=== PATIENT | male | born 1945 | race Caucasian/White ===

== ENCOUNTER 2017-11-18 22:31 | Emergency (ER) | payer OTHER ==
--- NOTE | 2017-11-18 23:40 | RAD REPORT ---
EXAM DESCRIPTION: RAD - Forearm Left - 11/18/2017 11:27 pm CLINICAL HISTORY: PAIN History of fall, trauma COMPARISON: None FINDINGS: No acute fracture or dislocation is seen.
--- NOTE | 2017-11-18 23:42 | RAD REPORT ---
EXAM DESCRIPTION: RAD - Humerus Left - 11/18/2017 11:27 pm CLINICAL HISTORY: PAIN Trauma, fall COMPARISON: None FINDINGS: No acute fracture or dislocation is identified.
[2017-11-19 00:06] LABS: Absolute Lymphocytes (CBC) 1.4 K/uL (0.7-4.9); Absolute Monocytes 0.5 K/uL (0.1-1.3); Absolute Neutrophil 3.3 K/uL (1.8-8.0); Basophils % 0.4 % (0-1.3); Eosinophils % 6.7 % (0-4.4); Hematocrit 41.7 % (39.6-49.0); Lymphocytes % 24.8 % (15.3-44.8); MCV 93.9 fL (80-100); MPV 8.9 fL (7.6-11.3); Monocytes % 8.8 % (3.3-12.3); RBC Red Blood Cell Count 4.44 M/uL (4.33-5.43)
[2017-11-19 00:08] LABS: Potassium 4.2 mmol/L (3.5-5.1)
[2017-11-19] MEDS ORDERED: KETOROLAC 30 MG/ML INJ ONE (01:14)
--- NOTE | 2017-11-19 02:07 | ER ---
Nurse's Notes [facility] Name: Kp Arriola Age: 72 yrs Sex: Male : 1945 Arrival Date: 11/18/2017 Time: 22:35 Bed 13 Private MD: João Zheng V Diagnosis: Fall;left arm pain;abnormal chest CT;atypical pneumonia Presentation: 11/18 22:45 Presenting complaint: Patient states: fell out of bed while having nightmare. pt c/o ak1 left shoulder, left arm, left rib pain with abrasion to right side of head. pt taking eloquis. Care prior to arrival: None. Mechanism of Injury: Fall out of bed an unknown distance. Trauma event details: Injury occurred in the [facility], Injury occurred: at home. Injury occurred: November 18, 2017. 22:45 Method Of Arrival: Ambulatory ak1 22:45 Acuity: GAMAL 2 ak1 22:52 Transition of care: patient was not received from another setting of care. Onset of bp symptoms was November 18, 2017 at 22:30. Risk Assessment: Do you want to hurt yourself or someone else? Patient reports no desire to harm self or others. Initial Sepsis Screen: Does the patient meet any 2 criteria? No. Patient's initial sepsis screen is negative. Does the patient have a suspected source of infection? No. Patient's initial sepsis screen is negative. 22:53 Transition of care: patient was not received from another setting of care. Onset of ak1 symptoms was November 18, 2017. Risk Assessment: Do you want to hurt yourself or someone else? Patient reports no desire to harm self or others. Initial Sepsis Screen: Does the patient meet any 2 criteria? No. Patient's initial sepsis screen is negative. Does the patient have a suspected source of infection? No. Patient's initial sepsis screen is negative. Trauma Activation: Alert Physician: ED Physician; Name: dr. azevedo; Notified At: 22:40; Arrived At: 22:40 Physician: General Surgeon; Name: ; Notified At: 22:40; Arrived At: Physician: Radiology; Name: stephanei; Notified At: 22:40; Arrived At: 22:42 Physician: Respiratory; Name: tom; Notified At: 22:40; Arrived At: 22:42 Physician: Lab; Name: ; Notified At: 22:40; Arrived At: Historical: - Allergies: 22:50 No Known Allergies; ak1 - Home Meds: 22:53 Lipitor 20 mg Oral tab 1 tab once daily [Active]; Cialis 5 mg oral tab 1 tab once daily ak1 [Active]; Ventolin Rotahaler/Rotacaps Inhl [Active]; Spiriva with HandiHaler inhalation inhalation [Active]; carvedilol 6.25 mg oral tab 1 tab [Active]; armor thyroid 30 mcg daily [Active]; Lasix 20 mg Oral tab [Active]; amiodarone 200 mg Oral tab 1 tab once daily [Active]; 22:54 Eliquis oral oral [Active]; ak1 - PMHx: 22:50 CHF; Atrial Fib; kidney cancer; ak1 - PSHx: 22:50 right kidney partial removal; Appendectomy; twisted intestine; ak1 - Immunization history: Last tetanus immunization: unknown. - Social history:: Smoking status: Patient/guardian denies using tobacco. - Ebola Screening: : No symptoms or risks identified at this time. Screenin:45 Abuse screen: Denies threats or abuse. Denies injuries from another. Tuberculosis ak1 screening: No symptoms or risk factors identified. 22:53 Nutritional screening: No deficits noted. Fall Risk None identified. ak1 Primary Survey: 22:45 Breathing/Chest: Respiratory pattern: regular, Respiratory effort: spontaneous, ak1 unlabored. Circulation: Skin color: pink, Skin temperature: warm, dry. Disability Alert. 11/19 02:34 Reassessment Breathing/Chest Respiratory pattern Regular Respiratory effort Unlabored. ak1 Secondary Survey: 11/18 22:48 HEENT: Head Other R FRONTAL ABRASION. Gastrointestinal: No deficits noted. Abdomen is bp soft, non-distended. : No signs and/or symptoms were reported regarding the genitourinary system. Musculoskeletal: Circulation, motion, and sensation intact. Range of motion: limited in left shoulder. Assessment: 22:44 General: Appears in no apparent distress. uncomfortable, slender, Behavior is calm, bp cooperative, appropriate for age. Pain: Complains of pain in forehead, left lateral anterior chest and anterior aspect of left shoulder. Neuro: Level of Consciousness is awake, alert, obeys commands, Oriented to person, place, time, situation, Appropriate for age. EENT: No signs and/or symptoms were reported regarding the EENT system. Cardiovascular: No deficits noted. Respiratory: Airway is patent Respiratory effort is even, unlabored, Respiratory pattern is regular, symmetrical. GI: No signs and/or symptoms were reported involving the gastrointestinal system. : No signs and/or symptoms were reported regarding the genitourinary system. Derm: Wound noted forehead Wound is ABRASION. Musculoskeletal: Circulation, motion, and sensation intact. Range of motion: limited in left shoulder. 22:50 Reassessment: PT TO CT. bp 11/19 00:10 Reassessment: ALL CURRENT ORDERS COMPLETED, RESULTS PENDING. PT EXPRESSING SOME RELIEF bp OF S/S. 00:45 Reassessment: RESULTS PENDING, PT RESTING QUIETLY. bp Vital Signs: 11/18 22:45 BP 153 / 104; Pulse 61; Resp 18; Temp 97.9(O); Pulse Ox 98% on R/A; Weight 79.38 kg ak1 (R); Height 6 ft. 1 in. (185.42 cm) (R); Pain 02/18; 11/19 00:00 BP 139 / 79; Pulse 50; Resp 14; Pulse Ox 96% ; bp 00:45 BP 133 / 74; Pulse 50; Resp 14; Pulse Ox 96% ; bp 02:33 BP 127 / 69; Pulse 50; Resp 14; Temp 98; Pulse Ox 96% on R/A; ak1 11/18 22:45 Body Mass Index 23.09 (79.38 kg, 185.42 cm) ak1 Adam Coma Score: 11/18 22:45 Eye Response: spontaneous(4). Verbal Response: oriented(5). Motor Response: obeys ak1 commands(6). Total: 15. Trauma Score (Adult): 22:45 Eye Response: spontaneous(1); Verbal Response: oriented(1); Motor Response: obeys ak1 commands(2); Systolic BP: > 89 mm Hg(4); Respiratory Rate: 10 to 29 per min(4); Adam Score: 15; Trauma Score: 12 ED Course: 22:35 Patient arrived in ED. es 22:35 Jãoo Zheng MD is Private Physician. es 22:38 Obed Flores is Primary Nurse. wh 22:39 Primary Nurse role handed off by Obed Flores bp 22:39 Anibal Booth, RN is Primary Nurse. bp 22:45 Patient has correct armband on for positive identification. Bed in low position. Call ak1 light in reach. Side rails up X 1. Adult w/ patient. 22:45 Patient maintains SpO2 saturation greater than 95% on room air. ak1 22:47 Triage completed. ak1 22:48 Thermoregulation: warm blanket given to patient. bp 22:50 Arm band placed on Patient placed in an exam room, on a stretcher, on pulse oximetry, ak1 Patient notified of wait time. 22:57 Caden Azevedo MD is Attending Physician. ps1 23:08 CT Traumagram (Head C Spine CAP wo con) In Process Unspecified. EDMS 23:08 CT completed. Patient tolerated procedure well. Patient moved to CT via stretcher. Patient moved back from CT. 23:08 Patient moved to radiology via stretcher. eh 23:26 Humerus Left XRAY In Process Unspecified. EDMS 23:26 Forearm Left XRAY In Process Unspecified. EDMS 23:47 Inserted saline lock: 22 gauge in right forearm, using aseptic technique. Blood bp collected. 11/19 02:06 João Zheng MD is Referral Physician. ps1 02:34 No provider procedures requiring assistance completed. IV discontinued, intact, ak1 bleeding controlled, No redness/swelling at site. Pressure dressing applied. Administered Medications: No medications were administered Intake: 11/18 22:48 PO: 0ml; Total: 0ml. bp Output: 22:48 Urine: 0ml; Total: 0ml. bp Outcome: 11/19 02:06 Discharge ordered by . ps1 02:34 Discharged to home ambulatory, with family. ak1 02:34 Condition: good 02:34 Discharge instructions given to patient, family, Instructed on discharge instructions, follow up and referral plans. no drinking with medication, no driving heavy equipment, medication usage, Demonstrated understanding of instructions, follow-up care, medications, Prescriptions given X 2. 02:34 Patient's length of stay was not longer than 2 hours. ak1 02:35 Patient left the ED. ak1 Signatures: Dispatcher [employer] Lissa Marcial Ervin eh Krenek, Amber RN RN ak1 Obed Flores Brian, RN RN bp Caden Azevedo MD MD ps1 Corrections: (The following items were deleted from the chart) 11/18 22:51 22:44 Immunization history Last tetanus immunization: unknown bp bp
--- NOTE | 2017-11-19 02:07 | EDPHYS ---
Physician Documentation [facility] Name: Kp Arriola Age: 72 yrs Sex: Male : 1945 Arrival Date: 11/18/2017 Time: 22:35 Bed 13 Private MD: João Zheng V ED Physician Caden Camacho HPI: 11/18 22:57 This 72 yrs old Male presents to ER via Ambulatory with complaints of Fall ps1 Injury. 22:59 fall on eliquis. Hit head. No LOC. Has left rib pain and shoulder pain. Pain rated as ps1 moderate. Worse with movement. No remitting factors. hx of kidney CA, afib, CHF. . Historical: - Allergies: 22:50 No Known Allergies; ak1 - Home Meds: 22:53 Lipitor 20 mg Oral tab 1 tab once daily [Active]; Cialis 5 mg oral tab 1 tab once daily ak1 [Active]; Ventolin Rotahaler/Rotacaps Inhl [Active]; Spiriva with HandiHaler inhalation inhalation [Active]; carvedilol 6.25 mg oral tab 1 tab [Active]; armor thyroid 30 mcg daily [Active]; Lasix 20 mg Oral tab [Active]; amiodarone 200 mg Oral tab 1 tab once daily [Active]; 22:54 Eliquis oral oral [Active]; ak1 - PMHx: 22:50 CHF; Atrial Fib; kidney cancer; ak1 - PSHx: 22:50 right kidney partial removal; Appendectomy; twisted intestine; ak1 - Immunization history: Last tetanus immunization: unknown. - Social history:: Smoking status: Patient/guardian denies using tobacco. - Ebola Screening: : No symptoms or risks identified at this time. ROS: 22:59 Constitutional: Negative for fever, chills, and weight loss, Eyes: Negative for injury, ps1 pain, redness, and discharge, Cardiovascular: Negative for chest pain, palpitations, and edema, Respiratory: Negative for shortness of breath, cough, wheezing, and pleuritic chest pain, Abdomen/GI: Negative for abdominal pain, nausea, vomiting, diarrhea, and constipation, Neuro: Negative for headache, weakness, numbness, tingling, and seizure, Psych: Negative for depression, anxiety, suicide ideation, homicidal ideation, and hallucinations. 22:59 MS/extremity: Positive for pain, tenderness, of the left shoulder and left lateral anterior chest. 22:59 Skin: Positive for abrasion(s), of the forehead. Exam: 22:59 Constitutional: This is a well developed, well nourished patient who is awake, alert, ps1 and in no acute distress. Head/Face: Normocephalic, atraumatic. Eyes: Pupils equal round and reactive to light, extra-ocular motions intact. Lids and lashes normal. Conjunctiva and sclera are non-icteric and not injected. Chest/axilla: Normal chest wall appearance and motion. Nontender with no deformity. No lesions are appreciated. Cardiovascular: Regular rate and rhythm. No gallops, murmurs, or rubs. Normal PMI, no JVD. No pulse deficits. Respiratory: Lungs have equal breath sounds bilaterally, clear to auscultation and percussion. No rales, rhonchi or wheezes noted. No increased work of breathing, no retractions or nasal flaring. Abdomen/GI: Soft, non-tender, with normal bowel sounds. No distension or tympany. No guarding or rebound. No evidence of tenderness throughout. 22:59 Musculoskeletal/extremity: Extremities: grossly normal except: noted in the anterior aspect of left shoulder and left lateral anterior chest: pain. Vital Signs: 22:45 BP 153 / 104; Pulse 61; Resp 18; Temp 97.9(O); Pulse Ox 98% on R/A; Weight 79.38 kg ak1 (R); Height 6 ft. 1 in. (185.42 cm) (R); Pain 02/18; 11/19 00:00 BP 139 / 79; Pulse 50; Resp 14; Pulse Ox 96% ; bp 00:45 BP 133 / 74; Pulse 50; Resp 14; Pulse Ox 96% ; bp 02:33 BP 127 / 69; Pulse 50; Resp 14; Temp 98; Pulse Ox 96% on R/A; ak1 11/18 22:45 Body Mass Index 23.09 (79.38 kg, 185.42 cm) ak1 [place] Coma Score: 11/18 22:45 Eye Response: spontaneous(4). Verbal Response: oriented(5). Motor Response: obeys ak1 commands(6). Total: 15. Trauma Score (Adult): 22:45 Eye Response: spontaneous(1); Verbal Response: oriented(1); Motor Response: obeys ak1 commands(2); Systolic BP: > 89 mm Hg(4); Respiratory Rate: 10 to 29 per min(4); Adam Score: 15; Trauma Score: 12 MDM: 23:15 Patient medically screened. ps1 11/19 02:02 Data reviewed: vital signs, nurses notes, lab test result(s), radiologic studies, CT ps1 scan, incidental finding of possible atypical pneumonia, and as a result, I will discharge patient. Counseling: I had a detailed discussion with the patient and/or guardian regarding: the historical points, exam findings, and any diagnostic results supporting the discharge/admit diagnosis, radiology results. 11/18 22:58 Order name: Basic Metabolic Panel; Complete Time: 00:20 ps1 11/18 22:58 Order name: CBC with Diff; Complete Time: 00:20 ps1 11/18 22:58 Order name: CT Traumagram (Head C Spine CAP wo con) ps1 11/18 22:58 Order name: Creatinine for Radiology; Complete Time: 00:20 ps1 11/18 22:58 Order name: Type And Screen; Complete Time: 00:42 ps1 11/18 22:58 Order name: Humerus Left XRAY; Complete Time: 23:56 ps1 11/18 22:58 Order name: Labs collected and sent; Complete Time: 23:47 ps1 11/18 22:58 Order name: Forearm Left XRAY; Complete Time: 23:56 ps1 Administered Medications: No medications were administered Disposition: 11/19/17 02:06 Discharged to Home. Impression: Fall, left arm pain, abnormal chest CT, atypical pneumonia. - Condition is Stable. - Discharge Instructions: Fall Prevention and Home Safety, Pneumonia, Adult, [id number]. - Prescriptions for Tramadol 50 mg Oral Tablet - take 1 tablet by ORAL route every 8 hours as needed; 12 tablet. Zithromax Z- Bo 250 mg Oral Tablet - take 1 tablet by ORAL route as directed for 5 days Day 1 - take two (2) tablets one time. Day 2, 3, 4 , 5 take one (1) tablet once daily.; 6 tablet. - Medication Reconciliation Form, Thank You Letter, Antibiotic Education, Prescription Opioid Use form. - Follow up: João Zheng MD; When: As needed; Reason: Recheck today's complaints, Continuance of care, Re-evaluation by your physician. Follow up: Emergency Department; When: As needed; Reason: Worsening of condition. - Problem is new. - Symptoms have improved. Signatures: Dispatcher [employer] EDMS Maria D Vyas, RN RN ak1 Anibal Booth RN RN bp Caden Camacho MD MD ps1 Corrections: (The following items were deleted from the chart) 11/18 22:51 22:44 Immunization history Last tetanus immunization: unknown [facility] 11/19 02:35 02:06 11/19/2017 02:06 Discharged to Home. Impression: Fall; left arm pain; abnormal ak1 chest CT; atypical pneumonia. Condition is Stable. Forms are Medication Reconciliation Form, Thank You Letter, Antibiotic Education, Prescription Opioid Use. Follow up: João Zheng; When: As needed; Reason: Recheck today's complaints, Continuance of care, Re-evaluation by your physician. Follow up: Emergency Department; When: As needed; Reason: Worsening of condition. Problem is new. Symptoms have improved. ps1
[2017-11-19 02:39] VITALS: O2SAT 96
[2017-11-19 02:42] VITALS: BP 127/69; TEMP 98
--- NOTE | 2017-11-19 08:25 | RAD REPORT ---
EXAM DESCRIPTION: CT - Head C Spine Cap Wo Con - 11/19/2017 4:39 am CLINICAL HISTORY: Trauma, head and neck injury. Chest, abdomen and pelvis pain. fall on eliquis. Hit head. left rib pain and shoulder pain. COMPARISON: Abdomen Pelvis W Contrast dated 09/20/2015; CT ABD PELVIS W CONTRAST dated 08/03/2011 TECHNIQUE: CT head without contrast. CT cervical spine without contrast with coronal and sagittal reformatted images. CT chest, abdomen and pelvis without contrast with coronal and sagittal reformatted images of the [facility] [place]. All CT scans are performed using dose optimization technique as appropriate and may include automated exposure control or mA/KV adjustment according to patient size. FINDINGS: CT HEAD WITHOUT CONTRAST: No intracranial hemorrhage, hydrocephalus or extra-axial fluid collection. Mild generalized brain atr ophy is present with mild periventricular and deep white matter chronic microvascular ischemic change s. No areas of brain edema or midline shift. Moderate mucoperiosteal thickening of the ethmoid air cells noted. The calvarium is intact. CT CERVICAL SPINE WITHOUT CONTRAST: No fracture or subluxation. 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 The prevertebral s oft tissues are normal in thickness. CT CHEST, ABDOMEN, PELVIS WITHOUT CONTRAST: NOTE: Lack of contrast is a significant limitation in the assessment of trauma related findings. Spec ifically, solid organ, vascular and bowel evaluation is significantly limited. Tree-in-bud opacities are present in both lung bases. No focal consolidation typical of bacterial pne umonia.No pneumothorax or pericardial/pleural fluid. No evidence of intra-abdominal visceral injury, free fluid or free air is seen within the above detai led limitations. Cholelithiasis. Bilateral renal cysts are present. Postsurgical clips are present in volving the right kidney. Small fat containing ventral hernia. Moderate prostatomegaly. Small fat containing inguinal hernia. Moderate lower lumbar degenerative changes. IMPRESSION: Negative for acute traumatic findings within the above detailed limitations.
== END 2017-11-19 02:35 | disposition home or self-care (01) ==
LOC: ER 22:31
DX: J18.9 Pneumonia, unspecified organism (principal); R93.8 Abnormal findings on diagnostic imaging of other specified body structures; W19.XXXA Unspecified fall, initial encounter; Y93.9 Activity, unspecified; Y92.9 Unspecified place or not applicable; Z79.01 Long term (current) use of anticoagulants; Z85.528 Personal history of other malignant neoplasm of kidney; I48.91 Unspecified atrial fibrillation; I50.9 Heart failure, unspecified
CPT/HCPCS: 36415; 70450; 71250; 72125; 80048; 85025; 86850; 86900; 86901; 99285

== ENCOUNTER 2020-01-31 12:14 | Inpatient (IN) | payer OTHER ==
--- OUTSIDE RECORDS SUMMARY | 2020-01-31 12:17 | XMS REPORT | Clinical Summary ---
:1945 Author Organization [facility] Address [address] [place] [address] Care Team Providers Name Role Phone Stella Zheng Primary Care Provider Allergies No Known Allergies Medications Not on file Active Problems Not on file Social History Tobacco Use Types Packs/Day Years Used Date Never Assessed Sex Assigned at Date Recorded Not on file Job Start Date Occupation Industry Not on file Not on file Not on file Travel History Travel Start Travel End No recent travel history available. Last Filed Vital Signs Not on file Plan of Treatment Not on file Results Not on fileafter 01/30/2019 Insurance Payer Benefit Plan / Group Subscriber ID Type Phone A ddress [employer] - MEDICARE UNITED MEDICARE HMO xxxxxxxxx [facility] CARE
--- OUTSIDE RECORDS SUMMARY | 2020-01-31 12:17 | XMS REPORT | Clinical Summary ---
:1945 Author Organization [facility] Address [address] [place] [address] Care Team Providers Name Role Phone MD Marce Primary Care Provider Allergies No Known Active Allergies Medications Medication Sig Dispensed Refills Start Date End Date Status VENTOLIN HFA 90 Inhale 2 puffs 6 03/27/2016 Active mcg/actuation every 4 (four) inhaler hours as needed for wheezing. apixaban Take 5 mg by 0 Active (ELIQUIS) 5 mg mouth 2 (two) tablet times a day. thyroid, pork, Take 60 mg by 0 A ctive (ARMOUR THYROID) mouth daily. 60 mg tablet CALCIUM Take 1 tablet 0 Active CARBONATE/VITAMIN by mouth D3 (CALCIUM 500 + daily. D, D3, ORAL) multivitamin Take 1 tablet 0 Act jenny (THERAGRAN) by mouth tablet daily. atorvastatin Take 20 mg by 0 Act jenny (LIPITOR) 20 MG mouth daily. tablet Default OP ins tadalafil Take 5 mg by 0 Active (CIALIS) 5 MG mouth nightly. tablet For enlarged prostrate furosemide Take 1 tablet 90 tablet 3 10/12/2019 Acti ve (LASIX) 40 mg (40 mg total) 1 tablet by mouth daily. PARoxetine Take 10 mg by 0 10/29/2019 Acti ve (PaxiL) 10 MG mouth every tablet morning. aspirin (Aspirin Take 81 mg by 0 09/09/2019 Active Low Dose) 81 MG mouth 2 (two) enteric coated times a week. tablet colesevelam Take by mouth 0 07/09/2018 Act jenny (WELCHOL) 625 mg daily. tablet fluticasone/umecl 0 Ac tive idin/vilanter (TRELEGY ELLIPTA INHL) amIODarone Take 200 mg by 0 Acti ve (PACERONE) 200 MG mouth 2 (two) tablet times a day. carvediloL 0 01/09/2020 Active (COREG) 3.125 MG tablet carvediloL TAKE 1 TABLET 180 tablet 0 01/25/2020 Act jenny (COREG) 6.25 MG BY MOUTH TWICE tablet A DAY Entresto 24-26 mg TAKE 1 TABLET 180 tablet 0 01/25/2020 Active tablet per tablet BY MOUTH TWICE A DAY furosemide Take 20 mg by 1 03/26/2016 Disc ontinued (LASIX) 20 mg mouth every 9 (Err or) tablet morning. atorvastatin Take 20 mg by 0 03/04/2016 Di scontinued (LIPITOR) 20 MG mouth nightly. 9 (Error) tablet CIALIS 5 mg Take 5 mg by 0 02/04/2016 Disc ontinued tablet mouth daily. 9 (Error) amIODarone Take 200 mg by 0 Disc ontinued (PACERONE) 200 MG mouth daily. 0 (Reorder) tablet lisinopril Take 5 mg by 0 Discon tinued (PRINIVIL,ZESTRIL mouth. 0 (T herapy ) 5 mg tablet comple mee) carvedilol Take 1 tablet 180 tablet 3 04/21/2018 Dis continued (COREG) 3.125 MG (3.125 mg 9 (Re order) tabletIndications total) by : Atrial mouth 2 (two) fibrillation, times a day. unspecified type (HCC), SOB (shortness of breath) TRELEGY ELLIPTA Inhale 1 puff 3 02/12/2019 Discontinued 100-62.5-25 mcg every morning. 0 blister with device psyllium husk Take by mouth. 0 D iscontinued (METAMUCIL ORAL) 5 to 10 pills 0 (Discontinued by daily another clinician) furosemide Take 20 mg by 0 Disco ntinued (LASIX) 20 mg mouth daily. 0 (Fo rmulary tablet change) carvedilol TAKE 1 TABLET 180 tablet 3 03/29/2019 Dis continued (COREG) 3.125 MG (3.125 MG 0 (Fo rmulary tabletIndications TOTAL) BY veto rg) : Atrial MOUTH 2 (TWO) fibrillation, TIMES A DAY. unspecified type (HCC), SOB (shortness of breath) amIODarone Take 2 tablets 60 tablet 0 05/19/2019 Exp ired (PACERONE) 200 MG (400 mg total) 0 tablet by mouth daily for 30 days. Additional Information Patient taking differently: 200 mg oral daily, Informant: Self, Reported on 05/31/2019 umeclidinium-vilanterol Inhale every 0 Discontinued (ANORO ELLIPTA) 62.5-25 morning. (Therapy mcg/actuation blister with completed) device alum-mag hydroxide-simeth Take 30 mL by 3840 mL 1 05/1307/02/2019 (MAALOX PLUS) 200-200-20 mouth 4 2/20 mg/5 mL suspension (four) times 20 a day before meals and nightly for 30 days. colchicine 0.6 mg tablet Take 0.5 10 tablet 0 05/13 Discontinued tablets (0.3 20 (Discon tinued by mg total) by 20 another mouth 2 (two) clinic suzi) times a day as needed (chest pain post ablation) for up to 30 days. pantoprazole (PROTONIX) 40 Take 1 tablet 60 tablet 0 05/1307/02/2019 MG EC tablet (40 mg total) 07/01 by mouth 2 20 (two) times a day for 30 days. ranolazine (RANEXA) 500 MG Take 500 mg 0 0 10/12/2019 Discontinued 12 hr ER tablet by mouth 2 (Fo rmulary (two) times a change ) day. carvediloL (COREG) 3.125 MG Take 1 tablet 180 tablet 3 /11/02/2019 Discontinued tablet (3.125 mg /20 (Reorder) total) by 20 mouth 2 (two) times a day. carvediloL (COREG) 6.25 MG Take 1 tablet 180 tablet 0 2 01/18/2020 Discontinued tablet (6.25 mg /20 total) by 20 mouth 2 (two) times a day. sacubitriL-valsartan Take 1 tablet 180 tablet 0 10/11 Discontinued (Entresto) 24-26 mg tablet by mouth 2 /20 per tablet (two) times a 20 day. 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 2019 Overview: Added automatically from request for nichelle biggs [id number] Coronary artery disease involving [place] coronary vanna ry of [place] heart 03/09/2019 without angina pectoris Paroxysmal atrial fibrillation 02/25/2019 Pneumonia due to infectious organism 02/25/2019 SOB (shortness of breath) 04/21/2018 Congestive heart failure 04/15/2017 Atrial fibrillation 03/07/2016 Benign hypertension 03/07/2016 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 Cardiomyopathy 03/07/2016 External hemorrhoids 03/07/2016 Hyperlipidemia 03/07/2016 Encounters Date Type Specialty Care Team Description 01/25/2020 Refill Cardiology Hari Ramirez Med Refill 01/20/2020 Telephone Cardiology [place], Follow-up NICOLASA Bal 01/18/2020 Office Visit Cardiology Hari Ramirez, Other cardi omyopathy (HCC) (Primary Dx); SOB (shortness of breath); Paroxysmal atri al fibrillation (HCC) 01/18/2020 Travel 01/05/2020 Telephone Cardiology [place], Slow Heart R ate Mally RN (after cardiove rsion 12/31/19) 12/31/2019 Anesthesia Event Procedural Saw Bell Cardiology MD Zach Garcia Stephanie Jo, CRNA 12/31/2019 Surgery Procedural Everton Dacosta MD EP CARDIOVERS ION Cardiology [[id number] (CPT)] 12/31/2019 Hospital Encounter Procedural Everton Dacosta MD Atrial fibrillation, Cardiology unspecified typ e (HCC) 12/31/2019 Travel 12/29/2019 Lab Lab Everton Dacosta MD Encounter for preprocedural cardiovascular examination (Pr imary Dx) 12/29/2019 Travel 12/22/2019 Documentation Cardiology Clementina Elliott MD 12/15/2019 Travel 12/14/2019 Telephone Cardiology [place], Result - Lab deana Bal RN 12/03/2019 Orders Only Cardiology Jennifer Francis, NICOLASA 12/01/2019 Telemedicine Cardiology Tulio, CardiomyopathySilvestre MD unspecified type Lexi, (HCC) (Primary Dx) MD Clementina 11/16/2019 Travel 11/03/2019 Telemedicine Cardiology Lexi, Paroxysmal atri al fibrillation (HCC) (Primary Dx); MD Clementina Cardiomyopathy, unspecified type (HCC); Acute on chroni c systolic congestive heart failure (HCC) 11/03/2019 Travel 11/02/2019 Orders Only Cardiology Rob Craven MA 11/02/2019 Orders Only Cardiology Rob Craven MA Atrial fibrill ation, unspecified type (HCC) (Primary Dx); Cardiomyopathy, unspecified type (HCC); SOB (shortness of breath) 10/12/2019 Office Visit Cardiology Hari Ramirez, Atrial fibr illation, unspecified type (HCC) (Primary Dx); Cardiomyopathy, unspecified type (HCC) 10/12/2019 Travel 10/01/2019 Travel 09/01/2019 Orders Only Cardiology Maureen, Coronary artery disease involving [place] coronary artery of [place] heart without angina pectoris (Primary Dx); CARLOTA Morocho CAD in [place] a rtery; Atrial fibrilla tion, unspecified type (HCC); Acute on chroni c systolic congestive heart failure (HCC) 06/11/2019 Anesthesia Event Procedural Dario Villarreal, Cardiology Steph Cotter CRNA 06/11/2019 Surgery Procedural Steven, Nadim EP CARDIOVERSIO N Maegan Dempsey MD [[id number] (CPT)] 06/11/2019 Hospital Encounter Procedural Steven Nadim Persisten t atrial Cardiology MD Ke fibrillation 06/01/2019 Surgery Procedural Everton Dacosta MD EP COMPLETE E P STUDY Cardiology W ABLATION PULM ONARY VEIN [[id number] (CP T)] 06/01/2019 Anesthesia Event Procedural Vernon Pérez Jr., MD 06/01/2019 - Hospital Encounter Cardiology Everton Dacosta MD Persist ent atrial 06/02/2019 fibrillation 05/19/2019 Surgery Procedural Steven Nadim EP CARDIOVERSIO N Maegan Dempsey MD [[id number] (CPT)] 05/19/2019 Anesthesia Event Procedural Srikanth Carrasco Cardiology MD Ngozi Tomlinson Shane Matthew, CRNA 05/19/2019 Hospital Encounter Procedural Kitty Harris atrial Cardiology MD Ke fibrillation 04/13/2019 Office Visit Cardiology Hari Ramirez, Coronary ar suki disease involving [place] coronary artery of [place] heart without angina pectoris (Primary Dx); Atrial fibrilla tion, unspecified type (HCC); Cardiomyopathy, unspecified type (HCC) 03/27/2019 Refill Cardiology Hari Ramirez, Med Refill 03/25/2019 Surgery Procedural Hari Ramirez, Selective c oronary Cardiology angiography [[id number] (CPT)] 03/25/2019 Hospital Encounter Procedural Hari Ramirez, Coron tiffany artery disease involving [place] heart with angina pectoris, unspecified vessel or lesion type (HCC); Cardiology SOB (shortness of breath) 2019 Orders Only Cardiology Maureen, Coronary artery disease involving [place] heart with angina pectoris, unspecified vessel or lesion type (HCC) (Primary Dx); CARLOTA Morocho SOB (shortness of breath) 03/09/2019 Office Visit Cardiology Hari Ramirez, Paroxysmal atrial fibrillation (HCC) (Primary Dx); CAD in [place] a rtery; SOB (shortness of breath) 03/05/2019 Hospital Encounter Procedural Rosa Smith Acute o n chronic congestive heart failure, unspecified heart failure type (HCC); Cardiology MD Seth CAD in [place] a rtery; Atrial fibrilla tion, unspecified type (HCC); SOB (shortness of breath) 03/04/2019 Telephone Procedural Guicho Singh, kohinoor operator 03/01/2019 Orders Only Cardiology Pietro Singh on chroni c congestive heart failure, unspecified heart failure type (HCC) (Primary Dx); CARLOTA Burt CAD in [place] a rtery 02/25/2019 Surgery Procedural Kitty Harris Ep cardioversio n Cardiology MD Ke [[id number] (CPT)] 02/25/2019 Anesthesia Event Procedural Prashant Villeda, Cardiology John Potrer 02/24/2019 - Hospital Encounter Cardiology Lew Snow Paroxysma l atrial fibrillation (HCC) (Primary Dx); 02/27/2019 MD Shivam Acute on chronic congestive heart failur e, unspecified heart failure type (HCC); Erica Wright, Chest pain, unspecified type; Acute on chronic systolic congestive hea rt failure (HCC) Yobani Griffith MD Neela, Rekha Srinivas, MD after 01/30/2019 Family History Medical History Relation Name Comments Heart disease Father Alzheimer's disease Mother Relation Name Status Comments Father Mother Social History Tobacco Use Types Packs/Day Years Used Date Former Smoker Cigarettes 2 40 Quit: 03/09/20 03 Smokeless Tobacco: Former User Chew Alcohol Use Drinks/Week oz/Week Comments Yes occasional Sex Assigned at Date Recorded Not on file COVID-19 Exposure Response Date Recorded In the last month, have you been in contact with No / Unsure 01/18/2020 2:07 PM CDT someone who was confirmed or suspected to have Coronavirus / COVID-19? Last Filed Vital Signs Vital Sign Reading Time Taken Comments Blood Pressure 119/76 01/18/2020 2:16 PM CDT Pulse 74 01/18/2020 2:16 PM CDT Temperature 36.5 C (97.7 F) 12/31/2019 12:23 PM CDT Respiratory Rate 21 12/31/2019 12:50 PM CDT Oxygen Saturation 96% 12/31/2019 12:50 PM CDT Inhaled Oxygen Concentration - - Weight 83.5 kg (184 lb) 01/18/2020 2:16 PM CDT Height 185.4 cm (6' 1") 01/18/2020 2:16 PM CDT Body Mass Index 24.28 01/18/2020 2:16 PM CDT Plan of Treatment Date Type Specialty Care Team Description 02/02/2020 Telemedicine Cardiology Clementina Elliott MD [address] [place], [place] [address] [phone] 04/19/2020 Appointment Procedural Cardiology Juli Ramirez MD [address] [place], [place] [address] [phone] 04/25/2020 Office Visit Cardiology Hari Ramirez MD [address] [place], [place] [address] Health Maintenance Due Date Last Done Comments COLONOSCOPY SCREENING 1993 SHINGLES VACCINES (#1) 1993 65+ PNEUMOCOCCAL VACCINE (1 of 1 - PPSV23) 2008 INFLUENZA VACCINE 01/11/2020 01/19/2019 Procedures Procedure Name Priority Date/Time Associated Diagnosis Comme nts ECG 12-LEAD Routine 01/18/2020 2:26 SOB (shortness of Result s for this AM CDT breath) procedure are i n the results section. ECG 12-LEAD STAT 12/31/2019 12:13 Results for this PM CDT procedure are i n the results section. EP CARDIOVERSION Routine 12/31/2019 12:08 Atrial fibrillation, Results for this PM CDT unspecified type procedure a re in ([facility]) the results section. ECG 12-LEAD STAT 12/31/2019 8:35 Results for this AM CDT procedure are i n the results section. ESTIMATED GFR Routine 12/29/2019 4:10 Results fo r this PM CDT procedure are i n the results section. PARTIAL THROMBOPLASTIN Routine 12/29/2019 4:10 Encounter for Results for this TIME (PTT) PM CDT preprocedural procedure are in cardiovascular the results examination section. PROTHROMBIN TIME WITH Routine 12/29/2019 4:10 Encounter for R esults for this INR PM CDT preprocedural procedure are in cardiovascular the results examination section. HC COMPLETE BLD COUNT Routine 12/29/2019 4:10 Encounter for R esults for this W/AUTO DIFF PM CDT preprocedural procedure are in cardiovascular the results examination section. BASIC METABOLIC PANEL Routine 12/29/2019 4:10 Encounter for R esults for this PM CDT preprocedural procedure are in cardiovascular the results examination section. MAGNESIUM LEVEL Routine 12/29/2019 4:10 Encounter for Results for this PM CDT preprocedural procedure are in cardiovascular the results examination section. COVID-19 QUALITATIVE Routine 12/29/2019 3:52 Encounter for Re sults for this PCR PM CDT preprocedural procedure are in cardiovascular the results examination section. ECG 12-LEAD Routine 10/12/2019 12:36 Atrial fibrillation, Res ults for this PM CDT unspecified type procedure a re in ([facility]) the results section. TTE COMPLETE, W Routine 10/01/2019 12:49 Coronary artery Resul ts for this CONTRAST, W DOPPLER PM CDT disease involving pro cedure are in ([id number]) [place] coronary the results artery of [place] section. heart without angina pectoris Atrial fibrillation, unspecified type (HCC) Acute on chronic systolic congestive heart failure (HCC) EP CARDIOVERSION Routine 06/11/2019 10:18 Persistent atrial Re sults for this AM LIME TRIMMER fibrillation procedure are i n the results section. ECG PRE/POST OP Routine 06/11/2019 10:07 Results for this AM LIME TRIMMER procedure are i n the results section. POC PANEL Routine 06/11/2019 7:08 Results for this AM [employer] TRIMMER procedure are i n the results section. ESTIMATED GFR Routine 06/11/2019 7:08 Results fo r this AM [employer] TRIMMER procedure are i n the results section. PROTHROMBIN TIME WITH STAT 06/11/2019 6:50 Re sults for this INR AM [employer] TRIMMER procedure are i n the results section. PARTIAL THROMBOPLASTIN STAT 06/11/2019 6:50 R esults for this TIME (PTT) AM [employer] TRIMMER procedure are i n the results section. HC COMPLETE BLD COUNT STAT 06/11/2019 6:50 Re sults for this W/AUTO DIFF AM [employer]IME TRIMMER procedure are i n the results section. MAGNESIUM LEVEL STAT 06/11/2019 6:34 Results for this AM L[employer] TRIMMER procedure are i n the results section. ECG 12-LEAD STAT 06/11/2019 6:22 Results for this AM [employer] TRIMMER procedure are i n the results section. ESTIMATED GFR Routine 06/02/2019 3:00 Results fo r this AM [employer] TRIMMER procedure are i n the results section. BASIC METABOLIC PANEL Routine 06/02/2019 3:00 Re sults for this AM [employer] TRIMMER procedure are i n the results section. HC COMPLETE BLD COUNT Routine 06/02/2019 3:00 Re sults for this W/AUTO DIFF AM LIME TRIMMER procedure are i n the results section. ECG 12-LEAD Routine 06/02/2019 2:57 Results for this AM L[employer] TRIMMER procedure are i n the results section. ECG 12-LEAD STAT 06/01/2019 6:21 Results for this PM LIME TRIMMER procedure are i n the results section. EP COMPLETE EP STUDY W Routine 06/01/2019 12:47 Persistent atr ial Results for this ABLATION PULMONARY PM LIME TRIMMER fibrillation procedure are in VEIN the results section. ACTIVATED CLOTTING Routine 06/01/2019 12:47 Resul ts for this TIME PM LIME TRIMMER procedure are i n the results section. ACTIVATED CLOTTING Routine 06/01/2019 12:20 Resul ts for this TIME PM LIME TRIMMER procedure are i n the results section. ACTIVATED CLOTTING Routine 06/01/2019 11:52 Resul ts for this TIME AM LIME TRIMMER procedure are i n the results section. ACTIVATED CLOTTING Routine 06/01/2019 11:22 Resul ts for this TIME AM LIME TRIMMER procedure are i n the results section. ACTIVATED CLOTTING Routine 06/01/2019 10:53 Resul ts for this TIME AM [employer] TRIMMER procedure are i n the results section. ACTIVATED CLOTTING Routine 06/01/2019 10:27 Resul ts for this TIME AM [employer]IME TRIMMER procedure are i n the results section. ACTIVATED CLOTTING Routine 06/01/2019 9:38 Resul ts for this TIME AM LIME TRIMMER procedure are i n the results section. ACTIVATED CLOTTING Routine 06/01/2019 9:08 Resul ts for this TIME AM LIME TRIMMER procedure are i n the results section. ACTIVATED CLOTTING Routine 06/01/2019 8:58 Resul ts for this TIME AM [employer]IMMER procedure are i n the results section. ARTERIAL LINE Routine 06/01/2019 8:27 Results fo r this AM [employer] TRIMMER procedure are i n the results section. ARTERIAL LINE Routine 06/01/2019 8:27 Results fo r this AM [employer] TRIMMER procedure are i n the results section. ANESTHESIA INTUBATION Routine 06/01/2019 8:26 Re sults for this AM [employer] TRIMMER procedure are i n the results section. ACTIVATED CLOTTING Routine 06/01/2019 8:21 Resul ts for this TIME AM [employer] TRIMMER procedure are i n the results section. POC PANEL Routine 06/01/2019 6:21 Results for this AM [employer] TRIMMER procedure are i n the results section. ESTIMATED GFR Routine 06/01/2019 6:21 Results fo r this AM [employer] TRIMMER procedure are i n the results section. TYPE AND SCREEN STAT 06/01/2019 6:07 Results for this AM [employer]IMMER procedure are i n the results section. EP CARDIOVERSION Routine 05/19/2019 7:30 Persistent atrial Re sults for this AM [employer] TRIMMER fibrillation procedure are i n the results section. POC PANEL Routine 05/19/2019 6:23 Results for this AM [employer] TRIMMER procedure are i n the results section. ESTIMATED GFR Routine 05/19/2019 6:23 Results fo r this AM [employer] TRIMMER procedure are i n the results section. PARTIAL THROMBOPLASTIN STAT 05/19/2019 6:10 R esults for this TIME (PTT) AM [employer] procedure are i n the results section. PROTHROMBIN TIME WITH STAT 05/19/2019 6:10 Re sults for this INR AM [employer]MER procedure are i n the results section. HC COMPLETE BLD COUNT STAT 05/19/2019 6:10 Re sults for this W/AUTO DIFF AM [employer]IMMER procedure are i n the results section. ECG 12-LEAD STAT 05/19/2019 5:49 Results for this AM [employer]MER procedure are i n the results section. MAGNESIUM LEVEL STAT 05/19/2019 5:43 Results for this AM [employer]MER procedure are i n the results section. CV SELECTIVE CORONARY Routine 03/25/2019 11:55 Coronary artery Results for this ANGIOGRAPHY AM [employer]MER disease involving procedure are in [place] heart with the result s angina pectoris, section. unspecified vessel or lesion type (HCC ) SOB (shortness of breath) MISCELLANEOUS REFERRAL STAT 03/25/2019 11:35 R esults for this TEST AM [employer] TRIMMER procedure are i n the results section. TROPONIN STAT 03/25/2019 11:35 Results for this AM [employer]MER procedure are i n the results section. TROPONIN STAT 03/25/2019 9:48 Results for this AM [employer] TRIMMER procedure are i n the results section. POC PANEL Routine 03/25/2019 7:22 Results for this AM [employer]MER procedure are i n the results section. ESTIMATED GFR Routine 03/25/2019 7:22 Results fo r this AM [employer]MER procedure are i n the results section. COPY RECEIVED FROM: Routine 03/20/2019 8:33 Resu lts for this AM [employer] TRIMMER procedure are i n the results section. PROTHROMBIN TIME WITH Routine 03/20/2019 8:33 Re sults for this INR AM [employer]MER procedure are i n the results section. PARTIAL THROMBOPLASTIN Routine 03/20/2019 8:33 R esults for this TIME (PTT) AM [employer]IMMER procedure are i n the results section. COPY(IES) SENT TO: Routine 03/20/2019 8:33 Resul ts for this AM [employer]MER procedure are i n the results section. PT AND PTT Routine 03/20/2019 8:33 Paroxysmal atrial Result s for this AM L[employer] TRIMMER fibrillation (HC C) procedure are in CAD in [place] ar skui the results SOB (shortness of section. breath) CBC WITH PLATELET AND Routine 03/20/2019 8:33 Paroxysmal atri al Results for this DIFFERENTIAL AM [employer]IMMER fibrillation (HC C) procedure are in CAD in [place] ar suki the results SOB (shortness of section. breath) COMPREHENSIVE Routine 03/20/2019 8:33 Paroxysmal atrial Resul ts for this METABOLIC PANEL AM LIME TRIMMER fibrillation (HC C) procedure are in CAD in [place] ar suki the results SOB (shortness of section. breath) ECG 12-LEAD Routine 03/09/2019 10:12 Paroxysmal atrial Result s for this AM CDT fibrillation (HCC) procedure are in the results section. CARDIAC PET MYOCARDIAL STAT 03/05/2019 1:50 Acute on chron ic PERFUSION IMAGING PM CDT congestive heart failure, unspecified heart failure type (HCC) CAD in [place] artery CV CARDIAC PET STRESS Routine 03/05/2019 1:50 Atrial fibrilla tion, Results for this TEST PM CDT unspecified type procedure a re in (HCC) the results SOB (shortness of section. breath) ECG 12-LEAD Routine 03/05/2019 1:22 Results for this PM CDT procedure are i n the results section. ESTIMATED GFR Routine 02/27/2019 4:00 Results fo r this AM CDT procedure are i n the results section. B NATRIURETIC PEPTIDE Routine 02/27/2019 4:00 Re sults for this AM CDT procedure are i n the results section. CBC WITH PLATELET AND Routine 02/27/2019 4:00 Re sults for this DIFFERENTIAL AM CDT procedure are i n the results section. BASIC METABOLIC PANEL Routine 02/27/2019 4:00 Re sults for this AM CDT procedure are i n the results section. CT CARDIAC CALCIUM Routine 02/26/2019 5:13 Resul ts for this SCORE PM CDT procedure are i n the results section. ECG 12-LEAD Routine 02/26/2019 7:58 Results for this AM CDT procedure are i n the results section. ESTIMATED GFR Routine 02/26/2019 4:00 Results fo r this AM CDT procedure are i n the results section. B NATRIURETIC PEPTIDE Routine 02/26/2019 4:00 Re sults for this AM CDT procedure are i n the results section. CBC WITH PLATELET AND Routine 02/26/2019 4:00 Re sults for this DIFFERENTIAL AM CDT procedure are i n the results section. BASIC METABOLIC PANEL Routine 02/26/2019 4:00 Re sults for this AM CDT procedure are i n the results section. ECG PRE/POST OP Routine 02/25/2019 1:53 Results for this PM CDT procedure are i n the results section. EP CARDIOVERSION Routine 02/25/2019 1:48 Results for this PM CDT procedure are i n the results section. TTE COMPLETE, WO Routine 02/25/2019 7:58 Results for this CONTRAST, W DOPPLER AM CDT procedur e are in ([id number]) the results section. TROPONIN Routine 02/25/2019 5:42 Results for this AM CDT procedure are i n the results section. B NATRIURETIC PEPTIDE Routine 02/25/2019 4:55 Re sults for this AM CDT procedure are i n the results section. ECG 12-LEAD STAT 02/25/2019 4:30 Results for this AM CDT procedure are i n the results section. LIPID PANEL Routine 02/25/2019 12:28 Results for this AM CDT procedure are i n the results section. HEMOGLOBIN A1C Routine 02/25/2019 12:01 Results f or this AM CDT procedure are i n the results section. TROPONIN Timed 02/24/2019 11:05 Results for this PM CDT procedure are i n the results section. TROPONIN Timed 02/24/2019 8:45 Results for this PM CDT procedure are i n the results section. ESTIMATED GFR STAT 02/24/2019 6:06 Results fo r this PM CDT procedure are i n the results section. T4, FREE STAT 02/24/2019 6:06 Results for this PM CDT procedure are i n the results section. THYROID STIMULATING STAT 02/24/2019 6:06 Resu lts for this HORMONE PM CDT procedure are i n the results section. MAGNESIUM LEVEL STAT 02/24/2019 6:06 Results for this PM CDT procedure are i n the results section. B NATRIURETIC PEPTIDE STAT 02/24/2019 6:06 Re sults for this PM CDT procedure are i n the results section. TROPONIN STAT 02/24/2019 6:06 Results for this PM CDT procedure are i n the results section. COMPREHENSIVE STAT 02/24/2019 6:06 Results fo r this METABOLIC PANEL PM CDT procedure ar e in the results section. HC COMPLETE BLD COUNT STAT 02/24/2019 6:06 Re sults for this W/AUTO DIFF PM CDT procedure are i n the results section. XR CHEST 1 VW PORTABLE STAT 02/24/2019 6:04 R esults for this PM CDT procedure are i n the results section. ECG 12-LEAD STAT 02/24/2019 4:53 Results for this PM CDT procedure are i n the results section. after 01/30/2019 Results ECG 12 lead (01/18/2020 2:26 AM CDT)Only the most recent of13 resultswithin the time period is included. Pathologist Sig nature Ventricular rate 67 [facility] Atrial rate 67 [facility] CA interval 274 [facility] QRSD interval 110 [facility] QT interval 450 [facility] QTC interval 475 [facility] P axis 1 72 [facility] QRS axis 1 101 [facility] T wave axis 67 [facility] EKG impression Sinus rhythm with 1st [facility] M[facility] degree AV block with occasional premature ventricular complexes and fusion complexes-Electronicall y Signed By Edilberto Harris MD ([id number]) on 01/18/2020 2:28:08 PM Specimen Narrative Performed At This result has an attachment that is no t available. Performing Organization Address [facility] Code Phon e Number [facility] MUSE [address] [place] [address] Electrophysiology procedure (12/31/2019 12:08 PM CDT) Specimen Narrative Performed At This result has an attachment that is no t available. Cardiac Catheterization Operative Note SYNGO Jackelin Vergara, [id number] 74 y.o. male 12/31/2019; [facility] WT CATH AOD PROC RM 1 Procedure(s): EP CARDIOVERSION Tolerated procedure well Condition: stable Complications: None; patient tolerated the procedure well. Findings: Procedure Details Successful CVN with 200J x1 Continue amiodarone 200mg PO BID Pre-op Diagnosis: Atrial fibrillation, unspecified type (HCC) [I48.91] Post-Op Diagnosis Codes: * Atrial fibrillation, unspecified type (HCC) [I48 .91] Surgeon(s) and Role: * Everton Dacosta MD - Primary Anesthesia: General Blood Products Administered: na Estimated Blood Loss: * No values recorded between 12/11 11:19 AM and 12/31/2019 12:08 PM * Sheath/IV: No LDAs Documented Specimens: * No specimens in log * Grafts/Implants: None Everton Dacosta MD Date: 12/31/2019 Time: 12:22 PM Performing Organization Address [facility] Phon e Number [facility] [address] [place] [address], Estimated GFR (12/29/2019 4:10 PM CDT)Only the most recent of9 resultswithin the time period is included. Pathologist [facility] Estimated GFR 51 (A) mL/min/1.73 [facility] Comment: HOSPITAL Catergory Units Interpretation G1 >=90 Normal or high G2 60-89 Mildly decreased G3a 45-59 Mildly to moderately decreas ed G3b 30-44 Moderately to severely decre ased G4 15-29 Severely decreased G5 <15 Kidney failure The eGFR was calculated using the Chronic Kidney Disea se Epidemiology Collaboration (CKD-EPI) equation. Interpretation is based on recommendations of the National Kidney Foundation-Kidney Disease Outcomes Obi lity Initiative (NKF-KDOQI) published in 2014. Specimen Performing Organization Address City/[facility] Phon e Number [facility] DEPARTMENT OF PATHOLOGY AND [address] [place], [place] [id number] Partial thromboplastin time, activated (12/29/2019 4:10 PM CDT)Only the most recent of4 resultswithin the time period is included. Pathologist [facility] PTT 37.4 (H) 23.0 - 36.0 [facility] Comment: [facility] PTT therapeutic range for unfractionated heparin is 61.0-112.0 seconds which corresponds to Anti-Xa 0.3-0.7 U/ml. Specimen Blood Performing Organization Address [facility] Phon e Number [facility] DEPARTMENT OF PATHOLOGY AND [address] [place] [address] [address] [address] Prothrombin time with INR (12/29/2019 4:10 PM CDT)Only the most recent of4 resultswithin the time period is included. Pathologist [facility] Prothrombin time 17.4 (H) 11.5 - 14.5 [facility] INR 1.4 [facility] Comment: [facility] The International Normalized Ratio (INR) is a therapeu [facility] HOSPITAL monitoring tool for patients who are stable on oral anticoagulant therapy. An INR of 2.0-3.0 is suggested for deep vein thrombosis/pulmonary embolism. Specimen Blood Performing Organization Address City/[facility] Phon e Number [facility] DEPARTMENT OF PATHOLOGY AND [address] [place] [address] [facility] [address] [place] [id number] CBC with platelet and differential (12/29/2019 4:10 PM CDT)Only the most recent of8 resultswithin the time period is included. WBC 6.90 4.50 - 11.00 [facility] k/uL HOSPITAL RBC 4.47 4.40 - 6.00 [facility] m/uL HOSPITAL HGB 13.9 (L) 14.0 - 18.0 [facility] g/dL HOSPITAL HCT 42.8 41.0 - 51.0 % [facility] MCV 95.7 82.0 - 100.0 [facility] MCH 31.1 27.0 - 34.0 pg [facility] MCHC 32.5 31.0 - 37.0 [facility] - SD 51.2 37.0 - 55.0 fL [facility] MPV 9.9 8.8 - 13.2 fL [facility] Platelet count 245 150 - 400 k/uL [facility] Nucleated RBC 0.00 /100 WBC [facility] Neutrophils 69.8 (H) 39.0 - 69.0 % [facility] Lymphocytes 19.3 (L) 25.0 - 45.0 % [facility] Monocytes 7.7 0.0 - 10.0 % [facility] Eosinophils 2.5 0.0 - 5.0 % [facility] Basophils 0.3 0.0 - 1.0 % [facility] Immature granulocytes 0.4Comment: 0.0 - 1.0 % [facility] "Immature HOSPITAL granulocytes" (promyelocytes , myelocytes, metamyelocytes ) Specimen Blood Performing Organization Address City/[facility] Phon e Number [facility] DEPARTMENT OF PATHOLOGY AND [address] [place] [address] [address] [address] Magnesium level (12/29/2019 4:10 PM CDT)Only the most recent of4 resultswithin the time period is included. Pathologist Sig nature Magnesium 2.1 1.6 - 2.4 mg/dL [facility] Specimen Blood Performing Organization Address City/[facility] Phon e Number [facility] DEPARTMENT OF PATHOLOGY AND [address] [place] [address] Basic metabolic panel (12/29/2019 4:10 PM CDT)Only the most recent of4 results within the time period is included. Pathologist Sig nature Sodium 136 135 - 148 mEq/L [facility] Potassium 5.0 3.5 - 5.0 mEq/L [facility] Chloride 99 98 - 112 mEq/L [facility] CO2 26 24 - 31 mEq/L [facility] Anion gap 11@ANIO 7 - 15 mEq/L [facility] BUN 35 (H) 8 - 23 mg/dL [facility] Creatinine 1.34 (H) 0.70 - 1.20 mg/dL [facility] Glucose 114 (H) 65 - 99 mg/dL [facility] Calcium 9.6 8.8 - 10.2 mg/dL [facility] Specimen Blood Performing Organization Address City/[facility] Phon e Number [facility] DEPARTMENT OF PATHOLOGY AND [address] [place] [address] COVID-19 qualitative PCR (12/29/2019 3:52 PM CDT) Interpretation Negative results do not prec lude 2019-nCoV infection and should not be used as the sole basis for treatment or other patient management decisions. Negative results must be combined with clinical observations, patient history, and epidemiological [facility] information. [facility] COVID-19 qualitative Not-Detected Not-Detecte [facility] PCR result d [facility] COVID-19 qualitative See link below for [facility] PCR PDF Lab [facility] ReportComment: Case HOSPITAL Number: [id number] Specimen Nasopharyngeal swab Performing Organization Address City/[facility] Phon e Number [facility] DEPARTMENT OF PATHOLOGY AND [address] [place] [address] Transthoracic Echocardiogram Complete, (w Contrast, Strain and 3D if needed) (10/01/2019 12:49 PM CDT) Specimen Narrative Performed At [facility] Echo cardiography Report Pat.Name: JACKELIN VERGARA Pat.ID: [id number] .Date: 10/01/2019 Refer.MD: HARI RAMIREZ MD Exam Time: 11:08:00 AM Study Type:Michelle blancas Echo Height: 73in Weight: 181lb BSA: 2.06 m2 Ag e: 1945,74Y Sex: MALE BP: 110/65 HR: 81 bpm Sonogrphr: YENIFER Moreno FASE Pat. Stat.:Outpatient Room: [facility] Study Status:Final Echo Event ID:[id number] Order ID: [id number] Reason for Study:Coronary artery disease involving [place] coronary artery of [place] heart without angina pe ctoris [I25.10 (ICD-10-CM)]; Atrial fibrillation, unspecified type (H CC) [I48.91 (ICD-10-CM)]; Acute on chronic systolic congestive hea rt failure (HCC) [I50.23 (ICD-10-CM)] History / Clinical:Atrial Fibrillation Procedures: 2D Echo, Colorflow Doppler Race: C SUMMARY: . LV EF is severely depressed. Regional wall motion abnormalities prese nt. RV systolic function is moderately depre ssed. LV filling pressure is restrictive patte rn, mean PCWP >25mmHg. Estimated PA systolic pressure is 45-50 mmHg, assuming a mean RAP of 5 mmHg. FINDINGS: LV: LV size is ohrv-lf-gwcqdaxk ly enlarged. There is severe eccentric LV hypertrophy. LV EF is severely depressed. Estimated EF is 25-29%. Regional wall m otion abnormalities present. RV: RV size is upper limits of normal. RV systolic function is moderately depressed. LA: LA volume is severely enlar ged. RA: RA volume is severely enlar ged. AO: Aortic root diameter is nor mal in size. Ascending aorta diameter is normal. CECI: Trace posterior pericardial effusion. IAS: Possible patent foramen ova le with left to right shunt is noted on color Doppler. AV: No structural AV abnormalit ies noted. MV: Mild thickening of mitral l eaflets. Mild posterior mitral valve prolapse. Mild ecce ntric mitral regurgitation. PV: No structural PV abnormalit ies noted. Mild pulmonic regurgitation. TV: No structural TV abnormalit ies noted. Mild tricuspid regurgitation Carlson: LV relaxation is impaired. L V filling pressure is restrictive pattern, mean PCWP >25mmHg. Other: Estimated PA systolic pressu re is 45-50 mmHg, assuming a mean RAP of 5 mmHg. MEASUREMENTS: 2D Parasternal Long Cromwell Ao An 2 cm LVPWd 1.4 cm Ao Rtd 3.2 cm Index 1.5 cm/m2 LA Ds 5.1 cm IVSd 1.6 cm RWT 0.47 LVIDd 5.8 cm Index 2.8 cm/m2 LV Mass 399 g (122-1 74)* LVIDs 4.6 cm LVM In dex 194 g/m LV%fs 20 % LVOT 1.8 cm LA Sng Plane LA Area 40 cm (8.8-23.4)* LA Vol 165 ml Index 80 ml/m2 LA LngAx 7.8 cm LVOT LVOT Area 2.5 cm WALL MOTION: RESTING WALL MOTION: Basal Anterior, Basal Anteroseptal ordonez are akinetic. Basal Inferoseptal, Basal Inferior, Mid Anteri or, Mid Anteroseptal, Mid Inferoseptal, Mid Inferior, Mid Anterola teral, Apical Anterior, Apical Septal, Apical Inferior, Apical Lateral, Apical ordonez are hypokinetic. Basal Inferolateral, Basal Anterolatera l, Mid Inferolateral ordonez are mildly hypokinetic. Wall Index = 2 Signed 10/05/2019 11:03 AM Bailey Dow M.D. Procedure Note Interface, Radiology Results In - 2019 11:03 AM CDT [facility] Echocardiography Report Pat.Name: JACKELIN VERGARA Pat.I D: [id number] St.Date: 10/01/2019 Refer .MD: HARI RAMIREZ MD Exam Time: 11:08:00 AM Study Type:Routine Echo Height: 73in Weigh t: 181lb BSA: 2.06 m2 Age: 8 1945,74Y Sex: MALE BP: 110/65 HR: 81 bpm Sonogrphr: YENIFER Moreno FASE Pat. Stat.:Outpatient Room: [facility] Study Status:Final Echo Event ID:[id number] Order ID: [id number] Reason for Study:Coronary artery disease involving [place] coronary artery of [place] heart without angina pe ctoris [I25.10 (ICD-10-CM)]; Atrial fibrillation, unspecified type (H CC) [I48.91 (ICD-10-CM)]; Acute on chronic systolic congestive hea rt failure (HCC) [I50.23 (ICD-10-CM)] History / Clinical:Atrial Fibrillation Procedures: 2D Echo, Colorflow Doppler Race: C SUMMARY: . LV EF is severely depressed. Regional wall motion abnormalities prese nt. RV systolic function is moderately depre ssed. LV filling pressure is restrictive patte rn, mean PCWP >25mmHg. Estimated PA systolic pressure is 45-50 mmHg, assuming a mean RAP of 5 mmHg. FINDINGS: LV: LV size is tugo-bc-bwibqcwzyy enlarged. There is severe eccentric LV hypertrophy. LV E F is severely depressed. Estimated EF is 25-29%. Region al wall motion abnormalities present. RV: RV size is upper limits of nor mal. RV systolic function is moderately depressed. LA: LA volume is severely enlarged . RA: RA volume is severely enlarged . AO: Aortic root diameter is normal in size. Ascending aorta diameter is normal. CECI: Trace posterior pericardial ef fusion. IAS: Possible patent foramen ovale with left to right shunt is noted on color Doppler. AV: No structural AV abnormalities noted. MV: Mild thickening of mitral leaf lets. Mild posterior mitral valve prolapse. Mild eccentric mitral regurgitation. PV: No structural PV abnormalities noted. Mild pulmonic regurgitation. TV: No structural TV abnormalities noted. Mild tricuspid regurgitation Carlson: LV relaxation is impaired. LV filling pressure is restrictive pattern, mean PCWP >25mmHg. Other: Estimated PA systolic pressure is 45-50 mmHg, assuming a mean RAP of 5 mmHg. MEASUREMENTS: 2D Parasternal Long Cromwell Ao An 2 cm LVPW d 1.4 cm Ao Rtd 3.2 cm Inde x 1.5 cm/m2 LA Ds 5.1 cm IVSd 1.6 cm RWT 0.47 LVIDd 5.8 cm Inde x 2.8 cm/m2 LV Mass 399 g (122-174)* LVIDs 4.6 cm LVM Index 194 g/m LV%fs 20 % LVOT 1.8 cm LA Sng Plane LA Area 40 cm (8.8-23.4)* LA Vol 165 ml Index 80 ml/m2 LA LngAx 7.8 cm LVOT LVOT Area 2.5 cm WALL MOTION: RESTING WALL MOTION: Basal Anterior, Basal Anteroseptal ordonez are akinetic. Basal Inferoseptal, Basal Inferior, Mid Anteri or, Mid Anteroseptal, Mid Inferoseptal, Mid Inferior, Mid Anterola teral, Apical Anterior, Apical Septal, Apical Inferior, Apical Lateral, Apical ordonez are hypokinetic. Basal Inferolateral, Basal Anterolatera l, Mid Inferolateral ordonez are mildly hypokinetic. Wall Index = 2 Signed 10/05/2019 11:03 AM Bailey Dow M.D. Performing Organization Address City/State/ZIP Code Phon e Number [facility] [address] [place] [address] Electrophysiology procedure (06/11/2019 10:18 AM LIME TRIMMER) Specimen Narrative Performed At This result has an attachment that is no t available. MARGARETO Kitty Harris Jr., MD Physician Cardiology Brief Op Note Signed Date of Service: 06/11/2019 10:10 AM Procedure: EP CARDIOVERSION Case Time: 06/11/2019 10:10 AM Surgeon: Kitty Harris Jr., MD Signed []Hide copied text []Hover for details Cardioversion operative Note Jackelin Vergara, [id number] 74 y.o. male 06/11/2019; [facility] WT CATH AOD PROC RM 1 Procedure(s): EP CARDIOVERSION Tolerated procedure well Condition: stable Complications: None; patient tolerated the procedure well. Findings: The patient was identified and c onsent reconfirmed prior to the procedure The baseline rhyth m was atrial fibrillation Anesthesia was giv en When the patient w as adequately sedated, synchronized DC CVN was performed converting the patient to sinus The patient awoke without sequelae Procedure Details Pre-op Diagnosis: Persistent atrial fibrillation [I48.19] Post-Op Diagnosis Codes: * Persistent atrial fibrillation [I48.19] Surgeon(s) and Role: * Kitty Harris Jr., MD - Primary Anesthesia: Anesthesia type not filed in the log. Blood Products Administered: Estimated Blood Loss: * No values recorded between 05/14 10:10 AM and 06/11/2019 10:18 AM * Sheath/IV: No LDAs Documented Specimens: * No specimens in log * Grafts/Implants: None Conclusions: Successful cardioversion to NSR Recommendations: Continue medical management and pos t op Afib ablation routine and opt follow up. Kitty Harris Jr., MD Date: 06/11/2019 Time: 10:20 AM Performing Organization Address [facility] Code Phon e Number [facility] [address] [place] [address], ECG Pre/Post Op (06/11/2019 10:07 AM LIME TRIMMER)Only the most recent of2 resultswithin the time period is included. Pathologist Sig nature Ventricular rate 57 [facility] MUSE Atrial rate 57 [facility] CA interval 278 [facility] QRSD interval 112 [facility] QT interval 450 [facility] QTC interval 438 [facility] P axis 1 69 [facility] QRS axis 1 2 [facility] T wave axis 77 [facility] EKG impression Sinus bradycardia with 1st d egree AV block-Anterior infarct (cited on or before 24-FEB-2019)-Abnormal ECG-In automated comparison with ECG of 11-JUN-2019 06:22,-Sinus rhythm has replaced Atrial flutter- [facility] MUSE Specimen Narrative Performed At This result has an attachment that is no t available. Performing Organization Address [facility] Phon e Number H MUSE [address] [place] [address] POC panel (06/11/2019 7:08 AM LIME TRIMMER)Only the most recent of4 resultswithin the time period is included. POC sodium 140 135 - 148 [facility] mmol/L [facility] potassium 4.3 3.5 - 5.0 [facility] mmol/L [facility] chloride 104 99 - 109 [facility] mmol/L [facility] CO2 27 24 - 31 mmol/L [facility] POC glucose 98 65 - 99 mg/dL [facility] POC BUN 26 (H) 8 - 24 mg/dL [facility] POC creatinine 1.1 0.7 - 1.2 [facility] mg/dl [facility] hematocrit 43 41 - 51 % [facility] POC anion gap 15 8 - 20 mmol/L [facility] Comment: HOSPITAL Sugar Laboratory Assistant Name: Prateek Angeles Device ID: [id number] Specimen Performing Organization Address City/State/ZIP Code Phon e Number [facility] DEPARTMENT OF PATHOLOGY AND [address] [place], [place] [address] GENOMIC MEDICINE [facility] [address] [place] [address] Electrophysiology procedure (06/01/2019 12:47 PM LIME TRIMMER) Specimen Impressions Performed At -Successful pulmonary veins isolation x4 with entrance and exit block HM SYN[facility] -Successful PWI isolation -Successful ablation of anteroseptal jay ral line for mitral flutter induced in the lab -Successful CTI line ablation -Multiple flutters induced in the lab with changing ac tivation that could not be mapped accurately RECOMMENDATIONS: 1. Monitor on telemetry overnight 2. Bedrest for 2 hours after sheaths rem oval 3. Restart Eliquis in 4 hours 4. Lasix 20 mg IV when patie nt in recovery 5. Restart amiodarone 200 mg daily. Narrative Performed At This result has an attachment that is no t available. DATE OF OPERATION: June 01, 2019 [facility] COTTON GINNER HELPER: Everton Dacosta MD PREOPERATIVE DIAGNOSES: -Persistent atrial fibrillation -History of atrial flutter -Dilated nonischemic cardiomyopathy -Systolic heart failure stage III -Remote history of prostate cancer POSTOPERATIVE DIAGNOSES: -Persistent atrial fibrillation -History of atrial flutter -Dilated nonischemic cardiomyopathy -Systolic heart failure stage III -Remote history of prostate cancer PROCEDURES PERFORMED: -Ultrasound guided vascular access -Afib ablation with PVI and extrapulmonary ablation fo r PWI -Atrial flutter x2 -3D mapping -Stimulation after drug infusion -Intra cardiac echocardiography (ICE) COMPLICATIONS: None ESTIMATED BLOOD LOSS: <30cc HISTORY OF PRESENT ILLNESS: In brief, this is a 74-yea r-old gentleman with history of symptomatic persistent atrial fibrillation and atrial flutter treated with amiodarone for more than 7 years with rec urrence lately who presents today for atrial fibrillation and flutter abl ation. PROCEDURE IN DETAIL: Consent was obtained from the pat ient after a full explanation of the risks and benefits of the procedure . The patient was brought to the electrophysiology lab in the [facility]. The patient was prepared and draped in a sterile fashion. General anes thesia with intratracheal ventilation administered by the anesthes ia service was used for the procedure. Esophageal temperature monitoring w as performed throughout the case using CIRCA catheter. Patient pres ented to the EP lab in atrial fibrillation. Sheaths were placed using lacey fied Seldinger technique. Three venous sheaths (8Fr, long 7Fr and abel g 9Fr sheath) were placed in the right femoral vein using ultrasound guid ance without complication. A intracardiac echocardiography catheter (ICE) was inserted via the 9Fr sheath and advanced into the right atrium and the right ventricle. At baseline, there was no pericardial eff usion and significantly depressed EF. Using SOUND, the CTI, CS os, fossa, LPVs, RPVs were marked. The left atrium was noted to be sign ificantly enlarged and measured at 6.1 cm. The ICE catheter was later use d to guide transseptal puncture and monitor for procedure complic ations. Next, the RFV 8Fr sheath was upgraded to a large curl Agilis sheath, through which a [employer] SF catheter, DF curve was a dvanced to the RA, and a Fast Anatomic Map (FAM) was done for the IVC, RA septum, fossa and SVC. A live wire duodecapolar diagnostic catheter was then advanced into the coronary sinus and lateral lateral kenrick. Next, w e turned out attention to left sided access. After titrating heparin drip to achieve an ACT > 350 s ec, transseptal puncture was performed with Errol long needle (requir ing RF) using ICE guidance. Left (18 mmHg) atrial pressure was measured to assess intracardiac filling pressures. There were no compli cations. Following transseptal puncture, Agilis sheath was advanced into the LA, and the ablator was then exchanged to a DF Pentarray catheter. Patient was cardioverted first to NSR with 200J x1. A detailed 3D electroanatomical and voltage map was cr eated while in normal sinus rhythm in the left atrium using CARTO map ping system. There were small areas of low voltage seen anteriorly by the septum and the base of the appendage. In addition there was significant doubling of the potential seen on the posterior wall. After exchangi ng the Pentarray to the ablation catheter, we proceeded to pulmonary veins isolation. The left pulmonary veins were circumferentially isolated as a c ommon os using RF ablation. During isolation of the left veins jina ent went into atrial flutter that change into another atrial flutter that t hen degenerated into atrial fibrillation. The right pulmonary veins were ci rcumferentially isolated as a common os using RF ablation. Prior to ab lation of right sided veins, pacing was performed and right phrenic ne rve course was avoided (PN not captured at high output pacing prior t o ablation). We then proceeded with posterior wall isolation with the floor and the roofline. 40 W for 15-20 sec lesions and impedance drop of 10-15 ohms was targeted in the anterior sites, targeting Ablation Index ~400-5 00units. Posterior sites we used high power, short duration lesions (40 -50W for 5-7 secs) were used. At this time patient remained into atrial fibrillation so was externally cardioverted to normal rhythm. The left p ulmonary veins were checked and were confirmed to be isolated. The right pulmonary veins were noted to be connected at the level of anterior mustapha and multiple lesions across the both mustapha with a trans-carinal line perfo rmed to achieve isolation. Additional lesions were needed in the mid dle of the posterior wall to achieve complete isolation with no exit with h igh output pacing at 25 mV. Following this we proceeded with Isuprel infusion. W ith incremental infusion up to 20 mcg/min there was no PV reconnection or non-PV triggers. CS burst pacing at 240 ms induced flutter 1. This w as distal to proximal on the CS with tachycardia cycle length of ~45 ms. I t was somehow difficult to map this flutter at the activation was ch anging slightly, in addition there was an area of the base of the appendag e that looked more like atrial fibrillation that was disconnected from th e rest of the atrium. Ablation there immediately changed the flutt er to another activation. In the flutter was changing between prox imal to distal and distal to proximal using same cycle length it was thou ght to be mitral flutter and we decided to proceed with anterior septal line. An ablation line was performed from the right superior pulmonary v eins to 12:00 on the mitral valve. During this time the flutter degenerat ed into atrial fibrillation. We continued our ablation and then car dioverted the patient to normal rhythm. At them in the middle and closer t o the mitral valve. After ablation there and repeat mapping additional katie carney was seen in the similar area and additional lesions were performed the re with a jump of the EGM seen across the line. This sensing conductio n across the line was about 60 ms. At this time patient spontaneously went into atrial flutter 2 which much slower cycle length at 330 ms. This flu tter activation changed multiple times with different timing compared to lateral right atrium kenrick. We were unable to map this flutter as he was changing constantly, then degenerating into atrial fibrillation . Patient was then cardioverted again to normal right rhythm. At this t shailesh as 1 of those flutter circuit was suggestive of CTI flutter we decid ed to proceed with CTI line ablation. The veins were confirmed to remai n isolated with high output pacing no exit, heparin was stopped and ablatio n catheter was pulled into the right atrium and we proceeded with CTI line ablation. After marking the his cloud on the map the ablation ca theter was advanced to the tricuspid valve and of the CTI and ablation the re was performed all the way back to the IVC until block and EGM was seen. Bidirectional block was confirmed entrance block conduction was about 200 to 220 ms. At this time case was successfully concluded. HV heriberto sured 61 ms. Post-procedure ICE showed no change. At this time, G A was stopped and patient was extubated; No immediate complications. Pro tamine was given at the end of the procedure. Sheaths were pulled in the lab and figure of eight suture was placed. Patient was transferred to [facility] PACU in a stable condition. Performing Organization Address [facility] Phon e Number [facility] [address] [place] [address], Activated clotting time (06/01/2019 12:47 PM LIME TRIMMER)Only the most recent of10 resultswithin the time period is included. Activated clotting 141 96 - [address] [facility] Comment: HOSPITAL Sugar Laboratory Assistant Name: Ari Hooker Device ID: [id number] Specimen Performing Organization Address [facility] Phon e Number [facility] DEPARTMENT OF PATHOLOGY AND [address] [place] [phone] GENOMIC MED[address] [address] Arterial line (06/01/2019 8:27 AM LIME TRIMMER) Narrative Performed At Vernon Pérez Jr., MD 06/01/2019 8:28 AM Arterial line Performed by: Vernon Pérez Jr., MD Authorized by: Vernon Pérez Jr., MD Start Time: 06/01/2019 8:00 AM End Time: 06/01/2019 8:10 AM Staff: Performed by: Anesthesiologist Pre-procedure: patient identified, IV ch ecked, site and side verified, risks and benefits discussed, procedure verified, surgical consent complete, patient position confirmed, monitors and equ ipment checked and pre-op evaluation complete MSBT: antiseptic used, all elements of maximal sterile barrier technique followed, hand hygiene performed, cap/go wn used by other personnel and solutions labeled TIme Out Performed: 06/01/2019 8:00 AM Indications: Indications: hemodynamic monitoring Anesthesia: Anesthesia: General Procedure Details: Arterial Line placement: Placed pos t induction Line placement site: Radial Line placement side: Right Arterial line gauge: 20 G Number of attempts: 4 Ultrasound guidance used: Yes Post-procedure: Post-procedure: Sterile dressing ap plied Post procedure circulation, sensation , movement: Normal Patient tolerance: Patient tolerate d the procedure well with no immediate complications Arterial line (06/01/2019 8:27 AM LIME TRIMMER) Narrative Performed At Vernon Pérez Jr., MD 06/01/2019 8:27 AM Arterial line Performed by: Vernon Pérez Jr., MD Authorized by: Vernon Pérez Jr., MD Airway (06/01/2019 8:26 AM LIME TRIMMER) Narrative Performed At Vernon Pérez Jr., MD 06/01/2019 1:22 PM Airway Date/Time: 06/01/2019 8:00 AM Performed by: Vernon Pérez Jr., MD Authorized by: Vernon Pérez Jr., MD Location: label sewer Difficult Airway: No Anesthesiologist: Vernon Pérez Jr., MD Performed by: anesthesiologist Preoxygenated with 100% O2: Yes C-spine Precautions Maintained Throughou t: Yes Mask Ventilation: Easy mask Final Airway Type: Endotracheal airway Final Endotracheal Airway: ETT Cuffed: Yes Technique Used: Direct laryngoscopy Devices/Methods Used in Placement: Int ubating stylet Insertion Site: Oral Blade Type: Sinclair Laryngoscope Blade/Videolaryngoscope Sid de Size: 2 ETT Size (mm): 8.0 Cuff at minimum occlusion pressure: Yes Measured from: Lips ETT to Lips (cm): 21 Placement Verified by: CO2 detection, di rect visualization and equal breath sounds Laryngoscopic view: Grade IIb - view o f arytenoids or posterior of glottis only Rapid Sequence Induction (RSI): No Modified RSI: No Number of Attempts at Approach: 1 Type and screen (06/01/2019 6:07 AM LIME TRIMMER) Pathologist Sig nature ABO grouping A [facility] Rh type NEG [facility] Antibody screen (gel) NEG [facility] Specimen Blood Performing Organization Address City/State/ZIP Code Phon e Number [facility] DEPARTMENT OF PATHOLOGY AND [address] [place] [phone] GENOMIC MEDICINE [facility] [address] [place] [address] Electrophysiology procedure (05/19/2019 7:30 AM LIME TRIMMER) Specimen Narrative Performed At This result has an attachment that is no t available. [facility] Kitty Harris Jr., MD Physician Electrophysiology Brief Op Note Signed Date of Service: 05/19/2019 7:05 AM Procedure: EP CARDIOVERSION Case Time: 05/19/2019 7:05 AM Surgeon: Kitty Harris Jr., MD Signed []Hide copied text []Hover for details CVN Operative Note Jackelin Vergraa, [id number] 74 y.o. male 05/19/2019; [facility] WT CATH AOD PROC 2 Procedure(s): EP CARDIOVERSION Tolerated procedure well Condition: stable Complications: None; patient tolerated the procedure well. Findings: The patient was identified and c onsent reconfirmed prior to the procedure The baseline rhyth m was atrial fibrillation Anesthesia was giv en When the patient w as adequately sedated, synchronized DC CVN was performed converting the patient to sinus The patient awoke without sequelae Procedure Details Pre-op Diagnosis: Persistent atrial fibrillation [I48.19] Post-Op Diagnosis Codes: * Persistent atrial fibrillation [I48.19] Surgeon(s) and Role: * Kitty Harris Jr., MD - Primary Anesthesia: Anesthesia type not filed in the log. Blood Products Administered: none Estimated Blood Loss: 0 mL Sheath/IV: No LDAs Documented Specimens: * No specimens in log * Grafts/Implants: None Assessment: Successful CVN Recommendations Continue amiodaronee at 400 mg daily and follow up for Ablation consultation on the with Dr. Olesya Harris Jr. MD Date: 05/19/2019 Time: 7:32 AM Performing Organization Address [facility] Code Phon e Number [facility] [address] [place] [address], label sewer procedure (03/25/2019 11:55 AM LIME TRIMMER) Specimen Narrative Performed At This result has an attachment that is no t available. After obtaining informed consent, the patient was brought to the cardiac [facility] catheterization suite. The right wrist was prepped and draped in usual sterile fashion. Lidocaine was used as local anestheti c. A mini-puncture needle was used to access the right radial artery. A 6 Fr sheath was placed in the right radial artery and 200 mcg of nitro glycerin and 200 mcg of verapamil were administered via the radial sheath t o prevent radial artery vasospasm. Heparin was given to prevent radial artery occlusion. A JL3.5 catheter(s) was advanced over a guidewire to the aortic root. 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 The guidewire was removed. Coronary angiogra phy was performed of both the left and right coronary systems using the cat heter(s). The catheter was then removed over a wire. At the conclusion of the procedure the arterial sheath was removed in the catheterization lab and hemostasis was obtained with a Tracelet. The patient was returned to the laboratory manager holding area for recovery. The patient tolerated the procedure without difficulty . Findings: LM: Mild disease. LAD: 40% stenosis in the prox-mid LAD, mild-mod diffus e disease. LCx: Mild diffuse disease, 30% stenosis proximally. RCA: Anomalous takeoff of the RCA, non-obs CAD. Overall non-obstructive coronary artery disease. Medical management. Performing Organization Address City/State/ZIP Code Phon e Number [facility] [address] [place] [address], Miscellaneous referral test (03/25/2019 11:35 AM LIME TRIMMER) Pathologist Sig nature Mis test name ?CK-MB AURB outside SHOWN ABOVE lab Mis test result see note SHOWN ABOVE Comment: Creatine Kinase, MB [facility] test code [id number] Creatine Kinase, Isoenzyme MB 3.3 ug/L (Ref Interval: 0.0-5.0) 999 - - - - - - - - - - - - - - - - - - - - - - - - - - - - - - CK-MB Relative Percent Not Done (Ref Interval: 0.0-5.0) 999 ===== Test performed by: [facility] [address] [place], [place] [address] Specimen Performing Organization Address [facility] Phon e Number [facility] DEPARTMENT OF PATHOLOGY AND [address] [place], [place] [address] GENOMIC MEDICINE SHOWN ABOVE Troponin (03/25/2019 11:35 AM LIME TRIMMER)Only the most recent of6 resultswithin the time period is included. Troponin 0.068 (H) 0.000 - 0.040 [facility] Comment: ng/mL [facility] changed methodology eff ective: 09/15/2018 at 10:00 am The new method has a 99th percentile cutoff of 0.040 n g/mL Specimen Plasma specimen Performing Organization Address [facility] Phon e Number [facility] DEPARTMENT OF PATHOLOGY AND [address] [place], [place] [address] GENOMIC MEDICINE [facility] [address] [place] [address] COPY RECEIVED FROM: (03/20/2019 8:33 AM LIME TRIMMER) Pathologist Sig nature Copy received from: [facility] Comment: [address] [facility] [address] [place] [address] Specimen Narrative Performed At FASTING:YES [facility] FASTING: YES Performing Organization Address [facility] Phon e Number [facility] COPY(IES) SENT TO: (03/20/2019 8:33 AM LIME TRIMMER) Pathologist Sig nature Copies/mL [facility] Comment: SINDY CARDIO [address] [facility] [address] [place] [address] Specimen Narrative Performed At FASTING:YES [facility] FASTING: YES Performing Organization Address [facility] Phon e Number [facility] PT and PTT (03/20/2019 8:33 AM LIME TRIMMER) PTT 31 22 - 34 sec [facility] Comment: [place] This test has not been validated for monitoring unfractionated heparin therapy. For testing that is validated for this type of therapy, please refer to the Heparin Anti-Xa assay (test code 55426). For additional information, please refer to http://education.Sobrr/faq/JCO938 (This link is being provided for informational/educational purposes only.) INR 1.1 [facility] Comment: [place] Reference Range 0.9-1.1 Moderate-intensity Warfarin Therapy 2.0-3.0 Higher-intensity Warfarin Therapy 3.0-4.0 Prothrombin time 11.3 9.0 - 11.5 [facility] sec FUENTES Specimen Blood Narrative Performed At FASTING:YES [facility] FASTING: YES Resulting Agency Comment Performing Organization Information: Site ID: [id number] Name: [facility] Address: [address] [place] [phone] Director: Burt Coronado Performing Organization Address City/State/ZIP Code Phon e Number [facility] [address] [address] Comprehensive metabolic panel (03/20/2019 8:33 AM LIME TRIMMER)Only the most recent of2 resultswithin the time period is included. Glucose 99 65 - 99 [facility] Comment: mg/dL [place] Fasting reference interval BUN 27 (H) 7 - 25 mg/dL [facility] [place] Creatinine 1.12 0.70 - 1.18 [facility] Comment: mg/dL [place] For patients >49 years of age, the reference limit for Creatinine is approximately 13% higher for people identified as -[place]. EGFR Non-Afr. 63 > OR = 60 [facility] [place] mL/min/1.73m [place] 2 EGFR 74 > OR = 60 [facility] [place] mL/min/1.73m [place] 2 BUN/creatinine 24 (H) 6 - 22 [facility] ratio (calc) [place] Sodium 142 135 - 146 [facility] mmol/L [place] Potassium 4.9 3.5 - 5.3 [facility] mmol/L [place] Chloride 105 98 - 110 [facility] mmol/L [place] CO2 29 20 - 32 [facility] mmol/L [place] Calcium 9.6 8.6 - 10.3 [facility] mg/dL [place] Protein 6.8 6.1 - 8.1 [facility] g/dL [place] Albumin, S 4.0 3.6 - 5.1 [facility] g/dL [place] Globulin, total 2.8 1.9 - 3.7 [facility] g/dL (calc) [place] Albumin/globulin 1.4 1.0 - 2.5 [facility] ratio (calc) [place] Total bilirubin 0.7 0.2 - 1.2 [facility] mg/dL [place] Alkaline 56 40 - 115 U/L [facility] phosphatase [place] AST 18 10 - 35 U/L [facility] [place] ALT 16 9 - 46 U/L [facility] [place] Specimen Blood Narrative Performed At FASTING:YES [facility] FASTING: YES Resulting Agency Comment Performing Organization Information: Site ID: [id number] Name: [facility] Kaylah daniel[facility] Address: [address] [place] [phone] Director: Burt Coronado Performing Organization Address City/State/ZIP Code Phon e Number [facility] [place] [address] CV Cardiac PET Myocardial Perfusion Imaging (03/05/2019 1:50 PM CDT) Specimen Narrative Performed At This result has an attachment that is no t available. Performing Organization Address City/[facility] Code Phon e Number [facility] [address] [place] [address] Cv stress test (03/05/2019 1:50 PM CDT) Resting HR 63 [facility] Resting BP 114 [facility] Peak MET Achieved 1.0 [facility] Protocol Name Alexia [facility] Time in Exercise 00:01:00 [facility] Phase Max Systolic BP 136 [facility] Max Diastolic BP 66 [facility] Max Heart Rate 80 [facility] Max Predicted Heart 145 [facility] Rate Target HR Formula (220 - Age)*100% [facility] Test Indication CAD [facility] Arrhy During Ex [facility] ECG Interp Before EX [facility] ECG Interp During Ex [facility] Ex Summary Comment [facility] Overall HR Response [facility] to Exercise Overall BP Response [facility] To Exercise Reason for [facility] Termination Stress Test -Waveform interpreted [facility] Impression in report associated with image study. No interpretation is provided as part of this Stress ECG report.- Specimen Narrative Performed At This result has an attachment that is no t available. Performing Organization Address City/[facility] Phon e Number [facility] MUSE [address] [place] [address] B natriuretic peptide (02/27/2019 4:00 AM CDT)Only the most recent of4 results within the time period is included. Pathologist Sig nature BNP 1,250 (H) 0 - 100 pg/mL [facility] Specimen Blood Performing Organization Address [facility] Phon e Number [facility] DEPARTMENT OF PATHOLOGY AND [address] [place] [address] [address] GENOM[address] MED[address] [address] [address] cardiac calcium score (02/26/2019 5:13 PM CDT) Specimen Narrative Performed At [facility] Cardi ology and Cardiac CT [address] [place], [place] [address], [place] [address] CT Calc ium Scoring Report Pat.Name: JACKELIN VERGARA Pat.ID: [id number] .Date: 02/26/2019 Refer.MD: SHAI RENDON MD Exam Time: 4:21:00 PM Study Type:C T Calcium Scoring Height: 73in Weight: 176lb BSA: 2.04 m2 Ag e: 1945,73Y Sex: MALE BP: 139/75 HR: 56 bpm Nuclear Tech:Carter Vyas RT(VT)(CT), [facility] Pat. Stat.:Inpatient CPT - 4: [facility] Event ID:[id number] Order ID: [id number] Procedures: CT Flash mode SUMMARY: Technique: Sequential 3mm CT cuts were obtained thr ough the chest using the Siemens Somatom Force CT scanner with EC G gating. Interactive image viewing and volumetric display and dedrick sis were also performed. The CAC score was quantified using the Agats ton scoring method. Non-contrast Cardiac CT results are as f ollows: The total Coronary Artery Calcium Score (CACS) is 2732 . Calcium is distributed in the coronary arteries as follows: Left main: 42. Left Anterior Descendin g (LAD): 841 . Left Circumflex (LCx): 594 . Right Coronary Artery (RC A): 1253 . The non-contrast CT shows a normal cardi ac size, no pericardial abnormalities, a mildly enlarged aortic root of 4.0cm, a normal ascending thoracic aorta of 3.8cm, and a normal descending thoracic aorta of 2.9cm. The left main and right coronary arteries appear to originate normally off the left and righ t sinus of Valsalva. The right coronary artery is dominant. Moder ate calcification of aortic root, and descending aorta. Extensive ao rtic calcification. Dilated pulmonary artery (3.8 cm). Non-Cardiac Findings: Extensive bilate ral infiltrates consistent with multifocal pneumonia or congestive heart failure. Conclusion: Abnormal non-contrast cardiac CT. The co ronary artery calcium score indicates a severe extent of coronary at herosclerosis with a >2% / year risk of a major cardiac event. Th e CACS is at the 99 th percentile based on age and gender. Recommendation: (1) Intensive risk factor modification i s indicated to prevent further progression of coronary atherosclerosis. Unless contraindicated, low dose aspirin (81mg) is recommended in ad dition to treatment of hyperlipidemia with target LDL levels <7 0mg/dl. (2) The CTA was cancelled due to extensi ve calcifications. FINDINGS: Signed 02/26/2019 06:26 PM Deacon Pelayo MD Procedure Note Interface, Radiology Results In - 2018 6:26 PM CDT Nuclear Cardiology and Cardiac CT [address] [place] [address] CT Calcium Scoring Report Pat.Name: JACKELIN VERGARA Pat.I D: [id number] St.Date: 02/26/2019 Refer .MD: SHAI RENDON MD Exam Time: 4:21:00 PM Study Type:CT Calcium Scoring Height: 73in Weigh t: 176lb BSA: 2.04 m2 Age: 8 1945,73Y Sex: MALE BP: 139/75 HR: 56 bpm Nuclear Tech:Carter Vyas RT(NM)(CT), [facility] Pat. Stat.:Inpatient CPT - 4: [facility] Event ID:[id number] Order ID: [id number] Procedures: CT Flash mode SUMMARY: Technique: Sequential 3mm CT cuts were obtained thr ough the chest using the Siemens Somatom Force CT scanner with EC G gating. Interactive image viewing and volumetric display and dedrick sis were also performed. The CAC score was quantified using the Agats ton scoring method. Non-contrast Cardiac CT results are as f ollows: The total Coronary Artery Calcium Score (CACS) is 2732 . Calcium is distributed in the coronary arteries as follows: Left main: 42. Left Anterior Descending (LAD): 841 . Left Circumflex (LCx): 594 . Right Coronary Artery (RCA ): 1253 . The non-contrast CT shows a normal cardi ac size, no pericardial abnormalities, a mildly enlarged aortic root of 4.0cm, a normal ascending thoracic aorta of 3.8cm, and a normal descending thoracic aorta of 2.9cm. The left main and right coronary arteries appear to originate normally off the left and righ t sinus of Valsalva. The right coronary artery is dominant. Moder ate calcification of aortic root, and descending aorta. Extensive ao rtic calcification. Dilated pulmonary artery (3.8 cm). Non-Cardiac Findings: Extensive bilater al infiltrates consistent with multifocal pneumonia or congestive heart failure. Conclusion: Abnormal non-contrast cardiac CT. The co ronary artery calcium score indicates a severe extent of coronary at herosclerosis with a >2% / year risk of a major cardiac event. The CACS is at the 99 th percentile based on age and gender. Recommendation: (1) Intensive risk factor modification i s indicated to prevent further progression of coronary atherosclerosis. Unless contraindicated, low dose aspirin (81mg) is recommended in ad dition to treatment of hyperlipidemia with target LDL levels <7 0mg/dl. (2) The CTA was cancelled due to extensi ve calcifications. FINDINGS: Signed 02/26/2019 06:26 PM Deacon Pelayo MD Performing Organization Address City/State/ZIP Code Phon e Number [facility] [address] [place] [address] Electrophysiology procedure (02/25/2019 1:48 PM CDT) Specimen Narrative Performed At This result has an attachment that is no t available. [facility] Kitty Harris Jr., MD Physician Electrophysiology Brief Op Note Signed Date of Service: 02/25/2019 1:28 PM Procedure: Ep cardioversion Case Time: 02/25/2019 1: 28 PM Surgeon: Kitty Harris Jr., MD Signed []Hide copied text []Hover for details Cardioversion Operative Note Jackelin Vergara, [id number] 73 y.o. male 02/24/2019 - 02/25/2019; [facility] WT CATH AOD PROC 2 Procedure(s): Ep cardioversion Tolerated procedure well Condition: stable Complications: None; patient tolerated the procedure well. Findings: The patient was identified and c onsent reconfirmed prior to the procedure The baseline rhyth m was atrial fibrillation Anesthesia was giv en When the patient w as adequately sedated, synchronized DC CVN was performed converting the patient to sinus The patient awoke without sequelae Procedure Details Pre-op Diagnosis: * No pre-op diagnosis entered * * No Diagnosis Codes entered * Surgeon(s) and Role: * Kitty Harris Jr., MD - Primary Anesthesia: Anesthesia type not filed in the log. Blood Products Administered: none Estimated Blood Loss: * No values recorded between 1:28 PM and 02/25/2019 1:46 PM * Sheath/IV: No LDAs Documented Specimens: * No specimens in log * Grafts/Implants: None Conclusions:Successful CVN to NSR Recommendations: Reduce Amiodarone to maintenance do se and begin education process about Afib ablation. Kitty Harris Jr., MD Date: 02/25/2019 Time: 1:46 PM Performing Organization Address City/State/ZIP Code Phon e Number [facility] [address] [facility] [place] [address], [place] Echocardiogram complete w contrast and 3D if needed (02/25/2019 7:58 AM CDT) Specimen Narrative Performed At [facility] Echo cardiography Report [address] [facility], [address], [place] [address] Pat.Name: JACKELIN VERGARA Pat.ID: [id number]Date: 02/25/2019 Refer.MD: YOBANI GRIFFITH MD. Exam Time: 7:11:00 AM Study Type:R outine Echo Height: 73in Weight: 177lb BSA: 2.04 m2 Ag e: 1945,73Y Sex: MALE BP: 107/72 Sonogrphr: Charisma Olmstead RDCS, RVSPat. Stat.:[facility] Study S tatus:Final Echo Event ID:[id number] Order ID: [id number] Reason for Study:Atrial fibrillation History / Clinical:Atrial Fibrillation Procedures: 2D Echo, Colorflow Doppler, Strain Race: C SUMMARY: -LV size is severely enlarged. LV EF is severely depressed. Estimated EF is 25-29%. LV filling pressure is adi vated. -RV systolic function is moderately depr essed. -Estimated PA systolic pressure is 38-43 mmHg, assuming a mean RAP of 15-20 mmHg. -A patent foramen ovale (probably a stre tched PFO) with left to right shunt is noted on color Doppler. FINDINGS: LV: LV size is severely enlarge d. There is severe eccentric LV hypertrophy. LV EF is s everely depressed. Global hypokinesis. Estimated EF is 25-29%. RV: RV size is normal. RV systo lic function is moderately depressed. LA: LA volume is severely enlar ged. RA: RA volume is severely enlar ged. AO: Aortic root diameter is nor mal in size. Ascending aorta diameter is normal. CECI: Trace posterior pericardial effusion. IAS: A patent foramen ovale (pro bably a stretched PFO) with left to right shunt is noted on color Doppler. AV: No structural AV abnormalit ies noted. MV: Mild posterior mitral valve prolapse. Mild eccentric mitral regurgitation. PV: No structural PV abnormalit ies noted. Mild pulmonic regurgitation. TV: No structural TV abnormalit ies noted. Mild tricuspid regurgitation Carlson: LV relaxation is impaired. L V filling pressure is elevated. Other: Estimated PA systolic pressu re is 38-43 mmHg, assuming a mean RAP of 15-20 mmHg. MEASUREMENTS: 2D Parasternal Long [place] Ao An 2.6 cm LVPWd 0.9 cm Ao Rtd 3.3 cm Index 1.6 cm/m2 LA Ds 6.7 cm IVSd 1 cm RWT 0.3 LVIDd 7 cm Index 3.4 cm/m2 LV Mass 301.5 g (122-17 4) LVIDs 5.7 cm LVM In dex 147.8 g/m LV%fs 18.4 % LVOT 2.2 cm LA Sng Plane LA Area 42.1 cm (8.8-23.4) LA Vol 191.7 ml Index 94 ml/m2 LA LngAx 7.4 cm RA Sng Plane RA Vol 118.8 ml Index 58.2 ml/m2 RA LngAx 6.7 cm RA Area 31 cm (8.3-1 9.5) Aorta Ao Asc 3.7 cm (2.1-3. 4) LVOT LVOT Area 3.7 cm DOPPLER LVOT Stroke Vol LVOT TVI 10.4 cm HR 76 bpm LVOT LVOT SV 38.7 ml LVOT CO 2.9 l/min SVi 19 ml/m LVOT C I 1.4 l/m/m IVRT IVRT 71 msec TV Pressure Gradient TV PkVel 234.7 cm/s TV PG 22 mmHg Signed 02/25/2019 02:48 PM Octavio Avery M.D. Procedure Note Interface, Radiology Results In - 2018 2:48 PM CDT Echocardiography Report [id number] [place] [address] Pat.Name: JACKELIN VERGARA Pat.I D: [id number] .Date: 02/25/2019 Refer .MD: YOBANI GRIFFITH MD. Exam Time: 7:11:00 AM Study Type:Routine Echo Height: 73in Weigh t: 177lb BSA: 2.04 m2 Age: 8 1945,73Y Sex: MALE BP: 107/72 Sonogrphr: Charisma Olmstead RDCS, RVSPat. Stat.:[facility] Status:Final [facility] Event ID:[id number] Order ID: [id number] Reason for Study:Atrial fibrillation History / Clinical:Atrial Fibrillation Procedures: 2D Echo, Colorflow Doppler, Strain Race: C SUMMARY: -LV size is severely enlarged. LV EF is severely depressed. Estimated EF is 25-29%. LV filling pressure is adi vated. -RV systolic function is moderately depr essed. -Estimated PA systolic pressure is 38-43 mmHg, assuming a mean RAP of 15-20 mmHg. -A patent foramen ovale (probably a stre tched PFO) with left to right shunt is noted on color Doppler. FINDINGS: LV: LV size is severely enlarged. There is severe eccentric LV hypertrophy. LV EF is severel y depressed. Global hypokinesis. Estimated EF is 25-29%. RV: RV size is normal. RV systolic function is moderately depressed. LA: LA volume is severely enlarged . RA: RA volume is severely enlarged . AO: Aortic root diameter is normal in size. Ascending aorta diameter is normal. CECI: Trace posterior pericardial ef fusion. IAS: A patent foramen ovale (probab ly a stretched PFO) with left to right shunt is noted on co jair Doppler. AV: No structural AV abnormalities noted. MV: Mild posterior mitral valve pr olapse. Mild eccentric mitral regurgitation. PV: No structural PV abnormalities noted. Mild pulmonic regurgitation. TV: No structural TV abnormalities noted. Mild tricuspid regurgitation Carlson: LV relaxation is impaired. LV filling pressure is elevated. Other: Estimated PA systolic pressure is 38-43 mmHg, assuming a mean RAP of 15-20 mmHg. MEASUREMENTS: 2D Parasternal Long [place] Ao An 2.6 cm LVPW d 0.9 cm Ao Rtd 3.3 cm Inde x 1.6 cm/m2 LA Ds 6.7 cm IVSd 1 cm RWT 0.3 LVIDd 7 cm Inde x 3.4 cm/m2 LV Mass 301.5 g (122-174) LVIDs 5.7 cm LVM Index 147.8 g/m LV%fs 18.4 % LVOT 2.2 cm LA Sng Plane LA Area 42.1 cm (8.8-23.4) L A Vol 191.7 ml Index 94 ml/m2 LA LngAx 7.4 cm RA Sng Plane RA Vol 118.8 ml Inde x 58.2 ml/m2 RA LngAx 6.7 cm RA Area 31 cm (8.3-19.5) Aorta Ao Asc 3.7 cm (2.1-3.4) LVOT LVOT Area 3.7 cm DOPPLER LVOT Stroke Vol LVOT TVI 10.4 cm HR 76 bpm LVOT LVOT SV 38.7 ml LVOT CO 2.9 l/min SVi 19 ml/m LVO T CI 1.4 l/m/m IVRT IVRT 71 msec TV Pressure Gradient TV PkVel 234.7 cm/s TV P G 22 mmHg Signed 02/25/2019 02:48 PM Octavio Avery M.D. Performing Organization Address [facility] Phon e Number [facility] [id number] [place] [address] Lipid panel (02/25/2019 12:28 AM CDT) Cholesterol 102 <200 mg/dL [facility] Triglycerides 78 <150 mg/dL [facility] HDL cholesterol 32 (L) >40 mg/dL [facility] LDL cholesterol 62Comment: Result <100 mg/dL [place] obtained by direct [facility] LDL measurement [facility] Comment: [facility] Total Cholesterol (mg/dL) HOSPIT [facility] <200 Desirable 200-239 Borderline-high >=240 High Triglycerides (mg/dL) <150 Normal 150-199 Borderline-high 200-499 High >=500 Very high HDL Cholesterol (mg/dL) <40 Low (male) <40 Low (female) LDL Cholesterol (mg/dL) <100 Optimal 100-129 Near or above optimal 130-159 Borderline-high 160-189 High >=190 Very high Risk Catergories that modify LDL goals. Risk Catergories LDL goal (mg/d L) CHD and CHD risk equivalent <100 (10-year risk >20%) Multiple (2+) risk factors <130 (10-year risk =<20%) 0-1 risk factors <160 (<10-year risk) Defining levels of lipids in metabolic syndrome Triglycerides >=150 mg/dL HDL Cholesterol Men <40 mg /dL Women <40 mg/ dL Non-HDL cholesterol is a second target for therapy in persons with high triglycerides (>=200 mg/dL) Specimen Plasma specimen Performing Organization Address City/[facility]/ZIP Code Phon e Number [facility] DEPARTMENT OF PATHOLOGY AND [address] [place] [phone] Hemoglobin A1c (02/25/2019 12:01 AM CDT) Hemoglobin A1C 5.9 (H) 4.0 - 5.6 % [facility] Comment: HOSPITAL HbA1c cutoffs for diagnosing diabetes: 4.0% - 5.6% = normal 5.7% - 6.4% = increased risk for diabetes (prediabetes )9 >=6.5% = diabetes9 Goals for glycemic control (ADA 2016) < 7.0% Target for non adults with diabetes. More or less stringent targets may be appropriate for individual patients. <7.5% Target for Children and adolescents with type 1 diabetes. Specimen Blood Performing Organization Address City/[facility] Phon e Number [facility] DEPARTMENT OF PATHOLOGY AND [address] [place] [phone] Thyroid stimulating hormone (02/24/2019 6:06 PM CDT) Pathologist Sig nature TSH 8.58 (H) 0.27 - 4.20 uIU/mL [facility] Specimen Plasma specimen Performing Organization Address City/[facility] Phon e Number [facility] DEPARTMENT OF PATHOLOGY AND [address] [place] [phone] T4, free (02/24/2019 6:06 PM CDT) Pathologist Sig [facility] T4, free 1.0 0.9 - 1.7 ng/dL [facility] L Specimen Plasma specimen Performing Organization Address [facility] Phon e Number [facility] DEPARTMENT OF PATHOLOGY AND [address] [place] [phone] XR Chest 1 Vw Portable (02/24/2019 6:04 PM CDT) Specimen Narrative Performed At Study:XR CHEST 1 VW PORTABLE [facility] History: SOB COMPARISON: 06/22/2011 IMPRESSION: A single view of the chest. There is focal consolidati on in the right upper lobe and the right lower lobe from pneumonia. A trace right pleural effusion is present. No pneumothorax. A loop r ecorder overlies the left chest. Cardiac silhouette is no rmal. Visualized osseous structures are with out acute abnormality. [facility]-[id number] Procedure Note Hm Interface, Radiology Results Incoming - 02/24/2019 6:14 PM CDT Study:XR CHEST 1 VW PORTABLE History: SOB COMPARISON: 06/22/2011 IMPRESSION: A single view of the chest. There is foc al consolidation in the right upper lobe and the right lower lobe from pneumonia. A trace right pleural effusion is present. No pneumothorax. A loop recorder overlies the left chest. Cardiac silhouette is normal. Visualized osseous structures are witho ut acute abnormality. 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
--- OUTSIDE RECORDS SUMMARY | 2020-01-31 12:18 | XMS REPORT | Continuity of Care Document ---
:1945 Author Organization [facility] t Address [address] [place] [address] Care Team Providers Name Role Phone Marce Stella Primary Care Physician Miya Callahan MD Attending Clinician Franklyn BALDWIN Attending Clinician Unavailable Lab, Fam Pob I Attending Clinician Unavailable Doctor Unassigned, Name Attending Clinician Unavailable Hima ADAME Attending Clinician Jose Bell MD Attending Clinician Blanche Serrano CRNA Attending Clinician Lexi ADAME Attending Clinician Tito BALDWIN Attending Clinician Unavailable Tulio ADAME Attending Clinician Merissa VAN Attending Clinician Unavailable Maureen VAN Attending Clinician Unavailable Rowdy ADAME P Attending Clinician Steven ADAME Attending Clinician Phil ADAME Attending Clinician Micah Wolff CRNA Attending Clinician Haresh Pérez MD Attending Clinician Davi Carrasco MD Attending Clinician Lolitahiro MASONGiacomo Attending Clinician Orlando ADAME, Seth Attending Clinician Samantha BALDWIN Attending Clinician Unavailable Francisco VAN Attending Clinician Unavailable Shivam Snow MD Attending Clinician Kyle ADAME Attending Clinician Nacho ADAME Attending Clinician Magdiel Polk MD Attending Clinician Christiana ADAME Attending Clinician Park Langley Attending Clinician HIMA Admitting Clinician Unavailable STEVEN Admitting Clinician Unavailable ASHLEY Admitting Clinician Unavailable KYLE Admitting Clinician Unavailable Payers Payer Name Policy Type Policy Effective Date Expiration Date Sour ce Number UHC MEDICAREUHC [id number] 2019 [place] [employer] MEDICARE 00:00:00 Amish [id number] Problems Condition Condition Condition Status Onset Resolution Last Treating Co mments Source Name Details Category Date Date Treatment Clinician Date 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: [place] artery artery 0-30 Added [facility]i disease disease 00:00: automatic st involving involving 00 ally from [place] request heart with heart with for angina angina surgery pectoris pectoris [id number] 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 [place] artery artery 0-29 Methodi disease disease 00:00: st involving involving 00 [place] coronary coronary artery of artery of [place] heart heart without without angina angina pectoris pectoris Paroxysmal Paroxysmal Disease Active 2018-05 [place] atrial atrial 0-17 Methodi fibrillati fibrillati 00:00: st on on 00 Pneumonia Pneumonia Disease Active 2018-05 [facility] ston due to due to 0-17 Methodi infectious infectious 00:00: st organism organism 00 SOB SOB Disease Active 2017-05 [place] (shortness (shortness 2-11 Me [facility] of breath) of breath) 00:00: st 00 Congestive Congestive Disease Active 2016-05 [place] heart heart 2-05 [facility] failure failure 00:00: st 00 Atrial Atrial Disease Active 2015-05 [place] fibrillati fibrillati 0-27 [facility] on on 00:00: st 00 Benign Benign Disease Active 2015-05 [place] hypertensi hypertensi 0-27 Me [place] on on 00:00: st 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 Family History Family Member Diagnosis Comments Start Date Stop Date Source Natural father Heart disease Zhang Amish Natural mother Alzheimer's disease [place] Social History Social Habit Start Date Stop Date Quantity Comments Source History of tobacco Chews Tobacco Dominga ston use Amish Sex Assigned At [place] Amish Exposure to Not sure [place] SARS-CoV-2 (event) Method ist Cigarettes smoked 2020-01-18 2020-01-18 [place] current (pack per 00:00:00 00:00:00 Methodi ) - Reported Cigarette 2020-01-18 2020-01-18 [place] pack-years 00:00:00 00:00:00 Amish Tobacco use and 2020-01-18 2020-01-18 Former user [place] exposure 00:00:00 00:00:00 Amish Alcohol intake 2020-01-18 2020-01-18 Current drinker [place] 00:00:00 00:00:00 of alcohol Amish (finding) Alcohol Comment 2016-03-07 2016-03-07 occasional [place] 00:00:00 00:00:00 Amish Smoking Status Start Date Stop Date Source Former smoker 2020-01-18 00:00:00 2020-01-18 00:00:00 [place] Amish Medications Ordered Filled Start Stop Current Ordering Indication Dosage Frequency Signature Comments Components Source Medication Medication Date Date Medication? Clinician (SIG) Name Name carvediloL Yes TAKE 1 [place] (COREG) 9-15 TABLET BY Shanta 6.25 MG 00:00: MOUTH st tablet 00 TWICE A DAY Entresto 2020-0 Yes TAKE 1 Zhang 24-26 mg 9-15 TABLET BY Method i tablet per 00:00: MOUTH st tablet 00 TWICE A DAY apixaban 2020-0 Yes 5mg Q.5D Take 5 mg [place] (ELIQUIS) 5 9-08 by mouth 2 [place] mg tablet 14:21: (two) st 54 times a day. thyroid, 2020-0 Yes 60mg QD Take 60 mg [place] st[place] pork, 9-08 by mouth Methodi (ARMOUR 14:21: daily. st THYROID) 60 54 mg tablet CALCIUM 2020-0 Yes 1{tbl} QD Take 1 [place] CARBONATE/V 9-08 tablet by Met hodi ITAMIN D3 14:21: mouth st (CALCIUM 54 daily. 500 + D, D3, ORAL) multivitami 2020-0 Yes 1{tbl} QD Take 1 [place] n 9-08 tablet by Methodi (THERAGRAN) 14:21: mouth st tablet 54 daily. atorvastati 2020-0 Yes 20mg QD Take 20 mg Zhang n (LIPITOR) 9-08 by mouth Meth piyush 20 MG 14:21: daily. st tablet 54 Default OP ins tadalafil 2020-0 Yes 5mg QD Take 5 mg [place] (CIALIS) 5 9-08 by mouth Metho di MG tablet 14:21: nightly. st 54 For enlarged prostrate fluticasone 2020-0 Yes [place] /umeclidin/ 9-08 Methodi vilanter 14:21: st (TRELEGY 54 ELLIPTA INHL) amIODarone 2020-0 Yes 200mg Q.5D Take 200 [place] (PACERONE) 9-08 mg by Methodi 200 MG 14:21: mouth 2 st tablet 54 (two) times a day. carvediloL 2020-0 Yes Zhang (COREG) 8-30 Methodi 3.125 MG 00:00: st tablet 00 umeclidiniu 2020-0 2020- No QD Inhale [place] ston m-vilantero 11-3022 every Method i l (ANORO 10:54: 00:[address] ELLIPTA) 11 :00 62.5-25 mcg/actuati on blister with device lisinopril 2020-0 2020- No 5mg Take 5 mg [place] (PRINIVIL,Z 7-22 07-22 by mouth. Me thodi ESTRIL) 5 10:54: 00:00 st mg tablet 10 :00 sacubitriL- 2019- No 1{tbl} Q.5D Take 1 [place] valsartan 11-0115 tablet by Meth piyush (Entresto) 00:00: 00:[address] 24-26 mg 00 :00 (two) tablet per times a tablet day. carvediloL 2019- No 6.25mg Q.5D Take 1 [place] (COREG) 11-0108 tablet Methodi 6.25 MG 00:00: 00:00 (6.[address] tablet 00 :00 total) by mouth 2 (two) times a day. PARoxetine Yes 10mg QD Take 10 mg [place] (PaxiL) 10 10-28 by mouth Metho di MG tablet 00:00: every st 00 morning. furosemide 2019- No 20mg QD Take 20 mg Zhang (LASIX) 20 10-11 by mouth Meth piyush mg tablet 14:17: 00:[address] 43 :00 ranolazine 2019- No 500mg Q.5D Take 500 [place] (RANEXA) 10-11- mg by Methodi 500 MG 12 13:23: 00:[address] hr ER 11 :00 (two) tablet times a day. furosemide No 40mg QD Take 1 [place] (LASIX) 40 10-11- tablet (40 Me th[place] mg tablet 00:00: 23:59 mg total) st 00 :00 by mouth daily. carvediloL 2019- No 3.125mg Q.5D Take 1 [place] (COREG) 10-11 tablet Methodi 3.125 MG 00:00: 00:00 (3.[address] tablet 00 :00 total) by mouth 2 (two) times a day. aspirin 2019-0 Yes 81mg Q.5W Take 81 mg [place] (Aspirin 4-30 by mouth 2 Metho di Low Dose) 00:00: (two) st 81 MG 00 times a enteric week. coated tablet alum-mag 2019- No 30mL Q.25D Take 30 mL [place] hydroxide-s 06-02 by mouth 4 M ethodi imeth 00:00: 23:59 (four) st (MAALOX 00 :00 times a PLUS) day before 200-200-20 meals and mg/5 mL nightly suspension for 30 days. pantoprazol 2019- No 40mg Q.5D Take 1 [place] e 06-02 tablet (40 Methodi (PROTONIX) 00:00: 23:59 mg total) s t 40 MG EC 00 :00 by mouth 2 tablet (two) times a day for 30 days. colchicine 2019- No .3mg Q.5D Take 0.5 [place] 0.6 mg 06-02 tablets Methodi tablet 00:00: 00:00 (0.[address] 00 :00 total) by mouth 2 (two) times a day as needed (chest pain post ablation) for up to 30 days. amIODarone 2019- No 200mg QD Take 200 [place] (PACERONE) 05-19 mg by Methodi 200 MG 07:34: 00:[address] tablet 41 :00 daily. psyllium 2019- No Take by Micah on hannah 05-19 mouth. 5 Methodi (METAMUCIL 06:15: 00:[address] ORAL) 48 :00 pills daily amIODarone 2019- No 400mg QD Take 2 [place] (PACERONE) 05-19 tablets Metho di 200 MG 00:00: 23:59 ([address] tablet 00 :00 total) by mouth daily for 30 days. carvedilol 2018-05- No SOB 3.125mg Q.5D TAKE 1 [place] (COREG) 05-29 (shortness TABLET Met hodi 3.125 MG 00:00: 00:00 of breath) (3.[address] tablet 00 :00 TOTAL) BY MOUTH 2 (TWO) TIMES A DAY. naloxone 2018-05- No .2mg Zhang (NARCAN) 05-25 Methodi 0.4 mg/mL 11:56: 08:09 st injection 11 :48 0.2 mg TRELEGY 2018-05 2020- No 1{puff} QD Inhale 1 [place] ELLIPTA 0-04 01-20 puff every Metho di 100-62.5-25 00:00: 00:00 morning. s t mcg blister 00 :00 with device colesevelam Yes QD Take by Dominga fontanakavya (WELCHOL) 2-28 mouth Methodi 625 mg 00:00: daily. st tablet 00 carvedilol 2017-05 2019- No SOB 3.125mg Q.5D Take 1 [place] (COREG) 2-11 11-16 (shortness tablet Met hodi 3.125 MG 00:00: 00:00 of breath) (3.[address] tablet 00 :00 total) by mouth 2 (two) times a day. VENTOLIN 2015-05 Yes 2{puff} Q4H Inhale 2 Amrik goncalves HFA 90 1-16 puffs Methodi mcg/actuati 00:00: every 4 st on inhaler 00 (four) hours as needed for wheezing. furosemide 2015-05- No 20mg QD Take 20 mg Zhang (LASIX) 20 1-15 11-14 by mouth Meth piyush mg tablet 00:00: 00:[address] 00 :00 morning. atorvastati 2015-05- No 20mg QD Take 20 mg Zhang n (LIPITOR) 0-24 11-14 by mouth Met hodi 20 MG 00:00: 00:[address] tablet 00 :00 CIALIS 5 mg 2019- No 5mg QD Take 5 mg Zhang tablet 9-25 11-14 by mouth Methodi 00:00: 00:[address] 00 :00 Vital Signs Vital Name Observation Time Observation Value Comments Source Systolic blood 2020-01-18 14:16:00 119 mm[Hg] Pritesh n Amish pressure Diastolic blood 2020-01-18 14:16:00 76 mm[Hg] [place] on Amish pressure Heart rate 2020-01-18 14:16:00 74 /min Vicente [place] Body height 2020-01-18 14:16:00 185.4 cm Vicente [place] Body weight 2020-01-18 14:16:00 83.462 kg Vicente [place] BMI 2020-01-18 14:16:00 24.28 kg/m2 Vicente [place] Respiratory rate 2019-12-31 12:50:00 21 /min Giselle [place] Oxygen saturation in 2019-12-31 12:50:00 96 /min Vicente [place] Arterial blood by Pulse oximetry Body temperature 2019-12-31 12:23:00 36.5 Poornima Giselle [place] Procedures Procedure Date / Time Performing Clinician Source Performed ECG 12-LEAD 2020-01-18 02:26:01 Hari Callahan odist ECG 12-LEAD 2019-12-31 12:13:44 Maddie Rabago odist EP CARDIOVERSION 2019-12-31 12:08:00 Maddie Rabago Met hodist ECG 12-LEAD 2019-12-31 08:35:31 Maddie Rabago odist MAGNESIUM LEVEL 2019-12-29 16:10:00 Maddie Rabago odist BASIC METABOLIC PANEL 2019-12-29 16:10:00 Maddie Rabago HC COMPLETE BLD COUNT 2019-12-29 16:10:00 Maddie Rabago Amish W/AUTO DIFF PROTHROMBIN TIME WITH INR 2019-12-29 16:10:00 Maddie Rabago Amish PARTIAL THROMBOPLASTIN 2019-12-29 16:10:00 Maddie Rabago Amish TIME (PTT) ESTIMATED GFR 2019-12-29 16:10:00 Maddie Rabago COVID-19 QUALITATIVE PCR 2019-12-29 15:52:00 Maddie Rabago Amish ECG 12-LEAD 2019-10-12 12:36:58 Hari Callahan TTE COMPLETE, W CONTRAST, 2019-10-01 12:49:26 Hari Callahan W DOPPLER ([id number]) EP CARDIOVERSION 2019-06-11 10:18:00 Kitty Harris Met hodist ECG PRE/POST OP 2019-06-11 10:07:55 Kitty Harris odist ESTIMATED GFR 2019-06-11 07:08:00 Kitty Harris odist POC PANEL 2019-06-11 07:08:00 Kitty Harris Meth odist HC COMPLETE BLD COUNT 2019-06-11 06:50:00 Kitty Harris Amish W/AUTO DIFF PARTIAL THROMBOPLASTIN 2019-06-11 06:50:00 Kitty Harris on Amish TIME (PTT) PROTHROMBIN TIME WITH INR 2019-06-11 06:50:00 Kitty Harriston Amish MAGNESIUM LEVEL 2019-06-11 06:34:00 Kitty Harris Meth odist ECG 12-LEAD 2019-06-11 06:22:40 Kitty Harris Meth odist HC COMPLETE BLD COUNT 2019-06-02 03:00:00 Maddie Rabago Amish W/AUTO DIFF BASIC METABOLIC PANEL 2019-06-02 03:00:00 Maddie Rabago Amish ESTIMATED GFR 2019-06-02 03:00:00 Maddie Rabago Meth odist ECG 12-LEAD 2019-06-02 02:57:06 Maddie Rabago Meth odist ECG 12-LEAD 2019-06-01 18:21:26 Maddie Rabago Meth odist EP COMPLETE EP STUDY W 2019-06-01 12:47:19 Maddie Rabago on Amish ABLATION PULMONARY VEIN ACTIVATED CLOTTING TIME 2019-06-01 12:47:00 Maddie Rabago Amish ACTIVATED CLOTTING TIME 2019-06-01 12:20:00 Maddie Rabago ton Amish ACTIVATED CLOTTING TIME 2019-06-01 11:52:00 Maddie Rabago ton Amish ACTIVATED CLOTTING TIME 2019-06-01 11:22:00 Maddie Rabago ton Amish ACTIVATED CLOTTING TIME 2019-06-01 10:53:00 Maddie Rabago ton Amish ACTIVATED CLOTTING TIME 2019-06-01 10:27:00 Maddie Rabago ton Amish ACTIVATED CLOTTING TIME 2019-06-01 09:38:00 Maddie Rabago ton Amish ACTIVATED CLOTTING TIME 2019-06-01 09:08:00 Maddie Rabago ton Amish ACTIVATED CLOTTING TIME 2019-06-01 08:58:00 Maddie Rabago Amish ARTERIAL LINE 2019-06-01 08:27:34 Vernon Pérez Met hodist ARTERIAL LINE 2019-06-01 08:27:15 Vernon Pérez Met hodist ANESTHESIA INTUBATION 2019-06-01 08:26:35 Vernon Pérez on Amish ACTIVATED CLOTTING TIME 2019-06-01 08:21:00 Maddie Rabago Amish ESTIMATED GFR 2019-06-01 06:21:00 Maddie Rabago Vicente Meth odist POC PANEL 2019-06-01 06:21:00 Maddie Rabago Vicente Meth odist TYPE AND SCREEN 2019-06-01 06:07:00 Maddie Rabago Vicente Meth odist EP CARDIOVERSION 2019-05-19 07:30:00 Steven Kitty Zhang Met hodist ESTIMATED GFR 2019-05-19 06:23:00 StevenKitty Meth odist POC PANEL 2019-05-19 06:23:00 StevenKitty Vicente Nemuann odist HC COMPLETE BLD COUNT 2019-05-19 06:10:00 Kitty Harris Amish W/AUTO DIFF PROTHROMBIN TIME WITH INR 2019-05-19 06:10:00 StevenKittyton Amish PARTIAL THROMBOPLASTIN 2019-05-19 06:10:00 Kitty Harris on Amish TIME (PTT) ECG 12-LEAD 2019-05-19 05:49:52 Steven Kitty Vicente Neumann odist MAGNESIUM LEVEL 2019-05-19 05:43:00 Steven Kitty Zhang Meth odist CV SELECTIVE CORONARY 2019-03-25 11:55:56 Hari Callahan Amish ANGIOGRAPHY TROPONIN 2019-03-25 11:35:00 Hari Callahan odkevin MISCELLANEOUS REFERRAL 2019-03-25 11:35:00 Hari Callahan Amish TEST TROPONIN 2019-03-25 09:48:00 Hari Callahan odist ESTIMATED GFR 2019-03-25 07:22:00 Hari Callahan odist POC PANEL 2019-03-25 07:22:00 Hari Callahan odkevin COMPREHENSIVE METABOLIC 2019-03-20 08:33:00 Hari Callahan Amish PANEL CBC WITH PLATELET AND 2019-03-20 08:33:00 Hari Callahan Amish DIFFERENTIAL COPY(IES) SENT TO: 2019-03-20 08:33:00 Hari Callahan ethodist PARTIAL THROMBOPLASTIN 2019-03-20 08:33:00 Hari Callaahn on Amish TIME (PTT) PROTHROMBIN TIME WITH INR 2019-03-20 08:33:00 Hari Callahan Amish COPY RECEIVED FROM: 2019-03-20 08:33:00 Hari Callahan Amish ECG 12-LEAD 2019-03-09 10:12:42 Hari Callahan Meth odkevin CV CARDIAC PET STRESS 2019-03-05 13:50:24 Hari Callahan Amish TEST CARDIAC PET MYOCARDIAL 2019-03-05 13:50:24 Rosa Smith PERFUSION IMAGING ECG 12-LEAD 2019-03-05 13:22:31 Rosa Smith on Amish BASIC METABOLIC PANEL 2019-02-27 04:00:00 Yobani Griffith Amish CBC WITH PLATELET AND 2019-02-27 04:00:00 Yobani Griffith Amish DIFFERENTIAL B NATRIURETIC PEPTIDE 2019-02-27 04:00:00 Shai Smith Amish ESTIMATED GFR 2019-02-27 04:00:00 Yobani Griffith Meth odist CT CARDIAC CALCIUM SCORE 2019-02-26 17:13:03 Maddie Paulson Amish ECG 12-LEAD 2019-02-26 07:58:44 Maddie Paulson odist BASIC METABOLIC PANEL 2019-02-26 04:00:00 Yobani Griffith Amish CBC WITH PLATELET AND 2019-02-26 04:00:00 Yobani Griffith Amish DIFFERENTIAL B NATRIURETIC PEPTIDE 2019-02-26 04:00:00 Silverio Ni Amish ESTIMATED GFR 2019-02-26 04:00:00 Yobani Griffith Meth odist ECG PRE/POST OP 2019-02-25 13:53:44 Kitty Harris odist EP CARDIOVERSION 2019-02-25 13:48:00 Kitty Harris hodkevin TTE COMPLETE, WO 2019-02-25 07:58:43 Jay Jay Ayoub Amish CONTRAST, W DOPPLER Umer ([id number]) TROPONIN 2019-02-25 05:42:00 Vicente Elliott Thien Moody Chrystal B NATRIURETIC PEPTIDE 2019-02-25 04:55:00 Jay Jay Ayoubkavya Amish Imarendenewe ECG 12-LEAD 2019-02-25 04:30:33 Vicente Elliott Thien fernandez Heidy Chrystal LIPID PANEL 2019-02-25 00:28:00 Vicente Elliott Thien Moody Chrystal HEMOGLOBIN A1C 2019-02-25 00:01:00 Vicente Elliott Thien Glynnibel TROPONIN 2019-02-24 23:05:00 Lew Snow Me thodist TROPONIN 2019-02-24 20:45:00 Lew Snow Me thodist HC COMPLETE BLD COUNT 2019-02-24 18:06:00 Lew Snow W/AUTO DIFF COMPREHENSIVE METABOLIC 2019-02-24 18:06:00 Lew Snow Amish PANEL TROPONIN 2019-02-24 18:06:00 Lew Snow Me thodist B NATRIURETIC PEPTIDE 2019-02-24 18:06:00 Lew Snow MAGNESIUM LEVEL 2019-02-24 18:06:00 Ofelia Calvo on Amish THYROID STIMULATING 2019-02-24 18:06:00 Ofelia Calvo [facility] Amish HORMONE T4, FREE 2019-02-24 18:06:00 Ofeila Calvo on Amish ESTIMATED GFR 2019-02-24 18:06:00 Lew Snow Me thodist XR CHEST 1 VW PORTABLE 2019-02-24 18:04:23 Ofelia Calvo ECG 12-LEAD 2019-02-24 16:53:39 Lew Snow Me thodist Plan of Care Planned Activity Planned Date Details Comments Source Future Scheduled 2020-01-11 INFLUENZA VACCINE Pritesh hoff Amish Test 00:00:00 [code = INFLUENZA VACCINE] Future Scheduled 2008 65+ PNEUMOCOCCAL [place] Amish Test 00:00:00 VACCINE (1 of 1 - PPSV23) [code = 65+ PNEUMOCOCCAL VACCINE (1 of 1 - PPSV23)] Future Scheduled 1993 COLONOSCOPY SCREENING Amrik goncalves Amish Test 00:00:00 [code = COLONOSCOPY SCREENING] Future Scheduled 1993 SHINGLES VACCINES (#1) Tod maier Amish Test 00:00:00 [code = SHINGLES VACCINES (#1)] Encounters Start End Encounter Admission Attending Care Care Encounter Source Date/Time Date/Time Type Type Clinicians Facility Department ID 2020-01-19 2020-01-19 Laboratory Lab, Adc [facility] [id number] 17:37:14 17:57:14 Only Fam Pob I [facility] [id number] [place] [id number] Profgilberto [id number] nal 0[address] 2020-01-19 2020-01-19 Letter Doctor SHAI [id number] 00:00:00 00:00:00 (Out) Unassigned, STEFAN [id number] [facility] [id number] 2020-01-18 2020-01-18 [id number] [place] 00:00:00 00:00:[address] HARI [address] 2019-12-31 2019-12-31 Outpatient MADDIE RABAGO [facility] [id number] [place] 00:00:00 00:00:[address] 2019-12-29 2019-12-29 Outpatient MADDIE RABAGO [facility] [id number] [place] 00:00:00 00:00:[address] 2019-12-01 2019-12-01 Outpatient TULIO [facility] [id number] [place] 00:00:00 00:00:00 PANCHO [address] 2019-11-03 2019-11-03 Outpatient LEXI [facility] [id number] [place] 00:00:00 00:00:00 RAYAN [address] 2019-10-12 2019-10-12 [facility] [id number] [place] 00:00:00 00:00:00 HARI [address] 2019-10-01 2019-10-01 Outpatient ASHLEY [facility] [id number] [place] 00:00:00 00:00:00 HARI [address] 2019-06-15 2019-06-15 Office EYAD [place] [id number] 12:46:45 13:01:45 Visit [facility] AMBULATOR [id number] Y [id number] 2019-06-11 2019-06-11 Outpatient STEVEN, [facility] [id number] [place] 00:00:00 00:00:00 NADIM [address] 2019-06-01 2019-06-02 Outpatient MADDIE RABAGO [facility] [id number] [place] 00:00:00 00:00:[address] 2019-05-19 2019-05-19 [id number] [place] 00:00:00 00:00:00 NADIM [address] 2019-03-25 2019-03-25 [id number] [place] 00:00:00 00:00:00 HARI [address] 2019-03-05 2019-03-05 Outpatient ORLANDO, [facility] [id number] [place] 00:00:00 00:00:00 AHMED [address] 2019-02-24 2019-02-27 Inpatient GWEN, [facility] [id number] [place] 00:00:00 00:00:00 ALISE [address] Results Test Description Test Time Test Comments Results Result Comments Source ECG 12 lead 2020-01-18 14:28:12 Test Item Value Reference Range Interpretation Comme nts Ventricular rate (test code = 253) 67 Atrial rate (test code = 255) 67 MI interval (test code = 266) 274 QRSD interval (test code = 260) 110 QT interval (test code = 264) 450 QTC interval (test code = 265) 475 P axis 1 (test code = 267) 72 QRS axis 1 (test code = 268) 101 T wave axis (test code = 270) 67 EKG impression (test code = 273) Sinus rhythm with 1st degree AV bl ock with occasional premature ventricular complexes and fusion complexes- [place] [facility] [id number] 13:06:04Cardiac Catheterization Operative Note Jackelin Vergara, [id number] y.o. male 12/31/2019; H WT CATH AOD PROC RM 1 Procedure(s):EP CARDIOVERSION Tolerated procedure well Condition:stableComplications: None; patient tolerated the procedure well.Findings: Procedure Details Successful CVN with 200J q9Aqubvjne amiodarone 200mg PO BID Pre-op Diagnosis: Atrial fibrillation, unspecified type (HCC) [I48.91] Post-Op Diagnosis Codes: * Atrial fibrillation, unspecified type (HCC) [I48.91] Surgeon(s) and Role: * Maddie Rabago MD - Primary Anesthesia: General Blood Products Administered: na Estimated Blood Loss: * No values recorded between 12/31/2019 11:19 AM and 12/31/2019 12:08 PM * Sheath/IV: No LDAs Documented Specimens: * No specimens in log * Grafts/Implants: None Maddie Rabago MD Date: 12/31/2019 Time: 12:22 [place] MethodistCOVID-19 qualitative [id number] 02:42:13 Test Item Value Reference Range Interpretation Comments Interpretation (test Negative results do code = 2701723) not preclude 2019-nCoV infection and should not be used as the sole basis for treatment or other patient management decisions. Negative results must be combined with clinical observations, patient history, and epidemiological information. COVID-19 qualitative Not-Detected Not-Detected PCR result (test code = 11090-7) COVID-19 qualitative See link below for C ase Number: PCR (test code = PDF Lab Report [id number]) [place] MethodistBasic metabolic [id number] 17:41:38 Test Item Value Reference Range Interpretation Comments Sodium (test code = 2951-2) 136 135- 148 mEq/L Potassium (test code = 2823-3) 5.0 3.5- 5.0 mEq/L Chloride (test code = 2075-0) 99 98- 112 mEq/L CO2 (test code = 2028-9) 26 24- 31 mEq/L Anion gap (test code = 66075-2) 11@ANIO 7- 15 mEq/L BUN (test code = 3094-0) 35 mg/dL 8-23 H Creatinine (test code = 2160-0) 1.34 mg/dL 0.7-1.2 H Glucose (test code = 2345-7) 114 mg/dL 65-99 H Calcium (test code = 55709-9) 9.6 mg/dL 8.8-10.2 Lab Interpretation (test code = Abnormal 38199-5) Zhang [facility] [id number] 17:41:38 Test Item Value Reference Range Interpretation Comments Magnesium (test code = 79867-4) 2.1 mg/dL 1.6-2.4 [place] MethodistEstimated [id number] 17:41:38 Test Item Value Reference Range Interpretation Comments Estimated GFR (test 51 mL/min/1.73 m2 Joni helm Units code = 5488) InterpretationG 1 >=90 Tanesha l or highG2 60-89 Mildly decrease dG3a 45-59 Mil dly to moderately decr hafduL3u 30-44 Moderately to s everely decreasedG4 15-29 Severe ly decreasedG5 <15 Kidney rica lureThe eGFR was calcul ated using the Chron ic Kidney Disease Epidemiology Collaboration ( CKD-EPI) equation. Interpretation is based on recommendati ons of the National Ki dney Foundation-Kidn ey Disease Outcome s Quality Initiat jenny (NKF-KDOQI) pub lished in 2013. Lab Interpretation Abnormal (test code = 85238-0) Zhang MethodistPartial thromboplastin time, [id number] 17:13:18 Test Item Value Reference Range Interpretation Comments PTT (test code = 37.4 23.0- 36.0 sec H PTT thera peutic range 19293-2) for unfractiona mee heparin is61.0- 112.0 seconds which corresponds to Anti-Xa0.3-0.7 U/ml. Lab Interpretation Abnormal (test code = 28784-0) [place] MethodistProthrombin time with [id number] 17:12:33 Test Item Value Reference Range Interpretation Comments Prothrombin time (test 17.4 11.5- 14.5 sec H code = 5902-2) INR (test code = 1.4 The Interna tional 99510-8) Normalized Rati o (INR) is a therapeuti c monitoring tool for patients who ar e stable on oral anticoagulant t herapy. An INR of 2.0-3 .0 is suggested for d eep vein thrombosis/pulm onary embolism. Lab Interpretation Abnormal (test code = 13565-1) Zhang MethodistCBC with platelet and [id number] 16:53:50 Test Item Value Reference Range Interpretation Comments WBC (test code = 25262-9) 6.90 4.50- 11.00 k/uL RBC (test code = 27734-3) 4.47 m/uL 4.4-6 HGB (test code = 718-7) 13.9 g/dL 14-18 L HCT (test code = 4544-3) 42.8 % 41-51 MCV (test code = 787-2) 95.7 fL 82-100 MCH (test code = 785-6) 31.1 pg 27-34 MCHC (test code = 786-4) 32.5 g/dL 31-37 RDW - SD (test code = 51.2 fL 37-55 12398-6) MPV (test code = 02461-2) 9.9 fL 8.8-13.2 Platelet count (test code 245 150- 400 k/uL = 98553-5) Nucleated RBC (test code 0.00 /100 WBC = 04859-7) Neutrophils (test code = 69.8 % 39-69 H 32810-0) Lymphocytes (test code = 19.3 % 25-45 L 38516-7) Monocytes (test code = 7.7 % 0-10 81931-8) Eosinophils (test code = 2.5 % 0-5 56336-7) Basophils (test code = 0.3 % 0-1 48230-5) Immature granulocytes 0.4 % 0-1 "Immat ure (test code = 72599-9) granul ocytes" (promyelocytes, myelocytes, metamyelocytes) Lab Interpretation (test Abnormal code = 77141-6) [facility] [id number] 15:04:37 Kitty Harris Jr., MD Physician Cardiology Brief Op Note Signed Date of Service: 06/11/2019 10:10 AM Procedure: EP CARDIOVERSION Case Time: 06/11/2019 10:10 AM Surgeon: Kitty Harris Jr., MD Signed []Hide copied text []Amrikver for details Cardioversion operative Note Jackelin Vergara, [id number] y.o. male 06/11/2019; [facility] WT CATH AOD PROC RM 1 Procedure(s):EP CARDIOVERSION Tolerated procedure well Condition: stableCompl ications: None; patient tolerated the procedure well.Findings: The patient was identified and consent reconfirmed prior to the procedure The baseline rhythm was atrial fibrillation Anesthesia was given When the patient was adequately sedated, synchronized DC CVN was performed converting the patient to sinus The patient awoke without sequelae Procedure Details Pre-opDiagnosis: Persistent atrial fibrillation [I48.19] Post-Op Diagnosis Codes: * Persistent atrial fibrillation [I48.19] Surgeon(s) and Role: * Kitty Harris Jr., MD - Primary Anesthesia: Anesthesia type not filed in the log. Blood Products Administered: Estimated Blood Loss: * No values recorded between 06/11/2019 10:10 AM and 06/11/2019 10:18 AM * Sheath/IV: No LDAs Documented Specimens: * No specimens in log * Grafts/Implants: NoneConclusions: Successful cardioversion to NSRRecommendations: Continue medical management and post op Afib ablation routine and opt follow up. Kwame Dempsey MD Date: 06/11/2019 Time: 10:20 [facility] Pre/Post [id number] 23:32:20 Test Item Value Reference Range Interpretation Comments Ventricular rate 57 (test code = 253) Atrial rate (test 57 code = 255) MI interval (test 278 code = 266) QRSD interval (test 112 code = 260) QT interval (test 450 code = 264) QTC interval (test 438 code = 265) P axis 1 (test code = 69 267) QRS axis 1 (test code 2 = 268) T wave axis (test 77 code = 270) EKG impression (test Sinus bradycardia with code = 273) 1st degree AV block-Anterior infarct (cited on or before 24-FEB-2019)-Abnormal ECG-In automated comparison with ECG of 11-JUN-2019 06:22,-Sinus rhythm has replaced Atrial flutter- [place] [facility] [id number] 07:09:57 Test Item Value Reference Range Interpretation Comments POC sodium (test code = 140 mmol/L 672-962 2177-0) POC potassium (test 4.3 mmol/L 3.5-5 code = 6298-4) POC chloride (test code 104 mmol/L 99-109 = 2069-3) POC CO2 (test code = 27 mmol/L 24-31 39772-7) POC glucose (test code 98 mg/dL 65-99 = 2339-0) POC BUN (test code = 26 mg/dL 8-24 H 6299-2) POC creatinine (test 1.1 mg/dl 0.7-1.2 code = 70296-9) POC hematocrit (test 43 % 41-51 code = 4544-3) POC anion gap (test 15 mmol/L 8-20 Advertising Dispatch Clerk Name: code = [id number]) Prateek Montez ID: [id number] Lab Interpretation Abnormal (test code = 25662-2) [place] MethodistActivated clotting [id number] 07:13:25 Test Item Value Reference Range Interpretation Comments Activated clotting time 141 96- 152 sec Oper ator Name: Ari (test code = 5298) Gennaro Jefferyevice ID: [id number] [place] [facility]Electrophysiology [id number] 13:51:05-Successful pulmonary veins isolation x4 with entrance and exit block-Successful PWI isolation-Successful ablation of anteroseptal mitral line for mitral flutter induced in the lab-Successful CTI line ablation-Multiple flutters induced in the lab with changing activation that could not be mapped accurately RECOMMENDATIONS:1. Monitor on telemetry overnight2. Bedrest for 2 hours after sheaths removal3. Restart Eliquis in 4 hours 4. Lasix 20 mg IV when patient in recovery 5. Restart amiodarone 200 mg daily. DATE OF OPERATION: June 01, 2019 COOK HOUSE SUPERVISOR: Maddie Rabago MD PREOPERATIVE DIAGNOSES:-Persistent atrial fibrillation-History of atrial flutter-Dilated nonischemic cardiomyopathy-Systolic heart failure stage III-Remote history of prostate cancer POSTOPERATIVE DIAGNOSES:-Persistent atrial fibrillation-History of atrial flutter-Dilated nonischemic cardiomyopathy-Systolic heart failure stage III-Remote history of prostate cancer PROCEDURES PERFORMED:-Ultrasound guided vascular access-Afib ablation with PVI and extrapulmonary ablation for PWI-Atrial flutter x2-3D mapping-Stimulation after drug infusion-Intra cardiac echocardiography (ICE) COMPLICATIONS: None ESTIMATED BLOOD LOSS: <30cc HISTORY OF PRESENT ILLNESS: In brief, this is a 74-year-old gentleman with history of symptomatic persistent atrial fibrillation and atrial flutter treated with amiodarone for more than7 years with recurrence lately who presents today for atrial fibrillation and flutter ablation. PROCEDURE IN DETAIL: Consent was obtained from the patient after a full explanation of the risks and benefits of the procedure. The patient was brought to the electrophysiology lab in the fasting state. Thepatient was prepared and draped in a sterile fashion. General anesthesia with intratracheal ventilation administered by the anesthesia service was used for the procedure. Esophageal temperature monitoring was performed throughout the case using CIRCA catheter. Patient presented to the EP lab in atrialfibrillation. Sheaths were placed using modified Seldinger technique. Three venous sheaths (8Fr, long 7Fr and long 9Fr sheath) were placed in the right femoral vein using ultrasound guidance without complication. A intracardiac echocardiography catheter (ICE) was inserted via the 9Fr sheath and advanced into the right atrium and the right ventricle. At baseline, there was no pericardial effusion andsignificantly depressed EF. Using SOUND, the CTI, CS os, fossa, LPVs, RPVs were marked. The left atrium was noted to be significantly enlarged and measured at 6.1 cm. The ICE catheter was later used to guide transseptal puncture and monitor for procedure complications. Next, the RFV 8Fr sheath was upgraded to a large curl Agilis sheath, through which a SmartTouch SF catheter, DF curve was advancedto the RA, and a Fast Anatomic Map (FAM) was done for the IVC, RA septum, fossa and SVC. A live wireduodecapolar diagnostic catheter was then advanced into the coronary sinus and lateral lateral kenrick. Next, we turned out attention to left sided access.After titrating heparin drip to achieve an ACT > 350 sec, transseptal puncture was performed with [place] long needle (requiring RF) using ICE guidance. Left (18 mmHg) atrial pressure was measured to assess intracardiac filling pressures. There were no complications. Following transseptal puncture, Agilis sheath was advanced into the LA, and the ablator was then exchanged to a DF Pentarray catheter. Patient was cardioverted first to NSR with 200J x1. A detailed 3D electroanatomical and voltage map was created while in normal sinus rhythm inthe left atrium using CARTO mapping system. There were small areas of low voltage seen anteriorly by the septum and the base of the appendage. In addition there was significant doubling of the potential seen on the posterior wall. After exchanging the Pentarray to the ablation catheter, we proceeded to pulmonary veins isolation. The left pulmonary veins were circumferentially isolated as a common os using RF ablation. During isolation of the left veins patient went into atrial flutter that change into another atrial flutter that then degenerated into atrial fibrillation. The right pulmonary veins were circumferentially isolated as a common os using RF ablation. Prior to ablation of right sided veins, pacing was performed and right phrenic nerve course was avoided (PN not captured at high output pacing prior to ablation). We then proceeded with posterior wall isolation with the floor and the roofline. 40 W for 15-20 sec lesions and impedance drop of 10-15 ohms was targeted in the anterior sites, targeting Ablation Index ~400-500units. Posterior sites we used high power, short duration lesions (40-50W for 5-7 secs) were used. At this time patient remained into atrial fibrillation so wasexternally cardioverted to normal rhythm. The left pulmonary veins were checked and were confirmed to be isolated. The right pulmonary veins were noted to be connected at the level of anterior carinaand multiple lesions across the both mustapha with a trans-carinal line performed to achieve isolation. Additional lesions were needed in the middle of the posterior wall to achieve complete isolation with no exit with high output pacing at 25 mV.Following this we proceeded with Isuprel infusion. Withincremental infusion up to 20 mcg/min there was no PV reconnection or non-PV triggers. CS burst pacing at 240 ms induced flutter 1. This was distal to proximal on the CS with tachycardia cycle lengthof ~45 ms. It was somehow difficult to map this flutter at the activation was changing slightly, in addition there was an area of the base of the appendage that looked more like atrial fibrillation that was disconnected from the rest of the atrium. Ablation there immediately changed the flutter to another activation. In the flutter was changing between proximal to distal and distal to proximal using same cycle length it was thought to be mitral flutter and we decided to proceed with anterior septal line. An ablation line was performed from the right superior pulmonary veins to 12:00 on the mitral valve. During this time the flutter degenerated into atrial fibrillation. We continued our ablation and then cardioverted the patient to normal rhythm. At them in the middle and closer to the mitral valve. After ablation there and repeat mapping additional leaking was seen in the similar area and additional lesions were performed there with a jump of the EGM seen across the line. This sensing conduction across the line was about 60 ms. At this time patient spontaneously went into atrial flutter 2 which much slower cycle length at 330 ms. This flutter activation changed multiple times with different timing compared to lateral right atrium kenrick. We were unable to map this flutter as he was changing constantly, then degenerating into atrial fibrillation. Patient was then cardioverted again to normal right rhythm. At this time as 1 of those flutter circuit was suggestive of CTI flutterwe decided to proceed with CTI line ablation. The veins were confirmed to remain isolated with highoutput pacing no exit, heparin was stopped and ablation catheter was pulled into the right atrium and we proceeded with CTI line ablation. After marking the his cloud on the map the ablation catheter was advanced to the tricuspid valve and of the CTI and ablation there was performed all the way back to the IVC until block and EGM was seen. Bidirectional block was confirmed entrance block conductionwas about 200 to 220 ms.At this time case was successfully concluded. HV measured 61 ms. Post-proced ure ICE showed no change. At this time, GA was stopped and patient was extubated; No immediate complications. Protamine was given at the end of the procedure. Sheaths were pulled in the lab and figure of eight suture was placed. Patient was transferred to the PACU in a stable condition.Vicente MethodistArterial [id number] 08:27:34Vernon Pérez Jr., MD 06/01/2019 8:28 AMArterial linePerformed by: Vernon Pérez Jr., MDAuthorized by: Vernon Pérez Jr., MD Start Time: 06/01/2019 8:00 AMEnd Time: 06/01/2019 8:10 AMStaff: Performed by: AnesthesiologistPre-procedure: patient identified, IV checked, site and side verified, risks and benefits discussed, procedure verified, surgical consent complete, patient position confirmed, monitors and equipment checked and pre-op evaluation complete MSBT: antiseptic used, all elements of maximal sterile barrier technique followed, hand hygiene performed, cap/gown used by otherpersonnel and solutions labeled TIme Out Performed: 06/01/2019 8:00 AMIndications: Indications: hemodynamic monitoring Anesthesia: Anesthesia: GeneralProcedure Details: Arterial Line placement: Placed post induction Line placement site: RadialLine placement side: Right Arterial line gauge: 20 GNumber of attempts: 4 Ultrasound guidance used: Yes Post-procedure: Post-procedure: Sterile dressing applied Post procedure circulation, sensation, movement: Normal Patient tolerance: Patient tolerated the procedure well with no immediate complicationsStaunton Amish Arterial [id number] 08:27:15Vernon Pérez Jr., MD 06/01/2019 8:27 AMArterial linePerformed by: Vernon Pérez Jr. MDAuthorized by: Vernon Pérez Jr., MDStaunton HdfrxaplrEiubwa0179-22-25 08:26:35Vernon Pérez Jr., MD 06/01/2019 1:22 PMAirwayDate/Time: 06/01/2019 8:00 AMPerformed by: Vernon Pérez Jr. MDAuthorized by: Vernon Pérez Jr., MD Location: [facility] Airway: No Anesthesiologist: Vernon Pérez Jr., MDPerformed by: anesthesiologistPreoxygenated with 100% O2: Yes C-spine Precautions Maintained Throughout: Yes Mask Ventilation: Easy maskFinal Airway Type: Endotracheal airwayFinal Endotracheal Airway: ETTCuffed: Yes Technique Used: Direct laryngoscopyDevices/Methods Used in Placement: Intubating styletInsertion Site: OralBlade Type: MillerLaryngoscope Blade/Videolaryngoscope Blade Size: 2ETT Size (mm): 8.0Cuff at minimum occlusion pressure: Yes Measured from: LipsETT to Lips (cm): 21Placement Verified by: CO2 detection, direct visualization and equal breath sounds Laryngoscopic view: Grade IIb - view of arytenoids or posterior of glottis onlyRapid Sequence Induction (RSI): No Modified RSI: No Number of Attempts at Approach: 1[place] MethodistType and [id number] 07:33:00 Test Item Value Reference Range Interpretation Comments ABO grouping (test code = 883-9) A Rh type (test code = 75784-9) NEG Antibody screen (gel) (test code = NEG 890-4) [place] MethodistElectrophysiology [id number] 18:15:12 Kitty Harris Jr., MD Physician Electrophysiology Brief Op Note Signed Date of Service: 05/19/2019 7:05 AM Procedure: EP CARDIOVERSION Case Time: 05/19/2019 7:05 AM Surgeon: Kitty Harris Jr., MDSigned []Hide copied text []Hover for details CVN Operative Note Jackelin Vergara, [id number] y.o. male 05/19/2019; [facility] WT CATH AOD PROC 2 Procedure(s):EP CARDIOVERSION Tolerated procedure well Condition: stableComplications: None; patient tolerated the procedure well.Findings: The patient was identified and consent reconfirmed prior to the procedure The baseline rhythm was atrial fibrillation Anesthesia was given When the patient was adequately sedated, synchronized DC CVN was performed converting the patient to sinus The patient awoke without sequelae Procedure Details Pre-op Diagnosis: Persistent atrial fibrillation [I48.19] Post-Op Diagnosis Codes: * Persistent atrial fibrillation[I48.19] Surgeon(s) and Role: * Kitty Harris Jr., MD - Primary Anesthesia: Anesthesia type not filed in the log. Blood Products Administered: none Estimated Blood Loss: 0 mL Sheath/IV: No LDAs Documented Specimens: * No specimens in log * Grafts/Implants: None Assessment: Successful CVNRecommendationsContinue amiodaronee at 400 mg daily and follow up for Ablation consultation on the with Dr. Hiam Harris Jr., MD Date: 05/19/2019 Time: 7:32 [facility] MethodistMiscellaneous referral [id number] 17:14:39 Test Item Value Reference Range Interpretation Comments Misc test name ?CK-MB AURB (test code = outside lab 2566) [facility] test result see note Creatine Ki nase, MB (test code = enGene test code 8629) [id number] Creatin e Kinase, Isoenzy me MB 3.3 ug/L (Ref Interval: 0.0-5.0) 999- - - - - - - - - - - - - - - - - - - - - - - - - - - - - -CK-M B Relative Percen t Not Done (Ref Interval: 0.0-5.0) 999 ==== ==== ==== =====Test perfo rmed by:[employer] [place] [id number] [facility] [id number] 13:24:09After obtaining informed consent, the patient was brought to the cardiac catheterization suite. The right wrist was prepped and draped in usual sterile fashion. Lidocaine was used as local anesthetic. A mini-puncture needle was used to access the right radial artery. A 6 Fr sheath was placed in the right radial artery and 200 mcg of nitroglycerin and 200 mcg of verapamil were administered via the radial sheath to prevent radial artery vasospasm. Heparin was given to prevent radial artery occlusion. A JL3.5 catheter(s) was advanced over a guidewire to the aortic root. RCA was anomalous and attemptedJR4, WR, and finally the AL1 was successful in engaging. The guidewire was removed. Coronary angiography was performed of both the left and right coronary systems using the catheter(s). The catheter was then removed over a wire. At the conclusion of the procedure the arterial sheath was removed in thecatheterization lab and hemostasis was obtained with a Tracelet. The patient was returned to the record label internship holding area for recovery. The patient tolerated the procedure without difficulty. Findings:LM:Mild disease.LAD: 40% stenosis in the prox-mid LAD, mild-mod diffuse disease.LCx: Mild diffuse diseas e, 30% stenosis proximally.RCA: Anomalous takeoff of the RCA, non-obs CAD. Overall non-obstructive coronary artery disease.Medical management.Vicente HatfieldIvgxqyhzgJuqjgdcl0968-45-84 12:27:26 Test Item Value Reference Range Interpretation Comments Troponin (test code = 0.068 ng/mL 0-0.04 H H[place]ell hoff Amish 84876-3) Laboratories ch angvaleriano methodology effective: 2018 at 10:00 amThe new method has a 99 th percentile cuto ff of 0.040 ng/mL Lab Interpretation Abnormal (test code = 73851-3) Vicente HatfieldComprehensive metabolic [id number] 06:58:00 Test Item Value Reference Interpretation Comments Range Glucose (test code 99 mg/dL 65-99 Fasting = 2345-7) reference inter shahid BUN (test code = 27 mg/dL 7-25 H 3094-0) Creatinine (test 1.12 mg/dL 0.7-1.18 For patient s >49 code = 2160-0) years of age, the reference limit for Creatinine is approximately 1 3% higher for peopleidentifie d as -Dona n. EGFR Non-Afr. 63 > OR = 60 [place] (test code mL/min/1.73m2 = 2775) EGFR 74 > OR = 60 [place] (test code mL/min/1.73m2 = 35064-9) BUN/creatinine 24 6- 22 (calc) H ratio (test code = 3097-3) Sodium (test code = 142 mmol/L 951-037 1189-2) Potassium (test 4.9 mmol/L 3.5-5.3 code = 2823-3) Chloride (test code 105 mmol/L 98-110 = 2075-0) CO2 (test code = 29 mmol/L 20-32 2027-9) Calcium (test code 9.6 mg/dL 8.6-10.3 = 68222-1) Protein (test code 6.8 g/dL 6.1-8.1 = 2885-2) Albumin, S (test 4.0 g/dL 3.6-5.1 code = 1751-7) Globulin, total 2.8 1.9- 3.7 g/dL (test code = (calc) 16442-8) Albumin/globulin 1.4 1.0- 2.5 ratio (test code = (calc) 1759-0) Total bilirubin 0.7 mg/dL 0.2-1.2 (test code = 1975-2) Alkaline 56 U/L 40-115 phosphatase (test code = 6768-6) AST (test code = 18 U/L 10-35 1920-8) ALT (test code = 16 U/L 9-46 1742-6) CHRISTIANO (test code = FASTING:YESFASTIN CHRISTIANO) G: YES RAC (test code = Performing RAC) Organization Information: Site ID: [facility] Name: [facility] Address: [address] [place] [id number] Director: Burt Coronado Lab Interpretation Abnormal (test code = 20118-3) [place] MethodistPT and [id number] 06:58:00 Test Item Value Reference Interpretation Comments Range PTT (test code 31 22- 34 sec This test carey s not been = 56777-5) validated for monitoringunfra ctionated heparin therapy . For testing thatis validated for this type o f therapy, please referto the Heparin Anti-Xa assay ( test code 48239). For add itional information, pl ease refer tohttp://educat ion.[employer]/fa q/RAT105(Thi s link is being provided for informational/e ducational purposes only.) INR (test code 1.1 Reference Ran ge = 6301-6) 0.9-1.1Moderate -intensity Warfarin Therap y 2.0-3.0Higher-i ntensity Warfarin Therap y 3.0-4.0 Prothrombin 11.3 9.0- 11.5 time (test code sec = 5902-2) CHRISTIANO (test code FASTING:YESFASTI = CHRISTIANO) NG: YES RAC (test code Performing = RAC) Organization Information: Site ID: [facility]: [facility] Address: [address] [place] [id number] Director: Burt Coronado [place] MethodistCOPY(IES) SENT TO:2019-03-21 06:58:00Copies/mLComment: TAN CEE CARDIO [address] [facility] [address] [place] [address] QUESTFASTING:YESFASTING: YESDomingaston MethodistCOPY RECEIVED FROM: 2019-03-21 06:58:00Copy received from:Comment: J[address] [facility] [address] [place] [address] QUESTFASTING:YESFASTING: Lindy MethodistElectrophysiology [id number] 09:52:23 Kitty Harris Jr., MD Physician Electrophysiology Brief Op Note Signed Date of Service: 02/25/20191:28 PM Procedure: Ep cardioversion Case Time: 02/25/2019 1:28 PM Surgeon: Kitty Harris Jr., MD Signed []Hide copied text []Hover for details Cardioversion Operative Note Jackelin Vergara, [id number] y.o. male 02/24/2019 - 02/25/2019; [facility] WT CATH AOD PROC 2 Procedure(s):Ep cardioversion Tolerated procedure well Condition: stableComplications: None; patient tolerated the procedure well.Findings: The patient was identified and consent reconfirmed prior to the procedure The baseline rhythm was atrial fibrillation Anesthesia was given When the patient was adequately sedated, synchronized DC CVN was performed converting the patient to sinus The patient awoke without sequelae Procedure Details Pre-op Diagnosis: * No pre-op diagnosis entered * * No Diagnosis Codes entered * Surgeon(s) and Role: * Kitty Harris Jr., MD - Primary Anesthesia: Anesthesia type not filed in the log. Blood Products Administered: none Estimated Blood Loss: * No values recorded between 02/25/2019 1:28PM and 02/25/2019 1:46 PM * Sheath/IV: No LDAs Documented Specimens: * No specimens in log * Grafts/Implants: None Conclusions:Successful CVN to NSRRecommendations: Reduce Amiodarone to maintenance dose and begin education process about Afib ablation. Kitty Harris Jr., MD Date: 02/25/2019 Time: 1:46 PMVicente MethodistCv stress [id number] 14:54:11 Test Item Value Reference Range Interpretation Comments Resting HR (test code 63 = 2716024694) Resting BP (test code 114 = 6027286124) Peak MET Achieved 1 (test code = 6603101234) Protocol Name (test Lexiscan code = 8574079862) Time in Exercise 00:01:00 Phase (test code = 7846099987) Max Systolic BP (test 136 code = 6564213239) Max Diastolic BP 66 (test code = 5166346908) Max Heart Rate (test 80 code = 9219588349) Max Predicted Heart 145 Rate (test code = 7475766573) Target HR Formula (220 - Age)*100% (test code = 0190364815) Test Indication (test CAD code = 0208915118) Arrhy During Ex (test code = 9832234215) ECG Interp Before EX (test code = 7305746782) ECG Interp During Ex (test code = 8395923023) Ex Summary Comment (test code = 0831232120) Overall HR Response to Exercise (test code = 1839818452) Overall BP Response To Exercise (test code = [id number]) Reason for Termination (test code = 6185954291) Stress Test -Waveform interpreted in Impression (test code report associated with = [id number]) image study. No interpretation is provided as part of this Stress ECG report.-Electronically Signed By Deacon Pelayo MD ([id number]), editor managing director Garrick Cates ([id number]) on 03/05/2019 2:54:07 PM [place] [facility] nat[facility]tic [id number] 05:22:33 Test Item Value Reference Range Interpretation Comments BNP (test code = 02617-7) 1250 pg/mL 0-100 H Lab Interpretation (test code = Abnormal 91228-6) [place] [facility] cardiac calcium [id number] 18:26:00Interface, Radiology Results In - 02/26/2019 6:26 PM CDT Nuclear Cardiology and Cardiac CT [address] [place] [address] CT Calcium Scoring ReportPat.Name: JACKELIN VERGARA.ID: [id number] .Date: 02/26/2019 Refer.MD: SHAI SMITH MD Exam Time: 4:21:00 PM Study Type:CT Calcium Scoring Height: 73in Weight: 176lbBSA: 2.04 m2 Age: 10 1945,73Y Sex: MALE BP: 139/75 HR: 56 bpm Nuclear Tech:RT Everardo(NM)(CT), CNMTPat. Stat.:Inpatient CPT - 4: [facility] Event ID:[id number] Order ID: [id number] Procedures: CT Flash mode --------- SUMMARY: Technique : Sequential 3mm CT cuts were obtained through the chest using [facility] [employer] CT scanner with ECG gating. Interactive imageviewing and volumetric display and analysis were also performed. TheCAC score was quanti fied using the Agatston scoring method.Non-contrast Cardiac CT results are as follows:The total Coronary Artery Calcium Score (CACS) is 2732 . Calcium isdistributed in the coronary arteries as follows:Left main: 42. Left Anterior Descending (LAD): 841 . Left Circumflex(LCx): 594 . Right Coronary Artery (RCA): 1253 . The non-contrast CT shows a normal cardiac size, no pericardialabnormalities, amildly enlarged aortic root of 4.0cm, a normalascending thoracic aorta of 3.8cm, and a normal descending thoracicaorta of 2.9cm. The left main and right coronary arteries appear tooriginate normally off the left and right sinus of Valsalva. Theright coronary artery is dominant. Moderate calcificationof aorticroot, and descending aorta. Extensive aortic calcification. Dilatedpulmonary artery (3.8 cm).Non-Cardiac Findings: Extensive bilateral infiltrates consistent withmultifocal pneumonia or congestive heart failure. Conclusion:Abnormal non-contrast cardiac CT. The coronary artery calcium scoreindicates a severe extent of coronary atherosclerosis with a >2% /year risk of a major cardiac event. The CACS is at the 99 thpercentile based on age and gender. Recommendation:(1) Intensive risk factor modification is indicated to prevent furtherprogression of coronary atherosclerosis. Unless contraindicated, lowdose aspirin (81mg) is recommended in addition to treatment ofhyperlipidemia with target LDL levels <70mg/dl. (2) The CTA was cancelled due to extensive calcifications. FINDINGS: Signed 02/26/2019 06:26 PMLonnie Hamlin MethodistEchocardiogram complete w contrast and 3D if [id number] 14:48:00Interface, Radiology Results In - 02/25/2019 2:48 PM CDT Echocardiography Report [address] [place] [address] Pat.Name: JACKELIN VERGARA.ID: [id number].Date: 02/25/2019 Refer.MD: YOBANI GRIFFITH MD. Exam Time: 7:11:00 AM Study Type:Routine Echo Height: 73in Weight: 177lb BSA: 2.04 m2 Age: 10 1945,73Y Sex: MALE BP: 107/72 Sonogrphr: Charisma Olmstead RDCS, RVSPat. Stat.:Inpatient Room: [facility] Study Status:Final Echo Event ID:[id number] Order ID: [id number] Reason for Study:Atrial fibrillationHistory / Clinical:Atrial FibrillationProcedures: 2D Echo, Colorflow Doppler, StrainRace: C SUMMARY: -LV size is severely enlarged. LV EF is severely depressed. EstimatedEF is 25- 29%. LV filling pressure is elevated.-RV systolic function is moderately depressed.-Estimated PA systolic pressure is 38-43 mmHg, assuming a mean RAP of15-20 mmHg.-A patent foramen ovale (probably a stretched PFO) with left to rightshuntis noted on color Doppler. FINDINGS: ---------LV: LV size is severely enlarged. There is severe eccentric LV hypertrophy. LVEF is severely depressed. Global hypokinesis. Estimated EF is 25-29%.RV: RV size is normal. RV systolic function is moderately depressed. LA: LA volume is severely enlarged.RA: RA volume is severely enlarged.AO: Aortic root diameter is normal in size. Ascending aorta diameter is normal.CECI: Trace posterior pericardial effusion.IAS: A patent foramen ovale (probably a stretched PFO) with left to right shunt is noted on color Doppler.AV: No structural AV abnormalities noted.MV: Mild posterior mitral valve prolapse. Mild eccentric mitral regurgitation. PV: No structural PV abnormalities noted. Mild pulmonic regurgitation. TV: No structural TV abnormalities noted. Mild tricuspid regurgitation Carlson: LV relaxation is impaired. LV filling pressure is elevated.Other: Estimated PA systolic pressure is 38-43 mmHg, assuming a mean RAP of 15-20 mmHg. MEASUREMENTS: 2DParasternal Long [place] Ao An 2.6 cm LVPWd 0.9 cm Ao Rtd 3.3 cm Index 1.6 cm/m2 LA Ds 6.7 cm IVSd 1 cm RWT 0.3 LVIDd 7 cm Index 3.4 cm/m2 LV Mass 301.5 g (122-174) LVIDs 5.7 cm LVM Index 147.8 g/m2 LV%fs 18.4 % LVOT 2.2 cm LA Sng Plane LA Area 42.1 cm2 (8.8-23.4) LA Vol 191.7 ml Index 94 ml/m2 LA LngAx 7.4 cm RA SngPlane RA Vol 118.8 ml Index 58.2 ml/m2 RA LngAx 6.7 cm RA Area 31 cm2 (8.3-19.5)Aorta Ao Asc 3.7 cm (2.1-3.4)LVOT LVOT Area 3.7 cm2 DOPPLERLVOT Stroke Vol LVOT TVI 10.4 cm HR 76 bpm LVOT LVOT SV 38.7 ml LVOT CO 2.9 l/min SVi 19 ml/m2 LVOT CI 1.4 l/m/m2IVRT IVRT 71 msec TV Pressure Gradient TV PkVel 234.7 cm/s TV PG 22 mmHg Signed 02/25/2019 02:48 PMSherif Alfonso Avery M.D.[place] [facility] Hem[facility] [id number] 09:57:10 Test Item Value Reference Range Interpretation Comments Hemoglobin A1C (test 5.9 % 4-5.6 H HbA1c c utoffs for code = 59057-5) diagnosing diabetes:4.0% - 5.6% = normal5.7% - 6.4% = increased risk for diabetes (prediabetes)9> =6.5% = [id number] s for glycemic contro l (ADA 2016)< 7.0% Ta rget for non adults with kyler betes. More or less stringent targe ts may be appropriate for individual jina ents. <7.5% Target for Children and adolescents wit h type 1 diabetes. Lab Interpretation (test Abnormal code = 95820-7) [place] MethodistLip[facility] [id number] 00:55:47 Test Item Value Reference Interpretation Comments Range Cholesterol (test 102 mg/dL <200 code = 2093-3) Triglycerides (test 78 mg/dL <150 code = 2571-8) HDL cholesterol 32 mg/dL >40 L (test code = 2085-9) LDL cholesterol 62 mg/dL <100 Result obtai jackie by direct (test code = 2089-1) LDL heriberto surement Lipid panel SeeBelow Total Cholester ol (mg/dL) interpretation (test < 200 code = 78602-5) Desirable 200-239 Borderline -high >=240 Hi gh Triglyceri silvano (mg/dL) <150 No rmal 150-199 Borderline-high 200-499 High >=500 Very high HDL Choles terol (mg/dL) <40 Low (male) < 40 Low (female) L DL Cholesterol (mg /dL) <100 Optimal 1 00-129 Near or above o ptimal 130-159 Borderline-high 160-189 High >=190 Very high Risk Cat ergories that modify LDL goals.Risk Catergories LDL goal (mg/dL )CHD and CHD risk equiva lent <100 (10-year risk >20%)Multiple ( 2+) risk factors < 130 (10-year risk = <20%)0-1 risk factors <160 (<10-ye ar risk) Defining levels of lipids in metabolic syndromeTriglyc erides > =150 mg/dLHDL Choles terol Men <40 mg/dL Women <40 mg/dL Non-HDL cholest cameron is a second target f or therapy in personswith high triglycerides ( >=200 mg/dL) Lab Interpretation Abnormal (test code = 36020-7) [facility] MethodistT4, [id number] 19:03:58 Test Item Value Reference Range Interpretation Comments T4, free (test code = 3024-7) 1.0 ng/dL 0.9-1.7 [place] FarakevinThyroid stimulating [id number] 19:03:58 Test Item Value Reference Range Interpretation Comments TSH (test code = 3016-3) 8.58 0.27- 4.20 uIU/mL H Lab Interpretation (test code = Abnormal 58994-4) [place] MethodistXR Chest 1 [id number] 18:11:53Hm Interface, Radiology Results 02/24/2019 6:14 PM CDTStudy:XR CHEST 1 PORTABLEHistory: SOBCOMPARISON: 06/22/2011IMPRESSION:A single view of the chest. There is focal consolidation in theright upper lobe and the right lower lobe from pneumonia. A trace right pleural effusion is present.No pneumothorax. A loop recorder overlies the left chest. Cardiac silhouette is normal. Visualized osseous structures are without acute abnormality.[facility]-[id number] MethodistMR, PELVIS, WITHOUT IV [id number] 12:59:00FINAL REPORT PROCEDURE: MRI PROSTATE WITHOUT CONTRAST COMPARISON: Prostate MRI 06/10/2017 CLINICAL HISTORY: R97.20,C61 TECHNIQUE: Using a phased array coil small ootas-jt-rmkf imaging of the prostate was performed using the following sequences; [axial T2-weighted, sagittal T2-weighted,oblique coronal T2-weighted, diffusion-weighted]. Using a large wmrrz-kl-pbim, the entire pelvis to the level of the aortic bifurcation was imaged with nonfat suppressed T1 sequence FINDINGS: Image quality is mildly motion degraded PROSTATE: Size of total gland: 4.6 x 5.9 x 5.9 cm. Total volume 83.7 cc. Transitional zone: 4.5 x 5.1 x 4.7 cm. Transitional zone volume 56.4 cc. BPH: Diffuseglandular stromal hyperplasiaMedian lobe: Present, smallEvidence of TURP: NoneCalcifications are difficult to visualize by MRI.Hemorrhage: Focus of T1 hyperintensity in the mid gland in the expected location of the anterior stroma measures 5 mm and suggestive of hemorrhage (series 5, image 33). TRANSITIONAL ZONE: Diffuse BPH nodules. *Hypointense T2 focus in the right lobe at the base (TZa) measures1.2 x 1.6 cm in the coronal plane (series 4, image 10) with well-defined borders and mild to moderate hypointensity on ADC. This is grossly stable. PERIPHERAL ZONE: No suspicious observations on highB value DWI or ADC. There are linear hypointense T2 signal bands, left lobe greater than right, corresponding to atrophy or post prostatitis scarring. SEMINAL VESICLES: Right: Normal in appearance andsignal characteristics. Left: Normal in appearance and signal characteristics. EXTRACAPSULAR EXTENSION: No extracapsular extension identified on MRI. NEUROVASCULAR BUNDLES: Intact. BLADDER: Circumferential mural thickening. No intraluminal foci or focal mural mass. VESSELS: Mildly prominent periprostatic vasculature LYMPH NODES: No pelvic lymphadenopathy. BOWEL: Diverticulosis coli. No bowel dilatation BONES/BONE MARROW: Heterogeneous marrow signal. No focal osseous lesions. Soft tissues: Small fat-containing left inguinal hernia. IMPRESSION: 1. Observation in the transition zone of the ri ght lobe (TZa) appears grossly stable given the presence of motion degradation and is suggestive of a BPH nodule (PI RADS 2). No suspicious observations in the peripheral zone. 2. Moderate BPH. Mild bladder wall thickening suggestive of outlet obstruction. PI-RADS: 1- benign; 2 - most probably benign;3 - intermediate; 4 - probably malignant;5 - highly suspicious of malignancy Standardized MRI prostate reporting scheme, PI-RADS includes T2, diffusion weighted imaging, and/or DCE. Signed: Dirk Olsen MDReport Verified Date/Time: 07/15/2018 12:59:22
--- OUTSIDE RECORDS SUMMARY | 2020-01-31 12:19 | XMS REPORT | Summary of Care ---
:1945 Author Organization [facility] Address [address] [place] [id number] Care Team Providers Name Role Phone João Zheng Primary Care Provider Reason for Visit Reason Comments LAB covid Encounter Details Date Type Department Care Team Description 01/19/2020 Laboratory Only [facility] Sol Mireles, SEO SPECIALIST [address] [facility] [address] [place] [address] Suspected Covid-19 Medicine - [facility], Adc Fam Pob I Virus Infection [address] [facility] [address] [place] [address] Allergies No Known Allergiesdocumented as of this encounter (statuses as of 01/19/2020) Medications Medication Sig Dispensed Refills Start Date End Date Status amiodarone 200 mg Take 200 mg by 0 Active tablet mouth. amiodarone 400 mg Take 200 mg by 0 Active tablet mouth. furosemide 40 mg Take 40 mg by 0 10/12/2019 10/12/19 21 Active tablet mouth. ENTRESTO 24-26 mg Take 1 tablet by 0 11/02/2019 Active tablet mouth 2 (two) times daily. thyroid 60 mg tablet Take 60 mg by 0 Active mouth. tadalafiL 5 mg tablet Take 5 mg by 0 Active mouth. PARoxetine 10 mg Take 10 mg by 0 10/29/2019 Active tablet mouth. TRELEGY ELLIPTA 0 01/18/2020 Act jenny 100-62.5-25 mcg DsDv carvediloL 3.125 mg 0 01/09/2020 Active tablet atorvastatin 20 mg Take 20 mg by 0 Active tablet mouth. aspirin 81 mg EC Take 81 mg by 0 09/09/2019 Active tablet mouth. ELIQUIS 5 mg tablet Take 5 mg by 0 01/03/2020 Active mouth 2 (two) times daily. amoxicillin-clavulanat 0 01/18/2020 Active e 875-125 mg per tablet albuterol 90 0 01/18/2020 Active mcg/actuation inhaler documented as of this encounter (statuses as of 01/19/2020) Active Problems Not on filedocumented as of this encounter (statuses as of 01/19/2020) Social History Tobacco Use Types Packs/Day Years Used Date Former Smoker Smokeless Tobacco: Never Used Sex Assigned at Date Recorded Not on file COVID-19 Exposure Response Date Recorded In the last month, have you been in contact with No / Unsure 01/19/2020 5:19 PM CDT someone who was confirmed or suspected to have Coronavirus / COVID-19? documented as of this encounter Last Filed Vital Signs Not on filedocumented in this encounter Nursing Notes Jazmin Mills RN - 01/19/2020 5:40 PM CDTAlsaad Vergara is a 74 year old male here for COVID Screening with a Nasopharyngeal Swab All droplet and contact precautions taken with appropriate PPE worn while interacting with patient. ? Goggles ? N95 Mask ? Gloves ? Gown RR 16 Pulse Ox 96% Patient educated on plan of care for visit, swabbing technique, risks and benefits of test and length of time to receive results. Verbal consent obtained to perform test. CDC Fact Sheet for Patients nCoV Diagnostic Panel dated 07/25/2019 and Factsheet What to Do if Sick with COVID 19 07/05/19 provided. Patient swabbed per appropriate nasopharyngeal technique, and patient tolerated well. Patient was discharged from the testing clinic in stable condition. Jazmin Mills RN 01/19/2020 5:38 PM documented in this encounter Plan of Treatment Name Type Priority Associated Diagnoses Order S chedule COVID-19 (PCR MOLECULAR LAB Routine Suspected Covid-1 9 Virus Expected: 01/19/2020, TESTING) Infection Expires: 2020 Health Maintenance Due Date Last Done Comments Depression Screening 1955 DTaP,Tdap,and Td Vaccines (1 - Tdap) 1962 Zoster Recombinant Vaccine (SHINGRIX) (1 of 2) 1993 PNEUMOCOCCAL VACCINES 65+ (1 of 1 - PPSV23) 2008 INFLUENZA VACCINE (#1) 2020 documented as of this encounter Results Not on filedocumented in this encounter Visit Diagnoses Diagnosis Suspected Covid-19 Virus Infection - [facility] documented in this encounter Additional Health Concerns Infection Onset Date Last Indicated Resolved Time COVID-19 Rule Out 01/19/2020 01/19/2020 documented as of this encounter Insurance Payer Benefit Plan / Subscriber ID Effective Phone Address T e Group Dates [facility] [id number] 2020-Prese Medic are Adv HEALTHCARE - HEALTHCARE HMO MANAGED MEDICARE ADV MEDICARE HMO documented as of this encounter
--- OUTSIDE RECORDS SUMMARY | 2020-01-31 12:19 | XMS REPORT | Summary of Care ---
:1945 Author Organization [facility] Address [address] [place] [address] Care Team Providers Name Role Phone João Zheng Primary Care Provider Encounter Details Date Type Department Care Team Description 01/19/2020 Letter (Out) [facility] Message s Doctor Unassigned, No [address] [facility] [place] [address] [address] [facility] [phone] [place] [address] Allergies Not on Filedocumented as of this encounter (statuses as of 01/19/2020) Medications Not on filedocumented as of this encounter (statuses as of 01/19/2020) Active Problems Not on filedocumented as of this encounter (statuses as of 01/19/2020) Social History Tobacco Use Types Packs/Day Years Used Date Never Assessed Sex Assigned at Date Recorded Not on file documented as of this encounter Last Filed Vital Signs Not on filedocumented in this encounter Plan of Treatment Health Maintenance Due Date Last Done Comments Depression Screening 1955 DTaP,Tdap,and Td Vaccines (1 - Tdap) 1962 Zoster Recombinant Vaccine (SHINGRIX) (1 of 2) 1993 PNEUMOCOCCAL VACCINES 65+ (1 of 1 - PPSV23) 2008 INFLUENZA VACCINE (#1) 2020 documented as of this encounter Results Not on filedocumented in this encounter Insurance Payer Benefit Plan / Subscriber ID Effective Phone Address T ype Group Dates [employer] [id number] 2020-Prese Medic are Adv HEALTHCARE - HEALTHCARE nt HMO MANAGED MEDICARE ADV MEDICARE HMO documented as of this encounter
[2020-01-31] MEDS ORDERED: ALBUTEROL 2.5 MG/3 ML NEB SOL NEB PRN (12:39)
[2020-01-31] MEDS ORDERED: ACETAMINOPHEN 325 MG TABLET PO PRN (13:00)
[2020-01-31] MEDS ORDERED: ONDANSETRON 4 MG (ODT) TAB PO PRN (13:00)
[2020-01-31] MEDS ORDERED: DIPHENHYDRAMINE 25 MG TAB/CAP PO PRN (13:00)
[2020-01-31] MEDS ORDERED: LOPERAMIDE HCL 2 MG CAPSULE PO PRN (13:00)
[2020-01-31] MEDS ORDERED: ONDANSETRON 4 MG/2 ML VIAL IV PRN (13:00)
[2020-01-31] MEDS ORDERED: POLYETHYL GLY 3350 17 GM/DOSE PO PRN (13:00)
[2020-01-31] MEDS ORDERED: ALBUTEROL INHALER 60 PUFF/8 GM IH PRN (13:03)
--- NOTE | 2020-01-31 13:39 | RAD REPORT ---
EXAM DESCRIPTION: CT - Chest Angio - 01/31/2020 1:23 pm CLINICAL HISTORY: dyspnea, cough COMPARISON: Thorax Wo Con dated 09/10/2018; Chest Pa And Lat (2 Views) dated 01/19/2020 TECHNIQUE: Dynamically enhanced 3 mm thick images of the chest were obtained during administration o f approximately 150mL Isovue 370 IV contrast. Coronal and oblique MIP reconstruction images were gene rated and reviewed. Exam utilizes a protocol to evaluate the pulmonary arterial tree. All CT scans are performed using dose optimization technique as appropriate and may include automated exposure control or mA/KV adjustment according to patient size. FINDINGS: Pulmonary embolic disease is present in the distal aspect of the right lower lobar branch extending into multiple segmental branches. No right upper lobe pulmonary embolic disease. There is q uestionable mild embolic disease in the right middle lobe. No left-sided pulmonary embolic disease. The aorta as imaged shows no acute or suspicious finding. Cardiomegaly is present without pericardial effusion. Consolidated parenchyma seen in the apex with air bronchograms present. Minimal scattered airspace op acities seen elsewhere in the right upper lobe. There is opacification in the posterior lingula. Bila teral lung base interstitial opacification present with a few areas of nodular airspace opacification . Small right pleural effusion is present. No pneumothorax. No mediastinal or hilar suspicious masses. No chest wall masses or abnormal axillary lymphadenopathy. IMPRESSION: Pulmonary emboli in the distal right lower lobe pulmonary artery extending into multiple segmental branches. No measurable pulmonary hemorrhage in the right lower lobe. Right apex pneumonia with scattered infiltrate changes in the lingula and the each lower lobe. Right base infiltrative changes are better than on the 01/19/2020 chest film. Small right pleural effusion.
--- NOTE | 2020-01-31 13:41 | RAD REPORT ---
EXAM DESCRIPTION: RAD - Chest Pa And Lat (2 Views) - 01/31/2020 1:35 pm CLINICAL HISTORY: dyspnea, cough COMPARISON: PE study same date, two-view chest January 18 TECHNIQUE: Frontal and lateral views of the chest were obtained. FINDINGS: The lungs are fibrotic as a baseline. New infiltrate is seen in the apex of the right uppe r lobe. Interstitial opacification in the right base is improved but significant opacification remain s. Left base opacification not significantly different. Significant cardiomegaly is present. Vasculature is prominent but similar to comparison. Loop giuliano rder overlies the the left-side chest. No pneumothorax. Right pleural effusion is present. No acute b lizett finding noted. No aortic abnormality. IMPRESSION: Since the January 18 imaging pneumonia has developed in the superior aspect right upper lobe. Right base opacification has improved slightly from January 18. Significant opacification remains. Persistent cardiomegaly.
[2020-01-31] MEDS: LEVALBUTEROL 1.25 MG/3 ML NEB IH SCH ×2 (14:08→20:35)
[2020-01-31] MEDS: IPRATROPIUM BROM 0.5MG/2.5ML IH SCH ×2 (14:08→20:35)
[2020-01-31 14:28] VITALS: BMI 23.7
[2020-01-31 14:28] LABS: Absolute Lymphocytes (CBC) 0.6 K/uL (0.7-4.9); Basophils % 0.5 % (0-1.3); Hematocrit 44.4 % (39.6-49.0); Lymphocytes % 9.8 % (15.3-44.8); MPV 9.1 fL (7.6-11.3); RBC Red Blood Cell Count 4.62 M/uL (4.33-5.43)
[2020-01-31] MEDS: PIPER/TAZO/NS 3.375gm 3.375 GM/100 ML BAG IV SCH ×2 (14:38→19:00)
[2020-01-31 14:45] LABS: Protime INR 1.72
[2020-01-31] MEDS ORDERED: ASPIRIN EC 81 MG TAB PO SCH (17:00)
[2020-01-31 17:11] LABS: Albumin 3.8 g/dL (3.4-5.0); Bilirubin Direct 0.5 mg/dL (0-0.2); Bilirubin Total 1.4 mg/dL (0.2-1.0); C-Reactive Protein 22.7 mg/L (<3.00); Magnesium 2.2 mg/dL (1.8-2.4); Potassium 4.1 mmol/L (3.5-5.1); Protein, Total 7.5 g/dL (6.4-8.2); Thyroid Stimulating Hormone 5.98 uIU/mL (0.360-3.740)
--- NOTE | 2020-01-31 17:52 | RAD REPORT ---
EXAM DESCRIPTION: US - Extrem Venous W Compress Jackson - 01/31/2020 5:45 pm CLINICAL HISTORY: Increased DDimer, leg pain COMPARISON: None. TECHNIQUE: Real-time sonographic evaluation of the bilateral lower extremity common femoral, superfi cial femoral, popliteal and posterior tibial veins was performed. FINDINGS: Normal compressibility, flow augmentation, phasic flow and spontaneous flow are identified in the left and right lower extremity common femoral, superficial femoral, popliteal and posterior t ibial veins. No intraluminal filling defects seen. IMPRESSION: No DVT in either lower extremity.
[2020-01-31] MEDS ORDERED: LORAZEPAM 0.5 MG TABLET PO PRN (18:04)
[2020-01-31] MEDS: ENOXAPARIN 80 MG/0.8 ML SQ SCH (18:24)
[2020-01-31] MEDS ORDERED: APIXABAN 5 MG TABLET PO SCH (21:00)
[2020-01-31] MEDS: HOME MED 1 EA UNK (Tadalafil [Cialis] 5 MG) PO SCH (21:00)
[2020-01-31] MEDS: COLESEVELAM HCL 625 MG PO SCH (21:00)
[2020-01-31] MEDS: carvediloL 3.125 MG TAB PO SCH (21:57)
[2020-01-31] MEDS: ATORVASTATIN 20 MG TAB PO SCH (21:58)
[2020-01-31] MEDS: PARoxetine HCL 10 MG TAB PO SCH (21:58)
[2020-01-31] MEDS: AMIODARONE HCL 200 MG TAB PO SCH (21:59)
[2020-01-31] MEDS: FUROSEMIDE 20 MG/ 2ML VIAL IV SCH (21:59)
[2020-01-31] MEDS: SACUBITRIL/VALSARTAN 24/26 MG TAB PO SCH (21:59)
[2020-02-01] MEDS: PIPER/TAZO/NS 3.375gm 3.375 GM/100 ML BAG IV SCH ×3 (01:02→16:00)
[2020-02-01] MEDS: LEVALBUTEROL 1.25 MG/3 ML NEB IH SCH ×4 (01:50→20:00)
[2020-02-01] MEDS: IPRATROPIUM BROM 0.5MG/2.5ML IH SCH ×4 (01:50→20:00)
[2020-02-01] MEDS: THYROID 30 MG TAB PO SCH (05:34)
[2020-02-01 06:21] LABS: Absolute Lymphocytes (CBC) 0.9 K/uL (0.7-4.9); Basophils % 0.5 % (0-1.3); Hematocrit 39.7 % (39.6-49.0); Lymphocytes % 14.8 % (15.3-44.8); MPV 9.1 fL (7.6-11.3); RBC Red Blood Cell Count 4.15 M/uL (4.33-5.43)
[2020-02-01 06:33] LABS: Potassium 3.7 mmol/L (3.5-5.1)
[2020-02-01] MEDS: COLESEVELAM HCL 625 MG PO SCH ×2 (07:17→21:00)
[2020-02-01] MEDS: HOME MED 1 EA UNK (Fluticasone/Umeclidin/Vilanter [Trelegy Ellipta 100-62.5-25] 1 INH) IH SCH (07:17)
[2020-02-01] MEDS: AMIODARONE HCL 200 MG TAB PO SCH ×2 (08:46→22:11)
[2020-02-01] MEDS: carvediloL 3.125 MG TAB PO SCH ×2 (08:46→22:14)
[2020-02-01] MEDS: POTASSIUM CL SA 10 MEQ TAB PO SCH (08:46)
[2020-02-01] MEDS: ENOXAPARIN 80 MG/0.8 ML SQ SCH ×2 (08:47→22:15)
[2020-02-01] MEDS: FUROSEMIDE 20 MG/ 2ML VIAL IV SCH ×2 (08:48→22:10)
[2020-02-01] MEDS: SACUBITRIL/VALSARTAN 24/26 MG TAB PO SCH ×2 (08:48→22:11)
[2020-02-01] MEDS ORDERED: POTASSIUM CL SA 10 MEQ TAB PO ONE (09:00)
--- NOTE | 2020-02-01 11:28 | P.CNS ---
Date of Consult: 02/01/20 Reason for Consult: Pulmonary emboli shortness of breath on exertion Chief Complaint: Dyspnea History of Present Illness: Patient is 74 years of age well known to me he has been having progressive dyspnea for the past 5 weeks patient has significant history of AFib and did undergo some cardioversion was started back on the amiodarone becoming dyspneic than very mild exertion denies any fever chills productive cough did have a right upper lobe infiltrate that was treated by Dr. Zheng with Augmentin CT angiogram this time shows some pulmonary emboli in the lower lobe subsegmental patient is already on Eliquis the was never stopped denies any fever or wheezing Allergies No Known Allergies Allergy (Unverified 08/02/11 21:17) Home Medications: Albuterol Inhaler [Ventolin Inhaler*] 2 puff IH Q4HP PRN 01/31/20 Amiodarone HCl [Cordarone*] 200 mg PO BID 01/31/20 Amoxicillin/Potassium Clav [Amox-Clav 875-125 mg Tablet] 1 tab PO BID 01/31/20 Apixaban [Eliquis] 5 mg PO BID 01/31/20 Aspirin [Aspirin EC 81 MG] 81 mg PO DIRECTED 01/31/20 Atorvastatin Calcium [Lipitor*] 20 mg PO BEDTIME 01/31/20 Calcium Carbonate/Vitamin D3 [Calcium 500-Vit D3 600 Tablet] 1 tab PO BEDTIME 01/31/20 Carvedilol [Coreg] 3.125 mg PO BID 01/31/20 Colesevelam HCl 625 mg PO BID 01/31/20 Fluticasone/Umeclidin/Vilanter [Trelegy Ellipta 100-62.5-25] 1 inh IH DAILY 01/31/20 Furosemide [Lasix*] 40 mg PO DAILY 01/31/20 Multivitamin [Multiple Vitamins] 1 tab PO DAILY 01/31/20 PARoxetine HCL [Paxil*] 10 mg PO BEDTIME 01/31/20 Sacubitril/Valsartan [Entresto 24 mg-26 mg Tablet] 1 tab PO BID 01/31/20 Tadalafil [Cialis] 5 mg PO BEDTIME 01/31/20 Thyroid,Pork [Marketing Project Specialist Thyroid] 60 mg PO DAILY 01/31/20 - Past Medical/Surgical History Diabetic: No -: Afib -: CHF -: BPH -: Prostate Cancer -: COPD -: Hyperlipidemia -: Anxiety -: Hypothyroidism -: Cardioversion 12/31/2019 -: Ablation 06/01/2019 -: Kidney cancer surgery (removed part of right kidney) 2011 -: Abdominal surgery (Twisted Omentum) 2002 -: Implanted detector for Afib Linq (not working) - Family History Mother Medical History: Heart disease Notes: - blood clot Father Notes: Sister Notes: Genetic mutation that cause blood clots - Social History Smoking Status: Never smoker Alcohol use: No CD- Drugs: No Caffeine use: Yes Place of Residence: Home Review of Systems General: Weakness Respiratory: Shortness of Breath Musculoskeletal: Other (Right leg slightly swollen more than the left leg) Physical Examination Temp Pulse Resp BP Pulse Ox 97.8 F 70 19 119/79 98 02/01/20 08:00 02/01/20 08:48 02/01/20 08:00 02/01/20 08:48 02/01/20 08:00 General: Alert, Oriented x3 HEENT: Atraumatic Respiratory: Clear to auscultation bilaterally, Other (Jugular venous pressure is elevated) Cardiovascular: Regular rate/rhythm, Edema, Irregular heart rate/rhythm Gastrointestinal: Normal bowel sounds, Soft and benign Laboratory Data (last 24 hrs) 02/01/20 05:40: Sodium 143, Potassium 3.7, BUN 33 H, Creatinine 1.51 H, Glucose 110 H 02/01/20 05:40: WBC 5.9, Hgb 13.3 L, Hct 39.7, Plt Count 147 L D 01/31/20 14:13: Sodium 141, Potassium 4.1, BUN 38 H, Creatinine 1.57 H, Glucose 110 H, Phosphorus 3.0, Magnesium 2.2 D, Total Bilirubin 1.4 H, AST 172 H D, ALT 202 H D, Alkaline Phosphatase 70 01/31/20 14:13: PT 20.1 H, INR 1.72, APTT 34.1 01/31/20 14:13: WBC 6.6, Hgb 14.5, Hct 44.4, Plt Count 188 - Problems (1) Shortness of breath Current Visit: Yes Status: Acute Plan: Patient is 74 years of age admitted with dyspnea on mild exertion there has been progressive he is back on amiodarone right upper lobe infiltrate treated with antibiotics symptoms are probably from heart failure continue with present treatment BNP elevated chronic renal failure trial of steroids patient is been on Zosyn no evidence of clinical sepsis is white count is normal room-air saturation satisfactory CT scan reviewed minimal effusion infiltrates (2) Pulmonary emboli Current Visit: Yes Status: Acute Plan: Pulmonary emboli discovered on a CT scan appears to be lower lobe as no main stem pulmonary emboli continue with the Xarelto or Eliquis and do not think the pulmonary emboli is causing his shortness of breath echocardiogram is pending patient is currently on Lovenox Qualifiers: Pulmonary embolism type: multiple subsegmental (without acute cor pulmonale) Qualified Code(s): I26.94 - Multiple subsegmental pulmonary emboli without acute cor pulmonale
[2020-02-01] MEDS: METHYLPREDNISOLONE 40 MG INJ IV SCH ×2 (11:44→22:10)
--- NOTE | 2020-02-01 12:16 | EKG ---
Test Date: 2020-02-01 Test Time: 10:30:44 Embroiderer Hand: CHELSY MEASUREMENT RESULTS: Intervals: Rate: 76 ND: 278 QRSD: 112 QT: 424 QTc: 477 [place]: P: 69 ND: 278 QRS: 49 T: 60 INTERPRETIVE STATEMENTS: Sinus rhythm with 1st degree AV block with fusion complexes and premature atrial complexes with aberrant conduction Low voltage QRS Cannot rule out Anterior infarct, age undetermined Abnormal ECG Compared to ECG 09/29/2013 08:15:35 Atrial premature complex(es) now present Fusion complex(es) now present Aberrant conduction of supraventricular beat(s) now present Myocardial infarct finding still present Electronically Signed On 02-01-20 12:14:56 CDT by Gibran Culp
--- NOTE | 2020-02-01 13:02 | P.PN ---
Subjective Date of Service: 02/01/20 Chief Complaint: Dyspnea Subjective: No new changes HE IS STILL DYSPNEIC AT REST. DENIES ANY CHEST PAIN. HE USUALLY GOES TO DR. RAMIREZ, AND [facility] FOR CHF. HE HAS HAD PNEUMONIA TREATED WITH ORAL ABX, AUGMENTIN, IMPROVED ON CXR BUT HIS DYSPNEA GOT WORSE. I PUT HIM IN HOSPITAL, FOUND THAT HE HAS PE IN LOWER LOBE, INFILTERATES LIKE PNEUONIA BUT HAS NORMAL PROCALCITONIN. JVD IS POSITVE BUT THERE IS NO FLUID IN LUNGS. HE HAS BEEN GIVE LOW DOSE OF LASIX SINCE LAST NIGHT. Review of Systems 10-point ROS is otherwise unremarkable General: Weakness, Malaise Respiratory: Shortness of Breath, SOB with Excertion, As per HPI Cardiovascular: As per HPI Physical Examination - Vital Signs Temperature: 97.8 F Blood Pressure: 119/79 Pulse: 70 Respirations: 19 Pulse Ox (%): 98 - Physical Exam General: Mild distress, Moderate distress HEENT: Atraumatic, PERRLA, EOMI Neck: JVD distended Respiratory: Diminished Cardiovascular: Irregular heart rate/rhythm Gastrointestinal: Normal bowel sounds, No tenderness Musculoskeletal: No tenderness Integumentary: No rashes Neurological: Normal speech, Normal tone, Normal affect Lymphatics: No axilla or inguinal lymphadenopathy - Studies Laboratory Data (last 24 hrs) 02/01/20 05:40: Sodium 143, Potassium 3.7, BUN 33 H, Creatinine 1.51 H, Glucose 110 H 02/01/20 05:40: WBC 5.9, Hgb 13.3 L, Hct 39.7, Plt Count 147 L D 01/31/20 14:13: Sodium 141, Potassium 4.1, BUN 38 H, Creatinine 1.57 H, Glucose 110 H, Phosphorus 3.0, Magnesium 2.2 D, Total Bilirubin 1.4 H, AST 172 H D, ALT 202 H D, Alkaline Phosphatase 70 01/31/20 14:13: PT 20.1 H, INR 1.72, APTT 34.1 01/31/20 14:13: WBC 6.6, Hgb 14.5, Hct 44.4, Plt Count 188 Microbiology Data (last 24 hrs): 01/31/20 13:30 Sputum Sputum Gram Stain - Final Medications List Reviewed: Yes Assessment And Plan - Current Problems (Diagnosis) (1) Congestive cardiomyopathy Current Visit: Yes Status: Chronic Plan: ACUTE EXACERBATION. GENTLE DIURESIS BP TOLERATES. LAB DAILY. ECHO AGAIN HIS LAST EF RECENTLY WAS 30-35%. CONSULT CARDIOLOGY. (2) Systolic CHF, acute on chronic Current Visit: Yes Status: Acute Plan: ABOVE. (3) Pneumonia Current Visit: Yes Status: Acute Plan: THIS CAN BE ATYPICAL PNEUMONIA AND MAY BE FROM AMIODARONE ALSO. DISCUSSED WITH DR. DEE. STEOIDS STARTED. (4) Pulmonary emboli Current Visit: Yes Status: Acute Plan: WHILE ON ELIQUIS . IT MAY MEAN ELIQUIS FAILURE. DR. DEE DOES NOT THINK SO. CHANGED TO LOVENOX FROM YESTERDAY. VENOUS DOPPLER NEG. CAN HE HAVE PE FROM ENDOCARDITIS? HE HAD HISTORY OF IT. SO FAR THERE IS NO EVIDENCE OF ENDOCARDITIS. Qualifiers: Pulmonary embolism type: multiple subsegmental (without acute cor pulmonale) Qualified Code(s): I26.94 - Multiple subsegmental pulmonary emboli without acute cor pulmonale (5) Shortness of breath Current Visit: Yes Status: Acute Plan: ABOVE.
--- NOTE | 2020-02-01 13:06 | ECHO ---
HEIGHT: 6 ft 1 in WEIGHT: 180 lb 0 oz DATE OF STUDY: 02/01/[address]: João Zheng MD 2-DIMENSIONAL: YES M.MODE: YES DOPPLER: YES COLOR FLOW: YES TDS: PORTABLE: DEFINITY: BUBBLE STUDY: DIAGNOSIS: EDEMA, DYSPNEA CARDIAC HISTORY: CATHERIZATION: YES SURGERY: NO PROSTHETIC VALVE: NO PACEMAKER: YES MEASUREMENTS (cm) DIASTOLIC (NORMALS) SYSTOLIC (NORMALS) IVSd 1.0 (0.6-1.2) LA Diam 4.6 (1.9-4.0) LVEF 20-25% LVIDd 6.0 (3.5-5.7) LVIDs 5.1 (2.0-3.5) %FS % LVPWd 1.1 (0.6-1.2) Ao Diam 2.8 (2.0-3.7) 2 DIMENSIONAL ASSESSMENT: RIGHT ATRIUM: NORMAL LEFT ATRIUM: DILATED RIGHT VENTRICLE: NORMAL LEFT VENTRICLE: DILATED TRICUSPID VALVE: NORMAL MITRAL VALVE: NORMAL PULMONIC VALVE: NORMAL AORTIC VALVE: NORMAL PERICARDIAL EFFUSION: NONE AORTIC ROOT: NORMAL LEFT VENTRICULAR WALL MOTION: SEVERE GLOBAL HYPOKINESIS. DOPPLER/COLOR FLOW: MILD TRICUSPID REGURGITATION. COMMENTS: LEFT ATRIAL ENLARGEMENT, LEFT VENTRICULAR DILATION WITH SEVERE GLOBAL HYPOKINESIS - EJECTION FRACTION 20-25%. MILD TRICUSPID REGURGITATION. NORMAL RIGHT VENTRICULAR SYSTOLIC PRESSURE. TECHNOLOGIST: SAIMA NORIEGA
[2020-02-01] MEDS: HOME MED 1 EA UNK (Tadalafil [Cialis] 5 MG) PO SCH (21:00)
[2020-02-01] MEDS: PARoxetine HCL 10 MG TAB PO SCH (22:11)
[2020-02-01] MEDS: ATORVASTATIN 20 MG TAB PO SCH (22:11)
[2020-02-02] MEDS: PIPER/TAZO/NS 3.375gm 3.375 GM/100 ML BAG IV SCH ×3 (00:55→16:24)
[2020-02-02] MEDS: IPRATROPIUM BROM 0.5MG/2.5ML IH SCH ×4 (02:00→21:00)
[2020-02-02] MEDS: LEVALBUTEROL 1.25 MG/3 ML NEB IH SCH ×4 (02:00→21:00)
[2020-02-02 04:46] LABS: Potassium 3.9 mmol/L (3.5-5.1)
[2020-02-02] MEDS: THYROID 30 MG TAB PO SCH (05:33)
[2020-02-02] MEDS: AMIODARONE HCL 200 MG TAB PO SCH ×2 (08:51→21:08)
[2020-02-02] MEDS: POTASSIUM CL SA 10 MEQ TAB PO SCH (08:51)
[2020-02-02] MEDS: carvediloL 3.125 MG TAB PO SCH ×2 (08:51→21:08)
[2020-02-02] MEDS: SACUBITRIL/VALSARTAN 24/26 MG TAB PO SCH ×2 (08:51→21:07)
[2020-02-02] MEDS: COLESEVELAM HCL 625 MG PO SCH ×2 (08:52→21:00)
[2020-02-02] MEDS: HOME MED 1 EA UNK (Fluticasone/Umeclidin/Vilanter [Trelegy Ellipta 100-62.5-25] 1 INH) IH SCH (08:52)
[2020-02-02] MEDS: ENOXAPARIN 80 MG/0.8 ML SQ SCH ×2 (08:53→21:07)
[2020-02-02] MEDS: METHYLPREDNISOLONE 40 MG INJ IV SCH (08:53)
[2020-02-02] MEDS: FUROSEMIDE 20 MG/ 2ML VIAL IV SCH ×2 (08:54→21:00)
--- NOTE | 2020-02-02 14:31 | P.PN ---
Subjective Date of Service: 02/03/20 Chief Complaint: Dyspnea Subjective: Improving (Patient has improved shortness of breath has also improved no new complaint) Review of Systems General: Weakness Respiratory: Shortness of Breath Physical Examination - Vital Signs Temperature: 98.1 F Blood Pressure: 105/80 Pulse: 65 Respirations: 18 Pulse Ox (%): 97 - Physical Exam General: Alert, In no apparent distress, Oriented x3 Respiratory: Clear to auscultation bilaterally Cardiovascular: Edema Gastrointestinal: Normal bowel sounds, Soft and benign - Studies Laboratory Data (last 24 hrs) 02/02/20 03:58: Sodium 144, Potassium 3.9, BUN 28 H, Creatinine 1.47 H, Glucose 158 H Microbiology Data (last 24 hrs): 01/31/20 13:30 Sputum Sputum Gram Stain - Final Medications List Reviewed: Yes Assessment & Plan - Problems (Diagnosis) (1) Pulmonary emboli Current Visit: Yes Status: Acute Plan: Is currently doing better there is no evidence of right ventricular strain continue with Eliquis Qualifiers: Pulmonary embolism type: multiple subsegmental (without acute cor pulmonale) Qualified Code(s): I26.94 - Multiple subsegmental pulmonary emboli without acute cor pulmonale (2) Systolic CHF, acute on chronic Current Visit: Yes Status: Acute Plan: Patient has severe congestive heart failure no evidence of pulmonary hypertension a right ventricular dilatation suspect his shortness of breath is from congestive heart failure continue with diuretics kidney function is stable patient has improved on prednisone in go home on low-dose prednisone 10 twice a day for 10 days he does have a right upper lobe opacity possibly pneumonia patient has severe AC and Klebsiella oxytocin isolated from the sputum discharge on levofloxacin patient's room-air oxygenation is normal echocardiogram reviewed he has congestive heart failure blood cultures negative
[2020-02-02] MEDS: HOME MED 1 EA UNK (Tadalafil [Cialis] 5 MG) PO SCH (21:00)
[2020-02-02] MEDS: predniSONE 20 MG TAB PO SCH (21:07)
[2020-02-02] MEDS: PARoxetine HCL 10 MG TAB PO SCH (21:07)
[2020-02-02] MEDS: ATORVASTATIN 20 MG TAB PO SCH (21:08)
--- NOTE | 2020-02-02 21:44 | P.PN ---
Subjective Date of Service: 02/02/20 Chief Complaint: Dyspnea Subjective: Improving HE IS STILL DYSPNEIC AT REST. DENIES ANY CHEST PAIN. HE USUALLY GOES TO DR. RAMIREZ, AND [facility] FOR CHF. HE HAS HAD PNEUMONIA TREATED WITH ORAL ABX, AUGMENTIN, IMPROVED ON CXR BUT HIS DYSPNEA GOT WORSE. I PUT HIM IN HOSPITAL, FOUND THAT HE HAS PE IN LOWER LOBE, INFILTERATES LIKE PNEUONIA BUT HAS NORMAL PROCALCITONIN. JVD IS POSITVE BUT THERE IS NO FLUID IN LUNGS. HE HAS BEEN GIVE LOW DOSE OF LASIX SINCE LAST NIGHT. HE IS FEELNGA LOT BETTER HE HAS NO CHEST PAIN. Review of Systems 10-point ROS is otherwise unremarkable General: Weakness Physical Examination - Vital Signs Temperature: 97.7 F Blood Pressure: 110/75 Pulse: 74 Respirations: 18 Pulse Ox (%): 96 - Physical Exam General: Cachectic, Mild distress HEENT: Atraumatic, PERRLA, EOMI Neck: Supple, JVD not distended Respiratory: Clear to auscultation bilaterally, Normal air movement Cardiovascular: Regular rate/rhythm, Normal S1 S2 Gastrointestinal: Normal bowel sounds, No tenderness Musculoskeletal: No tenderness Integumentary: No rashes Neurological: Normal speech, Normal tone, Normal affect Lymphatics: No axilla or inguinal lymphadenopathy - Studies Laboratory Data (last 24 hrs) 02/02/20 03:58: Sodium 144, Potassium 3.9, BUN 28 H, Creatinine 1.47 H, Glucose 158 H Microbiology Data (last 24 hrs): 01/31/20 13:30 Sputum Sputum Gram Stain - Final Medications List Reviewed: Yes Assessment And Plan - Current Problems (Diagnosis) (1) Congestive cardiomyopathy Current Visit: Yes Status: Chronic Plan: ACUTE EXACERBATION. GENTLE DIURESIS BP TOLERATES. LAB DAILY. ECHO AGAIN HIS LAST EF RECENTLY WAS 30-35%. CONSULT CARDIOLOGY. EF IS 20% HE GOES TO [facility]. (2) Systolic CHF, acute on chronic Current Visit: Yes Status: Acute Plan: ABOVE. IV LASIX AND ORAL KCL. DAILY LAB. (3) Pneumonia Current Visit: Yes Status: Acute Plan: THIS CAN BE ATYPICAL PNEUMONIA AND MAY BE FROM AMIODARONE ALSO. DISCUSSED WITH DR. DEE. STEOIDS STARTED. (4) Pulmonary emboli Current Visit: Yes Status: Acute Plan: WHILE ON ELIQUIS . IT MAY MEAN ELIQUIS FAILURE. DR. DEE DOES NOT THINK SO. CHANGED TO LOVENOX FROM YESTERDAY. VENOUS DOPPLER NEG. CAN HE HAVE PE FROM ENDOCARDITIS? HE HAD HISTORY OF IT. SO FAR THERE IS NO EVIDENCE OF ENDOCARDITIS. FAMILY IS OKAY WITH ELIUQIS PER DR. DEE THIS IS NOT A FAILED THERAPY. Qualifiers: Pulmonary embolism type: multiple subsegmental (without acute cor pulmonale) Qualified Code(s): I26.94 - Multiple subsegmental pulmonary emboli without acute cor pulmonale (5) Shortness of breath Current Visit: Yes Status: Acute Plan: ABOVE.
[2020-02-03] MEDS: PIPER/TAZO/NS 3.375gm 3.375 GM/100 ML BAG IV SCH ×2 (00:27→08:37)
[2020-02-03] MEDS: IPRATROPIUM BROM 0.5MG/2.5ML IH SCH ×2 (00:45→08:15)
[2020-02-03] MEDS: LEVALBUTEROL 1.25 MG/3 ML NEB IH SCH ×2 (00:45→08:15)
[2020-02-03] MEDS: THYROID 30 MG TAB PO SCH (05:30)
--- NOTE | 2020-02-03 05:38 | CON ---
Date of Consultation: 02/02/2020 Reason For Consultation: Pulmonary embolus, congestive heart failure. History Of Present Illness: Mr. Vergara is a 74-year-old male, who has had a history of chronic systolic congestive heart failure with an ejection fraction of 20% to 25%. has recently had an ablation for atrial fibrillation by Dr. Harris. 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 Apparently, there was another ablation planned. The patient came in with shortness of breath and cough. Elevated D- dimer also was found to have a pulmonary embolus. The patient has been on Eliquis before that, this is now held. The patient is on Lovenox now. Chest x- ray shows also pneumonia as well as congestive heart failure exacerbation. The patient denied any chest pain. Denied any nausea, vomiting, diaphoresis, PND, orthopnea, pedal edema, palpitations, or syncope. Denied any fever or chills. Past Medical History: Also include dyslipidemia and atrial fibrillation. Medications: At home include amiodarone, Eliquis, Entresto, inhalers, Lasix, Lipitor, aspirin, Synthroid, Coreg. Physical Examination: Vital Signs: Stable. He was afebrile. HEENT: Negative. Neck: Supple. No bruit. Chest: Revealed some rales at the bases. Cardiac: Revealed a regular rhythm and rate. No murmurs, gallops, or rubs. Abdomen: Benign. Extremities: Revealed no clubbing, cyanosis, or edema. Diagnostic Data: EKG showed sinus rhythm with PACs. Last echocardiogram yesterday showed an ejection fraction of 20% to 25%. His creatinine is 1.47. D-dimer was 1259. [place] BNP was [address]77. TSH was 5.9. Venous Doppler was negative. Impression And Plan: 1. Pulmonary embolus on Eliquis and now he is on Lovenox. I would definitely consider switching him to Xarelto. 2. Chronic systolic congestive heart failure, ejection fraction 20% to 25%, followed by congestive heart failure specialist in [place] as well as Dr. Harris for atrial fibrillation. 3. History of atrial fibrillation, status post ablation. 4. Dyslipidemia, on Lipitor. 5. Hypothyroidism, on Synthroid. I agree with his regimen right now with his home medications plus Lovenox as well as antibiotics and inhalers and steroids. Could definitely continue the Entresto and amiodarone. I will discuss his case further with Dr. Zheng and Dr. Bahena. I will continue to follow him. BENITEZ/POPEYE Voice ID: [id number] Report ID: [id number] MTDD
[2020-02-03 08:30] VITALS: BP 105/80; TEMP 98.1
[2020-02-03] MEDS: ENOXAPARIN 80 MG/0.8 ML SQ SCH (08:35)
[2020-02-03] MEDS: SACUBITRIL/VALSARTAN 24/26 MG TAB PO SCH (08:36)
[2020-02-03] MEDS: COLESEVELAM HCL 625 MG PO SCH (08:36)
[2020-02-03] MEDS: AMIODARONE HCL 200 MG TAB PO SCH (08:36)
[2020-02-03] MEDS: predniSONE 20 MG TAB PO SCH (08:36)
[2020-02-03] MEDS: carvediloL 3.125 MG TAB PO SCH (08:36)
[2020-02-03] MEDS: POTASSIUM CL SA 10 MEQ TAB PO SCH (08:36)
[2020-02-03] MEDS: HOME MED 1 EA UNK (Fluticasone/Umeclidin/Vilanter [Trelegy Ellipta 100-62.5-25] 1 INH) IH SCH (08:37)
[2020-02-03] MEDS: FUROSEMIDE 20 MG/ 2ML VIAL IV SCH (08:37)
--- NOTE | 2020-02-03 08:44 | PN ---
Date of Progress Note: 02/03/2020 Subjective: Mr. Vergara is a patient who came in with pulmonary embolus and pneumonia. He has an e jection fraction of 20% to 25%. There is a plan to changes Eliquis to Xarelto because of the pulmona ry embolus, although the pulmonary embolus was small. 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 Janell ramey heart failure, follows up with Dr. Bahena at [facility] who get an ablation on him. This mornin g he is feeling well. He has no complaints. Physical Examination: Vital Signs: Stable. He is afebrile. He is in sinus rhythm. Chest: Clear. Extremities: He has no edema. Laboratory Data: His last creatinine is 1.47. Impression: 1.He had a pulmonary embolus. They would be reasonable to change the Eliquis to the Xarelto. I thi nk he probably should have a CT angiogram or V/Q scan and chest x-ray in the next few months to make sure the pulmonary embolus has resolved. 2.Regarding the congestive heart failure, 25% ejection fraction. I think the patient does not phylicia ate higher doses of Coreg 3.125 b.i.d., he usually gets short of breath . He is already on Lasix and Entresto. I think he just had an ablation recently and there is plan for him to see Dr. Yoly mayers and his congestive heart failure in the near future. I think a biventricular pacema ker and AICD should be considered. 3.His other problems including the paroxysmal atrial fibrillation, there is status post ablation and amiodarone. I would amiodarone. Antibiotics for pneumonia. I will continue to follow him, but I am comfortable with him today. BENITEZ/MODL Voice ID: [id number] Report ID: [id number]
[2020-02-03 10:02] VITALS: O2SAT 99
--- NOTE | 2020-02-03 13:18 | P.DS ---
Admission Date: 02/01/20 Discharge Date: 02/03/20 Disposition: ROUTINE DISCHARGE Discharge Condition: FAIR Reason for Admission: Dyspnea - Problems (1) Congestive cardiomyopathy Status: Chronic (2) Systolic CHF, acute on chronic Status: Acute (3) Pneumonia Status: Acute (4) Pulmonary emboli Status: Acute Qualifiers: Pulmonary embolism type: multiple subsegmental (without acute cor pulmonale) Qualified Code(s): I26.94 - Multiple subsegmental pulmonary emboli without acute cor pulmonale (5) Shortness of breath Status: Acute Hospital Course: MR. FORD CAME WITH DYSPNEA. CHF, LOW EF. ACUTE AND CHRONIC SYSTOLIC HEART FAILURE. RECURRENCE OF PE IN ONE LOBE OF LUNG AND PNEUMONIA. HE ALSO HAS PROSTATITIS. HE IS GIVE LASIX PO, HE EATS WRONG FOOD. HE WILL AVOID SALTY FOOD. I WILL SEND HIM LIST. BACTRIM DS WILL ALSO HELP THE PROSTATITIS. HE NEEDS DEFIBRILLATOR. HE WILL CONTACT HIS CHF DOCTORS. HIS PROGNOSIS IS GUARDED. WILL CONTINUE ELIQUIS PER DR DEE. HE WILL START BUSPAR FOR ANXIETY AND I WILL RAISE PAXIL LATER IF NEED. I ANSWERED ABOUT 5 QUESTIONS DAILY. Vital Signs/Physical Exam: Temp Pulse Resp BP Pulse Ox 98.1 F 65 18 105/80 97 02/03/20 08:29 02/03/20 08:36 02/03/20 08:29 02/03/20 08:36 02/03/20 08:29 Laboratory Data at Discharge: WBC 5.9 K/uL (4.3-10.9) 02/01/20 05:40 Hgb 13.3 g/dL (13.6-17.9) L 02/01/20 05:40 Hct 39.7 % (39.6-49.0) 02/01/20 05:40 Plt Count 147 K/uL (152-406) L D 02/01/20 05:40 PT 20.1 SECONDS (9.5-12.5) H 01/31/20 14:13 INR 1.72 01/31/20 14:13 APTT 34.1 SECONDS (24.3-36.9) 01/31/20 14:13 Sodium 144 mmol/L (136-145) 02/02/20 03:58 Potassium 3.9 mmol/L (3.5-5.1) 02/02/20 03:58 BUN 28 mg/dL (7-18) H 02/02/20 03:58 Creatinine 1.47 mg/dL (0.55-1.3) H 02/02/20 03:58 Glucose 158 mg/dL (74-106) H 02/02/20 03:58 Phosphorus 3.0 mg/dL (2.5-4.9) 01/31/20 14:13 Magnesium 2.2 mg/dL (1.8-2.4) D 01/31/20 14:13 Total Bilirubin 1.4 mg/dL (0.2-1.0) H 01/31/20 14:13 AST 172 U/L (15-37) H D 01/31/20 14:13 ALT 202 U/L (12-78) H D 01/31/20 14:13 Alkaline Phosphatase 70 U/L (45-117) 01/31/20 14:13 Home Medications: Albuterol Inhaler [Ventolin Inhaler*] 2 puff IH Q4HP PRN 01/31/20 Amiodarone HCl [Cordarone*] 200 mg PO BID 01/31/20 Amoxicillin/Potassium Clav [Amox-Clav 875-125 mg Tablet] 1 tab PO BID 01/31/20 Apixaban [Eliquis] 5 mg PO BID 01/31/20 Aspirin [Aspirin EC 81 MG] 81 mg PO DIRECTED 01/31/20 Atorvastatin Calcium [Lipitor*] 20 mg PO BEDTIME 01/31/20 Calcium Carbonate/Vitamin D3 [Calcium 500-Vit D3 600 Tablet] 1 tab PO BEDTIME 01/31/20 Carvedilol [Coreg] 3.125 mg PO BID 01/31/20 Colesevelam HCl 625 mg PO BID 01/31/20 Fluticasone/Umeclidin/Vilanter [Trelegy Ellipta 100-62.5-25] 1 inh IH DAILY 01/11 05/31 Furosemide [Lasix*] 40 mg PO DAILY 01/31/20 Multivitamin [Multiple Vitamins] 1 tab PO DAILY 01/31/20 PARoxetine HCL [Paxil*] 10 mg PO BEDTIME 01/31/20 Sacubitril/Valsartan [Entresto 24 mg-26 mg Tablet] 1 tab PO BID 09/21/20 Tadalafil [Cialis] 5 mg PO BEDTIME 01/31/20 Thyroid,Pork [Machine Biller Thyroid] 60 mg PO DAILY 01/31/20 Potassium Chloride [Klor-Con M20] 20 meq PO DAILY #90 tab.er.prt 02/03/20 Smz./Tmp. [Bactrim Ds 800 MG/160 MG] 1 tab PO BID #28 tab 02/03/20 New Medications: Smz./Tmp. [Bactrim Ds 800 MG/160 MG] 1 tab PO BID #28 tab Potassium Chloride [Klor-Con M20] 20 meq PO DAILY #90 tab.er.prt Followup: Melvin De La Torre MD [ACTIVE - CAN ADMIT] -
[2020-02-04 11:20] LABS: Vitamin D 1,25-Dihydroxy Total 25 pg/mL (18-72); Vitamin D,1,25-OH2, D2 <8 pg/mL
== END 2020-02-03 09:11 | disposition home or self-care (01) | DRG 175 ==
LOC: INTOOBSV 12:14 → 2ND 12:14 → OBSVTOIN 02-01 14:24
PROVIDERS: ADMIT Internal Medicine; ATTEND Internal Medicine
DX: I26.94 Multiple subsegmental thrombotic pulmonary emboli without acute cor pulmonale (principal); I50.23 Acute on chronic systolic (congestive) heart failure; J18.9 Pneumonia, unspecified organism; I42.0 Dilated cardiomyopathy; J44.0 Chronic obstructive pulmonary disease with (acute) lower respiratory infection; R64 Cachexia; E03.9 Hypothyroidism, unspecified; I48.0 Paroxysmal atrial fibrillation; F41.9 Anxiety disorder, unspecified; N41.9 Inflammatory disease of prostate, unspecified; E78.5 Hyperlipidemia, unspecified; R05 Cough; Z79.82 Long term (current) use of aspirin; Z68.24 Body mass index [BMI] 24.0-24.9, adult; Z79.899 Other long term (current) drug therapy; Z85.46 Personal history of malignant neoplasm of prostate; Z79.01 Long term (current) use of anticoagulants; Z20.828 Contact with and (suspected) exposure to other viral communicable diseases
CPT/HCPCS: 36415; 71046; 71275; 80048; 80076; 82565; 82607; 82652; 83605; 83735; 83880; 84100; 84145; 84439; 84443; 85025; 85379; 85610; 85652; 85730; 86140; 87015; 87040; 87070; 87077; 87116; 87186; 87205; 87206; 93005; 93306; 93970; 94640; G0378; G0379; J1940; J2543; J2920; J7512; Q9967; U0003

== ENCOUNTER 2020-07-25 11:38 | Inpatient (IN) | payer OTHER ==
--- OUTSIDE RECORDS SUMMARY | 2020-07-25 11:42 | XMS REPORT | Continuity of Care Document ---
:[address] [facility] t Address [address] [place] [address] Care Team Providers Name Role Phone Stella Zheng Primary Care Physician KESHAWN Attending Clinician Unavailable GAYATRI Attending Clinician Unavailable Rowdy ADAME, P Attending Clinician ASHLEY Attending Clinician Unavailable YOUSELOVE Attending Clinician Unavailable Lab, Fam Pob I Attending Clinician Unavailable Doctor Unassigned, Name Attending Clinician Unavailable FASAL Attending Clinician Unavailable ABELINO Attending Clinician Unavailable ORLANDO Attending Clinician Unavailable GWEN Attending Clinician Unavailable KESHAWN Admitting Clinician Unavailable GAYATRI Admitting Clinician Unavailable FAHED Admitting Clinician Unavailable ASHLEY Admitting Clinician Unavailable ANAEKAPURVA Admitting Clinician Unavailable Problems This patient has no known problems. Allergies, Adverse Reactions, Alerts This patient has no known allergies or adverse reactions. Social History Social Habit Start Date Stop Date Quantity Comments Source Sex Assigned At [facility] Medications This patient has no known medications. Procedures This patient has no known procedures. Plan of Care Planned Activity Planned Date Details Comments Source Future Scheduled 2020-05-[address] [facility] - Test 00:00:00 (12+) [code = [facility] DEPRESSION SCREENING (12+)] Future Scheduled 2020-01-11 INFLUENZA VACCINE (#1) [facility] 00:[facility]:00 [code = INFLUENZA Medical nter VACCINE (#1)] Future Scheduled 2018-08-[address] [facility] Test 00:00:00 WELLNESS (YEAR 2 or Medical Center FIRST YEAR if no IPPE) [code = MEDICARE ANNUAL WELLNESS (YEAR 2 or FIRST YEAR if no IPPE)] Future Scheduled 2008 PNEUMOCOCCAL 65+ YRS [facility] - Test 00:00:00 (1 of 1 - Medical Center [id number] PCV13) [code = PNEUMOCOCCAL 65+ YRS (1 of 1 - [id number] PCV13)] Future Scheduled 1993 SHINGLES VACCINES ([address] [facility] - Test 00:00:00 of 2) [code = SHINGLES Medic al Center VACCINES (1 of 2)] Future Scheduled 1962 DTAP/TDAP/TD VACCINES [facility] Test 00:00:00 (1 - Tdap) [code = Medical C enter DTAP/TDAP/TD VACCINES (1 - Tdap)] Future Scheduled 1961 HEPATITIS C SCREENING [facility] 00:00:00 [code = HEPATITIS C Medical Center SCREENING] Encounters Start End Encounter Admission Attending Care Care Encounter Source Date/Time Date/Time Type Type Clinicians Facility Department ID 2020-07-19 2020-07-22 [facility] [id number] [place] 00:00:00 00:00:00 PROSPER [address] 2020-07-17 2020-07-17 [facility] [id number] [place] 00:00:00 00:00:00 KENNEDY [address] 2020-07-04 2020-07-04 Office EYAD [place] [id number] 15:08:05 16:59:11 Visit [place] [facility] AMBULATOR 350.1.13.21 Y [id number] [id number] 2020-06-13 2020-06-13 Outpatient [facility] [id number] [place] 00:00:00 00:00:[address] 2020-05-23 2020-05-23 Outpatient [facility] [id number] [place] 00:00:00 00:00:[address] 2020-04-25 2020-04-25 Outpatient ASHLEY [facility] [id number] [place] 00:00:00 00:00:00 BELKIS [address] 2020-04-19 2020-04-19 Outpatient RAMIREZ, [facility] [id number] [place] 00:00:00 00:00:00 BELKIS [address] 2020-04-12 2020-04-12 Outpatient ROBERTTACO, [facility] [id number] [place] 00:00:00 00:00:00 RAYAN [address] 2020-03-16 2020-03-17 Outpatient GAYATRI, [facility] [id number] [place] 00:00:00 00:00:00 NADIM [address] 2020-03-14 2020-03-14 Outpatient GAYATRI, [facility] [id number] [place] 00:00:00 00:00:00 NADIM [address] 2020-02-09 2020-02-09 Outpatient VERONICAShirleyTACO, [facility] [id number] [place] 00:00:00 00:00:00 RAYAN [address] 2020-01-19 2020-01-19 Laboratory Lab, [facility] [id number] 17:37:14 17:57:14 Only Fam Pob I Health 350.1.13.10 [place] 4.2.7.2.686 [place] [id number] nal [address] 2020-01-19 2020-01-19 Letter Doctor SHAI [id number] 00:00:00 00:00:00 (Out) Unassigned, STEFAN 350.1.13.10 [place] [facility] [id number] [id number] 2020-01-18 2020-01-18 Outpatient RAMIREZ, [facility] [id number] [place] 00:00:00 00:00:00 BELKIS [address] 2019-12-31 2019-12-31 Outpatient MADDIE RABAGO [facility] [id number] [place] 00:00:00 00:00:[address] 2019-12-29 2019-12-29 Outpatient MADDIE RABAGO [facility] [id number] [place] 00:00:00 00:00:[address] 2019-12-01 2019-12-01 Outpatient BHCHEYENNE, [facility] [id number] [place] 00:00:00 00:00:00 PANCHO [address] 2019-11-03 2019-11-03 Outpatient OUMAR, [facility] [id number] [place] 00:00:00 00:00:00 RAYAN [address] 2019-10-12 2019-10-12 Outpatient ASHLEY, [facility] [id number] [place] 00:00:00 00:00:00 BELKIS 983 [address] 2019-10-01 2019-10-01 Outpatient ASHLEY, [facility] [id number] [place] 00:00:00 00:00:00 BELKIS [address] 2019-06-15 2019-06-15 Office EYAD [place] [id number] 12:46:45 13:01:45 Visit [place] P AMBULATOR 350.1.13.21 Y [id number] [id number] 2019-06-11 2019-06-11 Outpatient GAYATRI, [facility] [id number] [place] 00:00:00 00:00:00 NADIM 358 [address] [facility] 2019-06-01 2019-06-02 Outpatient MADDIE RABAGO [facility] [id number] [place] 00:00:00 00:00:00 337 [address] 2019-05-19 2019-05-19 Outpatient GAYATRI, [facility] [id number] [place] 00:00:00 00:00:00 NADIM 721 [address] i 2019-03-25 2019-03-25 Outpatient ASHLEY, [facility] [id number] [place] 00:00:00 00:00:00 BELKIS [address] 2019-03-05 2019-03-05 Outpatient ORLANDO, [facility] [id number] [place] 00:00:00 00:00:00 AHMED [address] 2019-02-24 2019-02-27 Inpatient GWEN, [facility] [id number] [place] 00:00:00 00:00:00 ALISE [address] Results Test Description Test Time Test Comments Results Result Sour e Comments MR, PELVIS, 2018-07-15 FINAL REPORT PATIENT ID: WITHOUT IV 12:59:00 [id number] PROCEDURE: CONTRAST MRI PROSTATE WITHOUT CONTRAST COMPARISON: Prostate MRI 06/10/2017 CLINICAL HISTORY: R97.20,C61 TECHNIQUE: Using a phased array coil small [id number]-[id number] imaging of the prostate was performed using the following sequences; [axial T2-weighted, sagittal T2-weighted,oblique coronal T2-weighted, diffusion-weighted]. Using a large kbzad-wh-yrus, the entire pelvis to the level of the aortic bifurcation was imaged with nonfat suppressed T1 sequence FINDINGS: Image quality is mildly motion degraded PROSTATE: Size of total gland: 4.6 x 5.9 x 5.9 cm. Total volume 83.7 cc. Transitional zone: 4.5 x 5.1 x 4.7 cm. Transitional zone volume 56.4 cc. BPH: Diffuse glandular stromal hyperplasiaMedian lobe: Present, smallEvidence of TURP: NoneCalcifications are difficult to visualize by MRI.Hemorrhage: Focus of T1 hyperintensity in the mid gland in the expected location of the anterior stroma measures 5 mm and suggestive of hemorrhage (series 5, image 33). TRANSITIONAL ZONE: Diffuse BPH nodules. *Hypointense T2 focus in the right lobe at the base (TZa) measures 1.2 x 1.6 cm in the coronal plane (series 4, image 10) with well-defined borders and mild to moderate hypointensity on ADC. This is grossly stable. PERIPHERAL ZONE: No suspicious observations on high B value DWI or ADC. There are linear hypointense T2 signal bands, left lobe greater than right, corresponding to atrophy or post prostatitis scarring. SEMINAL VESICLES: Right: Normal in appearance and signal characteristics. Left: Normal in appearance and signal [...] Observation in the transition zone of the right lobe (TZa) appears grossly stable given the [...] T2, diffusion weighted imaging, and/or DCE. Signed: Blanca Peralta Verified Date/Time: 07/15/2018 12:59:22
[2020-07-25] MEDS ORDERED: ACETAMINOPHEN 325 MG TABLET PO PRN (12:37)
[2020-07-25] MEDS ORDERED: LOPERAMIDE HCL 2 MG CAPSULE PO PRN (12:40)
[2020-07-25] MEDS ORDERED: DIPHENHYDRAMINE 25 MG TAB/CAP PO PRN (12:40)
[2020-07-25] MEDS ORDERED: ONDANSETRON 4 MG (ODT) TAB PO PRN (12:44)
[2020-07-25] MEDS ORDERED: POLYETHYL GLY 3350 17 GM/DOSE PO PRN (12:45)
[2020-07-25] MEDS ORDERED: ONDANSETRON 4 MG/2 ML VIAL IV PRN (12:55)
[2020-07-25] MEDS ORDERED: INFLUENZA VACCINE (for 3y+) 0.5 ML DOSE IMVAC ONE (13:00)
--- NOTE | 2020-07-25 14:04 | RAD REPORT ---
EXAM DESCRIPTION: RAD - Chest Pa And Lat (2 Views) - 07/25/2020 1:57 pm CLINICAL HISTORY: Pneumonia Chest pain. COMPARISON: Chest Pa And Lat (2 Views) dated 07/18/2020; Chest Pa And Lat (2 Views) dated 07/13/2020; Ch est Pa And Lat (2 Views) dated 06/05/2020; Chest Pa And Lat (2 Views) dated 04/21/2020 FINDINGS: Extensive bilateral pulmonary opacities are again seen without any real improvement since comparative study. The heart is upper limit normal in size with multilead pacer/defibrillator device. No displaced fractures. IMPRESSION: No significant change or improvement seen since 07/18/2020.
[2020-07-25 14:09] LABS: Absolute Lymphocytes (CBC) 0.9 K/uL (0.7-4.9); Basophils % 0.3 % (0-1.3); Hematocrit 34.1 % (39.6-49.0); Lymphocytes % 10.2 % (15.3-44.8); MPV 7.6 fL (7.6-11.3)
[2020-07-25 14:22] LABS: Protime INR 1.71
[2020-07-25 15:11] LABS: Albumin 2.8 g/dL (3.4-5.0); Bilirubin Direct 0.2 mg/dL (0-0.2); Bilirubin Total 0.5 mg/dL (0.2-1.0); Magnesium 2.4 mg/dL (1.8-2.4); Phosphorus 4.4 mg/dL (2.5-4.9); Potassium 4.6 mmol/L (3.5-5.1); Protein, Total 7.1 g/dL (6.4-8.2)
[2020-07-25 15:19] LABS: Thyroid Stimulating Hormone 9.22 uIU/mL (0.360-3.740)
[2020-07-25 18:11] VITALS: BMI 22.4
[2020-07-25] MEDS: PIPER/TAZO/NS 3.375gm 3.375 GM/100 ML BAG IVPB SCH (18:34)
[2020-07-25] MEDS: COLESEVELAM HCL 625 MG PO SCH (21:00)
[2020-07-25] MEDS ORDERED: TADALAFIL 5 MG PO SCH (21:00)
[2020-07-25] MEDS: SACUBITRIL/VALSARTAN 24/26 MG TAB PO SCH (21:00)
[2020-07-25] MEDS: APIXABAN 5 MG TABLET PO SCH (21:00)
[2020-07-25] MEDS ORDERED: PARoxetine HCL 10 MG TAB PO SCH (21:00)
[2020-07-25] MEDS ORDERED: ATORVASTATIN 20 MG TAB PO SCH (21:00)
[2020-07-26] MEDS: PIPER/TAZO/NS 3.375gm 3.375 GM/100 ML BAG IVPB SCH ×2 (01:56→09:03)
[2020-07-26 06:34] LABS: Basophils % 0.6 % (0-1.3); Hematocrit 34.1 % (39.6-49.0); Lymphocytes % 11.2 % (15.3-44.8); MPV 7.6 fL (7.6-11.3); RBC Red Blood Cell Count 3.62 M/uL (4.33-5.43)
[2020-07-26 07:07] LABS: Magnesium 2.4 mg/dL (1.8-2.4); Potassium 4.7 mmol/L (3.5-5.1)
[2020-07-26] MEDS ORDERED: carvediloL 3.125 MG TAB PO SCH (08:00)
[2020-07-26] MEDS: APIXABAN 5 MG TABLET PO SCH (09:00)
[2020-07-26] MEDS ORDERED: THYROID PORK 15 MG PO SCH (09:00)
[2020-07-26] MEDS: SACUBITRIL/VALSARTAN 24/26 MG TAB PO SCH (09:00)
[2020-07-26] MEDS ORDERED: AMIODARONE HCL 200 MG TAB PO SCH (09:00)
[2020-07-26] MEDS ORDERED: THYROID 30 MG TAB PO SCH (09:00)
[2020-07-26] MEDS: COLESEVELAM HCL 625 MG PO SCH (09:00)
[2020-07-26] MEDS ORDERED: (Fluticasone/Umeclidin/Vilanter [Trelegy Ellipta 100-62.5-25] Blst.W.Dev IH SCH (09:00)
[2020-07-26] MEDS ORDERED: predniSONE 20 MG TAB PO SCH (10:22)
[2020-07-26 10:23] VITALS: O2SAT 94
--- NOTE | 2020-07-26 12:02 | P.CNS ---
Date of Consult: 07/26/20 Reason for Consult: Bilateral pneumonia Chief Complaint: Chest congestion History of Present Illness: Patient is 75 years of age with a history of recurrent pneumonia congestive heart failure admitted with 2-3 weeks of chest congestion fever productive cough he had gone to [facility] patient was cardioverted patient has a pacemaker AV ablation still in continues to have problem coughing up some productive phlegm noticed that he was also febrile chest x-ray has worsened as May shows significant bilateral infiltrate Allergies No Known Allergies Allergy (Unverified 08/02/11 21:17) Home Medications: Amiodarone HCl [Cordarone*] 200 mg PO DAILY 01/31/20 Apixaban [Eliquis] 5 mg PO BID 01/31/20 Aspirin [Aspirin EC 81 MG] 81 mg PO DIRECTED 01/31/20 Atorvastatin Calcium [Lipitor*] 10 mg PO BEDTIME 01/31/20 Calcium Carbonate/Vitamin D3 [Calcium 500-Vit D3 600 Tablet] 1 tab PO BEDTIME 01/31/20 Carvedilol [Coreg] 3.125 mg PO BID 01/31/20 Colesevelam HCl 625 mg PO BID 01/31/20 Fluticasone/Umeclidin/Vilanter [Trelegy Ellipta 100-62.5-25] 1 inh IH DAILY 01/31/20 Multivitamin [Multiple Vitamins] 1 tab PO DAILY 01/31/20 PARoxetine HCL [Paxil*] 10 mg PO BEDTIME 01/31/20 Sacubitril/Valsartan [Entresto 24 mg-26 mg Tablet] 1 tab PO BID 01/31/20 Tadalafil [Cialis] 5 mg PO BEDTIME 01/31/20 Thyroid,Pork [Slitter Operator Thyroid] 60 mg PO DAILY 01/31/20 Potassium Chloride [Klor-Con M20] 20 meq PO DAILY #90 tab.er.prt 02/03/20 Smz./Tmp. [Bactrim Ds 800 MG/160 MG] 1 tab PO BID #28 tab 02/03/20 Empagliflozin [Jardiance] 10 mg PO DAILY 07/26/20 Furosemide [Lasix] 20 mg PO DAILY 07/26/20 Spironolactone [Aldactone*] 25 mg PO DAILY 07/26/20 - Past Medical/Surgical History Diabetic: No -: Afib -: CHF -: BPH -: Prostate Cancer -: COPD -: Hyperlipidemia -: Anxiety -: Hypothyroidism -: Cardioversion 12/31/2019, 03/16/2020, 07/21/2020 -: Ablation 06/01/2019 -: Kidney cancer surgery (removed part of right kidney) 2011 -: Abdominal surgery (Twisted Omentum) 2002 -: Implanted detector for Afib Linq (not working) - Family History Mother Medical History: Heart disease Notes: - blood clot Father Notes: Sister Notes: Genetic mutation that cause blood clots - Social History Smoking Status: Never smoker Alcohol use: No CD- Drugs: No Caffeine use: Yes Place of Residence: Home Review of Systems General: Weakness Respiratory: Cough, Shortness of Breath Physical Examination Temp Pulse Resp BP Pulse Ox 97.9 F 78 17 91/51 L 94 07/26/20 08:00 07/26/20 08:00 07/26/20 08:00 07/26/20 08:00 07/26/20 08:00 General: Alert, In no apparent distress HEENT: Atraumatic Respiratory: Crackles/rales (Crackles at the bases) Cardiovascular: No edema, Normal S1 S2, Abnormal pulses, Irregular heart rate/rhythm Laboratory Data (last 24 hrs) 07/26/20 05:52: Sodium 141, Potassium 4.7, BUN 23 H, Creatinine 1.22, Glucose 86, Magnesium 2.4 07/26/20 05:52: WBC 8.90, Hgb 11.6 L, Hct 34.1 L, Plt Count 333 07/25/20 13:00: Sodium 137, Potassium 4.6, BUN 27 H, Creatinine 1.34 H, Glucose 99, Phosphorus 4.4, Magnesium 2.4, Total Bilirubin 0.5, AST 18, ALT 25, Alkaline Phosphatase 60 07/25/20 13:00: PT 19.8 H, INR 1.71, APTT 30.9 07/25/20 13:00: WBC 8.60, Hgb 11.3 L, Hct 34.1 L, Plt Count 389 - Problems (1) Bilateral pneumonia Current Visit: Yes Status: Acute Plan: Patient is 75 years of age as been sick for the past 2-3 weeks chest x-rays progress is got bilateral pulmonary infiltrates plan at this time is to resume steroid wait for cultures continue with Zosyn patient is on amiodarone it could be a reaction to the amiodarone this is a recurrent problem patient has severe congestive heart failure although at this time we has no lower extremity edema his white count is normal vital signs stable oxygenation satisfactory I doubted this is a bacterial pneumonia his clinical symptoms are out of proportion to the chest x-ray infiltrate Qualifiers: Pneumonia type: due to unspecified organism
--- NOTE | 2020-07-26 12:58 | RAD REPORT ---
EXAM DESCRIPTION: CT - Thorax Wo Con - 07/26/2020 11:48 am CLINICAL HISTORY: sob COMPARISON: July 25, 2020 chest x-ray TECHNIQUE: Computed axial tomography of the chest was obtained. Contrast was not requested. All CT scans are performed using dose optimization technique as appropriate and may include automated exposure control or mA/KV adjustment according to patient size. FINDINGS: The evaluation of mediastinum, cassie and vessels is limited secondary to lack of IV contras t administration. Marked left lower lobe alveolar opacities and consolidation. Moderate right lower lobe alveolar opaci ties and consolidation. Mild alveolar opacities within the upper lobes left greater than right. Mild mediastinal and hilar lymphadenopathy probably reactive in nature. Coronary arterial calcifications are noted. A pleural effusion is not present. IMPRESSION: Marked left lower lobe and moderate right lower lobe alveolar opacities and consolidatio n likely pneumonia. Additional mild pneumonia involves the upper lobes
[2020-07-26 13:02] VITALS: BP 104/58; TEMP 97.6
--- NOTE | 2020-07-26 21:26 | P.DS ---
Admission Date: 07/26/20 Discharge Date: 07/26/20 Disposition: ROUTINE DISCHARGE Reason for Admission: Chest congestion Hospital Course: MR ZAMBRANO WAS ADMITTED WITH PLAN TO GIVE IV ABX 3 OTHER ABX FAILED. PER DR. TAI HE SEEMS TO HAVE INTERSTITIAL INFLAMMATION THAT IS PNEUMONIA SECONDARY TO AMIODARONE. HE HAS GIVE ORAL STEROIDS AND I GAVE ORAL ABX. DR NICHOLSON LATER CALLED THAT HE TALKED TO DR RABAGO AND HE HAS ADVISED TO STOP AMIODARONE. HE WILL FU WITH HIS DIANA DOCTORS FOR A FIB REVERSAL ONE MORE TIME. PROGNOSIS IS OVERALL GUARDED. Vital Signs/Physical Exam: Temp Pulse Resp BP Pulse Ox 97.6 F 84 18 104/58 L 96 07/26/20 12:00 07/26/20 12:00 07/26/20 12:00 07/26/20 12:00 07/26/20 12:00 Laboratory Data at Discharge: WBC 8.90 K/uL (4.3-10.9) 07/26/20 05:52 Hgb 11.6 g/dL (13.6-17.9) L 07/26/20 05:52 Hct 34.1 % (39.6-49.0) L 07/26/20 05:52 Plt Count 333 K/uL (152-406) 07/26/20 05:52 PT 19.8 SECONDS (9.5-12.5) H 07/25/20 13:00 INR 1.71 07/25/20 13:00 APTT 30.9 SECONDS (24.3-36.9) 07/25/20 13:00 Sodium 141 mmol/L (136-145) 07/26/20 05:52 Potassium 4.7 mmol/L (3.5-5.1) 07/26/20 05:52 BUN 23 mg/dL (7-18) H 07/26/20 05:52 Creatinine 1.22 mg/dL (0.55-1.3) 07/26/20 05:52 Glucose 86 mg/dL (74-106) 07/26/20 05:52 Phosphorus 4.4 mg/dL (2.5-4.9) 07/25/20 13:00 Magnesium 2.4 mg/dL (1.8-2.4) 07/26/20 05:52 Total Bilirubin 0.5 mg/dL (0.2-1.0) 07/25/20 13:00 AST 18 U/L (15-37) 07/25/20 13:00 ALT 25 U/L (12-78) 07/25/20 13:00 Alkaline Phosphatase 60 U/L (45-117) 07/25/20 13:00 Home Medications: Amiodarone HCl [Cordarone*] 200 mg PO DAILY 01/31/20 Apixaban [Eliquis] 5 mg PO BID 01/31/20 Aspirin [Aspirin EC 81 MG] 81 mg PO DIRECTED 01/31/20 Atorvastatin Calcium [Lipitor*] 10 mg PO BEDTIME 01/31/20 Calcium Carbonate/Vitamin D3 [Calcium 500-Vit D3 600 Tablet] 1 tab PO BEDTIME 01/31/20 Carvedilol [Coreg] 3.125 mg PO BID 01/31/20 Colesevelam HCl 625 mg PO BID 01/31/20 Fluticasone/Umeclidin/Vilanter [Trelegy Ellipta 100-62.5-25] 1 inh IH DAILY 01/31/20 Multivitamin [Multiple Vitamins] 1 tab PO DAILY 01/31/20 PARoxetine HCL [Paxil*] 10 mg PO BEDTIME 01/31/20 Sacubitril/Valsartan [Entresto 24 mg-26 mg Tablet] 1 tab PO BID 01/31/20 Tadalafil [Cialis] 5 mg PO BEDTIME 01/31/20 Thyroid,Pork [Proposal Writer Thyroid] 60 mg PO DAILY 01/31/20 Potassium Chloride [Klor-Con M20] 20 meq PO DAILY #90 tab.er.prt 02/03/20 Smz./Tmp. [Bactrim Ds 800 MG/160 MG] 1 tab PO BID #28 tab 02/03/20 Amox/Clavulanate [Augmentin 875-125 Tab] 1 each PO BID 10 Days #20 tab 07/26/20 Empagliflozin [Jardiance] 10 mg PO DAILY 07/26/20 Furosemide [Lasix] 20 mg PO DAILY 07/26/20 Spironolactone [Aldactone*] 25 mg PO DAILY 07/26/20 predniSONE [Deltasone] 20 mg PO BID 30 Days #60 tab 07/26/20 New Medications: Amox/Clavulanate [Augmentin 875-125 Tab] 1 each PO BID 10 Days #20 tab predniSONE [Deltasone] 20 mg PO BID 30 Days #60 tab Followup: Melvin De La Torre MD [ACTIVE - CAN ADMIT] - João Zheng MD [Primary Care Provider] -
[2020-07-27 23:34] LABS: Vitamin D 1,25-Dihydroxy Total 27 pg/mL (18-72); Vitamin D,1,25-OH2, D2 <8 pg/mL
--- NOTE | 2020-07-30 10:27 | CON ---
Date of Consultation: 07/26/2020 Reason For Consultation: Paroxsymal atrial fibrillation. History Of Present Illness: Mr. Vergara is a 75-year-old white male. He is a patient of Dr. Zheng. We have seen him in the past as well. He also sees Dr. Dr. Kitty Harris and Dr. Everton Dacosta in [facility] for multiple problems including recurrent atrial fibrillation, cardiomyopathy. He has had an ablat ion for atrial fibrillation before. Has had a pacemaker and defibrillator. Was admitted for resista nt pneumonia by Dr. Zheng for a prolonged antibiotics course. There was a plan by Dr. Dacosta to switc h him from amiodarone to Tikosyn for his recurrent atrial fibrillation, which is symptomatic accordin g to the patient. The patient developed shortness of breath and fatigue with his atrial fibrillation . Another ablation is not in planned for now. Past Medical History: Includes paroxysmal atrial fibrillation; dyslipidemia; renal cancer; endocardi tis; COPD; pulmonary embolus; congestive heart failure, chronic, systolic, stage IV, status post bive ntricular pacemaker and AICD. He also has a history of pulmonary fibrosis. Allergies: NONE. Review of Systems: Negative. Social History: Negative. Family History: Noncontributory. Medications: At home include amiodarone, Eliquis, Coreg, aspirin, Lipitor, Synthroid, and Entresto. Physical Examination: Vital Signs: The patient was in atrial fibrillation, rate controlled with a paced rhythm. Afebrile. HEENT: Negative. Neck: Supple with no bruit, lymphadenopathy, JVD, or thyromegaly. Chest: Revealed diffuse crackles. Cardiac: Revealed atrial fibrillation. Abdomen: Benign. Extremities: Revealed no clubbing, cyanosis, or edema. Diagnostic Data: That is known. He had an echocardiogram in January 2020 showing an ejection frac tion of 20% to 25%. Creatinine was 1.34. TSH was 9.2. Impression And Plan: Recurrent atrial fibrillation. I did call Dr. Dacosta and discussed the case wit h him. Dr. Dacosta had suggested discontinuing the amiodarone for now and then when he sees him again in about 2 weeks, he will put him back on Tikosyn. Tikosyn has to be started as an inpatient. The c ase was discussed with Dr. Zheng. Otherwise, we will continue his present regimen as far as his anti biotics for his pneumonia. He is already on Lipitor for his dyslipidemia. He is on Eliquis for his atrial fibrillation. He is on Coreg and Entresto for his congestive heart failure. He is on thyroid medication for his hypothyroidism. His chronic pulmonary fibrosis is obviously an issue that Dr. Barnett is dealing with. I do not recommend repeating any cardiac workup at this point. His last ejecti on fraction was 20% to 25%. Case was discussed with the patient and Dr. Zheng and with Dr. Dacosta. T he patient can go home whenever it is okay with Dr. Zheng, off his amiodarone and continue the Eliqui s. BENITEZ/POPEYE Voice ID: [id number] Report ID: [id number]
== END 2020-07-26 15:54 | disposition home or self-care (01) | DRG 194 ==
LOC: 2ND 11:38 → OBSVTOIN 07-26 11:38
PROVIDERS: ADMIT Internal Medicine; ATTEND Internal Medicine
DX: J18.9 Pneumonia, unspecified organism (principal); I50.22 Chronic systolic (congestive) heart failure; J44.0 Chronic obstructive pulmonary disease with (acute) lower respiratory infection; E03.9 Hypothyroidism, unspecified; I48.0 Paroxysmal atrial fibrillation; J84.10 Pulmonary fibrosis, unspecified; E78.5 Hyperlipidemia, unspecified; T46.2X5A Adverse effect of other antidysrhythmic drugs, initial encounter; Z85.46 Personal history of malignant neoplasm of prostate; Z85.53 Personal history of malignant neoplasm of renal pelvis; Z95.810 Presence of automatic (implantable) cardiac defibrillator; Z79.01 Long term (current) use of anticoagulants; Z79.52 Long term (current) use of systemic steroids; Z79.82 Long term (current) use of aspirin; Z79.899 Other long term (current) drug therapy
CPT/HCPCS: 36415; 71046; 71250; 80048; 80076; 82043; 82607; 82652; 83036; 83735; 84100; 84145; 84439; 84443; 85025; 85610; 85730; 87040; 87070; 87077; 87186; 87205; G0378; G0379; J2543; U0003

== ENCOUNTER 2022-04-30 15:57 | Inpatient (IN) | payer OTHER ==
--- OUTSIDE RECORDS SUMMARY | 2022-04-30 16:04 | XMS REPORT | Continuity of Care Document ---
:1945 Author Organization [facility] t Address [address] [place] [address] Care Team Providers Name Role Phone LIDA CRAWFORD Primary Care Physician UnavailMADDIE Ricks Attending Clinician Unavailable Hari Ramirez MD Attending Clinician DRE NEVILLE Attending Clinician Unavailable Mecca White MA Attending Clinician Unavailable BRANDYN SIGALA Attending Clinician Unavailable AKOSUA TINAJERO Attending Clinician Unavailable DAVONTE MITCHELL Attending Clinician Unavailable Davonte Mitchell MD Attending Clinician [phone] Shima Chao MD Attending Clinician [phone] Akosua Tinajero MD Attending Clinician IRMA MALDONADO Attending Clinician Unavailable Irma Maldonado MD Attending Clinician JAYSHREE ROMERO Attending Clinician Unavailable Danya Doran MA Attending Clinician Unavailable DRE NEVILLE Attending Clinician Unavailable Dre Neville MD Attending Clinician Unavailmissy Siegel MD, Fabiano Sosa Attending Clinician Timbo Rhoades MD Attending Clinician KEAGAN OLSON Attending Clinician Unavailable NED PANCHAL Attending Clinician Unavailable Vaccine, [facility] Attending Clinician Unavailable Ned Panchal DO Attending Clinician Lexi ADAME, Clementina Attending Clinician MARILIN MIRANDA Attending Clinician Unavailable HERMILO DIOP Attending Clinician Unavailable Franklyn BALDWIN, Mally Attending Clinician Unavailable Primitivo Mcclure MD Attending Clinician Miles Perez MD Attending Clinician MD MADDIE RABAGO Attending Clinician Unavailable Nurse, [facility] Pob Immunization Attending Clinician Unavailable PROSPER LIAO Attending Clinician Unavailable MD PROSPER LIAO Attending Clinician Unavailable MD KENNEDY HARRSI Attending Clinician Unavailable KENNEDY HARRIS Attending Clinician Unavailable Hermilo Diop MD Attending Clinician Lab, [facility]ob I Attending Clinician Unavailable BHARATHI DOWNS Attending Clinician Unavailable JEFFY STRICKLAND Attending Clinician Unavailable Doctor Unassigned, Warner Attending Clinician Unavailable PANCHO ROCA Attending Clinician Unavailable FRANKIE PERRY Attending Clinician Unavailable ALISE HIDALGO Attending Clinician Unavailable HERMILO DIOP Attending Clinician Unavailable SHIMA CHAO Admitting Clinician Unavailable DRE NEVILLE Admitting Clinician Unavailable MADDIE RABAGO Admitting Clinician Unavailable MD MADDIE RABAGO Admitting Clinician Unavailable PROSPER LIAO Admitting Clinician Unavailable MD PROSPER LIAO Admitting Clinician Unavailable MD KENNEDY HARRIS Admitting Clinician Unavailable KENNEDY HARRIS Admitting Clinician Unavailable HARI RAMIREZ Admitting Clinician Unavailable GRETEL MEEHAN Admitting Clinician Unavailable Payers Payer Name Policy Type Policy Number Effective Date Expiration Date [facility] [place] [id number] MED[facility] PART A [id number] 2014 2017 \T\ B - MEDICARE 00:00:00 00:00:00 UNITED MEDICARE [id number] 2017 [facility] 00:00:00 [facility] [id number] 2017 2017 00:00:00 00:00:[address] [facility] [id number] 2021 2021 [facility] 00:00:00 00:00:00 PPO Problems Condition Condition Condition Status Onset Resolution Last Treating Co mments Source Name Details Category Date Date Treatment Clinician Date Urinary Urinary Disease Active [facility] 5-29 [facility] 00 Center BPH with BPH with Disease [facility] Kayla kes n/lower n/lower 00:00: Medical urinary urinary 00 Center tract tract symptoms symptoms Gross Gross Disease Active [facility] hematuria hematuria 2-22 [facility] 00:00: of 00 Medicin e Persistent Persistent Disease Active [facility]i atrial atrial 4-13 st fibrillati fibrillati 00:00: Ho spita on on 00 l Congestive Congestive Disease Active 2019-05 M [facility]i cardiomyop cardiomyop 1-05 st athy athy 00:00: Hospita 00 l 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 Added automatic ally from request for surgery [id number] 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 [facility] artery artery 0-29 st disease disease 00:00: Hospita involving involving 00 l [place] coronary coronary artery of artery of pe[place] heart heart without without angina angina pectoris pectoris Paroxysmal Paroxysmal Disease Active 2018-05 M ethodi atrial atrial 0-17 st fibrillati fibrillati 00:00: Ho spita on on 00 l CAP CAP Disease Active 2018-05 [facility] (community (community 0-17 st acquired acquired 00:00: Hospit a pneumonia) pneumonia) 00 l SOB SOB Disease Active 2017-05 [facility] (shortness (shortness 2-11 st of breath) of breath) 00:00: Ho spita 00 l Chronic Chronic Disease Active [facility] prostatiti prostatiti 2-06 Co llege s s 00:00: of 00 Medicin e Congestive Congestive Disease Active 2016-05 [facility] heart heart 2-05 College failure failure 00:00: of (HCCode) (HCCode) 00 Medici n e Acute on Acute on Disease Active 2016-05 [facility] chronic chronic 2-05 st systolic systolic 00:00: Hospit a heart heart 00 l failure failure Atrial Atrial Disease Active 2015-05 [facility] fibrillati fibrillati 0-27 st on on 00:00: Hospita 00 l Benign Benign Disease Active 2015-05 [facility] hypertensi hypertensi 0-27 st on on 00:00: Hospita 00 l 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 00:00: Hosp huseyin and anal and anal 00 l canal canal Cardiomyop Cardiomyop Disease Active 2015-05 M [facility]i athy athy 0-27 st 00:00: Hospita 00 l External External Disease Active 2015-05 [facility] di hemorrhoid hemorrhoid 0-27 st s s 00:00: Hospita 00 l Hyperlipid Hyperlipid Disease Active 2015-05 M ethodi emia emia 0-27 st 00:00: Hospita 00 l Ventral Ventral Disease Active 2013-05 [facility] hernia hernia 1-12 College 00:00: of 00 Medicin e Right Right Disease Active 2013-05 [facility] flank pain flank pain -12 Co llege 00:00: of 00 Medicin e History of History of Disease Active 2011-05 [facility] kidney kidney - [place] cancer cancer 00:00: of 00 Medicin e Prostate Prostate Disease Active [facility] cancer cancer 05-14 [place] ([facility]) (HCCode) 00:00: of 00 Medicin e Elevated Elevated Disease Active 2010-05 [facility] prostate prostate 0-04 Colleg e specific specific 00:00: of antigen antigen 00 Medicin (PSA) (PSA) e Benign Benign Disease Active 2010-05 [facility] prostatic prostatic 0-04 [facility] hyperplasi hyperplasi 00:00: of a with a with 00 Medicin urinary urinary e retention retention Pneumonia Pneumonia Disease Active [facility] of Medicin e Hyperchole Hyperchole Disease Active [facility] steremia steremia Colleg e of Medicin e Allergies, Adverse Reactions, Alerts Allergy Allergy Status Severity Reaction(s) Onset Inactive Treating Comm ents Source Name Type Date Date Clinician Hydrocod Propensi Active 2015-05 [facility] one ty to 0-27 [place] adverse 00:00: of reaction 00 Medicin s to e drug NO KNOWN Drug Active [facility] ALLERGIE Class ity of [facility] NO KNOWN Allergy Active [facility] Family History Family Member Diagnosis Comments Start Date Stop Date Source Natural father Heart disease [facility] Natural mother Alzheimer's disease [facility] Social History Social Habit Start Date Stop Date Quantity Comments Source History SDOH [facility] Alcohol Frequency Medical Center History SDOH [facility] Alcohol Std Drinks Medica l Center History SDOH [facility] Alcohol Binge Medical Kike ter Exposure to 2021-10-14 2021-10-24 Not sure [facility] Colle e SARS-CoV-2 (event) 00:00:00 09:39:00 of Med icine Tobacco use and 2021-09-21 2021-09-21 Former user [facility] exposure 00:00:00 00:00:00 [facility] Tobacco Comment 2021-09-21 2021-09-21 [facility] appx [facility] [facility] Alcohol intake 2021-06-20 2021-06-20 Current drinker [facility] 00:00:00 00:00:00 of alcohol Hospital (finding) Cigarettes smoked 2019-03-09 2019-03-[address] current (pack per 00:00:00 00:00:00 Hospita l day) - Reported Cigarette 2019-03-09 2019-03-09 [facility] pack-years 00:00:00 00:00:00 Hospital Alcohol Comment 2016-03-07 2016-03-07 occasional [facility] 00:00:00 00:00:00 Hospital History of tobacco 2002-05-[address] [facility] use 00:00:00 of Medicine Sex [birth year] [facility] 00:00:00 00:00:00 Hospital Smoking Status Start Date Stop Date Source Former smoker 2021-09-21 00:00:00 2021-09-21 00:00:00 [facility] Medications Ordered Filled Start Stop Current Ordering Indication Dosage Frequency Signature Comments Components Source Medication Medication Date Date Medication? Clinician (SIG) Name Name thyroid,por 2021- 60mg QD Take 60 mg Farai k (TAPPET ADJUSTER 11-[address] THYROID 14:04: 00:00 daily. Hospita ORAL) 24 :00 l thyroid,por 2021-0 2021- No 60mg QD Take 60 mg [facility] (TAPPET ADJUSTER 11-13-[address] THYROID 14:04: 00:00 daily. Hospita ORAL) 24 :00 l predniSONE 2021-0 2021- No 10mg QD Take 10 mg [facility] (DELTASONE) 11-13 07-[address] 10 mg 14:04: 00:00 daily. Hospita tablet 20 :00 l predniSONE 2021-0 2021- No 10mg QD Take 10 mg [facility] (DELTASONE) 11-13-[address] 10 mg 14:04: 00:00 daily. Hospita tablet 20 :00 l apixaban 2021-0 Yes 5mg Q.5D Take 5 mg Meth piyush (ELIQUIS) 5 7-[address] mg tablet 13:12: (two) Hospita 55 times a l day. Indication : Afib multivitami 0 Yes 1{tbl} QD Take 1 Me thodi n 7-[address] (THERAGRAN) 13:12: mouth Hospi ta tablet 55 daily. l atorvastati 0 Yes 10mg QD Take 10 mg [facility] n (LIPITOR) 7-[address] 10 mg 13:12: daily. Hospita tablet 55 l tadalafiL 2021-0 Yes 5mg QD Take 5 mg Met hodi (CIALIS) 5 7-[address] MG tablet 13:12: nightly. Hosp huseyin 55 For l enlarged prostrate calcium 0 Yes 1{tbl} QD Take 1 Method i carbonate/v 7-[address] itamin D3 13:12: mouth Hospita (CALCIUM 55 daily. l 600 + D,3, ORAL) fluticasone 0 Yes 1{puff} QD Inhale 1 [facility] /umeclidin/ 7-[address] vilanter 13:12: daily. Hospita (TRELEGY 55 l ELLIPTA INHL) albuterol 0 Yes 2{puff} Q4H Inhale 2 M ethodi (PROAIR 7-[address] HFA) 90 13:12: every 4 Hospita mcg/actuati 55 (four) l on inhaler hours as needed for wheezing. furosemide 0 Yes 20mg QD Take 20 mg M [facility]i (LASIX) 20 7-[address] mg tablet 13:12: daily. Hospit a 55 l finasteride 0 Yes 5mg QD Take 5 mg M [facility]i (PROSCAR) 5 7-[address] mg tablet 13:12: daily. Hospit a 55 l tamsulosin 0 Yes .4mg QD Take 0.4 Met hodi (FLOMAX) 7-[address] 0.4 mg 13:12: mouth Hospita capsule 55 daily with l dinner. dofetilide 0 Yes 250ug Q.5D Take 250 Me thodi (TIKOSYN) 7-[address] 250 MCG 13:12: mouth 2 Hospita capsule 55 (two) l times a day. apixaban 0 Yes 5mg Q.5D Take 5 mg Meth piyush (ELIQUIS) 5 7-[address] mg tablet 13:12: (two) Hospita 55 times a l day. Indication : Afib multivitami Yes 1{tbl} QD Take 1 Me thodi n 7-[address] (THERAGRAN) 13:12: mouth Hospi ta tablet 55 daily. l atorvastati 0 Yes 10mg QD Take 10 mg [facility] n (LIPITOR) 7-[address] 10 mg 13:12: daily. Hospita tablet 55 l tadalafiL 0 Yes 5mg QD Take 5 mg Met hodi (CIALIS) 5 7-[address] MG tablet 13:12: nightly. Hosp huseyin 55 For l enlarged prostrate calcium 0 Yes 1{tbl} QD Take 1 Method i carbonate/v 7-[address] itamin D3 13:12: mouth Hospita (CALCIUM 55 daily. l 600 + D,3, ORAL) fluticasone 0 Yes 1{puff} QD Inhale 1 [facility] /umeclidin/ 7-[address] vilanter 13:12: daily. Hospita (TRELEGY 55 l ELLIPTA INHL) albuterol 0 Yes 2{puff} Q4H Inhale 2 M ethodi (PROAIR 7-[address] HFA) 90 13:12: every 4 Hospita mcg/actuati 55 (four) l on inhaler hours as needed for wheezing. furosemide 0 Yes 20mg QD Take 20 mg M ethodi (LASIX) 20 7-[address] mg tablet 13:12: daily. Hospit a 55 l finasteride 0 Yes 5mg QD Take 5 mg M ethodi (PROSCAR) 5 7-[address] mg tablet 13:12: daily. Hospit a 55 l tamsulosin 0 Yes .4mg QD Take 0.4 Met hodi (FLOMAX) 7-[address] 0.4 mg 13:12: mouth Hospita capsule 55 daily with l dinner. dofetilide Yes 250ug Q.5D Take 250 Me thodi (TIKOSYN) 7-[address] 250 MCG 13:12: mouth 2 Hospita capsule 55 (two) l times a day. atorvastati Yes 10mg Take 10 mg [facility] n (LIPITOR) 10-10 by mouth [facility] 10 MG 11:28: daily. of tablet 58 Medicin e Calcium Yes 125mg Take 125 [facility] Carbonate-V 6-01 mg by [place] itamin D 11:28: mouth of (CALCIUM 58 daily. Medicin 500 + D) e 500-125 MG-UNIT TABS Sacubitril- Yes Take by [facility] jair Valsartan 6- mouth. [place] (ENTRESTO) 11:28: of 24-26 MG 58 Medicin TABS e Apixaban Yes Take by [facility] (ELIQUIS) 5 6- mouth. Colleg e MG TABS 11:28: of 58 Medicin e Probiotic 0 Yes Take by [facility] Product 6- mouth. [place] (PROBIOTIC- 11:28: of 10 OR) 58 Medicin e metoprolol 0 Yes 25mg Take 25 mg [facility] (LOPRESSOR) 10-10 by mouth. Col lege 25 MG 11:28: of tablet 58 Medicin e furosemide Yes 20mg Take 20 mg [facility] (LASIX) 20 6 by mouth. [facility] MG tablet 11:28: of 58 Medicin e albuterol Yes 1{puff} Inhale [address] HFA 5-29 puff [facility] (Ventolin 08:47: mouth via Med ical HFA) 90 35 inhaler Center mcg/actuati every 6 on inhaler (six) hours as needed for Wheezing. tadalafiL Yes 5mg QD Take [address] (CIALIS) 5 5-29 by mouth [facility]ukes MG tablet 08:47: every Medical 35 morning. Center atorvastati Yes 10mg QD Take [address] n (LIPITOR) 5-29 by mouth Luke s 10 MG 08:47: every Medical tablet 35 evening. [place] fluticasone Yes QD Inhale by [facility] -umeclidin- 5-29 mouth via Dang es vilanter 08:47: inhaler Medica l (Trelegy 35 every Center Ellipta) evening. 100-62.5-25 mcg DsDv thyroid, Yes 60mg QD Take [address] pork, 60 mg 5-29 by mouth Luke s Tab 08:47: every Medical 35 morning. [place] metoprolol Yes 25mg Take [address] tartrate 5-29 by mouth. [facility]ukes (LOPRESSOR) 08:47: Medica l 25 MG 35 Center tablet sacubitriL- Yes 1{tbl} Q.5D Take [address] valsartan 5-29 tablet by [facility] (ENTRESTO) 08:47: mouth 2 Medi chery 24-26 mg 35 (two) Center Tab times daily. apixaban Yes 5mg Q.5D Take [address] (ELIQUIS) 5 5-29 by mouth 2 Kayla kes mg Tab 08:47: (two) Medical tablet 35 times Center daily. dofetilide Yes 250ug Q.5D Take [address] (TIKOSYN) 5-29 mcg by [facility] 250 MCG 08:47: mouth 2 Medical capsule 35 (two) Center times daily. finasteride Yes benign 5mg QD Take [address] (PROSCAR) 5 5-29 prostatic by mouth [facility]ukes mg tablet 08:47: hyperplasia daily. Medical 35 with lower Center urinary tract sx tamsulosin Yes benign .4mg QD Take 0.[address] (FLOMAX) 5-29 prostatic mg by [facility] 0.4 mg Cap 08:47: hyperplasia mouth Medical 24 hr 35 with lower nightly. Cent er capsule urinary tract sx predniSONE Yes 5mg QD Take [address] (DELTASONE) 5-29 by mouth Luke s 5 MG tablet 08:47: daily. Medi chery 35 Center doxycycline Yes 100mg Q.5D Take [address] (VIBRAMYCIN 5-29 mg by [facility] ) 100 MG 08:47: mouth 2 Medica l capsule 35 (two) Center times daily. furosemide Yes 20mg QD Take [address] (LASIX) 20 5-29 by mouth [facility] MG tablet 08:47: every Medical 35 morning. Center traMADoL Yes 50mg Take [address] (ULTRAM) 50 5-29 by mouth Luke s mg tablet 08:47: every 6 Medic al 35 (six) Center hours as needed for Pain. ciprofloxac 2021- No 250mg Q.5D Take [address] in HCl 5-29 06-01 tablet [facility] (CIPRO) 250 00:00: 23:59 (250 mg Me dical MG tablet 00 :00 total) by Cente r mouth 2 (two) times daily for 3 days. sacubitriL- 2022- No 1{tbl} Q.5D Take 1 M ethodi valsartan 5-18 05-[address] (Entresto) 00:00: 04:59 mouth 2 Hos j carlos 24-26 mg 00 :00 (two) l tablet per times a tablet day. sacubitriL- 2021-0 2022- No 1{tbl} Q.5D Take 1 M ethodi valsartan 5-18 05-[address] (Entresto) 00:00: 04:59 mouth 2 Hos j carlos 24-26 mg 00 :00 (two) l tablet per times a tablet day. docusate Yes [id number] 100mg Take 1 [facility] sodium 5-16 capsule by [place] (COLACE) 00:00: mouth two of 100 MG 00 times Medicin capsule daily. e phenazopyri Yes [id number] Take by [facility] dine 5-16 mouth [place] (PYRIDIUM) 00:00: every 8 of 200 MG 00 hours PRN. Medicin tablet e sulfamethox Yes [id number] 1{tbl} Take 1 [facility] azole-trime 5-16 Tablet by Col lege thoprim 00:00: mouth two of (BACTRIM 00 times Medicin DS) 800-160 daily. e MG per tablet latanoprost Yes PUT 1 DROP [facility] (XALATAN) 5-13 IN RIGHT Colleg e 0.005 % 00:00: EYE AT of ophthalmic 00 BEDTIME Medici n solution e finasteride Yes [id number] TAKE 1 [facility] (PROSCAR) 5 5-06 TABLET BY Col lege MG tablet 00:00: MOUTH of 00 EVERY DAY Medicin e Tamsulosin Yes [id number] TAKE 1 [facility] HCl 0.4 MG 5-06 CAPSULE BY Col lege CAPS 00:00: MOUTH AT of 00 BEDTIME Medicin e colesevelam Yes TAKE 1 [facility] (WELCHOL) 4-25 TABLET BY [facility] ge 625 MG 00:00: MOUTH of tablet 00 TWICE A Medicin DAY e predniSONE Yes TAKE 1 [facility] (DELTASONE) 4-24 TABLET BY Col lege 5 MG tablet 00:00: MOUTH of 00 EVERY DAY Medicin FOR 90 e DAYS atorvastati Yes 10mg Take 10 mg [facility] n (LIPITOR) 3-29 by mouth [facility] 10 MG 10:34: daily. of tablet 40 Medicin e Calcium Yes 125mg Take 125 [facility] Carbonate-V 3-29 mg by [place] itamin D 10:34: mouth of (CALCIUM 40 daily. Medicin 500 + D) e 500-125 MG-UNIT TABS predniSONE Yes 10mg Take 10 mg [facility] (DELTASONE) 3-29 by mouth. Col lege 10 MG 10:34: of tablet 40 Medicin e Sacubitril- Yes Take by [facility] Valsartan 3-29 mouth. [place] (ENTRESTO) 10:34: of 24-26 MG 40 Medicin TABS e Apixaban 2021-0 Yes Take by [facility] (ELIQUIS) 5 3-29 mouth. Colleg e MG TABS 10:34: of 40 Medicin e Probiotic 2021-0 Yes Take by [facility] Product 3-29 mouth. [place] (PROBIOTIC- 10:34: of 10 OR) 40 Medicin e finasteride 2021-0 Yes [id number] 5mg Take 1 [facility] (PROSCAR) 5 3-29 Tablet by Col lege MG tablet 00:00: mouth of 00 daily. Medicin e Tamsulosin 2021-0 Yes [id number] .4mg Take 0.4 [facility] HCl 0.4 MG 3-29 mg by [place] CAPS 00:00: mouth at of 00 bedtime. Medicin e amoxicillin 2021-0 Yes [id number] 1{tbl} Take 1 [facility] -clavulanat 3-23 Tablet by Col lege e 00:00: mouth two of (AUGMENTIN) 00 times Medicin 875-125 MG daily. e per tablet atorvastati 0 Yes 10mg Take 10 mg [facility] n (LIPITOR) 2-22 by mouth Jeet ege 10 MG 16:00: daily. of tablet 13 Medicin e Calcium 0 Yes 125mg Take 125 [facility] Carbonate-V 2-22 mg by [place] itamin D 16:00: mouth of (CALCIUM 13 daily. Medicin 500 + D) e 500-125 MG-UNIT TABS predniSONE 0 Yes 10mg Take 10 mg [facility] (DELTASONE) 2-22 by mouth. Col lege 10 MG 16:00: of tablet 13 Medicin e Sacubitril- 2021-0 Yes Take by [facility] j[facility] Valsartan 2-22 mouth. [place] (ENTRESTO) 16:00: of 24-26 MG 13 Medicin TABS e Apixaban 2021-0 Yes Take by [facility] (ELIQUIS) 5 2-22 mouth. Colleg e MG TABS 16:00: of 13 Medicin e Probiotic 2021-0 Yes Take by [facility] Product 2-22 mouth. [place] (PROBIOTIC- 16:00: of 10 OR) 13 Medicin e Ranolazine 2021-0 2022- No 500mg Take 500 [facility] 500 MG TB12 2-22 02-22 mg by Colleg e 15:56: 00:00 mouth. of 49 :00 Medicin e metoprolol Yes 25mg Q.5D Take 1 [facility] di succinate 2-04 tablet (25 st XL (Toprol 00:00: mg total) Ho spita XL) 25 mg 00 by mouth 2 l 24 hr (two) tablet times a day. metoprolol Yes 25mg Q.5D Take 1 [facility] di succinate 2-04 tablet (25 st XL (Toprol 00:00: mg total) Ho spita XL) 25 mg 00 by mouth 2 l 24 hr (two) tablet times a day. esomeprazol 2021- No 40mg Q.5D Take 1 Met hodi e (NexIUM) 2-08 12-[address] 40 MG 00:00: 05:59 (40 mg Hospita capsule 00 :00 total) by l mouth 2 (two) times a day for 30 days. dofetilide 2021- No 250ug Q.5D Take 1 [facility] (TIKOSYN) 2-08 12- capsule st 250 MCG 00:00: 05:59 (250 mcg Hospi ta capsule 00 :00 total) by l mouth 2 (two) times a day for 30 days. esomeprazol 2021- No 40mg Q.5D Take 1 Met hodi e (NexIUM) 2- capsule st 40 MG 00:00: 05:59 (40 mg Hospita capsule 00 :00 total) by l mouth 2 (two) times a day for 30 days. dofetilide 2021- No 250ug Q.5D Take 1 [facility] (TIKOSYN) 2-08 12- capsule st 250 MCG 00:00: 05:59 (250 mcg Hospi ta capsule 00 :00 total) by l mouth 2 (two) times a day for 30 days. fluoride, 2021- No QD Apply to Met hodi sodium, 06-14-[address] (Sodium 11:16: 00:00 daily. Hospita Fluoride 33 :00 l 5000 Plus) 1.1 % cream fluoride, 2021- No QD Apply to Met hodi sodium, 06-14-[address] (Sodium 11:16: 00:00 daily. Hospita Fluoride 33 :00 l 5000 Plus) 1.1 % cream metoprolol Yes TAKE 1 [facility] (TOPROL-XL) 2-02 TABLET BY Col lege 25 MG XL 00:00: MOUTH of tablet 00 TWICE A Medicin DAY e metoprolol Yes TAKE 1 [facility] (TOPROL-XL) 2-02 TABLET BY Col lege 25 MG XL 00:00: MOUTH of tablet 00 TWICE A Medicin DAY e metoprolol Yes TAKE 1 [facility] (TOPROL-XL) 2-02 TABLET BY Col lege 25 MG XL 00:00: MOUTH of tablet 00 TWICE A Medicin DAY e furosemide 2020-05 No 40mg QD Take 1 Meth [facility] (LASIX) 40 0-13 04-13 tablet (40 st mg tablet 00:00: 00:00 mg total) Ho spita 00 :00 by mouth l daily. furosemide 2020-05 No 40mg QD Take 1 Meth [facility] (LASIX) 40 0-13 04-13 tablet (40 st mg tablet 00:00: 00:00 mg total) Ho spita 00 :00 by mouth l daily. dofetilide 2021- No 250mg Q.5D Take 250 M ethodi (TIKOSYN) 12-21 02-[address] 250 MCG 00:00: 00:00 mouth 2 Hospit a capsule 00 :00 (two) l times a day. dofetilide 2021- No 250mg Q.5D Take 250 M [facility]i (TIKOSYN) 12-21 02-[address] 250 MCG 00:00: 00:00 mouth 2 Hospit a capsule 00 :00 (two) l times a day. dofetilide Yes 1{tbl} Take 1 [facility] (TIKOSYN) 5-05 Tablet by Colle ge 250 MCG 00:00: mouth two of capsule 00 times Medicin daily. e dofetilide Yes 1{tbl} Take 1 [facility] (TIKOSYN) 5-05 Tablet by Colle ge 250 MCG 00:00: mouth two of capsule 00 times Medicin daily. e sacubitriL- 2021- No 1{tbl} Q.5D Take 1 M ethodi valsartan 3-24 05-[address] (Entresto) 00:00: 00:00 mouth 2 Hos j carlos 24-26 mg 00 :00 (two) l tablet per times a tablet day. sacubitriL- 2021- No 1{tbl} Q.5D Take 1 M ethodi valsartan 3-24 05-[address] (Entresto) 00:00: 00:00 mouth 2 Hos j carlos 24-26 mg 00 :00 (two) l tablet per times a tablet day. carvediloL 2021- No 3.125mg Q.5D Take 1 M ethodi (COREG) 3-24 02-[address] 3.125 MG 00:00: 00:00 (3.125 mg Hos j carlos tablet 00 :00 total) by l mouth 2 (two) times a day with meals. carvediloL 2021- No 3.125mg Q.5D Take 1 M ethodi (COREG) 3-24 02-[address] 3.125 MG 00:00: 00:00 (3.125 mg Hos j carlos tablet 00 :00 total) by l mouth 2 (two) times a day with meals. furosemide 2020- No 20mg QD Take 1 Meth piyush (LASIX) 20 -24 10-13 tablet (20 st mg tablet 00:00: 00:00 mg total) Ho spita 00 :00 by mouth l daily. atorvastati Yes 10mg Take 10 mg [facility] (LIPITOR) 2-23 by mouth Jeet ege 10 MG 22:11: daily. of tablet 45 Medicin e Calcium Yes 125mg Take 125 [facility] Carbonate-V 2-23 mg by [place] itamin D 22:11: mouth of (CALCIUM 45 daily. Medicin 500 + D) e 500-125 MG-UNIT TABS Ranolazine Yes 500mg Take 500 [facility] 500 MG TB12 2-23 mg by College 22:08: mouth. of 05 Medicin e amiodarone 2020- No [id number] 200mg Take 200 [facility] (PACERONE) 2-23 02-23 mg by College 400 MG 22:06: 00:00 mouth of tablet 16 :00 every Medicin morning. e Apixaban 5 2020- No [id number] Take by [facility] MG TABS 07-04 mouth. College 22:06: 00:00 of 16 :00 Medicin e lisinopril 2020- No 5mg Take 5 mg [facility] (PRINIVIL, 07-04 by mouth. Col lege ZESTRIL) 5 22:06: 00:00 of MG tablet 16 :00 Medicin e escitalopra Yes 10mg Take 10 mg [facility] m (LEXAPRO) 06-23 by mouth Jeet ege 10 MG 00:00: daily. of tablet 00 Medicin e escitalopra 2021- No 10mg Take 10 mg [facility] (LEXAPRO) 06-23 by mouth Col lege 10 MG 00:00: 00:00 daily. of tablet 00 :00 Medicin e colesevelam Yes 1{tbl} Take 1 [facility] (WELCHOL) 1-09 Tablet by Colle ge 625 MG 00:00: mouth two of tablet 00 times Medicin daily. e colesevelam Yes 1{tbl} Take 1 [facility] (WELCHOL) 1-09 Tablet by Colle ge 625 MG 00:00: mouth 2 of tablet 00 times Medicin weekly. e colesevelam Yes 1{tbl} Take 1 [facility] (WELCHOL) 1-09 Tablet by Colle ge 625 MG 00:00: mouth two of tablet 00 times Medicin daily. e TAPPET ADJUSTER THYROID 2020- Yes 60mg Take 60 mg [facility] 60 MG 2-29 by mouth College tablet 00:00: daily. of 00 Medicin e TAPPET ADJUSTER THYROID 2020- Yes 60mg Take 60 mg [facility] 60 MG 2-29 by mouth College tablet 00:00: daily. of Medicin e TAPPET ADJUSTER THYROID 2020- Yes 60mg Take 60 mg [facility] 60 MG 2-29 by mouth College tablet 00:00: daily. of 00 Medicin e TAPPET ADJUSTER THYROID 2020- Yes 60mg Take 60 mg [facility] 60 MG 2-29 by mouth College tablet 00:00: daily. of 00 Medicin e tramadol 2019-05 Yes Take by [facility] (ULTRAM) 50 1-04 mouth as Jeet ege MG tablet 00:00: needed. of Medicin e metolazone 2020- No 2.5mg Take 2.5 [facility] (ZAROXOLYN) 9-30 10-01 mg by Shayla e 2.5 MG 00:00: 04:59 mouth as of tablet 00 :00 needed. Medicin e potassium Yes 20meq Take 20 [facility] chloride SA 9-24 mEq by Shayla e (K-DUR, 00:00: mouth of KLOR-CON 00 daily. Medicin M20) 20 MEQ e tablet potassium 2021- No 20meq Take 20 [place] [facility] chloride SA 9-24 02-22 mEq by [place] serrano (K-DUR, 00:00: 00:00 mouth of KLOR-CON 00 :00 daily. Medicin M20) 20 MEQ e tablet thyroid (TAPPET ADJUSTER Yes 15mg Take 15 mg [facility] THYROID) 15 9-21 by mouth Jeet ege MG tablet 00:00: daily. of Medicin e Multiple Yes 1{tbl} Take 1 [facility] Vitamin 9-21 Tablet by [place] (MULTI-CYN 00:00: mouth of MIN DAILY 00 daily. Medicin OR) e Multiple 2019-0 Yes 1{tbl} Take 1 [facility] Vitamin 9-21 Tablet by [place] (MULTI-CYN 00:00: mouth of MIN DAILY 00 daily. Medicin OR) e Multiple 2020-0 Yes 1{tbl} Take 1 [facility] Vitamin 9-21 Tablet by [place] (MULTI-CYN 00:00: mouth of MIN DAILY 00 daily. Medicin OR) e Multiple 2020-0 Yes 1{tbl} Take 1 [facility] Vitamin 9-21 Tablet by [place] (MULTI-CYN 00:00: mouth of MIN DAILY 00 daily. Medicin OR) e Calcium Yes 1{tbl} Take 1 [facility] Carb-Cholec 9-21 Tablet by Col lege alciferol 00:00: mouth of 500-600 00 daily. Medicin MG-UNIT e TABS Calcium 2021- No 1{tbl} Take 1 [facility] Carb-Cholec 9-21 02-22 Tablet by Co llege alciferol 00:00: 00:00 mouth of 500-600 00 :00 daily. Medicin MG-UNIT e TABS thyroid (TAPPET ADJUSTER 2019-2021- No 15mg Take 15 mg [facility] THYROID) 15 01-30 by mouth Col lege MG tablet 00:00: 00:00 daily. of 00 :00 Medicin e amiodarone 2020-0 Yes 200mg Take 200 Un woody 200 mg 9-09 mg by ity of tablet 17:24: mouth. [address] amiodarone 2020-0 Yes 200mg Take 200 Un woody 400 mg 9-09 mg by ity of tablet 17:24: mouth. [address] thyroid 60 2019-0 Yes 60mg Take 60 mg U nivers mg tablet 9-09 by mouth. ity o f 17:24: [address] tadalafiL 5 2020-0 Yes 5mg Take 5 mg U nivers mg tablet 9-09 by mouth. ity o f 17:24: [address] atorvastati 2020-0 Yes 20mg Take 20 mg Univers n 20 mg 9-09 by mouth. ity of tablet 17:24: [address] amiodarone 2020-0 Yes 200mg Take 200 Un woody 200 mg 9-09 mg by ity of tablet 17:24: mouth. [address] amiodarone 2020-0 Yes 200mg Take 200 Un woody 400 mg 9-09 mg by ity of tablet 17:24: mouth. [address] thyroid 60 2019-0 Yes 60mg Take 60 mg U nivers mg tablet 909 by mouth. ity o f 17:24: [address] tadalafiL 5 2020-0 Yes 5mg Take 5 mg U nivers mg tablet 9-09 by mouth. ity o f 17:24: [address] atorvastati 2020-0 Yes 20mg Take 20 mg Univers n 20 mg 9-09 by mouth. ity of tablet 17:24: [address] Fluticasone 2020-0 Yes 1{puff} Take 1 [facility] -Umeclidin- 08 Puff by [place] Oates 00:00: mouth as of (TRELEGY 00 needed. Medicin ELLIPTA) e 100-62.5-25 MCG/INH AEPB Fluticasone 2020-0 Yes 1{puff} Take 1 [facility] -Umeclidin- 9-08 Puff by Colle ge Vilant 00:00: mouth as of (TRELEGY 00 needed. Medicin ELLIPTA) e 100-62.5-25 MCG/INH AEPB Fluticasone 2020-0 Yes 1{puff} Take 1 [facility] -Umeclidin- 9-08 Puff by Colle ge Vilant 00:00: mouth as of (TRELEGY 00 needed. Medicin ELLIPTA) e 100-62.5-25 MCG/INH AEPB Fluticasone 2020-0 Yes 1{puff} Take 1 [facility] -Umeclidin- 9-08 Puff by Colle ge Vilant 00:00: mouth as of (TRELEGY 00 needed. Medicin ELLIPTA) e 100-62.5-25 MCG/INH AEPB TRELEGY 2020-0 Yes Univers ELLIPTA 9-08 ity of 100-62.5-25 00:00: [place] mcg DsDv 00 Medical Branch amoxicillin 2020-0 Yes Univer s -clavulanat 9-08 ity of e 875-125 00:00: [place] mg per 00 Medical tablet Branch albuterol 2020-0 Yes Univers 90 9-08 ity of mcg/actuati 00:00: [place] on inhaler 00 Medical Branch TRELEGY 2020-0 Yes Univers ELLIPTA 9-08 ity of 100-62.5-25 00:00: [place] mcg DsDv 00 Medical Branch amoxicillin 2020-0 Yes Univer s -clavulanat 9-08 ity of e 875-125 00:00: [place] mg per 00 Medical tablet Branch albuterol 2020-0 Yes Univers 90 9-08 ity of mcg/actuati 00:00: [place] on inhaler 00 Medical Branch carvediloL 2020-0 Yes Univers 3.125 mg 8-30 ity of tablet 00:00: [place] 00 Medical Branch carvediloL 2020-0 Yes Univers 3.125 mg 8-30 ity of tablet 00:00: [place] 00 Medical Branch Apixaban 5 2020-0 Yes 5mg Take 5 mg [facility] MG TABS 8-24 by mouth College 00:00: two times of 00 daily. Medicin e ELIQUIS 5 2019-0 Yes 5mg Take 5 mg Uni vers mg tablet 8-24 by mouth 2 ity of 00:00: (two) [place] 00 times Medical daily. Branch ELIQUIS 5 2019-0 Yes 5mg Take 5 mg Uni vers mg tablet 8-24 by mouth 2 ity of 00:00: (two) [place] times Medical daily. Branch Apixaban 5 2019-0 2- No 5mg Take 5 mg [facility] MG TABS 8-24 02-22 by mouth College 00:00: 00:00 two times of 00 :00 daily. Medicin e Sacubitril- 2020-0 Yes 1{tbl} Take 1 [facility] Valsartan 6-23 Tablet by Colle ge 24-26 MG 00:00: mouth two of TABS 00 times Medicin daily. e ENTRESTO 2020-0 Yes 1{tbl} Take 1 Unive rs 24-26 mg 6-23 tablet by ity of tablet 00:00: mouth 2 [place] [id number] (two) Medical times Branch daily. ENTRESTO 2020-0 Yes 1{tbl} Take 1 Unive rs 24-26 mg 6-23 tablet by ity of tablet 00:00: mouth 2 [place] [address] (two) Medical times Branch daily. Sacubitril- 2020-0 2021- No 1{tbl} Take 1 [facility] Valsartan 6-23 02-22 Tablet by Jeet ege 24-26 MG 00:00: 00:00 mouth two of TABS 00 :00 times Medicin daily. e PARoxetine 2020-0 Yes 10mg Take 10 mg U nivers 10 mg 6-19 by mouth. ity of tablet 00:00: [place] [facility] PARoxetine 2020-0 Yes 10mg Take 10 mg U nivers 10 mg 6-19 by mouth. ity of tablet 00:00: [place] [address] Medical Branch furosemide 2020-0 Yes 40mg Take 40 mg [facility] (LASIX) 40 6-02 by mouth Colle ge MG tablet 00:00: as needed. of Medicin e furosemide 2020-0 Yes 40mg Take 40 mg [facility] (LASIX) 40 6-02 by mouth Colle ge MG tablet 00:00: as needed. of Medicin e furosemide 2020-0 Yes 40mg Take 40 mg [facility] (LASIX) 40 6-02 by mouth Colle ge MG tablet 00:00: as needed. of 00 Medicin e Aspirin 81 2020-0 Yes 81mg Take 81 mg [facility] MG tablet 4-30 by mouth Colleg e 00:00: daily. of Medicin e aspirin 81 2020-0 Yes 81mg Take 81 mg U nivers mg EC 4-30 by mouth. ity of tablet 00:00: [address] aspirin 81 2020-0 Yes 81mg Take 81 mg U nivers mg EC 4-30 by mouth. ity of tablet 00:00: [address] Branch Aspirin 81 2020-0 2021- No 81mg Take 81 mg [facility] MG tablet 4-30 07-03 by mouth Colle ge 00:00: 00:00 daily. of 00 :00 Medicin e aspirin 2020- No 81mg Q.5W Take 81 mg [facility] (Aspirin 4-30 10-[address] Low Dose) 00:00: 00:00 (two) Hospit a 81 MG 00 :00 times a l enteric week. On coated Friday tablet and Friday at bedtime atorvastati 2020- No [id number] 20mg Take 20 mg [facility] n (LIPITOR) 06-15 by mouth Col lege 20 MG 19:46: 00:00 daily. of tablet 28 :00 Medicin e Albuterol 2020- No [id number] Inhale by [facility] (VENTOLIN 06-15 mouth. College IN) 19:46: 00:00 of 28 :00 Medicin e carvedilol 2020- No [id number] 12.5mg Take 12.5 [facility] (COREG) 06-15 mg by [place] 12.5 MG 19:46: 00:00 mouth 2 of tablet 28 :00 times Medicin daily e (with meals). thyroid 2020- No [id number] 15mg Take 15 mg [facility] (ARMOUR 06-15 by mouth [place] THYROID) 15 19:46: 00:00 daily. of MG tablet 28 :00 Medicin e Furosemide 2020- No [id number] Take by [facility] (LASIX OR) 06-15 mouth. Colleg e 19:46: 00:00 of 28 :00 Medicin e LISINOPRIL 2020- No [id number] Take by [facility] OR 2- 02- mouth. College 19:46: 00:00 of 28 :00 Medicin e Tadalafil 2020-0 2020- No [id number] Take by [facility] (CIALIS OR) 2-08 11- mouth. Colle ge 19:46: 00:00 of 28 :00 Medicin e Calcium 2020-0 2020- No [id number] Take by [facility] Citrate-Vit -08 11- mouth. Colle ge simmons D 19:46: 00:00 of (CALCIUM + 28 :00 Medicin D OR) e Ranolazine 2019-0 Yes 500mg Take 500 [facility] 500 MG TB12 2-04 mg by [place] 19:45: mouth. of 34 Medicin e amiodarone 2020-0 Yes [id number] 200mg Take 200 [facility] (PACERONE) 2-04 mg by College 400 MG 19:44: mouth of tablet 16 every Medicin morning. e Apixaban 5 2019-0 Yes [id number] Take by [facility] MG TABS 2-04 mouth. [place] 19:44: of 16 Medicin e lisinopril 2020-0 Yes 5mg Take 5 mg [facility] (PRINIVIL, 2-04 by mouth. Jeet ege ZESTRIL) 5 19:44: of MG tablet 16 Medicin e pantoprazol 2019-0 2020- No 40mg Take 40 mg [facility] e 06-02 by mouth. [place] (PROTONIX) 00:00: 05:59 of 40 MG 00 :00 Medicin tablet e Alum & Mag 2019-0 2020- No 30mL Take 30 mL [facility] Hydroxide-S 06-02 by mouth. Co llege imeth 00:00: 05:59 of (ALUMINUM-M 00 :00 Medicin AGNESIUM-SI e METHICONE) 200-200-20 MG/5ML SUSP colesevelam 2021- No 625mg QD Take 625 [facility] (WELCHOL) 2-28 04-[address] 625 mg 00:00: 00:00 [facility] tablet [facility] :00 daily. l colesevelam 2018-2021- No 625mg QD Take 625 [facility] (WELCHOL) 2-28 04-[address] 625 mg 00:00: 00:00 mouth [facility] tablet 00 :00 daily. l amoxicillin Yes TAKE 4 [facility] (AMOXIL) 1-17 CAPSULES 1 Colle ge 500 mg 00:00: HOUR PRIOR of capsule 00 TO Medicin APPOINTMEN e T amoxicillin 2020- No TAKE 4 [facility] jair (AMOXIL) 1-17 - CAPSULES 1 Jeet ege 500 mg 00:00: 00:00 HOUR PRIOR of capsule 00 :00 TO Medicin APPOINTMEN e T amiodarone Yes 200mg Take 200 [facility] (PACERONE) 1-14 mg by College 200 MG 00:00: mouth of tablet 00 daily. Medicin e amiodarone Yes 200mg Take 200 [facility] (PACERONE) 1-14 mg by College 200 MG 00:00: mouth of tablet 00 daily. Medicin e amiodarone 2021- No 200mg Take 200 [facility] (PACERONE) 1-14 02-22 mg by College 200 MG 00:00: 00:00 mouth of tablet 00 :00 daily. Medicin e carvedilol 2017-05 Yes TAKE 1 [facility] (COREG) 2-11 TABLET College 3.125 MG 00:00: (3.125 MG of tablet 00 TOTAL) BY Medicin MOUTH 2 e (TWO) TIMES A DAY. carvedilol 2017-05 Yes TAKE 1 [facility] (COREG) 2-11 TABLET College 3.125 MG 00:00: (3.125 MG of tablet 00 TOTAL) BY Medicin MOUTH 2 e (TWO) TIMES A DAY. carvedilol 2017-05- No TAKE 1 [facility] (COREG) 2-11 - TABLET College 3.125 MG 00:00: 00:00 (3.125 MG of tablet 00 :00 TOTAL) BY Medicin MOUTH 2 e (TWO) TIMES A DAY. tadalafil 2017-05 Yes TAKE 1 [facility] (CIALIS) 5 2-08 TABLET BY Jeet ege MG tablet 00:00: MOUTH of 00 EVERY DAY Medicin e tadalafil 2017-05 Yes TAKE 1 [facility] (CIALIS) 5 2-08 TABLET BY Jeet ege MG tablet 00:00: MOUTH of 00 EVERY DAY Medicin e tadalafil 2017-05 Yes TAKE 1 [facility] (CIALIS) 5 2-08 TABLET BY Jeet ege MG tablet 00:00: MOUTH of 00 EVERY DAY Medicin e tadalafil 2017-05 Yes TAKE 1 [facility] (CIALIS) 5 2-08 TABLET BY Jeet ege MG tablet 00:00: MOUTH of 00 EVERY DAY Medicin e tadalafil 2017-05 Yes TAKE 1 [facility] (CIALIS) 5 2-08 TABLET BY Jeet ege MG tablet 00:00: MOUTH of 00 EVERY DAY Medicin e furosemide 2017-05 Yes TAKE 1 [facility] (LASIX) 20 1-28 TABLET BY Jeet ege MG tablet 00:00: MOUTH of 00 EVERY DAY Medicin e TAPPET ADJUSTER THYROID 2017-05 Yes TAKE 1 [facility] 30 MG -28 TABLET BY College tablet 00:00: MOUTH of 00 EVERY Medicin MORNING e BEFORE FOOD furosemide 2017-05- No TAKE 1 [facility] (LASIX) 20 -28 -23 TABLET BY Col lege MG tablet 00:00: 00:00 MOUTH of 00 :00 EVERY DAY Medicin e TAPPET ADJUSTER THYROID 2017-05- No TAKE 1 [facility] 30 MG 28 - TABLET BY College tablet 00:00: 00:00 MOUTH of 00 :00 EVERY Medicin MORNING e BEFORE FOOD VENTOLIN 2017-05 Yes INHALE 2 [facility] HFA 108 (90 1-27 PUFFS 4-6 Col [facility]ge Base) 00:00: TIMES A of MCG/ACT 00 DAY Medicin inhaler e VENTOLIN 2017-05 Yes INHALE 2 [facility] HFA 108 (90 1-27 PUFFS 4-6 Col lege Base) 00:00: TIMES A of MCG/ACT 00 DAY Medicin inhaler e VENTOLIN 2017-05 Yes INHALE 2 [facility] HFA 108 (90 1-27 PUFFS 4-6 Col lege Base) 00:00: TIMES A of MCG/ACT 00 DAY Medicin inhaler e VENTOLIN 2017-05 Yes INHALE 2 [facility] HFA 108 (90 1-27 PUFFS 4-6 Col lege Base) 00:00: TIMES A of MCG/ACT 00 DAY Medicin inhaler e ANORO 2017-05 Yes USE ONE [facility] ELLIPTA 1-27 PUFF DAILY Colleg e 62.5-25 00:00: INHALED of MCG/INH 00 Medicin AEPB e VENTOLIN 2017-05 Yes INHALE 2 [facility] HFA 108 (90 1-27 PUFFS 4-6 Col lege Base) 00:00: TIMES A of MCG/ACT 00 DAY Medicin inhaler e ANORO 2017-05- No USE ONE [facility] ZAFARTA 1-27 02-23 PUFF DAILY Colle ge 62.5-25 00:00: 00:00 INHALED of MCG/INH 00 :00 Medicin AEPB e SYMBICORT Yes [id number] INHALE 2 [facility] 80-4.5 1-19 PUFFS BY [place] MCG/ACT 00:00: MOUTH of AERO 00 TWICE A Medicin DAY e SYMBICORT 2020- No [id number] INHALE 2 [facility] 80-4.5 1-19 02-23 PUFFS BY [place] MCG/ACT 00:00: 00:00 MOUTH of AERO 00 :00 TWICE A Medicin DAY e Immunizations Ordered Filled Immunization Date Status Comments [facility] e Immunization Name Name SARS-COV-2 COVID-19 2021-08-30 Completed Unive rsity of PFIZER REINALDO-SUCROSE 00:00:00 [place] [facility] VACCINE (BRAUN TOP) Branch SARS-COV-2 COVID-19 2021-02-09 Completed Unive rsity of PFIZER VACCINE 00:00:00 [facility] SARS-COV-2 COVID-19 2021-02-09 Completed Unive rsity of PFIZER VACCINE 00:00:00 [facility] PFIZER COVID-19 2020-06-13 Completed Scientologist MRNA VACCINATION 00:00:00 [facility] PFIZER COVID-19 2020-06-13 Completed Scientologist MRNA VACCINATION 00:00:00 [facility] PFIZER COVID-19 2020-05-23 Completed Scient[facility] MRNA VACCINATION 00:00:00 Hospital PFIZER COVID-19 2020-05-23 Completed Scientologist MRNA VACCINATION 00:00:00 Hospital Vital Signs Vital Name Observation Time Observation Value Comments Source HEIGHT 2021-09-24 10:33:00 185.4 cm WEIGHT 2021-09-24 10:33:00 80.876 kg HEIGHT 2021-09-21 10:47:00 185.4 cm WEIGHT 2021-09-21 10:47:00 79.379 kg HEIGHT 2021-10-06 13:10:00 185.4 cm WEIGHT 2021-10-06 13:10:00 79.379 kg HEIGHT 2021-10-06 13:10:00 185.4 cm WEIGHT 2021-10-06 13:10:00 79.379 kg HEIGHT 2021-10-06 13:10:00 185.4 cm WEIGHT 2021-10-06 13:10:00 79.379 kg HEIGHT 2021-09-24 10:33:00 185.4 cm WEIGHT 2021-09-24 10:33:00 80.876 kg HEIGHT 2021-09-21 10:47:00 185.4 cm WEIGHT 2021-09-21 10:47:00 79.379 kg HEIGHT 2021-09-24 10:33:00 185.4 cm WEIGHT 2021-09-24 10:33:00 80.876 kg HEIGHT 2021-09-21 10:47:00 185.4 cm WEIGHT 2021-09-21 10:47:00 79.379 kg Systolic blood 2021-07-03 21:50:00 114 mm[Hg] [facility] of pressure Medicine Diastolic blood 2021-07-03 21:50:00 76 mm[Hg] [facility] of pressure Medicine Heart rate 2021-07-03 21:50:00 98 /min [facility] Body height 2021-07-03 21:50:00 185.4 cm [facility] Body weight 2021-07-03 21:50:00 80.287 kg [facility] BMI 2021-07-03 21:50:00 23.35 kg/m2 [facility] Systolic blood 2020-07-04 22:10:00 117 mm[Hg] [facility] of pressure Medicine Diastolic blood 2020-07-04 22:10:00 71 mm[Hg] [facility] of pressure Medicine Heart rate 2020-07-04 22:10:00 63 /min [facility] Body height 2020-07-04 22:10:00 185.4 cm [facility] Body weight 2020-07-04 22:10:00 77.565 kg [facility] of Medicine BMI 2020-07-04 22:10:00 22.56 kg/m2 [facility] of Medicine Systolic blood 2020-07-04 22:10:00 117 mm[Hg] [facility] pressure Medicine Diastolic blood 2020-07-04 22:10:00 71 mm[Hg] [facility] pressure Medicine Heart rate 2020-07-04 22:10:00 63 /min [facility] ollege of Medicine Body height 2020-07-04 22:10:00 185.4 cm [facility] ollege of [facility] Body weight 2020-07-04 22:10:00 77.565 kg [facility] ollege of Medicine BMI 2020-07-04 22:10:00 22.56 kg/m2 [facility] ollege of Medicine Systolic blood 2019-06-15 19:43:00 122 mm[Hg] [facility] of pressure Medicine Diastolic blood 2019-06-15 19:43:00 80 mm[Hg] [facility] of pressure Medicine Heart rate 2019-06-15 19:43:00 66 /min [facility] ollege of Medicine Body temperature 2019-06-15 19:43:00 37.06 Poornima [facility] Body weight 2019-06-15 19:43:00 82.555 kg [facility] ollege of Medicine BMI 2019-06-15 19:43:00 23.37 kg/m2 [facility] ollege of Medicine Systolic blood 2019-06-15 19:43:00 122 mm[Hg] [facility] pressure Medicine Diastolic blood 2019-06-15 19:43:00 80 mm[Hg] [facility] Medicine Heart rate 2019-06-15 19:43:00 66 /min [facility] ollege of Medicine Body temperature 2019-06-15 19:43:00 37.06 Poornima [facility] Body weight 2019-06-15 19:43:00 82.555 kg [facility] ollege of Medicine BMI 2019-06-15 19:43:00 23.37 kg/m2 [facility] ollege of Medicine Heart rate 2021-11-13 18:13:00 84 /min [facility] Body height 2021-11-13 18:13:00 185.4 cm [facility] Body weight 2021-11-13 18:13:00 79.833 kg [facility] BMI 2021-11-13 18:13:00 23.22 kg/m2 [facility] Systolic blood 2021-11-13 18:13:00 117 mm[Hg] Method [facility] pressure Diastolic blood 2021-11-13 18:13:00 60 mm[Hg] [facility] pressure Systolic blood 2021-10-07 08:45:00 104 mm[Hg] [facility] Diastolic blood 2021-10-07 08:45:00 62 mm[Hg] [facility] Heart rate 2021-10-07 08:45:00 72 /min [facility] Respiratory rate 2021-10-07 08:45:00 20 /min [facility] Oxygen saturation in 2021-10-07 08:45:00 99 /min [facility] Arterial blood by Medical Ce nter Pulse oximetry Body temperature 2021-10-07 07:46:00 36.44 Poornima [facility] Body height 2021-10-06 13:10:00 185.4 cm [facility] Body weight 2021-10-06 13:10:00 79.379 kg [facility] BMI 2021-10-06 13:10:00 23.09 kg/m2 [facility] Oxygen saturation in 2021-08-22 20:28:00 95 /min [facility] Arterial blood by Pulse oximetry Body temperature 2021-06-16 22:38:[address] [facility] Respiratory rate 2021-06-16 09:48:31 19 /min [facility] Procedures Procedure Date / Time Performing Clinician Source Performed FRANKI,POST-VOID 2021-10-26 00:00:00 [facility] ge of RES,US,NON-IMG Medicine SARS-COV2/RT-PCR ([facility] & 2021-10-07 06:44:00 Sears-Debra Frankel pe [facility] REF LABS) R Center URINALYSIS W/ REFLEX 2021-10-06 15:27:00 Irma Maldonado [facility] URINE CULTURE Center CBC W/PLT COUNT & AUTO 2021-10-06 13:31:00 Irma Maldonado [facility] DIFFERENTIAL Center COMPREHENSIVE METABOLIC 2021-10-06 13:31:00 Irma Maldonado [facility] Center PT/APTT 2021-10-06 13:31:00 Irma Maldonado [facility] PROTHROMBIN TIME/INR 2021-10-06 13:31:00 Irma Maldonado [facility] CBC W/PLT COUNT & AUTO 2021-10-06 13:31:00 Irma Maldonado [facility] DIFFERENTIAL Center CYSTOSCOPY 2021-09-24 12:27:00 [facility] 2021-09-24 12:27:00 [facility] OF [facility] IMPLANT URINE CULTURE 2021-09-19 12:30:00 [facility] SARS-COV2/RT-PCR ([facility] & 2021-09-19 12:30:00 Count Includes [facility] BASIC METABOLIC PANEL 2021-09-19 12:30:00 Count Includes [facility] W/PLT COUNT & AUTO 2021-09-19 12:30:00 Count Includes [facility] DI[facility] URINALYSIS W/ 2021-09-19 12:30:00 Count Includes [facility]OS[facility]IC [facility] CBC W/PLT COUNT & AUTO 2021-09-19 12:30:00 Count Includes [facility] SARS-COV-2 COVID-19 2021-08-30 18:27:51 Doctor Unassigned, No [facility] [place] VACCINE 12 YRS+,0.3ML,IM Name Medical Branch (PFIZER - BRAUN TOP) CV STRESS TEST NUCLEAR 2021-08-10 19:39:41 [facility] CARDIO NM MYOCARDIAL PERFUSION 2021-08-10 19:39:41 [facility] REST STRESS 1 DAY BASIC METABOLIC PANEL 2021-07-04 15:42:00 [facility] HC COMPLETE BLD COUNT 2021-06-16 10:15:00 Maddie Rabago [facility] W/AUTO DIFF BASIC METABOLIC PANEL 2021-06-16 10:15:00 [facility] L[facility] 2021-06-16 10:15:00 Maddie Rabago spital ESTIMATED GFR 2021-06-16 10:15:00 Maddie Rabago spital ECG 12-LEAD 2021-06-16 00:24:39 Maddie Rabago spital ECG 12-LEAD 2021-06-15 22:16:41 Maddie Rabago spital EP COMPLETE EP STUDY W 2021-06-15 20:37:15 [facility] ABLATION PULMONARY VEIN ARTERIAL LINE 2021-06-15 16:37:18 Audie Walton spital [place] AN ELECTIVE 2021-06-15 16:36:59 Audie Waltontal ENDOTRACHEAL AIRWAY TYPE AND SCREEN 2021-06-15 15:49:00 Maddie Rabago spital ECG PRE/POST OP 2021-06-15 15:31:39 Maddie Rabago spital COMPREHENSIVE METABOLIC 2021-06-13 21:58:[address] [facility] PANEL PROTHROMBIN TIME WITH 2021-06-13 21:58:00 Maddie Rabago [facility] INR MAGNESIUM LEVEL 2021-06-13 21:58:00 Maddie Rabago spital HC COMPLETE BLD COUNT 2021-06-13 21:58:00 Maddie Rabago [facility] W/AUTO DIFF ESTIMATED GFR 2021-06-13 21:58:00 Maddie Rabago spital COVID-19 QUALITATIVE 2021-06-13 21:53:00 [facility] TTE COMPLETE, W 2021-05-18 20:13:09 Clementina Elliott ospital CONTRAST, W DOPPLER ([id number]) CBC WITH PLATELET AND 2021-03-07 18:34:00 Lexi [facility] DIFFERENTIAL BASIC METABOLIC PANEL 2021-03-07 18:34:00 Lexi [facility] ECG 12-LEAD 2021-02-21 18:30:02 Clementina Elliott H ospital SARS-COV-2 COVID-19 2021-02-09 19:32:35 Doctor Unassigned, No [facility] [place] VACCINE,0.3ML,IM Name Medical Branch (PFIZER) POCT URINALYSIS DIPSTICK 2020-07-04 00:00:00 Hermilo Diop [facility] POCT URINALYSIS DIPSTICK 2019-06-15 00:00:00 Hermilo Diop [facility] Plan of Care Planned Activity Planned Date Details Comments Source Future Scheduled 2022-10-[address] [facility] Test 00:00[facility]00 [facility] (12+) [code = Tobacco Cessation Counseling and Screening (12+)] Future Scheduled 2022-04-30 65+ [facility]NEUMOCOCC[address] [facility] Test 15:59:51 VACCINE (1 - PCV) Hospital [code = 65+ PNEUMOCOCCAL VACCINE (1 - PCV)] Future Scheduled 2022-04-30 Hepatitis C Scientologist Test 15:59:51 screening Hospital (procedure) [code = 328549139] Future Scheduled 2022-04-30 SHINGLES VACCINES Method ist Test 15:59:51 (1 of 2) [code = Hospital SHINGLES VACCINES (1 of 2)] Future Scheduled 2022-04-30 COVID-19 VACCINE (4 Meth odist Test 15:59:51 - Booster for Hospital Pfizer series) [code = COVID-19 VACCINE (4 - Booster for Pfizer series)] Future Scheduled 2022-04-30 INFLUENZA VACCINE Method ist Test 15:59:51 [code = INFLUENZA Hospital VACCINE] Future Scheduled 2022-01-24 HEPATITIS B [facility] Test 17:01:21 VACCINES (1 of 3 - Hospital 3-dose series) [code = HEPATITIS B VACCINES (1 of 3 - 3-dose series)] Future Scheduled 2022-01-24 65+ PNEUMOCOCCAL [facility] Test 17:01:21 VACCINE (1 - PCV) Hospital [code = 65+ PNEUMOCOCCAL VACCINE (1 - PCV)] Future Scheduled 2022-01-24 Hepatitis C [facility] 17:01:21 screening Hospital (procedure) [code = 918112781] Future Scheduled 2022-01-24 SHINGLES VACCINES Method ist Test 17:01:21 (1 of 2) [code = Hospital SHINGLES VACCINES (1 of 2)] Future Scheduled 2022-01-24 COVID-19 VACCINE (4 Meth odist Test 17:01:21 - Booster for Hospital Pfizer series) [code = COVID-19 VACCINE (4 - Booster for Pfizer series)] Future Scheduled 2022-01-24 INFLUENZA VACCINE Method [facility] Test 17:01:21 [code = INFLUENZA Hospital VACCINE] Future Scheduled 2022-01-[address] [facility] Test 00:00:00 (#1) [code = Medical Center INFLUENZA VACCINE (#1)] Future Scheduled 2021-10-26 Pneumococcal 65+ (1 [employer] Test 14:46:29 - PCV) [code = of Medicine Pneumococcal 65+ (1 - PCV)] Future Scheduled 2021-10-26 TETANUS SHOT [facility] [employer] Test 14:46:29 (ADULT) [code = of Medicine TETANUS SHOT (ADULT)] Future Scheduled 2021-10-26 Hepatitis C [facility] Test 14:46:29 screening of Medicine (procedure) [code = 887229915] Future Scheduled 2021-10-26 ZOSTER VACCINE (1 [facility] Test 14:46:29 of 2) [code = of Medicine ZOSTER VACCINE (1 of 2)] Future Scheduled 2021-10-26 MEDICARE AWV [facility] 14:46:29 (Initial) [code = of Medicin e MEDICARE AWV (Initial)] Future Scheduled 2021-10-26 COVID-19 Vaccine (4 [employer] Test 14:46:29 - Booster for of Medicine Pfizer series) [code = COVID-19 Vaccine (4 - Booster for Pfizer series)] Future Scheduled 2021-10-26 FLU VACCINE > 6 [facility] Test 14:46:29 MONTHS [code = FLU of Medici ne VACCINE > 6 MONTHS] Future Scheduled 2021-10-26 FALL SCREEN [code = [employer] Test 14:46:29 FALL SCREEN] of Medicine Future Scheduled 2021-08-14 TETANUS SHOT [facility] Test 17:56:04 (ADULT) [code = of Medicine TETANUS SHOT (ADULT)] Future Scheduled 2021-08-14 Hepatitis C [facility] Test 17:56:04 screening of Medicine (procedure) [code = 130403050] Future Scheduled 2021-08-14 ZOSTER VACCINE (1 [employer] Test 17:56:04 of 2) [code = of Medicine ZOSTER VACCINE (1 of 2)] Future Scheduled 2021-08-14 MEDICARE AWV [facility] [employer] 17:56:04 (Initial) [code = of Medicin e MEDICARE AWV (Initial)] Future Scheduled 2021-08-14 Pneumococcal 65+ (1 [employer] Test 17:56:04 of 1 - PPSV23) of Medicine [code = Pneumococcal 65+ (1 of 1 - PPSV23)] Future Scheduled 2021-08-14 FLU VACCINE > 6 [facility] 17:56:04 MONTHS [code = FLU of Medici ne VACCINE > 6 MONTHS] Future Scheduled 2021-08-14 FALL SCREEN [code = [employer] Test 17:56:04 FALL SCREEN] of Medicine Future Scheduled 2021-08-14 CYSTOSCOPY [code = 1 Occurrences [employer] Test 09:51:56 [id number]] starting of Medicine 08/14/2021 until 08/14/2022 Future Scheduled 2021-07-17 PHI PANEL (URO Expected: [facility] Test 00:00:00 DEPT) [code = 07/17/2021 of Medicine 19941] (Approximate), Expires: 08/02/2021 Future Scheduled 2021-07-03 CYSTOSCOPY [code = 1 Occurrences [employer] Test 16:25:34 [id number]] starting of Medicine 07/03/2021 until 07/03/2022 Future Scheduled 2021-07-03 TETANUS SHOT [facility] [employer] Test 15:53:33 (ADULT) [code = of Medicine TETANUS SHOT (ADULT)] Future Scheduled 2021-07-03 Hepatitis C [facility] [employer] Test 15:53:33 screening of Medicine (procedure) [code = 572803573] Future Scheduled 2021-07-03 ZOSTER VACCINE (1 [facility] Test 15:53:33 of 2) [code = of Medicine ZOSTER VACCINE (1 of 2)] Future Scheduled 2021-07-03 MEDICARE AWV [facility] [employer] 15:53:33 (Initial) [code = of Medicin e MEDICARE AWV (Initial)] Future Scheduled 2021-07-03 FALL SCREEN [code = [employer] Test 15:53:33 FALL SCREEN] of Medicine Future Scheduled 2021-07-03 Pneumococcal 65+ (1 [employer] Test 15:53:33 of 1 - PPSV23) of Medicine [code = Pneumococcal 65+ (1 of 1 - PPSV23)] Future Scheduled 2021-07-03 FLU VACCINE > 6 [facility] Test 15:53:33 MONTHS [code = FLU of Medici ne VACCINE > 6 MONTHS] Future Scheduled 2021-05-[address] [facility] Test 00:00:00 SCREENING (12+) Medical Cent er [code = DEPRESSION SCREENING (12+)] Future Scheduled 2021-05-[address] [facility] Test 00:00:00 SCREENING [code = Medical Ce nter FALLS RISK SCREENING] Diagnostic Test 2020-07-18 PHI PANEL (URO Expected: [facility] Pending 00:00:00 DEPT) [code = 07/18/2020 of Medicine 90454] (Approximate), Expires: 08/03/2020 Diagnostic Test 2020-07-17 PHI PANEL (URO Expected: [facility]ending 00:00:00 DEPT) [code = 07/17/2020 of Medicine 68856] (Approximate), Expires: 08/02/2020 Future Scheduled 2018-08-[address] [facility] Test 00:00:00 WELLNESS (YEAR 2 or Medical Center FIRST YEAR if no IPPE) [code = MEDICARE ANNUAL WELLNESS (YEAR 2 or FIRST YEAR if no IPPE)] Future Scheduled [address]AL [address]+ [facility] Test 00:00:00 YRS (1 - PCV) [code Medical Center = PNEUMOCOCCAL 65+ YRS (1 - PCV)] Future Scheduled [address] [facility] Test 00:00:00 (1 of 2) [code = Medical [address] SHINGLES VACCINES (1 of 2)] Future Scheduled 1962 DTAP/TDAP/TD [facility] Test 00:00:00 VACCINES (1 - Tdap) Medical Center [code = DTAP/TDAP/TD VACCINES (1 - Tdap)] Future Scheduled [address] [facility] Test 00:00:00 SCREENING [code = Medical Ce nter HEPATITIS C SCREENING] Future Scheduled TETANUS SHOT [facility] Test (ADULT) [code = of Medicine TETANUS SHOT (ADULT)] Future Scheduled HEPATITIS C [facility] Test SCREENING [code = of Medicin e HEPATITIS C SCREENING] Future Scheduled ZOSTER VACCINE (1 [facility] Test of 2) [code = of Medicine ZOSTER VACCINE (1 of 2)] Future Scheduled MEDICARE AWV [facility] Test (Initial) [code = of Medicin e MEDICARE AWV (Initial)] Future Scheduled FALL SCREEN [code = [employer] [facility] FALL SCREEN] of Medicine Future Scheduled PNEUMOVAX >=65 [facility] Test (PPSV23) [code = of Medicine PNEUMOVAX >=65 (PPSV23)] Future Scheduled FLU VACCINE > 6 [facility] Test MONTHS [code = FLU of Medici ne VACCINE > 6 MONTHS] Future Scheduled TETANUS SHOT [facility] Test (ADULT) [code = of Medicine TETANUS SHOT (ADULT)] Future Scheduled MEDICARE AWV [facility] [employer] (Initial) [code = of Medicin e MEDICARE AWV (Initial)] Future Scheduled FALL SCREEN [code = [employer] [facility] FALL SCREEN] of Medicine Future Scheduled PNEUMOVAX >=65 [facility] (PPSV23) [code = of Medicine PNEUMOVAX >=65 (PPSV23)] Future Scheduled PREVNAR >= 65 [facility] Test (PCV13) [code = of Medicine PREVNAR >= 65 (PCV13)] Future Scheduled FLU VACCINE > 6 [facility] Test MONTHS [code = FLU of Medici ne VACCINE > 6 MONTHS] Future Scheduled US RENAL BILATERAL 1 Occurrences [employer] Test [code = 03917] starting of Medicine 07/04/2020 until 07/04/2021 Future Scheduled MRI PROSTATE W/WO 1 Occurrences [employer] [facility] CONTRAST [code = starting of Medicine 35717] 07/04/2020 until 07/03/2021 Encounters Start End Encounter Admission Attending Care Care Encounter Source Date/Time Date/Time Type Type Clinicians Facility Department ID 2020-08-22 Inpatient MADDIE RABAGO [facility] [id number] Cross 00:00:00 712 Shanta riggs 2021-11-13 2021-11-13 Woo Ramirez 1.2.840.1 [id number] Methodi 13:00:00 16:15:14 Visit Hari Holliday 50941.1.[address] 3.430.2.7 Hospit a .3.977260 l .8 2021-11-13 2021-11-13 Office Ashley 1.2.840.1 [id number] Methodi 13:00:00 16:15:14 Visit Hari Holliday 74539.1.[address] 3.430.2.7 Hospit a .3.678134 l .8 2021-11-13 2021-11-13 Travel 1.2.840.1 1.2.725.717 5325 299632 Methodi 00:00:00 00:00:[address] 3.430.2.7 0.2.7.3.698 Ho spita .3.312362 084.8 l .8 2021-11-13 2021-11-13 Travel 1.2.840.1 1.2.434.879 2601 489657 Methodi 00:00:00 00:00:[address] 3.430.2.7 0.2.7.3.698 Ho spita .3.180506 084.8 l .8 2021-10-26 2021-10-26 Office RADHA EYAD 1.2.840.[id number] [place] [address] 14:46:45 15:32:52 Visit DRE AMBULATOR 350.1.13.21 College Y 0.2.7.2.686 of [id number] Medi grover 300 e 2021-10-18 2021-10-18 Telephone Christopher 1.2.840.1 [id number] [id number] Methodi 00:00:00 00:00:00 Spenceria D [address]338.1.[address] 3.430.2.7 Hospit a .3.496914 l .8 2021-10-18 2021-10-18 Telephone Mauricio White.2.840.1 [id number] 2099 003995 Methodi 00:00:00 00:00:00 Mecca Spencer 51901.1.[address] 3.430.2.7 Hospit a .3.146566 l .8 2021-10-10 2021-10-10 Outpatient JOVONEYAD [facility] [id number] [facility] 08:40:05 16:22:09 BRANDYN Mcguire e of Medicin e 2021-10-07 2021-10-07 Outpatient ER [facility] Emergency [id number] SLE 02:28:00 09:14:00 [place] 2021-10-07 2021-10-07 Emergency [place]ionNoaDavonte [place] [facility] [id number] [facility] 02:28:00 09:14:00 Shima Chao [facility] 2021-10-07 2021-10-07 Travel [facility] [id number] [facility] 00:00[facility]00 00:00:00 [facility] 2021-10-06 2021-10-06 Emergency ER [facility] Emergency [id number] SLE 13:05:00 17:12:00 IRMA 2021-10-06 2021-10-06 Emergency [facility] [id number] 13:05:00 17:12:00 [facility] 2021-10-06 2021-10-06 Travel [facility] [id number] [facility] 00:00[facility]00 00:00:00 [facility] 2021-09-28 2021-09-28 Outpatient [facility] [id number] [facility] 09:11:37 15:10:53 JAYSHREE Mcguire e of Medicin e 2021-09-26 2021-09-26 Refluis antonio Doran, 1.2.840.1 [id number] [facility]anta 00:00:00 00:00:[address] 3.430.2.7 Hospit a .3.577004 l .8 2021-09-26 2021-09-26 Alexsander Doran 1.2.840.1 [id number] 0565 Methodi 00:00:00 00:00:00 Danya 15041.1.1 545 3.430.2.7 [facility]3.247701 l .8 2021-09-24 2021-09-24 Outpatient CHARLOTTE NEV[facility]LE [facility] [id number] [facility] 09:31:00 16:26:00 [facility] 2021-09-24 2021-09-24 [facility] [id number] 09:31:00 16:26:[address] [facility] 2021-09-24 2021-09-24 Anesthesia Robbin Fabiano Ian [facility] [id number] 12:44:00 13:46:00 Event Timbo Rhoades [facility] 2021-09-24 2021-09-24 Surgery [facility] [id number] 12:00:00 13:30:00 [facility] 2021-09-24 2021-09-24 Travel [facility] [id number] [facility] 00:00:00 00:00:00 [facility] 2021-09-21 2021-09-21 Outpatient [facility] SLE [id number] [facility] 11:12:20 23:59:00 2021-09-21 2021-09-21 [facility] [id number] 09:25:00 23:59:00 Encounter [facility] 2021-09-21 2021-09-21 Travel [facility] [id number] [facility] 00:00:00 00:00:00 [facility] 2021-09-19 2021-09-19 Outpatient EDWIGE BRITO SLE [id number] [facility] 11:59:54 23:59:00 [place] 2021-09-19 2021-09-19 [facility] [id number] 11:59:54 23:59:[address] [facility] 2021-09-19 2021-09-19 Outpatient [facility] SLE [id number] [facility] 00:00:00 00:00:00 2021-09-19 2021-09-19 Outpatient [facility] SLE [id number] [facility] 00:00:00 00:00:00 2021-09-12 2021-09-12 Outpatient OLSONEYAD [facility] [id number] [facility] 10:12:10 10:12:10 KEAGAN espinosa of Medicin e 2021-08-27 2021-09-02 Outpatient [facility] [id number] [facility] 10:22:49 14:02:08 DRE abrahamege of Medicin e 2021-08-30 2021-08-30 Outpatient Park PANCHAL [facility] [id number] [facility] 13:30:00 13:47:05 NED martin [facility] 2021-08-30 2021-08-30 Imm/Inj Vaccine, [facility] 1.2.840.114 [id number] Univers 13:30:00 13:40:00 [facility].13 .[facility] 4.2.7.2.686 Kary leblanc PROFESSIO [phone] [place] [address] 2021-08-22 2021-08-22 Office Lexi, 1.2.840.1 [id number] Methodi 15:20:00 16:16:55 Visit Clementina 22503.1.[address] 3.430.2.7 Hospit a .3.861811 l .8 2021-08-22 2021-08-22 Office Yousefellei, 1.2.840.1 [id number] 992 [id number] Methodi 15:20:00 16:16:55 Visit Clementina 96491.1.[address] 3.430.2.7 Hospit a .3.872894 l .8 2021-08-22 2021-08-22 Travel 1.2.840.1 1.2.383.369 7092 468107 Methodi 00:00:00 00:00:[address] 3.430.2.7 0.2.7.3.698 Ho spita .3.717567 084.8 l .8 2021-08-22 2021-08-22 Travel 1.2.840.1 1.2.583.057 5407 [id number] Methodi 00:00:00 00:00:[address] 3.430.2.7 0.2.7.3.698 Ho spita .3.621989 084.8 l .8 2021-08-21 2021-08-21 Outpatient RUTH [facility] [id number] [facility] 14:08:55 14:08:55 BASIL [facility] of Medicin e 2021-08-14 2021-08-14 Office RADHA [facility] 1.2.840.114 [id number] [facility] 08:36:20 10:08:18 Visit DRE AMBULATOR 350.1.13.21 College Y 0.2.7.2.686 of 624.1401105 Medi grover 300 e 2021-08-14 2021-08-14 Outpatient [facility] [id number] [facility] 08:35:59 10:06:13 Colleg e of Medicin e 2021-08-07 2021-08-07 Outpatient [facility] [id number] [facility] 10:50:41 13:41:18 Colleg e of Medicin e 2021-08-07 2021-08-07 Outpatient RADHA [facility] [id number] [facility] 09:38:37 11:35:13 [facility]ORGINA[facility]HER [employer] of Medicin e 2021-07-31 2021-07-31 Outpatient CHIKIS [facility] [id number] [facility] 15:01:03 15:01:03 HERMILO [employer] [facility]in e 2021-07-27 2021-07-27 Telephone Chaparrita-Andrew 1.2.840.1 [id number] Methodi 00:00:00 00:00:00 michelleMally 55196.1.1 526 s t 3.430.2.7 Hospit a .3.680511 l .8 2021-07-27 2021-07-27 Telephone [facility]rita[facility] 1.2.840.1 [id number] Methodi 00:00:00 00:00:00 ris, Mally 10596.1.1 026 s t 3.430.2.7 Hospit a .3.489210 l .8 2021-07-27 2021-07-27 Telephone Chaparrita-Andrew 1.2.840.1 [id number] Methodi 00:00:00 00:00:00 ris, Mally 66860.1.1 526 s t 3.430.2.7 Hospit a .3.079018 l .8 2021-07-27 2021-07-27 Telephone Chaparrita-Andrew 1.2.840.1 [id number] Methodi 00:00:00 00:00:00 ris, Mally 86491.1.1 026 s t 3.430.2.7 Hospit a .3.100274 l .8 2021-07-17 2021-07-17 Outpatient [facility] [id number] Cross 00:00:00 00:00:00 RAYAN [address] 2021-07-17 2021-07-17 Travel 1.2.840.1 1.2.276.320 0831 [id number] Methodi 00:00:00 00:00:[address] 3.430.2.7 0.2.7.3.698 Ho spita .3.863106 084.8 l .8 2021-07-17 2021-07-17 Travel 1.2.840.1 1.2.370.426 5697 101370 Methodi 00:00:00 00:00:[address] 3.430.2.7 0.2.7.3.698 Ho spita .3.639014 084.8 l .8 2021-07-04 2021-07-04 Outpatient [facility] [id number] Cross 00:00:00 00:00:00 RAYAN [address] 2021-07-03 2021-07-03 Office CHIKIS, EYAD 1.2.840.[id number] [place] [address] 15:00:47 16:38:33 Visit HERMILO AMBULATOR 350.1.13.21 College Y 0.2.7.2.686 of [id number] Medi grover 300 e 2021-07-03 2021-07-03 Outpatient [facility] [id number] [facility] 15:00:24 15:00:24 Colleg e [facility] Medicin e 2021-06-20 2021-06-20 Office Lexi, 1.2.840.1 [id number] Methodi 13:20:00 14:44:59 Visit Clementina 81236.1.[address] 3.430.2.7 Hospit a .3.951088 l .8 2021-06-20 2021-06-20 Office Lexi, 1.2.840.1 [id number] Methodi 13:20:00 14:44:59 Visit Clementina 03930.1.[address] 3.430.2.7 Hospit a .3.234431 l .8 2021-06-20 2021-06-20 Travel 1.2.840.1 1.2.206.266 0000 877446 Methodi 00:00:00 00:00:[address] 3.430.2.7 0.2.7.3.698 Ho spita .3.624189 084.8 l .8 2021-06-20 2021-06-20 Travel 1.2.840.1 1.2.216.644 8481 417557 Methodi 00:00:00 00:00:[address] 3.430.2.7 0.2.7.3.698 Ho spita .3.848904 084.8 l .8 2021-06-19 2021-06-19 Telephone Espinoza, 1.2.840.1 [id number] 2099 [id number] Methodi 00:00:00 00:00:[address] 3.430.2.7 Hospit a .3.985971 l .8 2021-06-19 2021-06-19 [place] Espinoza 1.2.840.1 [id number] 2100 [id number] Methodi 00:00:00 00:00:[address] 3.430.2.7 Hospit a .3.448443 l .8 2021-06-15 2021-06-16 [facility] Maddie Rabago 1.2.840.1 [id number] 21 [id number] Methodi 09:10:00 19:27:[address] 3.430.2.7 Hospit a .3.367016 l .8 2021-06-15 2021-06-16 [facility] Maddie Rabago 1.2.840.1 [id number] 21 [id number] Methodi 09:10:00 19:27:[address] 3.430.2.7 Hospit a .3.976801 l .8 2021-06-15 2021-06-15 Anesthesia Primitivo Mcclure 1.2.840.1 [id number] Methodi 10:07:00 15:08:00 [place] Perez D 60055.1.[address] 3.430.2.7 Hospit a .3.493532 l .8 2021-06-15 2021-06-15 Anesthesia Primitivo Mcclure 1.2.840.1 [id number] Methodi 10:07:00 15:08:00 Event Miles Perez D [address]202.1.[address] 3.430.2.7 Hospit a .3.474481 l .8 2021-06-15 2021-06-15 Surgery Maddie Rabago 1.2.840.1 [id number] 270 [id number] Methodi 09:30:00 12:50:[address] 3.430.2.7 Hospit a .3.792923 l .8 2021-06-15 2021-06-15 Surgery Maddie Rabago 1.2.840.1 [id number] 033 [id number] Methodi 09:30:00 12:50:[address] 3.430.2.7 Hospit a .3.081199 l .8 2021-06-15 2021-06-15 Travel 1.2.840.1 1.2.707.638 2348 049336 Methodi 00:00:00 00:00:[address] 3.430.2.7 0.2.7.3.698 Ho spita .3.947975 084.8 l .8 2021-06-15 2021-06-15 Travel 1.2.840.1 1.2.788.053 5946 104791 Methodi 00:00:00 00:00:[address] 3.430.2.7 0.2.7.3.698 Ho spita .3.433205 084.8 l .8 2021-06-13 2021-06-13 Lab Blanche Rabagoe 1.2.840.1 [id number] Methodi 15:45:00 16:00:[address] 3.430.2.7 Hospit a .3.504916 l .8 2021-06-13 2021-06-13 Lab OlivasalBlanchee 1.2.840.1 [id number] 605 [id number] Methodi 15:45:00 16:00:[address] 3.430.2.7 Hospit a .3.110937 l .8 2021-06-13 2021-06-13 Travel 1.2.840.1 1.2.049.913 2717 740596 Methodi 00:00:00 00:00:[address] 3.430.2.7 0.2.7.3.698 Ho spita .3.794798 084.8 l .8 2021-06-13 2021-06-13 Travel 1.2.840.1 1.2.455.809 4029 745661 Methodi 00:00:00 00:00:[address] 3.430.2.7 0.2.7.3.698 Ho spita .3.179865 084.8 l .8 2021-05-22 2021-05-[address] [facility] 1.2.840.1 [id number] Methodi 00:00:00 00:00:00 ris, Mally 58936.1.1 850 s t 3.430.2.7 Hospit a .3.767461 l .8 2021-05-22 2021-05-22 [facility] 1.2.840.1 [id number] Methodi 00:00:00 00:00:00 ris, Mally 47353.1.1 850 s t 3.430.2.7 Hospit a .3.770064 l .8 2021-05-18 2021-05-18 Outpatient VERONICATACO, [facility] [id number] Cross 00:00:00 00:00:00 CLEMENTINA [address] 2021-05-18 2021-05-18 Orders Youfzasurekha, 1.2.840.1 [id number] 274 [id number] Methodi 00:00:00 00:00:00 Only Rayan 37803.1.[address] 3.430.2.7 Hospit a .3.301628 l .8 2021-05-18 2021-05-18 Travel 1.2.840.1 1.2.239.721 9936 447229 Methodi 00:00:00 00:00:[address] 3.430.2.7 0.2.7.3.698 Ho spita .3.440216 084.8 l .8 2021-05-18 2021-05-18 Orders Yousefzai, 1.2.840.1 [id number] 971 [id number] Methodi 00:00:00 00:00:00 Only Clementina 34223.1.[address] 3.430.2.7 Hospit a .3.529658 l .8 2021-05-18 2021-05-18 Travel 1.2.840.1 1.2.251.234 3611 284984 Methodi 00:00:00 00:00:[address] 3.430.2.7 0.2.7.3.698 Ho spita .3.639170 084.8 l .8 2021-05-01 2021-05-01 [facility] Maddie Rabago 1.2.840.1 [id number] 2 [id number] Methodi 00:00:00 00:00:[address] 3.430.2.7 Hospit a .3.485702 l .8 2021-05-01 2021-05-01 [facility] Blanche Rabagoe 1.2.840.1 [id number] 2 [id number] Methodi 00:00:00 00:00:[address] 3.430.2.7 Hospit a .3.165444 l .8 2021-02-21 2021-02-21 Office Lexi, 1.2.840.1 [id number] 855 [id number] Methodi 13:20:00 14:11:23 Visit Clementina 54227.1.[address] 3.430.2.7 Hospit a .3.338471 l .8 2021-02-21 2021-02-21 Travel 1.2.840.1 1.2.165.614 2579 754242 Methodi 00:00:00 00:00:[address] 3.430.2.7 0.2.7.3.698 Ho spita .3.212599 084.8 l .8 2021-02-09 2021-02-09 Dioni PANCHAL [facility] [id number] Univers 13:30:00 13:25:43 NED [facility] 2021-02-09 2021-02-09 Imm/Inj Nurse, Adc Pob Immunization [facility] 1.2.840.114 [id number] [facility] 13:21:59 13:25:43 Visit Ned Panchal 350.1.13 .10 Mikaela 4.2.7.2.686 Terrancebeatris leblanc Velasquez [id number] Oh dical nal 421 [facility] 2020-11-14 2020-11-14 Outpatient ASHLEY [facility] [id number] Cross 00:00:00 00:00:00 HARI 686 Method i 2020-10-23 2020-10-23 Outpatient RAMIREZ [facility] [id number] Cross 00:00:00 00:00:00 HARI 945 Method i 2020-10-04 2020-10-04 Outpatient LEXI [facility] [id number] Cross 00:00:00 00:00:00 RAYJEFFERY 902 Method i 2020-08-22 2020-08-24 Inpatient HIMA MADDIE [facility] [id number] Cross 00:00:00 00:00:00 754 Method i 2020-08-18 2020-08-18 Outpatient OLIVASALBLANCHEE [facility] [id number] Cross 00:00:00 00:00:00 578 Method i 2020-08-02 2020-08-02 Outpatient LEXI [facility] [id number] Cross 00:00:00 00:00:00 RAYAN 819 Method i 2020-07-19 2020-07-22 Inpatient KESHAWN [facility] [id number] Cross 00:00:00 00:00:00 PROSPER 964 Method i 2020-07-17 2020-07-17 Outpatient GAYATRI [facility] [id number] Cross 00:00:00 00:00:00 NADIM 557 Method i 2020-07-04 2020-07-04 Office EYAD Diop 1.2.840.[id number] [place] [address] 15:08:05 16:59:11 Visit Hermilo P AMBULATOR 350.1.13.21 College Y 0.2.7.2.686 of [id number] Medi grover 300 e 2020-07-04 2020-07-04 Office GILBERT Diop 1.2.840.114 [id number] 15:08:05 16:59:11 Visit Hermilo P AMBULATOR 350.1.13.21 Y 0.2.7.2.686 [id number] 300 2020-06-13 2020-06-13 Outpatient [facility] [id number] Cross 00:00:00 00:00:00 403 [facility] i 2020-05-23 2020-05-23 Outpatient [facility] [id number] Cross 00:00:00 00:00:00 110 [facility] i 2020-04-25 2020-04-25 Outpatient RAMIREZ, [facility] [id number] Cross 00:00:00 00:00:00 HARI 478 Method i 2020-04-19 2020-04-19 Outpatient RAMIREZ, [facility] [id number] Cross 00:00:00 00:00:00 HARI 370 Method i 2020-04-12 2020-04-12 Outpatient YOUYAMILETI, [facility] [id number] Cross 00:00:00 00:00:00 RAYAN 265 Method i 2020-03-16 2020-03-17 Outpatient GAYATRI, [facility] [id number] Cross 00:00:00 00:00:00 NADIM 842 Method i 2020-03-14 2020-03-14 Outpatient GAYATRI, [facility] [id number] Cross 00:00:00 00:00:00 NADIM 829 Method i 2020-02-09 2020-02-09 Outpatient YOUFELLEI, [facility] [id number] Cross 00:00:00 00:00:[address] RAYAN [address] 2020-01-19 2020-01-19 Laboratory Lab, [facility] 1.2.840.114 [id number] 17:37:14 17:57:14 Only Fam Pob I Health 350.1.13.10 [place] 4.2.7.2.686 Professio [id number] nal 044 Office [address] One 2020-01-19 2020-01-19 Outpatient Park DOWNS [facility] [id number] [address] [place] [address] 17:40:00 17:40:00 BHARATHI [facility] 2020-01-19 2020-01-19 Outpatient R EM, [facility] [id number] Univers 17:00:00 17:00:00 JEFFY [facility] 2020-01-19 2020-01-19 Letter Doctor SHAI 1.2.840.114 [id number] 00:00:00 00:00:00 (Out) Unassigned, STEFAN 350.1.13.10 [facility] 4.2.7.2.686 [id number] 044 2020-01-18 2020-01-18 [facility] [id number] Cross 00:00:00 00:00:00 HARI [address] 2019-12-31 2019-12-31 Outpatient MADDIE RABAGO [facility] 021 [id number] Cross 00:00:00 00:00:[address] 2019-12-29 2019-12-29 Outpatient MADDIE RABAGO [facility] [id number] Cross 00:00:00 00:00:[address] 2019-12-01 2019-12-01 Outpatient BHMERCEDESBrina, [facility] [id number] Cross 00:00:00 00:00:00 PANCHO [address] 2019-11-03 2019-11-03 Outpatient BIJUSurekha [facility] [id number] Cross 00:00:00 00:00:00 RAYJEFFERY [address] 2019-10-12 2019-10-12 [facility] [id number] Cross 00:00:00 00:00:00 HARI [address] 2019-10-01 2019-10-01 [facility] [id number] Cross 00:00:00 00:00:00 HARI [address] 2019-06-15 2019-06-15 Office EYAD Diop [id number] [facility] 12:46:45 13:01:45 Visit Hermilo P AMBULATOR 350.1.13.21 College Y 0.2.7.2.686 of [id number] Medi grover 300 e 2019-06-15 2019-06-15 Office EYAD Diop [id number] 12:46:45 13:01:45 Visit [place] P AMBULATOR 350.1.13.21 Y 0.2.7.2.686 [id number] 300 2019-06-11 2019-06-11 Outpatient GAYATRI, [facility] [id number] Cross 00:00:00 00:00:00 NADIM 358 Method i 2019-06-01 2019-06-02 Outpatient MADDIE RABAGO [facility] [id number] Cross 00:00:00 00:00:00 337 Method i 2019-05-19 2019-05-19 Outpatient GAYATRI, [facility] [id number] Cross 00:00:00 00:00:00 NADIM 721 Method i 2019-03-25 2019-03-25 Outpatient ASHLEY, [facility] 901 [id number] Cross 00:00:00 00:00:00 HARI 446 Method i 2019-03-05 2019-03-05 Outpatient ORLANDO, [facility] [id number] Cross 00:00:00 00:00:00 AHMED 809 Method i 2019-02-24 2019-02-27 Inpatient GWEN, [facility] [id number] Cross 00:00:00 00:00:00 ALISE 632 Method i 2018-07-03 2018-07-03 Outpatient CHARLOTTE DIOP [facility] [id number] [facility] 00:00:00 00:00:00 [place] Results Test Description Test Time Test Comments Results Result Comments Source SARS-CoV2/RT-PCR (Asymptomatic ONLY) 2021-10-07 09:53:39 Test Item Value Reference Range Interpretation Comme nts SARS-COV2/RT-PCR (test Negative Negative The S ARS-CoV-2 target code = 51861-0) nucleic acid s are not detected in thi s specimen. Negat jenny results do not preclude SARS-CoV-2 infe ction and should not be u sed as the sole basis for patient management deci sions. Negative result s must be combined with c linical observations, p atient history, and epidemiological information. A false negative result may occur if a specimen i s improperly jeet ected, transported or handled. This SARS CoV-2 test is a rapid, real-gautam e RT-PCR test intended f or the qualitative det ection of nucleic acid fr om SARS-CoV-2 in a nasopharyngeal swab specimen collec mee from individuals xiomara pected of COVID-19 by the [facility]. ALVARADO (test code = CHRISTIANO) This test has been authorized by FDA under an EUA for use by authorized laboratories. This test is only authorized for the duration of the declaration that circumstances exist justifying the authorization of emergency use of in vitro diagnostic tests for detection and/or diagnosis of COVID-19 under Section 564(b)(1) of the Federal Food, Drug and Cosmetic Act, 21 U.S.C. 360bbb-3(b)(1), unless the authorization is terminated or revoked sooner. Fact Sheet for Healthcare Providers: https://www.Dot Medical /Documents/Xpert%20Xpre ss%20SARS%20CoV-2/Fact% 20Sheets/302-3802%20SAR S-COV-2%20HEALTHCARE%20 PROVIDERS%20FACT%20SHEE T.pdf Fact Sheet for Healthcare Patients: https://www.Dot [employer] /Documents/Xpert%20Xpre ss%20SARS%20CoV-2/Fact% 20Sheets/302-3801%20SAR S-COV-2%20PATIENT%20FAC T%20SHEET.pdf Lab Interpretation (test Normal code = 46758-9) [facility]2021-10-07 09:53:39 Test Item Value Reference Range Interpretation Comments SARS-COV2/RT-PCR Negative Negative The SARS-Co V-2 target (test code = nucleic acids a re not 9041817) detected in thi s specimen. Negative result s do not preclude SARS-C oV-2 infection and s hould not be used as the vic e basis for patient managem ent decisions. Nega tive results must be combine d with clinical observ ations, patient history , and epidemiological information. A false negativ e result may occur if a spec imen is improperly jeet ected, transported or handled. This SARS CoV-2 test is a rapid, real-time RT-PC R test intended for th e qualitative detection of nu cleic acid from SARS-CoV-2 in a nasopharyngeal swab specimen collected from individuals suspected of CO VID-19 by their healthcar e provider. This test has been authorized by FDA under an EUA for use by authorized laboratories. This test is only authorized for the duration of the declaration that circumstances exist justifying the authorization of emergency use of in vitro diagnostic tests for detection and/or diagnosis of COVID-19 under Section 564(b)(1) of the Federal Food, Drug and Cosmetic Act, 21 U.S.C. 360bbb-3(b)(1), unless the authorization is terminated or revoked sooner. Fact Sheet for Healthcare Providers: https://www.Pixplit m/Documents/Xpert%20Xpress%20SARS%20CoV-2/Fact%20Sheets/302-3802%63WONT-ATI-5%20 HEALTHCARE%20PROVIDERS%20FACT%20SHEET.pdf Fact Sheet for Healthcare Patients: https://www.Dot [employer]/Documents/Xpert%20Xp ress%20SARS%20CoV-2/Fact%20Sheets/302-3801%37MWRO-NMV-3%20PATIENT%20FACT%20SHEET .pdfUrinalysis w/Microscopic + Reflex to [id number] 15:49:58 Test Item Value Reference Range Interpretation Comments Color, UA (test code Dark Red = 5778-6) Clarity, UA (test Cloudy code = 5767-9) Specific Magnolia, UA 1.014 1.001-1.035 (test code = 5811-5) pH, UA (test code = 6.5 5.0-8.0 5803-2) Protein, UA (test 200 mg/dL Negative A code = 31862-5) Glucose, UA (test Negative Negative code = 365) Ketones, UA (test Negative Negative code = 2514-8) Bilirubin, UA (test Negative Negative code = 81540-7) Blood, UA (test code Large Negative A = 34793-4) Nitrite, UA (test Negative Negative code = 5802-4) Leukocytes, UA (test Moderate Negative A code = 5799-2) Urobilinogen, UA 0.2 mg/dL 0.2-1.0 (test code = 34153-7) RBC, UA (test code = 2191 See_Comment [Autom ated 62643-1) message] The system which generated this result transmitted reference range : /HPF. The reference range was not used to interpret this result as normal/abnormal . WBC, UA (test code = 0 See_Comment [Autom ated 5821-4) message] The system which generated this result transmitted reference range : /HPF. The reference range was not used to interpret this result as normal/abnormal . Bacteria, UA (test None Seen code = 54120-9) Mucus (test code = Occasional 8247-9) Crystals, Urine (test None Seen code = 76632-3) Specimen Source (test code = 2795) CHRISTIANO (test code = CHRISTIANO) Catalyst Operator ID - tech Lab Interpretation Abnormal (test code = 49023-5) [facility] [id number] 15:49:58 Test Item Value Reference Range Interpretation Comments COLOR (BEAKER) (test code = 470) Dark Red CLARITY (BEAKER) (test code = 469) Cloudy SPECIFIC GRAVITY UA (BEAKER) (test 1.014 1.001-1.035 code = 468) PH UA (BEAKER) (test code = 467) 6.5 5.0-8.0 PROTEIN UA (BEAKER) (test code = 200 mg/dL Negative A 464) GLUCOSE UA (BEAKER) (test code = Negative Negative 365) KETONES UA (BEAKER) (test code = Negative Negative 371) BILIRUBIN UA (BEAKER) (test code = Negative Negative 462) BLOOD UA (BEAKER) (test code = Large Negative A 461) NITRITE UA (BEAKER) (test code = Negative Negative 465) LEUKOCYTE ESTERASE UA (BEAKER) Moderate Negative A (test code = 466) UROBILINOGEN UA (BEAKER) (test 0.2 mg/dL 0.2-1.0 code = 463) RBC UA (BEAKER) (test code = 519) 2191 /HPF WBC UA (BEAKER) (test code = 520) 0 /HPF BACTERIA (BEAKER) (test code = None Seen 517) MUCUS (BEAKER) (test code = 1574) Occasional CRYSTALS, URINE (BEAKER) (test None Seen code = 1521) SOURCE(BEAKER) (test code = 2795) Catalyst Operator ID - techCOMPREHENSIVE METABOLIC [id number] 14:01:44 Test Item Value Reference Range Interpretation Comments TOTAL PROTEIN 7.2 gm/dL 6.0-8.3 (BEAKER) (test code = 770) ALBUMIN (BEAKER) 3.9 g/dL 3.5-5.0 (test code = 1145) ALKALINE PHOSPHATASE 74 U/L 40-150 (BEAKER) (test code = 346) BILIRUBIN TOTAL 0.8 mg/dL 0.2-1.2 (BEAKER) (test code = 377) SODIUM (BEAKER) (test 134 meq/L 136-145 L code = 381) POTASSIUM (BEAKER) 4.9 meq/L 3.5-5.1 (test code = 379) CHLORIDE (BEAKER) 100 meq/L 98-107 (test code = 382) CO2 (BEAKER) (test 23 meq/L 22-29 code = 355) BLOOD UREA NITROGEN 29 mg/dL 7-21 H (BEAKER) (test code = 354) CREATININE (BEAKER) 1.21 mg/dL 0.57-1.25 (test code = 358) GLUCOSE RANDOM 110 mg/dL 70-105 H (BEAKER) (test code = 652) CALCIUM (BEAKER) 9.7 mg/dL 8.4-10.2 (test code = 697) AST (SGOT) (BEAKER) 21 U/L 5-34 (test code = 353) ALT (SGPT) (BEAKER) 17 U/L 6-55 (test code = 347) EGFR (BEAKER) (test 58 mL/min/1.73 ESTIMA MEE GFR IS code = 1092) sq m NOT ACCURATE CREATININE CLEARANCE IN PREDICTING GLOMERULAR FILTRATION RATE . ESTIMATED GFR I S NOT APPLICABLE FOR DIALYSIS PATIEN TS. Catalyst Operator ID Noa PETIT WPT/[id number] 13:53:45 Test Item Value Reference Range Interpretation Comments PROTIME (BEAKER) (test 17.1 seconds 11.9-14.2 H code = 759) INR (BEAKER) (test 1.42 See_Comment [Automat ed code = 370) message] The sy stem which generated this result transmitted reference range : <=5.90. The reference range was not used to interpret this result as normal/abnormal . PARTIAL THROMBOPLASTIN 37.9 seconds 22.5-36.0 H TIME (BEAKER) (test code = 760) RECOMMENDED COUMADIN/WARFARIN INR THERAPY RANGESSTANDARD DOSE: 2.0 - 3.0 Includes: PROPHYLAXIS for venous thrombosis, systemic embolization; TREATMENT for venous thrombosis and/or pulmonary embolus.HIGH RISK: Target INR is 2.5-3.5 for patients with mechanical heart valves.PROTHROMBIN TIME/[id number] 13:52:43 Test Item Value Reference Range Interpretation Comments PROTIME (BEAKER) 17.1 seconds 11.9-14.2 H (test code = 759) INR (BEAKER) (test 1.42 See_Comment [Automat ed message] code = 370) The system [employer] generated this result transmitted ref erence range: <=5.90. The reference range was not used to int erpret this result as normal/abnormal . RECOMMENDED COUMADIN/WARFARIN INR THERAPY RANGESSTANDARD DOSE: 2.0 - 3.0 Includes: PROPHYLAXIS for venous thrombosis, systemic embolization; TREATMENT for venous thrombosis and/or pulmonary embolus.HIGH RISK: Target INR is 2.5-3.5 for patients with mechanical heart valves.CBC W/PLT COUNT & AUTO [id number] 13:47:47 Test Item Value Reference Range Interpretation Comments WHITE BLOOD CELL COUNT (BEAKER) 7.3 K/ L 3.5-10.5 (test code = 775) RED BLOOD CELL COUNT (BEAKER) 3.57 M/ L 4.63-6.08 L (test code = 761) HEMOGLOBIN (BEAKER) (test code = 10.6 GM/DL 13.7-17.5 L 410) HEMATOCRIT (BEAKER) (test code = 32.9 % 40.1-51.0 L 411) MEAN CORPUSCULAR VOLUME (BEAKER) 92.2 fL 79.0-92.2 (test code = 753) MEAN CORPUSCULAR HEMOGLOBIN 29.7 pg 25.7-32.2 (BEAKER) (test code = 751) MEAN CORPUSCULAR HEMOGLOBIN CONC 32.2 GM/DL 32.3-36.5 L (BEAKER) (test code = 752) RED CELL DISTRIBUTION WIDTH 14.8 % 11.6-14.4 H (BEAKER) (test code = 412) PLATELET COUNT (BEAKER) (test 222 K/CU MM 150-450 code = 756) MEAN PLATELET VOLUME (BEAKER) 9.5 fL 9.4-12.4 (test code = 754) NUCLEATED RED BLOOD CELLS 0 /100 WBC 0-0 (BEAKER) (test code = 413) NEUTROPHILS RELATIVE PERCENT 87 % (BEAKER) (test code = 429) LYMPHOCYTES RELATIVE PERCENT 7 % (BEAKER) (test code = 430) MONOCYTES RELATIVE PERCENT 4 % (BEAKER) (test code = 431) EOSINOPHILS RELATIVE PERCENT 1 % (BEAKER) (test code = 432) BASOPHILS RELATIVE PERCENT 0 % (BEAKER) (test code = 437) NEUTROPHILS ABSOLUTE COUNT 6.35 K/ L 1.78-5.38 H (BEAKER) (test code = 670) LYMPHOCYTES ABSOLUTE COUNT 0.50 K/ L 1.32-3.57 L (BEAKER) (test code = 414) MONOCYTES ABSOLUTE COUNT (BEAKER) 0.28 K/ L 0.30-0.82 L (test code = 415) EOSINOPHILS ABSOLUTE COUNT 0.10 K/ L 0.04-0.54 (BEAKER) (test code = 416) BASOPHILS ABSOLUTE COUNT (BEAKER) 0.02 K/ L 0.01-0.08 (test code = 417) IMMATURE GRANULOCYTES-RELATIVE 0 % 0-1 PERCENT (BEAKER) (test code = 2801) Urine [id number] 09:01:58 Test Item Value Reference Range Interpretation Comments Result (test code = 6463-4) No growth [facility] [id number] 09:01:58 Test Item Value Reference Range Interpretation Comments CULTURE (BEAKER) (test code = 1095) No growth SARS-COV2/RT-PCR ([facility])2021-09-19 21:00:20 Test Item Value Reference Range Interpretation Comments SARS-COV2/RT-PCR (test code = Negative Negative 3593883) Negative result for this test determines that SARS-CoV-2 RNA was not present in the specimen above the Limit of Detection (LOD). However, Negative results do not preclude SARS-CoV-2 infection and should not be used as the sole basis for treatment or patient management decisions. Negative results must be combined with clinical observations, patient history, and epidemiological information. A false negative result may occur if a specimen is improperly collected, transported, or handled. A false negative result should be considered if patient's recent exposures or clinical presentation indicate that COVID-19 (SARS-CoV-2) is likely and diagnostic tests for other causes of illness are negative. Re-testing should be considered in cases of suspected false negatives.The limit of detection for this assay is 100 copies/mL.This SARS-CoV-2 test is a real-time RT_PCR test intended for the qualitative detection of nucleic acid from SARS-CoV-2 in a nasopharyngeal swab specimen collected from individuals suspected of COVID-19 by their healthcare provider.This test has not been Food and Drug Administration (FDA) cleared or approved. This is a modified version of an approved Emergency Use Authorization (EUA) and is in the process of review by the FDA. Once authorized by the FDA, the issued EUA will be effective until the declaration that circumstances exist justifying the authorization of the emergency use of in vitro diagnostic tests for detection and/or diagnosis of COVID-19 is terminated under Section 564(b)(2) of the Act or the EUA is revoked under Section 564(g) of the Act.Testing was performed using Abril SARS-CoV-2 assay.Fact Sheet for Healthcare Providers:https://www.Neomobile.Datalogix/mena/RT SARS-CoV-2 HCP Fact Sheet 51- 687129.pdfFact Sheet for Healthcare Patients:https://www.Neomobile.Datalogix/mena/RT SARS-CoV-2 Patient Fact Sheet EN 51-883841V2.pdfUrinalysis w/Microscopic 2021-09-19 13:39:39 Test Item Value Reference Range Interpretation Comments Color, UA (test Yellow code = 5778-6) Clarity, UA (test Clear code = 5767-9) Specific Magnolia, 1.010 1.001-1.035 UA (test code = 5811-5) pH, UA (test code 5.5 5.0-8.0 = 5803-2) Protein, UA (test Negative Negative code = 68866-2) Glucose, UA (test Negative Negative code = 365) Ketones, UA (test Negative Negative code = 2514-8) Bilirubin, UA Negative Negative (test code = 24685-1) Blood, UA (test Negative Negative code = 53189-9) Nitrite, UA (test Negative Negative code = 5802-4) Leukocytes, UA Negative Negative (test code = 5799-2) Urobilinogen, UA 0.2 mg/dL 0.2-1.0 (test code = 31445-9) RBC, UA (test code 0 See_Comment [Automat ed = 13250-7) message] The sy stem which generated this result transmitted reference range : /HPF. The refer ence range was not u sed to interpret th is result as normal/abnormal . WBC, UA (test code <1 See_Comment [Automat ed = 5821-4) message] The sy stem which generated this result transmitted reference range : /HPF. The refer ence range was not u sed to interpret th is result as normal/abnormal . Bacteria, UA (test None Seen code = 24895-9) Hyaline Casts, UA 51 See_Comment [Automate d (test code = message] The sy stem 30359-6) which generated this result transmitted reference range : /LPF. The refer ence range was not u sed to interpret th is result as normal/abnormal . Crystals, Urine None Seen (test code = 70613-4) Amorphous Crystals Rare (test code = 39898-6) Specimen Source Urine, Clean (test code = 2795) Catch CHRISTIANO (test code = Catalyst Operator ID - CHRISTIANO) [auto]Catalyst Operator ID - tech [facility] [id number] 13:39:39 Test Item Value Reference Range Interpretation Comments COLOR (BEAKER) (test code Yellow = 470) CLARITY (BEAKER) (test Clear code = 469) SPECIFIC GRAVITY UA 1.010 1.001-1.035 (BEAKER) (test code = 468) PH UA (BEAKER) (test code 5.5 5.0-8.0 = 467) PROTEIN UA (BEAKER) (test Negative Negative code = 464) GLUCOSE UA (BEAKER) (test Negative Negative code = 365) KETONES UA (BEAKER) (test Negative Negative code = 371) BILIRUBIN UA (BEAKER) Negative Negative (test code = 462) BLOOD UA (BEAKER) (test Negative Negative code = 461) NITRITE UA (BEAKER) (test Negative Negative code = 465) LEUKOCYTE ESTERASE UA Negative Negative (BEAKER) (test code = 466) UROBILINOGEN UA (BEAKER) 0.2 mg/dL 0.2-1.0 (test code = 463) RBC UA (BEAKER) (test code 0 /HPF = 519) WBC UA (BEAKER) (test code < /HPF = 520) BACTERIA (BEAKER) (test None Seen code = 517) HYALINE CASTS (BEAKER) 51 /LPF (test code = 514) CRYSTALS, URINE (BEAKER) None Seen (test code = 1521) AMORPHOUS CRYSTALS Rare (BEAKER) (test code = 1584) SOURCE(BEAKER) (test code Urine, Clean Catch = 2795) Catalyst Operator ID - [auto]Catalyst Operator ID - techCBC W/PLT COUNT & AUTO DIFFERENTIAL 2021-09-19 13:04:29 Test Item Value Reference Range Interpretation Comments WHITE BLOOD CELL COUNT (BEAKER) 9.7 K/ L 3.5-10.5 (test code = 775) RED BLOOD CELL COUNT (BEAKER) 3.59 M/ L 4.63-6.08 L (test code = 761) HEMOGLOBIN (BEAKER) (test code = 10.7 GM/DL 13.7-17.5 L 410) HEMATOCRIT (BEAKER) (test code = 33.7 % 40.1-51.0 L 411) MEAN CORPUSCULAR VOLUME (BEAKER) 93.9 fL 79.0-92.2 H (test code = 753) MEAN CORPUSCULAR HEMOGLOBIN 29.8 pg 25.7-32.2 (BEAKER) (test code = 751) MEAN CORPUSCULAR HEMOGLOBIN CONC 31.8 GM/DL 32.3-36.5 L (BEAKER) (test code = 752) RED CELL DISTRIBUTION WIDTH 14.6 % 11.6-14.4 H (BEAKER) (test code = 412) PLATELET COUNT (BEAKER) (test 206 K/CU MM 150-450 code = 756) MEAN PLATELET VOLUME (BEAKER) 8.6 fL 9.4-12.4 L (test code = 754) NUCLEATED RED BLOOD CELLS 0 /100 WBC 0-0 (BEAKER) (test code = 413) NEUTROPHILS RELATIVE PERCENT 84 % (BEAKER) (test code = 429) LYMPHOCYTES RELATIVE PERCENT 9 % (BEAKER) (test code = 430) MONOCYTES RELATIVE PERCENT 6 % (BEAKER) (test code = 431) EOSINOPHILS RELATIVE PERCENT 1 % (BEAKER) (test code = 432) BASOPHILS RELATIVE PERCENT 0 % (BEAKER) (test code = 437) NEUTROPHILS ABSOLUTE COUNT 8.12 K/ L 1.78-5.38 H (BEAKER) (test code = 670) LYMPHOCYTES ABSOLUTE COUNT 0.84 K/ L 1.32-3.57 L (BEAKER) (test code = 414) MONOCYTES ABSOLUTE COUNT (BEAKER) 0.59 K/ L 0.30-0.82 (test code = 415) EOSINOPHILS ABSOLUTE COUNT 0.05 K/ L 0.04-0.54 (BEAKER) (test code = 416) BASOPHILS ABSOLUTE COUNT (BEAKER) 0.01 K/ L 0.01-0.08 (test code = 417) IMMATURE GRANULOCYTES-RELATIVE 1 % 0-1 PERCENT (BEAKER) (test code = 2801) BASIC METABOLIC [id number] 12:57:58 Test Item Value Reference Range Interpretation Comments SODIUM (BEAKER) 135 meq/L 136-145 L (test code = 381) POTASSIUM (BEAKER) 5.6 meq/L 3.5-5.1 H (test code = 379) CHLORIDE (BEAKER) 100 meq/L 98-107 (test code = 382) CO2 (BEAKER) (test 27 meq/L 22-29 code = 355) BLOOD UREA NITROGEN 33 mg/dL 7-21 H (BEAKER) (test code = 354) CREATININE (BEAKER) 1.51 mg/dL 0.57-1.25 H (test code = 358) GLUCOSE RANDOM 144 mg/dL 70-105 H (BEAKER) (test code = 652) CALCIUM (BEAKER) 10.1 mg/dL 8.4-10.2 (test code = 697) EGFR (BEAKER) (test 45 mL/min/1.73 ESTIMA MEE GFR IS code = 1092) sq m NOT ACCURATE CREATININE CLEARANCE IN PREDICTING GLOMERULAR FILTRATION RATE . ESTIMATED GFR I S NOT APPLICABLE FOR DIALYSIS PATIEN TS. Catalyst Operator ID - [facility] 12 [id number] 00:51:39 Test Item Value Reference Range Interpretation Comments Ventricular rate (test code = 253) Atrial rate (test code = 255) [place] interval (test code = 266) QRSD interval (test code = 260) QT interval (test code = 264) QTC interval (test code = 265) P axis 1 (test code = 267) QRS axis 1 (test code = 268) T wave axis (test code = 270) EKG impression (test Sinus rhythm with 1st code = 273) degree AV block with occasional and consecutive premature ventricular complexes-Electronical ly Signed By Edilberto Harris MD ([id number]) on 06/16/2021 6:51:34 PM [facility] 12 [id number] 00:51:39 Test Item Value Reference Range Interpretation Comments Ventricular rate (test code = 253) Atrial rate (test code = 255) AZ interval (test code = 266) QRSD interval (test code = 260) QT interval (test code = 264) QTC interval (test code = 265) P axis 1 (test code = 267) QRS axis 1 (test code = 268) T wave axis (test code = 270) EKG impression (test Sinus rhythm with 1st code = 273) degree AV block with occasional and consecutive premature ventricular complexes-Electronical ly Signed By Edilberto Harris MD ([id number]) on 06/16/2021 6:51:34 PM [facility] Pre/Post [id number] 01:15:36 Test Item Value Reference Range Interpretation Comments Ventricular rate (test code = 253) Atrial rate (test code = 255) AZ interval (test code = 266) QRSD interval (test code = 260) QT interval (test code = 264) QTC interval (test code = 265) QRS axis 1 (test code = 268) T wave axis (test code = 270) EKG impression (test Sinus tachycardia-Low code = 273) voltage QRS-Cannot rule out Anterior infarct , age undetermined-ST & T wave abnormality, consider inferior ischemia-Abnormal ECG-In automated comparison with ECG of 21-FEB-2021 13:30,-Minimal criteria for Anterior infarct are now present-Nonspecific T wave abnormality has replaced inverted T waves in Lateral leads- [facility] Pre/Post [id number] 01:15:36 Test Item Value Reference Range Interpretation Comments Ventricular rate (test code = 253) Atrial rate (test code = 255) AZ interval (test code = 266) QRSD interval (test code = 260) QT interval (test code = 264) QTC interval (test code = 265) QRS axis 1 (test code = 268) T wave axis (test code = 270) EKG impression (test Sinus tachycardia-Low code = 273) voltage QRS-Cannot rule out Anterior infarct , age undetermined-ST & T wave abnormality, consider inferior ischemia-Abnormal ECG-In automated comparison with ECG of 21-FEB-2021 13:30,-Minimal criteria for Anterior infarct are now present-Nonspecific T wave abnormality has replaced inverted T waves in Lateral leads- [facility] [id number] 16:42:00 Test Item Value Reference Range Interpretation Comments ABO grouping (test code = 883-9) A Rh type (test code = 37287-8) NEG Antibody screen (gel) (test code = NEG 890-4) [facility] and [id number] 16:42:00 Test Item Value Reference Range Interpretation Comments ABO grouping (test code = 883-9) A Rh type (test code = 55997-8) NEG Antibody screen (gel) (test code = NEG 890-4) [facility] qualitative [id number] 04:01:22 Test Item Value Reference Range Interpretation Comments Interpretation (test Negative results do code = 9452416) not preclude 2019-nCoV infection and should not be used as the sole basis for treatment or other patient management decisions. Negative results must be combined with clinical observations, patient history, and epidemiological information. COVID-19 qualitative Not-Detected Not-Detected RT-PCR result (test code = 71280-4) COVID-19 qualitative See link below for C ase Number: RT-PCR (test code = PDF Lab Report [id number]) [facility] [id number] 04:01:22 Test Item Value Reference Range Interpretation Comments Interpretation (test Negative results do code = 1582042) not preclude 2019-nCoV infection and should not be used as the sole basis for treatment or other patient management decisions. Negative results must be combined with clinical observations, patient history, and epidemiological information. 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 employed in a healthcare setting (test code = 63563-3) Whether the patient has symptoms related to condition of interest (test code = 03613-9) Patient was hospitalized because of this condition (test code = 76211-4) Whether the patient was admitted to intensive care unit (ICU) for condition of interest (test code = 86148-4) Whether patient resides in a congregate care setting (test code = 57759-4) GINA KEN [id number]-DqP-7 (COVID-19) RNA [Presence] in Respiratory specimen by MACARIO with probe [id number] 17:19:30 Test Item Value Reference Range Interpretation Comments SARS-CoV-2 (COVID-19) RNA Not detected Not-Detected [Presence] in Respiratory specimen by MACARIO with probe detection (test code = 01320-5) GINA KEN JWGIXUUI-KqQ-0 (COVID-19) RNA [Presence] in Respiratory specimen by MACARIO with probe [id number] 23:29:51 Test Item Value Reference Range Interpretation Comments SARS-CoV-2 (COVID-19) RNA Not detected Not-Detected [Presence] in Respiratory specimen by MACARIO with probe detection (test code = 50917-7) GINA KEN MTXVEKYV-VvL-0 (COVID-19) RNA [Presence] in Respiratory specimen by MACARIO with probe [id number] 06:39:23 Test Item Value Reference Range Interpretation Comments SARS-CoV-2 (COVID-19) RNA Not detected Not-Detected [Presence] in Respiratory specimen by MACARIO with probe detection (test code = 09856-6) GINA KEN WESTPOCT URINALYSIS [id number] 00:00:00 Test Item Value Reference Range Interpretation Comments COLOR UA (test code = 5778-6) Yellow YELLOW/STRAW CLARITY UA (test code = 09390-9) Clear CLEAR GLUCOSE UA (test code = 5792-7) Negative NEGATIVE BILIRUBIN UA (test code = 5770-3) Negative NEGATIVE KETONES UA (test code = 42319-8) Negative NEGATIVE SPECIFIC GRAVITY UA (test code = 1.005-1.035 5811-5) BLOOD UA (test code = 5794-3) Negative NEGATIVE PH UA (test code = 5803-2) 5.0-9.0 PROTEIN UA (test code = 5804-0) Negative NEGATIVE UROBILINOGEN UA (test code = 0.02 E.U/DL NORMAL MG/DL 5818-0) LEUKOCYTE ESTERASE UA (test code Negative NEGATIVE = 5799-2) NITRITE UA (test code = 5802-4) Negative NEGATIVE REDUCING SUBSTANCES URINE (test code = 77672-7) [facility] RNA [Presence] in Respiratory specimen by MACARIO with probe [id number] 19:36:27 Test Item Value Reference Range Interpretation Comments SARS-CoV-2 (COVID-19) RNA Not detected Not-Detected [Presence] in Respiratory specimen by MACARIO with probe detection (test code = 45356-5) GINA MALDONADOSARS-CoV-2 (COVID-19) RNA [Presence] in Respiratory specimen by MACARIO with probe [id number] 02:41:46 Test Item Value Reference Range Interpretation Comments SARS-CoV-2 (COVID-19) RNA Not detected Not-Detected [Presence] in Respiratory specimen by MACARIO with probe detection (test code = 31276-2) GINA KEN WESTPOCT URINALYSIS [id number] 00:00:00 Test Item Value Reference Range Interpretation Comments COLOR UA (test code = 5778-6) Maria D YELLOW/STRAW CLARITY UA (test code = 94372-0) Clear CLEAR GLUCOSE UA (test code = 5792-7) Negative NEGATIVE BILIRUBIN UA (test code = 5770-3) Negative NEGATIVE KETONES UA (test code = 07555-4) Negative NEGATIVE SPECIFIC GRAVITY UA (test code = 1.005-1.035 5811-5) BLOOD UA (test code = 5794-3) Negative NEGATIVE PH UA (test code = 5803-2) 5-9 PROTEIN UA (test code = 5804-0) Negative NEGATIVE UROBILINOGEN UA (test code = 0.02 E.U/DL NORMAL MG/DL 5818-0) LEUKOCYTE ESTERASE UA (test code Negative NEGATIVE = 5799-2) NITRITE UA (test code = 5802-4) Negative NEGATIVE REDUCING SUBSTANCES URINE (test code = 04012-7) [facility] [id number] 12:59:00 FINAL REPORT PROCEDURE: MRI PROSTATE WITHOUT CONTRAST COMPARISON: Prostate MRI 06/10/2017 CLINICAL HISTORY: R97.20,C61 TECHNIQUE: Using a phased array coil small keijy-ax-fprx imaging of the prostate was performed using the following sequences; [axial T2-weighted, sagittal T2-weighted,oblique coronal T2-weighted, diffusion-weighted]. Using a large fxhps-xc-ally, the entire pelvis to the level of the aortic bifurcation was imaged with nonfat suppressed T1 sequence FINDINGS: Image quality is mildly motion degraded PROSTATE: Size of total gland: 4.6 x 5.9 x 5.9 cm. Total volume 83.7 cc. Transitional zone: 4.5 x 5.1 x 4.7 cm. Transitional zone volume 56.4 cc. BPH: Diffuse glandularstromal hyperplasiaMedian lobe: Present, smallEvidence of TURP: NoneCalcifications [...] coronal plane (series 4, image 10) with well- defined borders and mild to moderate hypointensity on [...] and/or DCE. Signed: Dirk Olsen MDReport Verified Da te/Time: 07/15/2018 12:59:22
[2022-04-30] MEDS ORDERED: ASPIRIN 81 MG CHEWABLE TABLET ONE (16:42)
[2022-04-30 16:51] LABS: Absolute Lymphocytes (CBC) 1.3 K/uL (0.7-4.9); Hematocrit 38.2 % (39.6-49.0); Lymphocytes % 18.2 % (15.3-44.8); MCV 92.5 fL (80-100); MPV 8.4 fL (7.6-11.3); RBC Red Blood Cell Count 4.13 M/uL (4.33-5.43)
--- NOTE | 2022-04-30 17:05 | ER ---
Nurse's Notes [facility] Name: Kp Arriola Age: 77 yrs Sex: Male : 1945 Arrival Date: 04/30/2022 Time: 16:03 Bed 14 Private MD: João Zheng V Diagnosis: Dyspnea, unspecified Presentation: 04/30 16:19 Chief complaint: Patient states: had some labs done today per Dr. Zheng, was called and iw told to come to ER for evaluation , pt c/o SOB X 2 weeks, extensive cardiac hx. Coronavirus screen: At this time, the client does not indicate any symptoms associated with coronavirus-19. Ebola Screen: Patient negative for fever greater than or equal to 101.5 degrees Fahrenheit, and additional compatible Ebola Virus Disease symptoms Patient denies exposure to infectious person. Patient denies travel to an Ebola-affected area in the 21 days before illness onset. No symptoms or risks identified at this time. 16:19 Method Of Arrival: Wheelchair iw 16:20 Initial Sepsis Screen: Does the patient meet any 2 criteria? No. Patient's initial iw sepsis screen is negative. Does the patient have a suspected source of infection? No. Patient's initial sepsis screen is negative. Risk Assessment: Do you want to hurt yourself or someone else? Patient reports no desire to harm self or others. Onset of symptoms was April 15, 2022. 16:20 Acuity: GAMAL 2 iw Triage Assessment: 16:20 General: Appears distressed, Behavior is calm, cooperative, appropriate for age. Pain: bp Denies pain. EENT: No deficits noted. Neuro: No deficits noted. Cardiovascular: No deficits noted. Respiratory: Reports shortness of breath. GI: No signs and/or symptoms were reported involving the gastrointestinal system. : No signs and/or symptoms were reported regarding the genitourinary system. Derm: No deficits noted. Musculoskeletal: No deficits noted. Historical: - Allergies: 16:34 No Known Allergies; iw - Home Meds: 16:21 pantoprazole 40 mg oral TbEC 1 tab once daily [Active]; bupropion HCl 150 mg Oral Tb24 iw 1 tab once daily [Active]; finasteride 5 mg oral tab 1 tab once daily [Active]; tadalafil 5 mg oral tab 1 tab once daily [Active]; Lasix 20 mg Oral tab 1 tab once daily [Active]; FUNERAL HOME ATTENDANT Thyroid 30 mg oral tab 1 tab once daily [Active]; multivitamin oral cap daily [Active]; Tikosyn 250 mcg oral cap 1 cap 2 times per day [Active]; Entresto 24-26 mg oral tab 1 tab 2 times per day [Active]; Eliquis 5 mg oral tab 1 tab 2 times per day [Active]; metoprolol succinate 25 mg oral CSpX 2 caps once daily [Active]; colesevelam oral 2 times per day [Active]; Lipitor 10 mg Oral tab 1 tab once daily [Active]; calcium plus D3 daily [Active]; dorzolamide ophthalmic (eye) twice a day [Active]; Ventolin Nebulizer as needed [Active]; Trelegy Ellipta 100-62.5-25 mcg inhalation dsdv 1 puff once daily [Active]; tramadol Oral as needed [Active]; Klonopin 0.5 mg Oral tab as needed [Active]; - PMHx: 16:20 Atrial Fib; CHF; kidney cancer; bp 16:34 Cardiac pacemaker in situ; bp - PSHx: 16:34 CARDIAC STENT; LAST 03/25/19; bp - Immunization history:: Adult Immunizations up to date. - Social history:: Smoking status: Patient denies any tobacco usage or history of. Screenin:20 [facility] ED Fall Risk Assessment (Adult) History of falling in the last 3 months, bp including since admission No falls in past 3 months (0 pts). Humpty Dumpty Scale Fall Assessment Tool (age< 18yrs) Age 13 years and above (1 pt). Abuse screen: Denies threats or abuse. Denies injuries from another. Nutritional screening: No deficits noted. Tuberculosis screening: No symptoms or risk factors identified. Fall Risk Fall in past 12 months (25 points). No secondary diagnosis (0 pts). IV access (20 points). Ambulatory Aid- None/Bed Rest/Nurse Assist (0 pts). Gait- Normal/Bed Rest/Wheelchair (0 pts) Mental Status- Oriented to own ability (0 pts). Total Pressley Fall Scale indicates High Risk Score (45 or more points). Fall prevention measures have been instituted. Side Rails Up X 2 Placed Close to Nursing Station Frequent Obs/Assessments Occuring Family Present and informed to notify staff if the need to leave the bedside As available patient and family educated on Fall Prevention Program and Strategies. Assessment: 16:20 General: SEE TRIAGE NOTE. bp Vital Signs: 16:19 BP 118 / 83; Pulse 61; Resp 16; Pulse Ox 100% on R/A; iw 17:38 BP 110 / 89; Pulse 70; Resp 20; Pulse Ox 100% on R/A; tm3 ED Course: 16:03 Patient arrived in ED. mr 16:03 João Zheng MD is Private Physician. mr 16:03 Marta Mckeon FNP-C is [facility]. snw 16:03 Asaf Ingram DO is Attending Physician. snw 16:15 Note: pt just had cxr 2 views taken at 1500 as an out patient to r/o pneumonia. mh1 16:19 EKG done, by ED staff. tm3 16:20 Patient has correct armband on for positive identification. Bed in low position. Call bp light in reach. Side rails up X2. Adult w/ patient. 16:21 Triage completed. iw 16:28 Anibal Booth, RN is Primary Nurse. bp 16:34 Arm band placed on. iw 16:35 Initial lab(s) drawn, by me, First set of blood cultures drawn COVID swab sent to lab. tm3 16:38 Inserted saline lock: 20 gauge in right antecubital area, using aseptic technique. bp Blood collected. 17:04 João Zheng MD is Hospitalizing Provider. snw 17:20 CT Chest For PE Angio In Process Unspecified. EDMS 17:30 Second set of blood cultures drawn by me. tm3 17:55 No provider procedures requiring assistance completed. Patient admitted, IV remains in bp place. Administered Medications: 16:30 Drug: Aspirin Chewable Tablet 324 mg Route: PO; bp 17:25 Follow up: Response: No adverse reaction bp 17:30 Drug: Lasix (furosemide) 20 mg Route: IVP; Site: right antecubital; bp Medication: 16:20 VIS not applicable for this client. bp Outcome: 17:04 Decision to Hospitalize by Provider. snw 17:55 Condition: stable bp 17:55 Instructed on the need for admit. 18:24 Admitted to Med/surg accompanied by tech, family with patient, via stretcher, room 211, bp with chart, Report called to MONICA BALDWIN 18:41 Patient left the ED. bp Signatures: Dispatcher [employer] EDMS Nabil Wen tm3 Marta Mckeon, WIRE COATING OPERATOR METAL-C WIRE COATING OPERATOR METAL-Csnw Deanna Archuleta Martha mh1 Noemi Lam, RN RN Anibal Hollins RN RN bp Corrections: (The following items were deleted from the chart) 16:21 16:19 Chief complaint: Patient states: had some labs done today per Dr. Zheng, was iw called and told to come to ER for evaluation iw
--- NOTE | 2022-04-30 17:05 | EDPHYS ---
Physician Documentation [facility] Name: Kp Arriola Age: 77 yrs Sex: Male : 1945 Arrival Date: 04/30/2022 Time: 16:03 Bed 14 Private MD: João Zheng V ED Physician Asaf Ingram HPI: 04/30 16:26 This 77 yrs old Male presents to ER via Wheelchair with complaints of Abnormal Lab snw Results. 16:26 The patient has shortness of breath at rest. Onset: The symptoms/episode began/occurred snw acutely, 2 week(s) ago, and became persistent. Duration: The symptoms are continuous. Associated signs and symptoms: Pertinent positives: This patient does not have any pertinent positive signs or symptoms associated with shortness of breath. Severity of symptoms: At their worst the symptoms were moderate. The patient has experienced similar episodes in the past. The patient has been recently seen by a physician: the patient's primary care provider, Dr. Zheng with similar presenting complaints, lab tests were done, and was sent to the [facility] Emergency Department for further evaluation. Historical: - Allergies: 16:34 No Known Allergies; iw - Home Meds: 16:21 pantoprazole 40 mg oral TbEC 1 tab once daily [Active]; bupropion HCl 150 mg Oral Tb24 iw 1 tab once daily [Active]; finasteride 5 mg oral tab 1 tab once daily [Active]; tadalafil 5 mg oral tab 1 tab once daily [Active]; Lasix 20 mg Oral tab 1 tab once daily [Active]; PHONE TRIAGE SPECIALIST Thyroid 30 mg oral tab 1 tab once daily [Active]; multivitamin oral cap daily [Active]; Tikosyn 250 mcg oral cap 1 cap 2 times per day [Active]; Entresto 24-26 mg oral tab 1 tab 2 times per day [Active]; Eliquis 5 mg oral tab 1 tab 2 times per day [Active]; metoprolol succinate 25 mg oral CSpX 2 caps once daily [Active]; colesevelam oral 2 times per day [Active]; Lipitor 10 mg Oral tab 1 tab once daily [Active]; calcium plus D3 daily [Active]; dorzolamide ophthalmic (eye) twice a day [Active]; Ventolin Nebulizer as needed [Active]; Trelegy Ellipta 100-62.5-25 mcg inhalation dsdv 1 puff once daily [Active]; tramadol Oral as needed [Active]; Klonopin 0.5 mg Oral tab as needed [Active]; - PMHx: 16:20 Atrial Fib; CHF; kidney cancer; bp 16:34 Cardiac pacemaker in situ; bp - PSHx: 16:34 CARDIAC STENT; LAST 03/25/19; bp - Immunization history:: Adult Immunizations up to date. - Social history:: Smoking status: Patient denies any tobacco usage or history of. ROS: 16:26 Eyes: Negative for injury, pain, redness, and discharge, ENT: Negative for injury, snw pain, and discharge, Neck: Negative for injury, pain, and swelling, Cardiovascular: Negative for chest pain, palpitations, and edema. 16:26 Abdomen/GI: Negative for abdominal pain, nausea, vomiting, diarrhea, and constipation, Back: Negative for injury and pain, : Negative for injury, bleeding, discharge, and swelling, MS/Extremity: Negative for injury and deformity, Skin: Negative for injury, rash, and discoloration, Neuro: Negative for headache, weakness, numbness, tingling, and seizure, Psych: Negative for depression, anxiety, suicide ideation, homicidal ideation, and hallucinations. 16:26 Constitutional: Positive for body aches, fatigue, malaise. 16:26 Respiratory: Positive for shortness of breath, at rest. Exam: 16:24 Constitutional: This is a well developed, well nourished patient who is awake, alert, snw and in no acute distress. Head/Face: Normocephalic, atraumatic. Eyes: Pupils equal round and reactive to light, extra-ocular motions intact. Lids and lashes normal. Conjunctiva and sclera are non-icteric and not injected. Cornea within normal limits. Periorbital areas with no swelling, redness, or edema. ENT: Nares patent. No nasal discharge, no septal abnormalities noted. Tympanic membranes are normal and external auditory canals are clear. Oropharynx with no redness, swelling, or masses, exudates, or evidence of obstruction, uvula midline. Mucous membranes moist. Neck: Trachea midline, no thyromegaly or masses palpated, and no cervical lymphadenopathy. Supple, full range of motion without nuchal rigidity, or vertebral point tenderness. No Meningismus. Chest/axilla: Normal chest wall appearance and motion. Nontender with no deformity. No lesions are appreciated. 16:24 Abdomen/GI: Soft, non-tender, with normal bowel sounds. No distension or tympany. No guarding or rebound. No evidence of tenderness throughout. Back: No spinal tenderness. No costovertebral tenderness. Full range of motion. 16:24 MS/ Extremity: Pulses equal, no cyanosis. Neurovascular intact. Full, normal range of motion. Neuro: Awake and alert, GCS 15, oriented to person, place, time, and situation. Cranial nerves II-XII grossly intact. Motor strength 5/5 in all extremities. Sensory grossly intact. Cerebellar exam normal. Normal gait. Psych: Awake, alert, with orientation to person, place and time. Behavior, mood, and affect are within normal limits. 16:24 Cardiovascular: Rate: normal, Rhythm: irregularly irregular, Pulses: no pulse deficits are appreciated, Heart sounds: murmur, systolic, grade 4 over 6, heard in the mitral area, Edema: is not appreciated, JVD: is not appreciated. 16:24 Respiratory: the patient does not display signs of respiratory distress, Respirations: normal, Breath sounds: rhonchi, that are moderate, are heard in the left posterior lower lobe. 16:24 Skin: Appearance: Color: dusky. Vital Signs: 16:19 BP 118 / 83; Pulse 61; Resp 16; Pulse Ox 100% on R/A; iw 17:38 BP 110 / 89; Pulse 70; Resp 20; Pulse Ox 100% on R/A; tm3 MDM: 16:07 Patient medically screened. ms3 17:03 Data reviewed: vital signs, nurses notes. Data interpreted: Pulse oximetry: on room air snw is 100 %. Interpretation: normal. Counseling: I had a detailed discussion with the patient and/or guardian regarding: the need for further work-up and treatment in the hospital. Physician consultation: Clifton Durbin MD was called at 17:03, was contacted at 17:03, regarding consult, and will see patient in ED, shortly. 04/30 16:08 Order name: Basic Metabolic Panel; Complete Time: 17:18 ms3 04/30 16:08 Order name: CBC with Diff; Complete Time: 17:18 ms3 04/30 16:08 Order name: Magnesium; Complete Time: 17:18 ms3 04/30 16:08 Order name: NT PRO-BNP; Complete Time: 17:18 ms3 04/30 16:08 Order name: Troponin HS; Complete Time: 17:18 ms3 04/30 16:22 Order name: Blood Culture Adult (2) snw 04/30 16:08 Order name: EKG; Complete Time: 16:09 ms3 04/30 16:08 Order name: Cardiac monitoring; Complete Time: 16:34 ms3 04/30 16:08 Order name: CT Chest For PE Angio; Complete Time: 17:41 ms3 04/30 16:22 Order name: TSH; Complete Time: 17:19 snw 04/30 16:51 Order name: SARS RAPID; Complete Time: 17:25 snw 04/30 16:08 Order name: EKG - Nurse/Tech; Complete Time: 16:34 ms3 04/30 16:08 Order name: IV Saline Lock; Complete Time: 16:34 ms3 04/30 16:08 Order name: Labs collected and sent; Complete Time: 16:34 ms3 04/30 16:08 Order name: O2 Per Protocol; Complete Time: 16:34 ms3 04/30 16:08 Order name: O2 Sat Monitoring; Complete Time: 16:34 ms3 EC:28 Rate is 60 beats/min. Rhythm is irregularly irregular. QT interval is prolonged. snw Clinical impression: Low voltage paced. Pt had a run of VT while I was in the room, no defib. Converted back to paced post 1.5 minutes. Administered Medications: 16:30 Drug: Aspirin Chewable Tablet 324 mg Route: PO; bp 17:25 Follow up: Response: No adverse reaction bp 17:30 Drug: Lasix (furosemide) 20 mg Route: IVP; Site: right antecubital; bp Disposition: 17:03 Co-signature as Attending Physician, Asaf DELANEY/PHONE TRIAGE SPECIALIST's history reviewed, patient ms3 interviewed, and examined. HPI: 77-year-old male with past medical history of endocarditis, prostate cancer, atrial fibrillation, congestive heart failure presents with his for shortness of breath and chest pain that began 2 weeks prior to arrival. Patient was sent to the emergency department by Dr. Zheng for elevated troponin of 110 and elevated D-dimer of 850 My personal exam of patient reveals: On exam patient is alert and oriented x4, in no apparent distress, nontoxic-appearing. Heart rate and rhythm are regular without murmurs rubs or gallops. Lungs are clear to auscultation bilaterally. Abdomen is nontender to palpation. Skin is nondiaphoretic and without rashes. I agree with assessment and care plan and confirm the diagnosis (es) above. Disposition Summary: 04/30/22 17:04 Hospitalization Ordered Hospitalization Status: Inpatient Admission snw Provider: João Zheng snw Location: Telemetry/MedSurg (Inpatient) snw Condition: Stable snw Problem: an acute exacerbation snw Symptoms: are unchanged snw Bed/Room Type: Standard snw Room Assignment: 211(04/30/22 17:51) dw Diagnosis - Dyspnea, unspecified snw Forms: - Medication Reconciliation Form snw - SBAR form snw Signatures: Dispatcher [employer] EDMS Latia Torres RN RN dw Waters, Shelly, ASPHALT SPREADER OPERATOR-C ASPHALT SPREADER OPERATOR-Csnw Noemi Lam, RN Anibal Peña RN RN Asaf Lowery DO DO ms3 Corrections: (The following items were deleted from the chart) 16:15 16:09 Chest Single View+RAD.RAD.BRZ ordered. EDCT EDMS 17:51 17:04 snw dw
[2022-04-30 17:14] LABS: Magnesium 1.9 mg/dL (1.6-2.4); Potassium 4.5 mmol/L (3.5-5.1); Troponin High Sensitivity 102.4 pg/mL (<58.9)
[2022-04-30 17:24] LABS: SARS-CoV-2 Antigen Rapid Res Negative (Negative)
[2022-04-30] MEDS ORDERED: ACETAMINOPHEN 500 MG TAB PO PRN (17:27)
[2022-04-30] MEDS ORDERED: FUROSEMIDE 20 MG/ 2ML VIAL ONE (17:36)
--- NOTE | 2022-04-30 17:40 | RAD REPORT ---
EXAM DESCRIPTION: CT - Chest For Pe Angio - 04/30/2022 5:19 pm CLINICAL HISTORY: Chest pain. chest pain, sob COMPARISON: Thorax W/ Con dated 03/08/2022 TECHNIQUE: CT angiogram of the pulmonary arteries was performed with MIP. All CT scans are performed using dose optimization technique as appropriate and may include automated exposure control or mA/KV adjustment according to patient size. FINDINGS: No evidence of pulmonary thromboembolism. Thoracic aorta is suboptimally contrast opacified for assessment. Fibrotic and emphysematous changes are present throughout the lungs greatest in the lung bases. Mild superimposed infiltrate is present in both lung bases posteriorly. Trace bilateral pleural effusion. Significant cardiomegaly. Enlarged lymph nodes are seen in the mediastinum and both hilar regions. No concerning bony finding. IMPRESSION: No evidence of pulmonary thromboembolism. Fibrotic and emphysematous changes throughout the lung adamson with mild opacities in both posterior l fidelia bases which may represent infection/developing infiltrate.
--- NOTE | 2022-04-30 18:31 | CON ---
Date of Consultation: 04/30/2022 Reason For Consultation: Shortness of breath. Requesting Physician: João Zheng MD History Of Present Illness: This is a 77-year-old male with a significant past medical history of co ngestive heart failure, atrial fibrillation, congestive heart failure is nonischemic, dyslipidemia, h ypertension, history of pulmonary embolism in the past, anticoagulation presented to his primary care doctor's office and he had some shortness of breath, so the patient was sent to the hospital for emily luation, D-dimer, and was reported that the troponin was elevated . He claimed that he is having some shortness of breath, but it is not worse than usual. Also, he has some orthopnea, but th ere is no chest pain. Also as per history, the patient had a totally normal coronary angiogram 2 yea rs ago done by Dr. Callahan at [facility]. Past Medical History: As outlined above in HPI. Medications: Refer to reconciliation sheet for detailed list. Allergies: NO KNOWN DRUG ALLERGIES. Family History: No premature coronary artery disease or cancer. Social History: Does not smoke or drink. Does not use drugs. Review of Systems: All systems reviewed and they were negative except what mentioned in HPI. Physical Examination: Vital Signs: Reviewed. Head and Neck: Pupils are equal, reactive to light. Intact eye movements. Mild JVD elevation. Lungs: Clear to auscultation bilaterally. No rhonchi, wheezing, or crackles. No accessory muscle u se. Heart: Irregular. No extra sounds. Abdomen: Soft, nontender. Bowel sounds positive. No organomegaly. No masses or hernia. No rigidi ty or rebound. Extremities: No edema, clubbing, or cyanosis. Intact pulses. Skin: No rash. Neurologic: Alert, awake, oriented. No acute focal deficits appreciated. Lymph Nodes: No cervical or axillary lymphadenopathy. Investigations: Chest x-ray, questionable pneumonia. Assessment And Recommendations: 1.Shortness of breath. He has elevated D-dimer. Await on his blood work to decide on the modality of testing. His chemistry profile is pending. If his creatinine is normal, then CTA will be recomme nded and also check troponin level now and trend it for 2 more sets. Further recommendations to foll ow based on the above workup and please obtain echocardiogram in the morning. 2.History of pulmonary embolism with shortness of breath and elevated D-dimer. The patient needs to be placed on full-dose of anticoagulation and pending the PE workup. Further recommendations to fol low after we get some results as outlined above. Thank you for the consult. JASIEL Voice ID: [id number] Report ID: [id number]
[2022-04-30] MEDS ORDERED: ALBUTEROL INHALER 60 PUFF/8 GM IH PRN (21:32)
[2022-04-30 21:40] VITALS: BMI 23.8
[2022-04-30] MEDS ORDERED: clonazePAM 0.5 MG TAB PO PRN (22:30)
[2022-05-01 05:09] VITALS: O2SAT 99
[2022-05-01 05:22] VITALS: BP 113/71
[2022-05-01 06:01] LABS: Absolute Lymphocytes (CBC) 1.4 K/uL (0.7-4.9); Hematocrit 34.2 % (39.6-49.0); Lymphocytes % 20.1 % (15.3-44.8); MCV 91.7 fL (80-100); MPV 8.8 fL (7.6-11.3); RBC Red Blood Cell Count 3.73 M/uL (4.33-5.43)
[2022-05-01 06:14] LABS: Potassium 3.9 mmol/L (3.5-5.1)
[2022-05-01] MEDS ORDERED: THYROID 30 MG TAB PO SCH (07:30)
[2022-05-01 08:53] VITALS: TEMP 98.7
[2022-05-01] MEDS ORDERED: APIXABAN 5 MG TABLET PO SCH (09:00)
[2022-05-01] MEDS ORDERED: VILANTER IH SCH (09:00)
[2022-05-01] MEDS ORDERED: SACUBITRIL/VALSARTAN 24/26 MG TAB PO SCH (09:00)
[2022-05-01] MEDS ORDERED: FINASTERIDE 5 MG TAB PO SCH (09:00)
[2022-05-01] MEDS ORDERED: BUPROPION HCL XL 150 MG TAB PO SCH (09:00)
[2022-05-01] MEDS ORDERED: FUROSEMIDE 20 MG/ 2ML VIAL IV SCH (09:00)
[2022-05-01] MEDS ORDERED: FLUTICASONE IH SCH (09:00)
[2022-05-01] MEDS ORDERED: ATORVASTATIN 10 MG TAB PO SCH (09:00)
[2022-05-01] MEDS ORDERED: TADALAFIL 5 MG PO SCH (09:00)
[2022-05-01] MEDS ORDERED: COLESEVELAM HCL 625 MG PO SCH (09:00)
[2022-05-01] MEDS ORDERED: UMECLIDIN IH SCH (09:00)
[2022-05-01] MEDS ORDERED: TRAMADOL HCL 50 MG TAB PO SCH (09:00)
[2022-05-01] MEDS ORDERED: METOPROLOL XL 25 MG TAB PO SCH (09:00)
[2022-05-01] MEDS ORDERED: DORZOLAMIDE HCL OPTH SCH (09:00)
[2022-05-01] MEDS ORDERED: DOFETILIDE 250 MCG PO SCH (09:00)
[2022-05-01] MEDS ORDERED: MULTIVITAMIN TAB PO SCH (09:00)
--- NOTE | 2022-05-01 12:12 | P.SSS ---
Patient History Date of Service: 05/01/22 Reason for admission: DYSPNEA 3 WEEKS History of Present Illness: MR. ZAMBRANO IS PATIENT WITH MANY SERIOUS MEDICAL ISSUES STARTING WITH ENDOCARDITIS, LATER A FIB, CONGESTIVE CARDIOMYOPATHY, RECURRENT CHF EPISDOES, PROSTATE CANCER, RENAL CANCER, PULMONARY SCARRING, HISTORY OF RECURRENT PNEUMONIA AND RECURRENT UTI. HE COMES WITH DYSPNEA FOR A FEW WEEKS. ASSURES HE IS ON LOW SALT DIET. HIS D DIMER WSA IN 800S AND BNP IN THOUSANDS. HE IS ON IV LASIX BID FOR ONE DAY. HE MAY BE SLIGHTLY BETTER. HIS BP DOES NOT TOLERATE HIGH DOSE OF DIURETICS. HE UNDERSTANDS THAT THERE IS LIMIT IN WHAT ANY DOCTOR CAN DO. HE IS ON BEST COMBINATION OF MEDS FOR CHF. HEIS A VERY ANXIOUS MAN AND GETS AGITATED IN HOSPITAL. Allergies No Known Allergies Allergy (Unverified 08/02/11 21:17) Home medications list reviewed: Yes Home Medications: Apixaban [Eliquis] 5 mg PO BID 01/31/20 Calcium Carbonate/Vitamin D3 [Calcium 500-Vit D3 600 Tablet] 1 tab PO BEDTIME 01/31/20 Colesevelam HCl 625 mg PO BID 01/31/20 Fluticasone/Umeclidin/Vilanter [Trelegy Ellipta 100-62.5-25] 1 inh IH DAILY 01/31/20 Multivitamin [Multiple Vitamins] 1 tab PO DAILY 01/31/20 Tadalafil [Cialis] 5 mg PO DAILY 01/31/20 Thyroid,Pork [Filing Machine Operator Thyroid] 30 mg PO DAILY 01/31/20 Furosemide [Lasix] 20 mg PO DAILY 07/26/20 Albuterol Inhaler [Ventolin Inhaler*] 2 puff IH PRN PRN 02/14/22 Dofetilide [Tikosyn] 250 mcg PO BID 02/14/22 Dorzolamide HCl [Trusopt] 5 ml OP BID 02/14/22 Metoprolol Succinate [Toprol Xl*] 25 mg PO BID 02/14/22 Tramadol HCl [Ultram] 50 mg PO PRN PRN 02/14/22 clonazePAM [Klonopin*] 0.5 mg PO PRN PRN 02/14/22 Atorvastatin Calcium [Lipitor*] 1 tab PO DAILY 04/30/22 Finasteride 5 mg PO DAILY 04/30/22 Sacubitril/Valsartan [Entresto 24 mg-26 mg Tablet] 1 tab PO BID 04/30/22 buPROPion HCL [Bupropion Xl] 1 tab PO DAILY 04/30/22 - Past Medical/Surgical History Has patient received pneumonia vaccine in the past: Yes Diabetic: No -: Afib -: CHF -: BPH -: Prostate Cancer -: COPD-mild -: Hyperlipidemia -: Anxiety -: Hypothyroidism -: Cardioversion 12/31/2019, 03/16/2020, 07/21/2020 -: Ablation 06/01/2019 -: Kidney cancer surgery (removed part of right kidney) 2011 -: Abdominal surgery (Twisted Omentum) 2002 -: Implanted detector for Afib Linq (not working) - Family History Mother -: Heart disease Notes: - blood clot Father Notes: Sister Notes: Genetic mutation that cause blood clots - Social History Smoking Status: Former smoker Alcohol use: No CD- Drugs: No Caffeine use: Yes Place of Residence: Home Physical Examination - Vital Signs Temperature: 98.7 F Blood Pressure: 113/71 Pulse: 59 Respirations: 14 Pulse Ox (%): 100 - Physical Exam General: Oriented x3, Mild distress ( SITTING.) HEENT: Atraumatic, PERRLA, Mucous membr. moist/pink, EOMI, Sclerae nonicteric Neck: Supple, 2+ carotid pulse no bruit, No LAD, Without JVD or thyroid abnormality Respiratory: Clear to auscultation bilaterally, Normal air movement Cardiovascular: Regular rate/rhythm, Normal S1 S2 Gastrointestinal: Normal bowel sounds, No tenderness Musculoskeletal: No tenderness Integumentary: No rashes Neurological: Normal gait, Normal speech, Normal strength at 5/5 x4 extr, Normal tone, Normal affect Lymphatics: No axilla or inguinal lymphadenopathy - Studies Laboratory Data (last 24 hrs) 04/30/22 16:35: WBC 7.40, Hgb 12.5 L, Hct 38.2 L, Plt Count 162 04/30/22 16:35: Sodium 136, Potassium 4.5, BUN 35 H, Creatinine 1.38 H, Glucose 135 H, Magnesium 1.9 - Diagnosis (Problem(s)) (1) Systolic CHF, acute on chronic Current Visit: No Status: Acute Plan: CONT SAME MEDS ENTRESTO AND LASIX AT HOME. BP LOW NORMAL TO TOLERATE ANY MORE MEDS. 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 (2) A-fib Current Visit: No Status: Chronic Qualifiers: - Disposition Disposition: ROUTINE DISCHARGE Condition: SERIOUS
--- NOTE | 2022-05-01 14:00 | EKG ---
Test Date: 2022-04-30 Test Time: 16:15:51 Manager Transfer: TM MEASUREMENT RESULTS: Intervals: Rate: 60 IL: 276 QRSD: 88 QT: 590 QTc: 590 Mckinney: P: 243 IL: 276 QRS: 97 T: 63 INTERPRETIVE STATEMENTS: Atrial-paced rhythm with prolonged AV conduction Low voltage QRS Anterolateral infarct, age undetermined T wave abnormality, consider inferior ischemia Prolonged QT Abnormal ECG Electronically Signed On 05-01-22 13:59:17 FISHING VESSEL OPERATOR by Clifton Durbin
--- NOTE | 2022-05-01 14:21 | ECHO ---
HEIGHT: 6 ft 1 in WEIGHT: 175 lb 0 oz DATE OF STUDY: 05/01/[address]: João Zheng MD 2-DIMENSIONAL: YES M.MODE: YES DOPPLER: YES COLOR FLOW: YES TDS: PORTABLE: YES DEFINITY: BUBBLE STUDY: DIAGNOSIS: SHORTNESS OF BREATH CARDIAC HISTORY: CATHERIZATION: NO SURGERY: NO PROSTHETIC VALVE: NO PACEMAKER: NO MEASUREMENTS (cm) DIASTOLIC (NORMALS) SYSTOLIC (NORMALS) IVSd 1.3 (0.6-1.2) LA Diam 4.9 (1.9-4.0) LVEF 40% LVIDd 5.8 (3.5-5.7) LVIDs 4.9 (2.0-3.5) %FS 16% LVPWd 1.3 (0.6-1.2) Ao Diam 3.1 (2.0-3.7) 2 DIMENSIONAL ASSESSMENT: RIGHT ATRIUM: NORMAL LEFT ATRIUM: ENLARGED RIGHT VENTRICLE: NORMAL LEFT VENTRICLE: MILD LEFT VENTRICULAR HYPERTROPHY TRICUSPID VALVE: MILD TRICUSPID REGURGITATION MITRAL VALVE: MILD MITRAL REGURGITATION PULMONIC VALVE: MILD PULMONIC INSUFFICIENCY AORTIC VALVE: NORMAL PERICARDIAL EFFUSION: NONE AORTIC ROOT: NORMAL LEFT VENTRICULAR WALL MOTION: MODERATE GLOBAL HYPOKINESIS DOPPLER/COLOR FLOW: SEE BELOW COMMENTS: 1. MODERATELY DEPRESSED LEFT VENTRICULAR EJECTION FRACTION 35-40% 2. MODERATE GLOBAL HYPOKINESIS 3. SEVERE PULMONARY HYPERTENSION WITH RIGHT VENTRICULAR SYSTOLIC PRESSURE GREATER THAN 60 mmHg AND RIGHT ATRIAL PRESSURE GREATER THAN 20 mmHg 4. DIASTOLIC DYSFUNCTION 5. LEFT ATRIAL ENLARGEMENT 6. MILD MITRAL REGURGITATION, TRICUSPID REGURGITATION, PULMONIC INSUFFICIENCY TECHNOLOGIST: SAIMA CORONADO
== END 2022-05-01 12:54 | disposition home or self-care (01) | DRG 291 ==
LOC: ER 15:57 → ERHOLD 17:26 → 2ND 18:33
PROVIDERS: ADMIT Internal Medicine; ATTEND Internal Medicine
DX: I11.0 Hypertensive heart disease with heart failure (principal); I50.23 Acute on chronic systolic (congestive) heart failure; I48.20 Chronic atrial fibrillation, unspecified; E78.5 Hyperlipidemia, unspecified; J44.9 Chronic obstructive pulmonary disease, unspecified; Z95.0 Presence of cardiac pacemaker; Z95.5 Presence of coronary angioplasty implant and graft; Z79.01 Long term (current) use of anticoagulants; Z79.890 Hormone replacement therapy; Z79.899 Other long term (current) drug therapy; Z85.528 Personal history of other malignant neoplasm of kidney; Z86.711 Personal history of pulmonary embolism; Z87.891 Personal history of nicotine dependence; Z20.822 Contact with and (suspected) exposure to COVID-19
CPT/HCPCS: 36415; 71046; 71275; 80048; 80053; 83735; 83880; 84443; 84484; 85025; 85379; 87040; 87811; 93005; 93306; 96374; 99285; J1940; Q9967